=== PATIENT | female | born 1950 | race Caucasian/White ===

== ENCOUNTER 2020-10-10 08:06 | Outpatient (REF) | payer MEDICARE, SELFPAY ==
[2020-10-10 11:21] LABS: Hematocrit 37.7 % (37-47); Mean Corpuscular HGB Conc 31.8 g/dl (31.0-35.0); Mean Corpuscular Hemoglobin 29.5 pg (27.0-33.0); Mean Corpuscular Volume 92.6 fL (80-98); Mean Platelet Volume 12.4 fL (9.4-12.3); Platelet Count 140 X10*3/uL (160-400); Red Blood Count 4.07 X10*6/uL (4.20-5.50); Red Cell Distribution Width 15.3 % (11.0-16.0); White Blood Count 7.5 X10*3/uL (4.8-10.8)
[2020-10-10 11:26] LABS: Estimated Average Glucose 160 mg/dL; Hemoglobin A1c % 7.2 %
[2020-10-10 11:44] LABS: Alanine Aminotransferase 35 U/L (0-31); Albumin Level 3.5 g/dL (3.5-5.0); Alkaline Phosphatase 75 U/L (39-117); Anion Gap 11 (12-20); Aspartate Amino Transferase 68 U/L (5-31); Bilirubin Total 0.7 mg/dL (0.0-1.0); Blood Urea Nitrogen 12 mg/dL (9-16); Calcium 8.5 mg/dL (8.4-10.2); Carbon Dioxide 32 mmol/L (22-29); Chloride 100 mmol/L (96-108); Cholesterol 137 mg/dL; Estimated Glomerular Filt Rate > 60; Glucose Fasting 143 mg/dL (60-99); HDL Cholesterol 38 mg/dL; LDL Cholesterol Calculated 83 mg/dl; Sodium 139 mmol/L (135-145); Triglycerides 80 mg/dL
[2020-10-10 11:56] LABS: TSH reflex Free T4 2.18 mIU/mL (0.32-4.0)
== END 2020-10-10 08:07 | disposition home or self-care (01) ==
LOC: HO.HMGCLDS 08:06
PROVIDERS: PCP Internal Medicine; Visit Provider Internal Medicine
DX: E11.65 Type 2 diabetes mellitus with hyperglycemia (principal); R74.8 Abnormal levels of other serum enzymes; J45.20 Mild intermittent asthma, uncomplicated; E78.5 Hyperlipidemia, unspecified
CPT/HCPCS: 36415; 80053; 80061; 83036; 84443; 85027

== ENCOUNTER 2021-01-14 08:07 | Outpatient (REF) | payer MEDICARE, SELFPAY ==
[2021-01-14 11:45] LABS: Estimated Average Glucose 166 mg/dL; Hemoglobin A1c % 7.4 %
[2021-01-14 12:12] LABS: Vitamin D 25-OH Total 43.8 ng/mL (>30)
[2021-01-14 12:14] LABS: Alanine Aminotransferase 40 U/L (0-31); Anion Gap 18 (12-20); Aspartate Amino Transferase 94 U/L (5-31); Blood Urea Nitrogen 10 mg/dL (9-16); Calcium 8.6 mg/dL (8.4-10.2); Carbon Dioxide 28 mmol/L (22-29); Chloride 98 mmol/L (96-108); Cholesterol 129 mg/dL; Estimated Glomerular Filt Rate > 60; Glucose Fasting 146 mg/dL (60-99); HDL Cholesterol 37 mg/dL; LDL Cholesterol Calculated 75 mg/dl; Sodium 140 mmol/L (135-145); Triglycerides 85 mg/dL
[2021-01-14 14:48] LABS: Microalbum/Creatinine Ratio Ur 4.6 ug/mg cr
== END 2021-01-14 08:08 | disposition home or self-care (01) ==
LOC: HO.HMGCLDS 08:07
PROVIDERS: PCP Internal Medicine; Visit Provider Internal Medicine
DX: M81.0 Age-related osteoporosis without current pathological fracture (principal); J45.20 Mild intermittent asthma, uncomplicated; E78.5 Hyperlipidemia, unspecified; E11.65 Type 2 diabetes mellitus with hyperglycemia; Z78.0 Asymptomatic menopausal state; I10 Essential (primary) hypertension
CPT/HCPCS: 36415; 80048; 80061; 82043; 82306; 83036; 84450; 84460

== ENCOUNTER 2021-04-23 07:24 | Outpatient (REF) | payer MEDICARE, SELFPAY ==
[2021-04-23 11:50] LABS: Estimated Average Glucose 171 mg/dL; Hemoglobin A1c % 7.6 %
[2021-04-23 12:07] LABS: Alanine Aminotransferase 31 U/L (0-31); Anion Gap 13 (12-20); Aspartate Amino Transferase 72 U/L (5-31); Blood Urea Nitrogen 10 mg/dL (9-16); Calcium 8.5 mg/dL (8.4-10.2); Carbon Dioxide 29 mmol/L (22-29); Chloride 102 mmol/L (96-108); Cholesterol 118 mg/dL; Estimated Glomerular Filt Rate > 60; Glucose Fasting 146 mg/dL (60-99); HDL Cholesterol 31 mg/dL; LDL Cholesterol Calculated 73 mg/dl; Potassium 4.4 mmol/L (3.3-5.1); Sodium 140 mmol/L (135-145); Triglycerides 71 mg/dL
[2021-04-23 12:20] LABS: Vitamin D 25-OH Total 41.4 ng/mL (>30)
== END 2021-04-23 07:25 | disposition home or self-care (01) ==
LOC: HO.HMGCLDS 07:24
PROVIDERS: PCP Internal Medicine; Visit Provider Internal Medicine
DX: E11.65 Type 2 diabetes mellitus with hyperglycemia (principal); E78.5 Hyperlipidemia, unspecified; M81.0 Age-related osteoporosis without current pathological fracture; I10 Essential (primary) hypertension; Z78.0 Asymptomatic menopausal state
CPT/HCPCS: 36415; 80048; 80061; 82306; 83036; 84450; 84460

== ENCOUNTER 2021-09-07 07:51 | Outpatient (REF) | payer MEDICARE, SELFPAY ==
[2021-09-07 12:17] LABS: Estimated Average Glucose 140 mg/dL; Hemoglobin A1c % 6.5 %
[2021-09-07 12:33] LABS: Vitamin D 25-OH Total 37.5 ng/mL (>30)
[2021-09-07 12:34] LABS: Alanine Aminotransferase 33 U/L (0-31); Anion Gap 14 (12-20); Aspartate Amino Transferase 66 U/L (5-31); Blood Urea Nitrogen 11 mg/dL (9-16); Calcium 8.7 mg/dL (8.4-10.2); Carbon Dioxide 27 mmol/L (22-29); Chloride 102 mmol/L (96-108); Cholesterol 110 mg/dL; Estimated Glomerular Filt Rate > 60; Glucose Fasting 126 mg/dL (60-99); HDL Cholesterol 38 mg/dL; LDL Cholesterol Calculated 61 mg/dl; Potassium 4.1 mmol/L (3.3-5.1); Sodium 139 mmol/L (135-145); Triglycerides 58 mg/dL
== END 2021-09-07 07:52 | disposition home or self-care (01) ==
LOC: HO.HMGCLDS 07:51
PROVIDERS: PCP Internal Medicine; Visit Provider Internal Medicine
DX: E11.65 Type 2 diabetes mellitus with hyperglycemia (principal); E78.5 Hyperlipidemia, unspecified; M81.0 Age-related osteoporosis without current pathological fracture; I10 Essential (primary) hypertension; Z78.0 Asymptomatic menopausal state
CPT/HCPCS: 36415; 80048; 80061; 82306; 83036; 84450; 84460

== ENCOUNTER 2022-01-11 08:30 | Outpatient (REF) | payer MEDICARE, SELFPAY ==
[2022-01-11 12:14] LABS: Alanine Aminotransferase 30 U/L (0-31); Anion Gap 14 (12-20); Aspartate Amino Transferase 59 U/L (5-31); Blood Urea Nitrogen 10 mg/dL (9-16); Calcium 8.7 mg/dL (8.4-10.2); Carbon Dioxide 27 mmol/L (22-29); Chloride 100 mmol/L (96-108); Cholesterol 103 mg/dL; Estimated Glomerular Filt Rate > 60; Glucose Fasting 132 mg/dL (60-99); HDL Cholesterol 32 mg/dL; LDL Cholesterol Calculated 58 mg/dl; Sodium 137 mmol/L (135-145); Triglycerides 67 mg/dL
[2022-01-11 12:22] LABS: Estimated Average Glucose 146 mg/dL; Hemoglobin A1c % 6.7 %
[2022-01-11 12:44] LABS: Creatinine Urine 214.79 mg/dL
== END 2022-01-11 08:31 | disposition home or self-care (01) ==
LOC: HO.HMGCLDS 08:30
PROVIDERS: PCP Internal Medicine; Visit Provider Internal Medicine
DX: M81.0 Age-related osteoporosis without current pathological fracture (principal); E78.5 Hyperlipidemia, unspecified; E11.65 Type 2 diabetes mellitus with hyperglycemia; I10 Essential (primary) hypertension; Z78.0 Asymptomatic menopausal state
CPT/HCPCS: 36415; 80048; 80061; 82043; 82306; 83036; 84450; 84460

== ENCOUNTER 2022-02-05 11:32 | Outpatient (REF) | payer MEDICARE, SELFPAY ==
--- NOTE | ~2022-02-05 | MM_ITS ---
EXAMINATION: MM SCREENING DIGITAL BREAST TOMOSYNTHESIS, BILATERAL CLINICAL INFORMATION: Screening. Asymptomatic. The lifetime risk of breast cancer based on the Tyrer-Cuzick Model is 9%. COMPARISON: Mammography: 04/22/2020, 02/24/2019, 02/14/2018 TECHNIQUE: Digital breast tomosynthesis is performed in both the craniocaudal and mediolateral oblique views along with computer-aided detection (CAD). Synthesized 2D images are generated from the tomosynthesis. Additional bilateral exaggerated CC views are provided. FINDINGS: There are scattered areas of fibroglandular density (ACR BI-RADS breast composition Category b). There are no significant masses, abnormal calcifications, or other abnormalities. Parenchymal pattern is similar to prior studies. The axilla and skin contours are unremarkable. MM/MM tomosynthesis screening BI IMPRESSION: No mammographic evidence of malignancy. ASSESSMENT: BI-RADS 1: Negative RECOMMENDATION: Routine annual mammography screening. This patient's information was entered into a reminder system with a target due date for their next mammogram.
== END 2022-02-05 11:33 | disposition home or self-care (01) ==
LOC: HO.MAMMO 11:32
PROVIDERS: Visit Provider Internal Medicine
DX: Z12.31 Encounter for screening mammogram for malignant neoplasm of breast (principal)
CPT/HCPCS: 77063; 77067

== ENCOUNTER 2022-04-27 10:38 | Outpatient (REF) | payer MEDICARE, SELFPAY ==
--- NOTE | ~2022-04-27 | MM_ITS ---
EXAMINATION: BONE DENSITOMETRY CLINICAL INDICATION: Other specified disorders of bone density and structure. COMPARISON: Previous BD dated 04/22/2020 and baseline BD dated 01/12/2008. TECHNIQUE: Using a [employer] DXA System (software version: 13.1) manufactured by [employer], dual-energy x-ray absorptiometry was performed of the lumbar spine and left hip. The images are of good technical quality. Summary results are attached. FINDINGS: AP SPINE L1-L2 (excluding L3 and L4): The data of L1-L4 has been changed to exclude the L3 and L4 vertebral bodies, because degenerative changes at these levels may cause overestimation of lumbar spine density. Current: BMD 0.848 g/cm2, Z-score -1.9, T-score -2.6, osteoporosis, 1.3% decrease from previous, 6.4% decrease from baseline (<5% change is not significant). Prior: BMD 0.859 g/cm2. Baseline: BMD 0.906 g/cm2. LEFT FEMUR, NECK: Current: BMD 0.926 g/cm2, Z-score 0.3, T-score -0.8, normal. Prior: BMD 0.948 g/cm2. Baseline: BMD 0.977 g/cm2. LEFT FEMUR, TOTAL: Current: BMD 0.961 g/cm2, Z-score 0.5, T-score -0.4, normal, 0.6% decrease from previous, 0.7% decrease from baseline (<5% change is not significant). Prior: BMD 0.967 g/cm2. Baseline: BMD 0.968 g/cm2. IDENTIFIED RISK FACTORS: Osteoporosis, recurrent falls, history of fracture (adult), menopause. HISTORY OF FRACTURE: Wrist. MEDICATIONS: Vitamin D, bisphosphonates. MM/XR DEXA axial skeleton IMPRESSION: 1. DIAGNOSIS: Osteoporosis based on the lowest T-score value of -2.6 in the lumbar spine applying World Health Organization criteria. 2. 10-YEAR FRACTURE RISK PREDICTION, FRAX: According to the guidelines, FRAX calculation should only be performed on patients in the osteopenia bone density category. Therefore, FRAX was not performed on this patient. 3. Treatment Recommendations: NOF guidelines recommend consideration for treatment in postmenopausal women and men age 50 and older presenting with the following: -A hip or vertebral (clinical or morphometric) fracture. -T-score less than or equal to -2.5 at the femoral neck or spine after appropriate evaluation to exclude secondary causes. -Low bone mass at the hip or spine and a 10-year fracture probability by FRAX of greater than or equal to 3% for hip fracture or greater than or equal to 20% for major osteoporotic fracture based on the [place] adapted WHO algorithm. 4. Other Recommendations: All treatment decisions require clinical judgment and consideration of individual patient factors, including patient preferences, comorbidities, previous drug use, risk factors not captured in the FRAX model (e.g. frailty, falls, vitamin D deficiency, increased bone turnover, interval significant decline in bone density) and possible under or overestimation of fracture risk by FRAX. Additional medical evaluation for secondary cause of low bone mineral density may be appropriate. FUTURE SCAN RECOMMENDATION: People with diagnosed cases of osteoporosis or at high risk for fracture should have regular bone mineral density tests. For patients eligible for Medicare, routine testing is allowed once every 2 years. The testing frequency can be increased to one year for patients who have rapidly progressing disease, those who are receiving or discontinuing medical therapy to restore bone mass, or have additional risk factors.
== END 2022-04-27 10:39 | disposition home or self-care (01) ==
LOC: HO.MAMMO 10:38
PROVIDERS: Visit Provider Internal Medicine
DX: Z13.820 Encounter for screening for osteoporosis (principal); N95.9 Unspecified menopausal and perimenopausal disorder; M85.88 Other specified disorders of bone density and structure, other site
CPT/HCPCS: 77080

== ENCOUNTER 2022-06-16 08:38 | Outpatient (REF) | payer MEDICARE, SELFPAY ==
[2022-06-16 12:11] LABS: Alanine Aminotransferase 20 U/L (0-31); Anion Gap 14 (12-20); Aspartate Amino Transferase 50 U/L (5-31); Blood Urea Nitrogen 10 mg/dL (9-16); Calcium 8.5 mg/dL (8.4-10.2); Carbon Dioxide 29 mmol/L (22-29); Chloride 101 mmol/L (96-108); Cholesterol 103 mg/dL; Estimated Glomerular Filt Rate > 60; Glucose Fasting 126 mg/dL (60-99); HDL Cholesterol 34 mg/dL; LDL Cholesterol Calculated 60 mg/dl; Potassium 4.2 mmol/L (3.3-5.1); Sodium 140 mmol/L (135-145); Triglycerides 48 mg/dL
[2022-06-16 12:19] LABS: Vitamin D 25-OH Total 50.2 ng/mL (>30)
[2022-06-16 14:41] LABS: Creatinine Urine 200.55 mg/dL; Microalbum/Creatinine Ratio Ur 5.4 ug/mg cr
[2022-06-17 07:24] LABS: Estimated Average Glucose 126 mg/dL
== END 2022-06-16 08:39 | disposition home or self-care (01) ==
LOC: HO.HMGCLDS 08:38
PROVIDERS: PCP Internal Medicine; Visit Provider Internal Medicine
DX: E11.9 Type 2 diabetes mellitus without complications (principal); E78.5 Hyperlipidemia, unspecified; N95.9 Unspecified menopausal and perimenopausal disorder; M85.88 Other specified disorders of bone density and structure, other site
CPT/HCPCS: 36415; 80048; 80061; 82043; 82306; 83036; 84450; 84460

== ENCOUNTER → 2022-07-06 12:51 | Outpatient (BNVA) | payer MEDICARE, SELFPAY | PROVIDERS: PCP Internal Medicine; Visit Provider Internal Medicine Endocrinology, Diabetes & Metabolism | DX: M81.0 Age-related osteoporosis without current pathological fracture (principal); Z79.899 Other long term (current) drug therapy | CPT/HCPCS: 99202 ==

== ENCOUNTER 2022-07-26 09:30 | Outpatient (REF) | payer MEDICARE, SELFPAY ==
[2022-07-26 11:49] LABS: Phosphorus 3.5 mg/dL (2.7-4.5)
[2022-07-26 12:36] LABS: Creatinine, mg/dL 61.53
[2022-07-26 12:52] LABS: Creatinine, 24Hr Urine 1.2 G/Day (1.0-2.0); Total Volume 24 Hour Urine 2000 mL
[2022-07-27 21:27] LABS: Prot Elec - Albumin 3.3 g/dL (3.8-4.8); Prot Elec - Alpha1 0.3 g/dL (0.2-0.3); Prot Elec - Alpha2 0.7 g/dL (0.5-0.9); Prot Elec - Beta 1 0.8 g/dL (0.4-0.6); Prot Elec - Beta 2 0.8 g/dL (0.2-0.5); Prot Elec - Gamma 1.9 g/dL (0.8-1.7); Prot Elec - Total Protein 7.7 g/dL (6.1-8.1)
[2022-07-28 17:37] LABS: Calcium, 24 Hr Urine 144 mg/24 h; Calcium/Creatinine Ratio 116 mg/g creat (30-275); Creatinine 24Hr Urine 1.24 g/24 h (0.50-2.15)
[2022-08-01 03:51] LABS: N-Telopeptide 30 (see note); NTXCreaRU 63 mg/dL (20-275)
== END 2022-07-26 09:31 | disposition home or self-care (01) ==
LOC: HO.HMGCLDS 09:30
PROVIDERS: PCP Internal Medicine; Visit Provider Internal Medicine Endocrinology, Diabetes & Metabolism
DX: M81.0 Age-related osteoporosis without current pathological fracture (principal)
CPT/HCPCS: 82340; 82523; 82570; 84100; 84165; 86335

== ENCOUNTER → 2022-08-10 09:14 | Outpatient (BNVA) | payer MEDICARE, SELFPAY | PROVIDERS: PCP Internal Medicine; Visit Provider Surgery Vascular Surgery | DX: I83.11 Varicose veins of right lower extremity with inflammation (principal) | CPT/HCPCS: 99202 ==

== ENCOUNTER 2022-09-30 14:25 | Outpatient (REF) | payer MEDICARE, SELFPAY ==
[2022-09-30 15:20] LABS: Influenza A PCR NEGATIVE (Negative); Influenza B PCR NEGATIVE (Negative); Resp Syncy Virus RNA Qual PCR NEGATIVE (Negative); SARS COV2 PCR INHOUSE NEGATIVE (Negative)
== END 2022-09-30 14:26 | disposition home or self-care (01) ==
LOC: HO.LNP 14:25
PROVIDERS: Visit Provider Internal Medicine
DX: Z20.822 Contact with and (suspected) exposure to COVID-19 (principal); R09.89 Other specified symptoms and signs involving the circulatory and respiratory systems
CPT/HCPCS: 0241U

== ENCOUNTER 2022-10-04 09:56 | Outpatient (REF) | payer MEDICARE, SELFPAY ==
--- NOTE | ~2022-10-04 | US_ITS ---
EXAMINATION: US LOWER EXTREMITY VENOUS (REFLUX EXAM), BILATERAL CLINICAL INDICATION: This is a 71-year-old female with a history of previous vein procedures of unknown type. COMPARISON: None. TECHNIQUE: Color flow triplex imaging and compression Doppler was performed to evaluate both the deep and the superficial systems bilaterally. To evaluate the superficial system, the examination was performed in the upright position. Color-flow Doppler ultrasound and compression ultrasound were utilized. In addition, maneuvers were utilized to demonstrate reflux. FINDINGS: 1. DEEP VENOUS ULTRASOUND OF THE RIGHT LOWER EXTREMITY: Common Femoral Vein: Compressible, normal respiratory variation and augmented flow. Femoral vein: Compressible, normal color flow and augmentation. Popliteal Vein: Compressible, normal augmentation. Deep Reflux: There is no evidence of reflux in the deep system in either the common femoral vein or the popliteal vein. There is no evidence of a Hernandez's cyst. 2. SUPERFICIAL ULTRASOUND WITH DOPPLER OF RIGHT LOWER EXTREMITY: GREAT SAPHENOUS VEIN: Saphenofemoral Junction: 1.0 cm. There is no reflux. Mid Thigh: Not seen and possibly treated. Above Knee: Not seen and possibly treated. Below Knee: 0.4 cm. There is greater than 2009 and 72 ms of reflux. Mid Calf: 0.4 cm. The reflux time is 2736 ms Ankle: 0.3 cm. The reflux time is 1788 ms. GSV REFLUX: There is isolated reflux in the great saphenous vein at the knee and extending down to the ankle. This may need further treatment. DUPLICATED GREAT SAPHENOUS VEIN: There is a 0.3 cm duplicated lateral great saphenous vein with greater than one second of reflux at the junction. SMALL SAPHENOUS VEIN: Proximal: 0.8 cm. The reflux time is 1608 ms. There is neovascularity around this segment. Distal: Not seen. SSV REFLUX: There is reflux at the saphenofemoral popliteal junction. VEIN OF GIACOMINI: None Imaged. PERFORATORS: There are multiple perforators present. In the mid calf measuring 1.1 cm without reflux. In the proximal calf measuring 0.1 cm with greater than 3 seconds of reflux. In the distal calf measuring 0.4 cm with greater than 3 seconds of reflux. VARICOSITIES: There are multiple 0.7 cm and 0.4 cm varicose veins in the proximal calf, at the knee with greater than 3 seconds of reflux to 3. DEEP VENOUS ULTRASOUND OF THE LEFT LOWER EXTREMITY: Common Femoral Vein: Compressible, normal respiratory variation and augmented flow. Femoral Vein: Compressible, normal color flow and augmentation. Popliteal Vein: Compressible, normal augmentation. Deep Reflux: There is no evidence of reflux in the deep system in either the common femoral vein or the popliteal vein. There is no evidence of a Hernandez's cyst. 4. SUPERFICIAL ULTRASOUND WITH DOPPLER OF LEFT LOWER EXTREMITY: GREAT SAPHENOUS VEIN: Saphenofemoral Junction: 1.1 cm. The reflux time is 1712 ms. Proximal thigh: 0.5 cm. There is no reflux. Mid Thigh: Not seen. Above Knee: Not seen. Below Knee: Not seen. Mid Calf: 0.3 cm. There is no reflux. Ankle: 0.2 cm. There is no reflux. GSV REFLUX: There is reflux at the saphenofemoral junction. DUPLICATED GREAT SAPHENOUS VEIN: There is a 0.7 cm duplicated lateral great saphenous vein without reflux. SMALL SAPHENOUS VEIN: Proximal: 0.2 cm Distal: 0.3 cm SSV REFLUX: No evidence of reflux. VEIN OF GIACOMINI: None Imaged. PERFORATORS: There are multiple perforators present. There is a 0.4 cm mid calf pattern hanger without reflux. There is a mid calf pattern hanger measuring 0.1 cm with greater than one second of reflux. There are multiple other perforators without reflux. VARICOSITIES: There are multiple varicose veins measuring 0.6 cm and 0.5 cm with greater than 2 seconds of reflux. US/US venous duplex LE BI IMPRESSION: 1. There is segmental occlusion of the right great saphenous vein in the mid thigh and above the knee. Reflux below this level is seen. 2. There is a patent short segment right small saphenous vein measures 0.8 cm with reflux at the junction. 3. There are multiple perforators and varicose veins in the right lower extremity as noted. 4. There is segmental occlusion of the left great saphenous vein from the mid thigh down to below the knee. 5. The left small saphenous vein appears patent without reflux. 6. There are perforators and varicose veins in the left leg as noted.
== END 2022-10-04 09:57 | disposition home or self-care (01) ==
LOC: HO.US 09:56
PROVIDERS: Visit Provider Surgery Vascular Surgery
DX: I83.11 Varicose veins of right lower extremity with inflammation (principal)
CPT/HCPCS: 93970

== ENCOUNTER → 2022-10-07 12:40 | Outpatient (BNVA) | payer MEDICARE, SELFPAY | PROVIDERS: PCP Internal Medicine; Visit Provider Surgery Vascular Surgery | DX: I83.11 Varicose veins of right lower extremity with inflammation (principal) | CPT/HCPCS: 99212 ==

== ENCOUNTER → 2022-11-12 10:45 | Outpatient (BNVA) | payer MEDICARE, SELFPAY | PROVIDERS: PCP Internal Medicine; Visit Provider Surgery Vascular Surgery | DX: I83.11 Varicose veins of right lower extremity with inflammation (principal) | CPT/HCPCS: 36482 ==

== ENCOUNTER 2022-11-15 14:18 | Outpatient (REF) | payer MEDICARE, SELFPAY ==
--- NOTE | ~2022-11-15 | US_ITS ---
EXAMINATION: US VENOUS ULTRASOUND WITH DOPPLER LOWER EXTREMITY, RIGHT CLINICAL INFORMATION: Pain in the right leg COMPARISON: None TECHNIQUE: Ultrasound of the deep veins is performed from the hip to the calf with compression sonography and color and pulse Doppler assessment. Spectral analysis with color-flow imaging is performed. FINDINGS: There is normal venous compression and respiratory variation and augmented flow. The visualized common femoral vein, superficial femoral vein, profunda femoral vein, and popliteal vein no evidence of deep venous thrombosis. Vein is not visualized. Partially visualized posterior tibial veins show no evidence of thrombus. There is no significant popliteal fossa cyst. There is thrombus in the greater saphenous vein. There is a veno seal present at the proximal calf 43 cm from the SFJ If the patient's symptoms persist, followup ultrasound in 5 days 7 days might be of value to exclude proximal propagation from a non-visualized calf vein. US/US venous duplex LE RT IMPRESSION: No DVT demonstrated in the right lower extremity. There is thrombus in the greater saphenous vein. There is a veno seal present at the proximal calf 43 cm from the SFJ
== END 2022-11-15 14:19 | disposition home or self-care (01) ==
LOC: HO.US 14:18
PROVIDERS: PCP Internal Medicine; Visit Provider Surgery Vascular Surgery
DX: M79.604 Pain in right leg (principal)
CPT/HCPCS: 93971

== ENCOUNTER → 2022-11-25 10:48 | Outpatient (BNVA) | payer MEDICARE, SELFPAY | PROVIDERS: PCP Internal Medicine; Visit Provider Surgery Vascular Surgery | DX: I83.11 Varicose veins of right lower extremity with inflammation (principal); Z98.890 Other specified postprocedural states | CPT/HCPCS: 99212 ==

== ENCOUNTER 2022-12-15 08:07 | Outpatient (REF) | payer MEDICARE, SELFPAY ==
[2022-12-15 11:52] LABS: Alanine Aminotransferase 17 U/L (0-31); Anion Gap 13 (12-20); Aspartate Amino Transferase 38 U/L (5-31); Blood Urea Nitrogen 15 mg/dL (9-16); Calcium 8.5 mg/dL (8.4-10.2); Carbon Dioxide 28 mmol/L (22-29); Chloride 104 mmol/L (96-108); Cholesterol 95 mg/dL; Estimated Glomerular Filt Rate > 60; Glucose Fasting 117 mg/dL (60-99); HDL Cholesterol 35 mg/dL; LDL Cholesterol Calculated 51 mg/dl; Potassium 4.3 mmol/L (3.3-5.1); Sodium 141 mmol/L (135-145); Triglycerides 45 mg/dL
[2022-12-15 11:54] LABS: Vitamin D 25-OH Total 39.3 ng/mL (>30)
[2022-12-15 11:55] LABS: Estimated Average Glucose 128 mg/dL; Hemoglobin A1c % 6.1 %
[2022-12-15 12:36] LABS: Creatinine Urine 227.97 mg/dL; Microalbum/Creatinine Ratio Ur 7.8 ug/mg cr
== END 2022-12-15 08:08 | disposition home or self-care (01) ==
LOC: HO.HMGCLDS 08:07
PROVIDERS: PCP Internal Medicine; Visit Provider Internal Medicine
DX: E11.9 Type 2 diabetes mellitus without complications (principal); M81.0 Age-related osteoporosis without current pathological fracture; E78.5 Hyperlipidemia, unspecified
CPT/HCPCS: 36415; 80048; 80061; 82043; 82306; 83036; 84450; 84460

== ENCOUNTER 2022-12-20 11:10 | Outpatient (AMB) | payer MEDICARE, SELFPAY ==
--- NOTE | 2022-12-20 11:57 | A.OFFPC_ITS ---
Vital Signs 12/20/22 11:58 Height 5 ft 3 in Weight 230 lb 4 oz BMI 40.8 BP 138/60 Blood Pressure Location Rt brachial Position Sitting Pulse 90 Pulse Source Pulse Oximeter Pulse Oximetry (%) 97 Oxygen Delivery Method Room Air Intake Visit Reasons: 6 month follow up lipids, DM Intake Note: Pt is here for her follow up appointment on lipids and DM. Allergies benzethonium chloride [From LANACANE ANTI-ITCH] Allergy (Unknown, Verified 04/18/23 11:56) BLISTERS IN MOUTH benzocaine [From LANACANE ANTI-ITCH] Allergy (Unknown, Verified 04/18/23 11:56) BLISTERS IN MOUTH cortisone [CORTISONE] Allergy (Unknown, Verified 04/18/23 11:56) BLISTERS IN MOUTH, LOST SENSE OF TASTE ibuprofen Allergy (Unknown, Verified 04/18/23 11:56) nose bleed naproxen Allergy (Unknown, Verified 04/18/23 11:56) nose bleed triamcinolone [Kenalog] Allergy (Unknown, Verified 04/18/23 11:56) unknown From KENALOG Allergy (Unknown, Uncoded 04/18/23 11:56) BLISTERS IN MOUTH Medication List - Last Reconciled 12/20/22 by Daniela Eduardo MD albuterol sulfate 90 mcg/actuation 2 puffs PO Q6H PRN azithromycin 250 mg PO ONCE 5 days blood sugar diagnostic As directed blood sugar diagnostic ([facility] Verio test strips) USE TO TEST BLOOD SUGAR TWICE A DAY cholecalciferol (vitamin D3) 50 mcg PO DAILY coenzyme Q10 100 mg PO DAILY dextromethorphan polistirex ER (Delsym 12 hour) 10 mL PO Q12H PRN 10 days flu vac 2020 [id number](PF) 60 mcg (15 mcg x 4)/0.5 mL IM fluticasone propion-salmeterol 250-50 mcg/dose (Wixela Inhub) 1 inh inhalation Q12H lancets (SDITouch Delica Plus Lancet) As directed twice a day ac metformin 1,000 mg PO BID pioglitazone 15 mg PO DAILY pravastatin 20 mg PO BEDTIME Tobacco use date assessed: 12/20/22 Fall risk assessment: No Falls in past year Last assessed Fall Risk: 12/20/22 HPI 6 month follow up lipids, DM HPI Details Here for follow-up on her dyslipidemia and diabetes mellitus, currently taking metformin 1000 mg 1 tablet twice a day and pioglitazone 15 mg daily as well as pravastatin 20 mg at bedtime. Has been compliant with medications and has been following recommended diet. Recent fasting labs done showed lipids, and hemoglobin A1c within normal limits. [facility], LAT[facility] Medical History Cough Acute maxillary sinusitis Varicose veins of bilateral lower extremities with pain Osteoporosis Breast cancer screening by mammogram Type 2 diabetes mellitus without complication, without long-term current use of insulin Thrombocytopenia Osteoarthritis of multiple joints Hammertoes of both feet Colonoscopy refused Mild intermittent asthma in adult without complication Dyslipidemia Type 2 diabetes mellitus with hyperglycemia, without long-term current use of insulin Surgical History History of surgery on lower extremity H/O left wrist surgery Family History Mother Breast cancer Arthralgia of both feet Arthritis Brother Arthritis Brother No problems noted. Social History Household Members: None Housing: House Do you presently have visiting nurse or other home services: No Alcohol intake: current Alcohol intake frequency: holidays/special occasions only Patient Tobacco Use Status: Never used Tobacco Smoked in Last 30 Days: No e-Cigarette/Vaping Use: Never Used Use of substances other than those prescribed or required for medical reasons: No Currently Displaying Signs/Symptoms of Drug Intoxication Withdrawal: No Have you been hit, kicked, punched, or otherwise hurt by someone within the past year? If so, by whom?: No Do you feel safe in your current relationship?: Yes Is there a partner from a previous relationship who is making you feel unsafe now?: No Are you made to feel afraid or neglected: No Advance Directives: No Advance Directives Information Provided: Yes Do you have thoughts of harming others: None Do you have a plan to hurt others: No Plan Recently lost weight without trying: Yes How much weight loss: 2-13 pounds Nutrition Risks: No Nutritional Risk Patient : No Poor oral hygiene: No service: No Current occupational status: retired Cognitive needs: No Hearing needs: No Vision needs: Yes Questionnaire Thrive Questionnaire Date Thrive assessed: 04/28/21 AUDIT C Alcohol Use Questionnaire (AUDIT-C) 1. How often do you have a drink containing alcohol?: Monthly or less 2. How many drinks containing alcohol do you have on a typical day when you are drinking?: 1 or 2 3. How often do you have six or more drinks on one occasion?: Never Total Score: 1 FABRIZIO-7 AMB Questionnaire FABRIZIO-7 Date FABRIZIO - 7 assessed: 01/15/22 Source: Developed by Drs. Callum Gomez, Chiquita Simon, Sharath Anna and colleagues, with an educational sy from [employer]. Review of Systems Const Denies body aches, Denies fever(s), Denies headache(s) and Denies weakness Eyes Denies change in vision, Denies eye discharge and Denies itchy eyes ENT Denies dizziness, Denies headache(s), Denies nasal congestion, Denies nasal discharge and Denies sore throat Card Denies chest pain, Denies lightheadedness, Denies palpitations and Denies dyspnea Resp Denies chest congestion, Denies cough, Denies dyspnea and Denies wheezing GI Denies abdominal pain, Denies change in bowel habits and Denies heartburn Denies urinary frequency, Denies dysuria and Denies urinary urgency Musc Reports stiffness Skin/Breast Denies lesions and Denies rash Neuro Denies dizziness, Denies headache(s) and Denies weakness Psych Reports no additional complaints Endo Denies polydipsia, Denies polyuria and Denies palpitations Abhilash/Lymph Denies easy bruising Aller/Immun Denies itchy eyes, Denies seasonal rhinorrhea and Denies wheezing Physical exam (Primary Care) Vital Signs: Last Vital Signs Pulse 90 12/20/22 11:58 BP 138/60 12/20/22 11:58 Pulse Ox 97 12/20/22 11:58 Oxygen Delivery Method Room Air 12/20/22 11:58 BMI result Body Mass Index 40.8 Tobacco/Smoking Status: Tobacco use Status Tobacco use date assessed 12/20/22 12/20/22 12:02 Patient Tobacco Use Status Never used Tobacco 12/20/22 12:02 e-Cigarette/Vaping Use Never Used 12/20/22 12:02 Thrive Assessment: Date of Thrive Assessment Date Thrive assessed 04/28/21 12/20/22 12:02 Const General: comfortable, no acute distress and alert Orientation/consciousness: patient oriented x3 Limitations: no limitations HENMT Ears: external ears normal, TM's normal bilaterally and EAC's normal General nose exam: Normal external nose present and No nasal discharge present Mouth: Normal oral and palatal mucosa present, oropharynx normal and moist mucous membranes Eyes General: appearance normal, both eyes and all related structures Conjunctivae: conjunctivae normal Sclerae: sclerae normal Pupils: Equal, round and reactive pupils present EOM: EOMs intact bilaterally Neck Neck: Yes full ROM, Yes no lymphadenopathy and Yes supple Resp Effort & Inspection: normal respiratory effort and able to speak in complete sentences Auscultation: clear to auscultation bilaterally Cardio Rate: regular rate Rhythm: regular rhythm Heart sounds: S1 normal heart sound present and S2 normal heart sound present GI Palpation (GI): Soft to palpation, nontender and no masses Auscultation: normal bowel sounds Back/Spine/Pelvis Back: No back tenderness Skin General skin exam: no rashes or lesions noted Neuro General: patient oriented x3, gait normal, tone normal, moves all extremities, Normal light touch and pain sensation and no focal motor deficits Cranial nerves: Yes CN's II-XII intact bilaterally and Yes Equal, round and reactive pupils present Cognition (Neuro): normal cognition Extrem General: Yes full ROM, Yes no joint enlargement, Yes no clubbing, cyanosis or edema and Yes no calf tenderness Results Reviewed Results Reviewed: Laboratory Tests 12/15/22 12/15/22 08:16 08:20 Estimat Average Glucose 128 Hemoglobin A1c % 6.1 Urine Creatinine 227.97 Urine Microalbumin 18.0 Microalb/Creat Ratio 7.8 Name: Paula Baum Age/Sex: 72/F : 1950 Unit#: [id number] Attend Dr: Daniela Eduardo MD Re12/15/22 Status: DEP REF Location: [facility] Disch: SPEC : [id number] SANGITA: 12/15/22 STATUS: COMP REQ : [id number] RECD: 12/15/[address]: Daniela Eduardo MD COMP: 12/15/22-1154 ENTERED: 12/15/22-[address] [facility] [address]: ORDERED: Met Prof Fast, AST, ALT, Lipid Panel, Vitamin D 25-OH Test Result Flag Reference Site Sodium 141 135-145 mmol/L Potassium 4.3 3.3-5.1 mmol/L CL 104 96-108 mmol/L CO2 28 22-29 mmol/L Gap 13 12-20 BUN 15 9-16 mg/dL Creat 0.73 0.5-1.4 mg/dL EGFR > 60 NOTE: For -[place]osoth[place] individuals, multiply the result by 1.210. Chronic Kidney Disease: Estimated GFR < 60 mL/min/1.73m2 Severe Kidney Disease: Estimated GFR < 15 mL/min/1.73m2 FBS 117 H 60-99 mg/dL A fasting glucose from 100-125 mg/dl is considered impaired (pre-diabetes). CA 8.5 8.4-10.2 mg/dL AST (GOT) 38 H 5-31 U/L ALT (GPT) 17 0-31 U/L Triglyceride 45 mg/dL Desirable Triglyceride: less than 150 mg/dL Borderline High Triglyceride 150-199 mg/dL High Triglyceride: 200-499 mg/dL Very High Triglyceride: greater than or equal to 5OO mg/dL Chol 95 mg/dL Desirable Cholesterol: less than 200 mg/dL Borderline High Cholesterol: 200-239 mg/dL High Cholesterol: greater than 239 mg/dL LDL Calculated 51 mg/dl Desirable LDL: less than 100 mg/dL Near Optimal/Above Optimal LDL: 110-129 mg/dL Borderline High LDL: 130-159 mg/dL High LDL: 160-189 mg/dL Very High LDL: greater than or equal to 190 mg/dL HDL 35 mg/dL Desirable HDL: greater than 40 mg/dL Note: This HDL assay may give artificially low results in patients with liver disease. Vit D 25-OH Tot 39.3 >30 ng/mL Health Based Reference Values* Assessment and Plan Assessment & Plan (1) Type 2 diabetes mellitus without complication, without long-term current use of insulin: Code(s): E11.9 - Type 2 diabetes mellitus without complications Plan: Recent lab results reviewed with patient, with sugar and hemoglobin A1c stable and at goal. Continue with metformin and pioglitazone and continue to check fasting blood sugar at home, maintain log and bring to next appointment for review. Reinforced diabetic diet and regular exercise with patient. Counseled regarding importance of yearly diabetes retinopathy screening. Patient advised to inspect feet daily, for any signs of injury, callus or infection. Compliance with diet and regular exercise again stressed. Blood pressure goal is less than 130/80, goal LDL is less than 100 and goal hemoglobin A1c is less than 7% follow-up appointment made in--3-months, after fasting labs done. (2) Dyslipidemia: Code(s): E78.5 - Hyperlipidemia, unspecified Plan: Fasting lipids are within normal limits, continue on pravastatin 20 mg at bedtime (3) Mild intermittent asthma in adult without complication: Code(s): J45.20 - Mild intermittent asthma, uncomplicated Plan: stable and controlled, refill sent for albuterol inhaler to use as needed for episodes of bronchospasm and wheezing Orders: Orders Hemoglobin A1c 03/21/23 E11.9 - Type 2 diabetes mellitus without complications, J45.20 - Mild intermittent asthma, uncomplicated, E78.5 - Hyperlipidemia, unspecified, E55.9 - Vitamin D deficiency, unspecified, N95.9 - Unspecified menopausal and perimenopausal disorder Lipid Panel 03/21/23 E78.5 - Hyperlipidemia, unspecified, E11.9 - Type 2 diabetes mellitus without complications, N95.9 - Unspecified menopausal and perimenopausal disorder, J45.20 - Mild intermittent asthma, uncomplicated, E55.9 - Vitamin D deficiency, unspecified Alanine Aminotransferase 03/21/23 E11.9 - Type 2 diabetes mellitus without complications, J45.20 - Mild intermittent asthma, uncomplicated, E78.5 - Hyperlipidemia, unspecified, E55.9 - Vitamin D deficiency, unspecified, N95.9 - Unspecified menopausal and perimenopausal disorder Aspartate Amino Transferase 03/21/23 E11.9 - Type 2 diabetes mellitus without complications, J45.20 - Mild intermittent asthma, uncomplicated, E78.5 - Hyperlipidemia, unspecified, E55.9 - Vitamin D deficiency, unspecified, N95.9 - Unspecified menopausal and perimenopausal disorder Basic Metabolic Panel Fasting 03/21/23 E11.9 - Type 2 diabetes mellitus without complications, J45.20 - Mild intermittent asthma, uncomplicated, E78.5 - Hyperlipidemia, unspecified, E55.9 - Vitamin D deficiency, unspecified, N95.9 - Unspecified menopausal and perimenopausal disorder Vitamin D 25-OH Total 03/21/23 E11.9 - Type 2 diabetes mellitus without complications, J45.20 - Mild intermittent asthma, uncomplicated, E78.5 - Hyperlipidemia, unspecified, E55.9 - Vitamin D deficiency, unspecified, N95.9 - Unspecified menopausal and perimenopausal disorder Medications: Changed From albuterol sulfate 90 mcg/actuation 2 puffs PO Q6H PRN 25.5 grams 3RF shortness of breath or wheezing To albuterol sulfate 90 mcg/actuation 2 puffs PO Q6H PRN 25.5 grams 3RF shortness of breath or wheezing Coding Level of Care Code Est Pt Level 4 (86246) Diagnoses Type 2 diabetes mellitus without complication, without long-term current use of insulin E11.9 Dyslipidemia E78.5 Mild intermittent asthma in adult without complication J45.20
[2022-12-20 11:58] VITALS: BP 138/60; PULSE 90; O2SAT 97; BMI 40.8
== END 2022-12-20 12:25 | disposition home or self-care (01) ==
LOC: HO.HMGC 11:11
PROVIDERS: PCP Internal Medicine; Visit Provider Internal Medicine
DX: E11.9 Type 2 diabetes mellitus without complications (principal); E78.5 Hyperlipidemia, unspecified; J45.20 Mild intermittent asthma, uncomplicated
CPT/HCPCS: 99214

== ENCOUNTER → 2022-12-31 10:26 | Outpatient (BNVA) | payer MEDICARE, SELFPAY | PROVIDERS: PCP Internal Medicine; Visit Provider Surgery Vascular Surgery | DX: I83.11 Varicose veins of right lower extremity with inflammation (principal) | CPT/HCPCS: 37765 ==

== ENCOUNTER → 2023-01-20 14:47 | Outpatient (BNVA) | payer MEDICARE, SELFPAY | PROVIDERS: PCP Internal Medicine; Visit Provider Surgery Vascular Surgery | DX: I83.12 Varicose veins of left lower extremity with inflammation (principal); I83.11 Varicose veins of right lower extremity with inflammation | CPT/HCPCS: 99212 ==

== ENCOUNTER → 2023-02-11 09:28 | Outpatient (BNVA) | payer MEDICARE, SELFPAY | PROVIDERS: PCP Internal Medicine; Visit Provider Internal Medicine Endocrinology, Diabetes & Metabolism | DX: M81.0 Age-related osteoporosis without current pathological fracture (principal) | CPT/HCPCS: 99212 ==

== ENCOUNTER → 2023-03-04 09:25 | Outpatient (BNVA) | payer MEDICARE, SELFPAY | PROVIDERS: PCP Internal Medicine; Visit Provider Surgery Vascular Surgery | DX: I83.12 Varicose veins of left lower extremity with inflammation (principal) | CPT/HCPCS: 37765 ==

== ENCOUNTER → 2023-03-17 09:53 | Outpatient (BNVA) | payer MEDICARE, SELFPAY | PROVIDERS: PCP Internal Medicine; Visit Provider Surgery Vascular Surgery | DX: I83.12 Varicose veins of left lower extremity with inflammation (principal); I83.11 Varicose veins of right lower extremity with inflammation | CPT/HCPCS: 99212 ==

== ENCOUNTER 2023-04-13 08:18 | Outpatient (REF) | payer MEDICARE, SELFPAY ==
[2023-04-13 12:04] LABS: Alanine Aminotransferase 12 U/L (0-31); Anion Gap 15 (12-20); Aspartate Amino Transferase 41 U/L (5-31); Blood Urea Nitrogen 10 mg/dL (9-16); Calcium 8.8 mg/dL (8.4-10.2); Carbon Dioxide 27 mmol/L (22-29); Chloride 101 mmol/L (96-108); Cholesterol 92 mg/dL; Estimated Glomerular Filt Rate > 60; Glucose Fasting 111 mg/dL (60-99); HDL Cholesterol 34 mg/dL; LDL Cholesterol Calculated 49 mg/dl; Potassium 3.9 mmol/L (3.3-5.1); Sodium 139 mmol/L (135-145); Triglycerides 49 mg/dL
[2023-04-13 12:14] LABS: Estimated Average Glucose 114 mg/dL; Hemoglobin A1c % 5.6 %
[2023-04-13 12:24] LABS: Vitamin D 25-OH Total 39.6 ng/mL (>30)
== END 2023-04-13 08:19 | disposition home or self-care (01) ==
LOC: HO.HMGCLDS 08:18
PROVIDERS: PCP Internal Medicine; Visit Provider Internal Medicine
DX: E11.9 Type 2 diabetes mellitus without complications (principal); E55.9 Vitamin D deficiency, unspecified; E78.5 Hyperlipidemia, unspecified; J45.20 Mild intermittent asthma, uncomplicated; N95.9 Unspecified menopausal and perimenopausal disorder
CPT/HCPCS: 36415; 80048; 80061; 82306; 83036; 84450; 84460

== ENCOUNTER 2023-04-27 11:07 | Outpatient (REF) | payer MEDICARE, SELFPAY ==
--- NOTE | ~2023-04-27 | MM_ITS ---
EXAMINATION: MM SCREENING DIGITAL BREAST TOMOSYNTHESIS, BILATERAL CLINICAL INFORMATION: Screening. Asymptomatic. The lifetime risk of breast cancer based on the Tyrer-Cuzick Model is 8.4%. COMPARISON: Mammography: This study is compared with prior exams dating back to 2019. TECHNIQUE: Digital breast tomosynthesis is performed in both the craniocaudal and mediolateral oblique views along with computer-aided detection (CAD). Synthesized 2D images are generated from the tomosynthesis. FINDINGS: There are scattered areas of fibroglandular density (ACR BI-RADS breast composition Category b). There are no significant masses, abnormal calcifications, or other abnormalities. MM/MM tomosynthesis screening BI IMPRESSION: No mammographic evidence of malignancy. ASSESSMENT: BI-RADS BI-RADS 1 - Negative RECOMMENDATION: Routine annual mammography screening. 1 year F/U This examination should not preclude the clinical evaluation of a suspicious palpable abnormality. This patient's information was entered into a reminder system with a target due date for their next mammogram.
== END 2023-04-27 11:08 | disposition home or self-care (01) ==
LOC: HO.MAMMO 11:07
PROVIDERS: PCP Internal Medicine; Visit Provider Internal Medicine
DX: Z12.31 Encounter for screening mammogram for malignant neoplasm of breast (principal)
CPT/HCPCS: 77063; 77067

== ENCOUNTER → 2023-04-27 12:30 | Outpatient (BNV) | payer MEDICARE, SELFPAY | PROVIDERS: PCP Internal Medicine; Visit Provider Radiology Diagnostic Radiology | DX: Z12.31 Encounter for screening mammogram for malignant neoplasm of breast (principal) | CPT/HCPCS: 77063; 77067 ==

== ENCOUNTER 2023-07-19 08:29 | Outpatient (REF) | payer MEDICARE, SELFPAY ==
[2023-07-19 11:25] LABS: MANUAL DIFF FLAG NO
[2023-07-19 12:02] LABS: Alanine Aminotransferase 14 U/L (0-31); Anion Gap 13 (12-20); Aspartate Amino Transferase 38 U/L (5-31); Blood Urea Nitrogen 10 mg/dL (9-16); Calcium 8.6 mg/dL (8.4-10.2); Carbon Dioxide 27 mmol/L (22-29); Chloride 105 mmol/L (96-108); Cholesterol 89 mg/dL (<200); Estimated Glomerular Filt Rate > 60; Glucose Fasting 109 mg/dL (60-99); HDL Cholesterol 34 mg/dL (>40); Iron 18 mcg/dL (30-160); LDL Cholesterol Calculated 45 mg/dL (<100); Percent Iron Saturation 4 % (15-50); Potassium 4.2 mmol/L (3.3-5.1); Sodium 141 mmol/L (135-145); Total Iron Binding Capacity 429 mcg/dL (228-428); Triglycerides 54 mg/dL (<150); Unsaturated Iron Binding 411 ug/dL
[2023-07-19 12:03] LABS: Basophils Percent Auto 0.7 % (0-2); Eosinophils Absolute Auto 0.1 X10*3/uL (0.0-0.4); Eosinophils Percent Auto 2.2 % (0-4); Imm Gran Abs Auto 0.02 X10*3/uL (0.00-0.03); Imm Gran Pct Auto 0.3 % (0.0-0.4); Lymphocytes Absolute Auto 1.4 X10*3/uL (1.2-4.9); Lymphocytes Percent Auto 23.6 % (20-40); Mean Corpuscular HGB Conc 26.4 g/dl (31.0-35.0); Mean Corpuscular Hemoglobin 17.9 pg (27.0-33.0); Mean Corpuscular Volume 67.5 fL (80.0-98.0); Monocytes Absolute Auto 0.7 X10*3/uL (0.1-1.2); Monocytes Percent Auto 12.7 % (2-11); NRBC Pct Auto 0.3 /100WBC (0.0-0.2); Neutrophils Absolute Auto 3.5 x10*3/uL (2.0-8.3); Neutrophils Percent Auto 60.5 % (45-73); Platelet Count 106 X10*3/uL (160-400); Red Blood Count 3.08 X10*6/uL (4.20-5.50); Red Cell Distribution Width 20.9 % (11.0-16.0); White Blood Count 5.8 X10*3/uL (4.8-10.8)
[2023-07-19 12:04] LABS: Hemoglobin 5.5 g/dl (12.0-16.0)
[2023-07-19 12:05] LABS: Hematocrit 20.8 % (37.0-47.0)
[2023-07-19 12:09] LABS: Estimated Average Glucose 114 mg/dL; Hemoglobin A1c % 5.6 % (<6.0)
[2023-07-19 12:20] LABS: Vitamin D 25-OH Total 41.8 ng/mL (>30)
[2023-07-19 12:31] LABS: Folate 16.2 ng/mL (> or = 4.0); Vitamin B12 956 pg/mL (200-900)
[2023-07-19 13:10] LABS: Creatinine Urine 186.86 mg/dL; Microalbum/Creatinine Ratio Ur 9.6 ug/mg cr (<30)
[2023-07-22 10:49] LABS: Prot Elec - Albumin 3.1 g/dL (3.8-4.8); Prot Elec - Alpha1 0.3 g/dL (0.2-0.3); Prot Elec - Alpha2 0.6 g/dL (0.5-0.9); Prot Elec - Beta 1 0.7 g/dL (0.4-0.6); Prot Elec - Beta 2 0.7 g/dL (0.2-0.5); Prot Elec - Gamma 1.9 g/dL (0.8-1.7); Prot Elec - Total Protein 7.3 g/dL (6.1-8.1)
[2023-07-25 15:29] LABS: IgA 974 mg/dL (70-320); IgG 1987 mg/dL (600-1540); IgM 66 mg/dL (50-300)
== END 2023-07-19 08:30 | disposition home or self-care (01) ==
LOC: HO.HMGCLDS 08:29
PROVIDERS: PCP Internal Medicine; Visit Provider Internal Medicine
DX: E11.9 Type 2 diabetes mellitus without complications (principal); D69.6 Thrombocytopenia, unspecified; E78.5 Hyperlipidemia, unspecified
CPT/HCPCS: 36415; 80048; 80061; 82043; 82306; 82570; 82607; 82746; 82784; 83036; 83540; 84165; 84450; 84460; 85025; 86334

== ENCOUNTER 2023-07-19 15:01 | Inpatient (IN) | payer MEDICARE, SELFPAY ==
[2023-07-19] VITALS (10 sets, daily range): BP systolic 113–157; BP diastolic 47–84; PULSE 81–94; RESP 14–22; TEMP 36.2–37.3; O2SAT 95–98; BMI 37.2; BMI 41.2
--- NOTE | 2023-07-19 | ECG_ITS ---
Test Reason : GENERAL MEDICAL Blood Pressure : / mmHG Vent. Rate : 085 BPM Atrial Rate : 085 BPM P-R Int : 166 ms QRS Dur : 082 ms QT Int : 380 ms P-R-T Axes : 024 002 053 degrees QTc Int : 452 ms Normal sinus rhythm Cannot rule out Anterior infarct , age undetermined Abnormal ECG When compared with ECG of 25-MAR-2018 15:43, No significant change was found Referred By: Donn Mckeon Electronically Signed By:MATTEO MANRIQUE
--- NOTE | ~2023-07-19 | CT_ITS ---
EXAMINATION: CT ABDOMEN AND PELVIS WITH CONTRAST CLINICAL INFORMATION: Anemia. Rule out mass. COMPARISON: Previous abdominal ultrasound June [address] of the abdomen and pelvis April 2016 TECHNIQUE: Multidetector volumetric images were obtained from the superior aspect of the liver through the pubic symphysis following administration 85 mL of Omnipaque 350 intravenous contrast. Sagittal and coronal reformatted images were obtained on the technologist's workstation. Oral contrast: Yes This CT examination was performed using dose optimization techniques as appropriate, variously including the following: *Automated exposure control *Adjustment of mA and/or kV according to patient size (this includes techniques or standardized protocols for targeted exams where dose is matched to indication/reason for exam; i.e. extremities or head) *Use of iterative reconstruction technique DLP: 660 mGy-cm FINDINGS: LUNG BASES: Subsegmental atelectasis at the lung bases. LIVER, GALLBLADDER, AND BILIARY TREE: Cirrhotic-appearing liver. No focal liver lesion. Normal gallbladder. No biliary duct dilatation. Varices and recanalized paraumbilical vein. PANCREAS: Unremarkable. SPLEEN: Unremarkable. ADRENAL GLANDS: Unremarkable. KIDNEYS AND URETERS: The kidneys are normal in size, shape, and attenuation. No hydronephrosis, hydroureter, or calculi seen. No perinephric stranding. Left lower pole peripelvic cyst. No imaging follow-up recommended. BLADDER: Unremarkable. GASTROINTESTINAL TRACT: Severe diverticulosis. No evidence of diverticulitis. The small and large bowel are otherwise unremarkable. The appendix is unremarkable. The stomach is unremarkable. ABDOMINAL WALL: No significant hernia is appreciated. LYMPH NODES: Upper normal-size periportal lymph nodes largest measuring 1.6 cm in short axis. No ascites. VASCULAR: Atherosclerotic disease. No aneurysm. Upper abdominal varices and recanalized paraumbilical vein. The main portal vein is patent. PELVIC VISCERA: Unremarkable. OSSEOUS STRUCTURES: Degenerative changes of the spine. CT/CT abdomen pelvis w IV con IMPRESSION: Cirrhotic-appearing liver and varices. Prominent periportal lymph nodes. Severe diverticulosis of the colon. Fleischner guidelines were followed.
--- NOTE | ~2023-07-19 | CT_ITS ---
EXAMINATION: CT CHEST WITH CONTRAST CLINICAL INFORMATION: Anemia. Rule out mass. COMPARISON: None available. TECHNIQUE: Multidetector volumetric CT imaging of the chest was obtained after the administration of 85 mL of Omnipaque 350 intravenous contrast without immediate adverse reactions. Axial MIP volume rendering provided. Sagittal and coronal reformatted images were obtained. This CT examination was performed using dose optimization techniques as appropriate, variously including the following: *Automated exposure control *Adjustment of mA and/or kV according to patient size (this includes techniques or standardized protocols for targeted exams where dose is matched to indication/reason for exam; i.e. extremities or head) *Use of iterative reconstruction technique DLP: 218 mGy-cm FINDINGS: LUNGS: 3 mm peripheral or subpleural left upper lobe nodule axial image 82 series 5. Subsegmental atelectasis at the lung bases. MEDIASTINUM: The heart is slightly enlarged. No pericardial effusion. Mild coronary artery calcification. Normal caliber thoracic aorta. No enlarged hilar or mediastinal lymph nodes. PLEURA: There is no pleural effusion. No pleural mass or thickening. AXILLA: No lymphadenopathy. UPPER ABDOMEN: See abdominal and pelvic CT report from the same day OSSEOUS STRUCTURES: Degenerative changes of the spine and shoulders. Right shoulder joint effusion. CT/CT chest w IV con IMPRESSION: 3 mm peripheral or subpleural left upper lobe nodule. Dependent atelectasis at the lung bases. Mild coronary artery calcification. According to the UPDATED 2017 Fleischner Society recommendations, the advised follow-up imaging for less than 6 mm solid nodule: Low risk, no chest CT follow-up and high risk, optional chest CT follow-up in one year. Fleischner guidelines were followed.
--- NOTE | ~2023-07-19 | US_ITS ---
EXAMINATION: US ABDOMEN LIMITED CLINICAL INFORMATION: Elevated LFTs. COMPARISON: CT abdomen and pelvis 05/19/2016. TECHNIQUE: Real-time imaging of the right upper quadrant abdominal viscera. FINDINGS: PANCREAS: Normal. The visualized pancreatic head and body are normal in appearance. The remainder of the pancreas is obscured from visualization by the overlying bowel gas. LIVER: The liver is normal in size. The liver contour is normal. Parenchymal echogenicity is heterogeneous and coarse. No focal hepatic lesion. There is no intrahepatic biliary duct dilatation seen. GALLBLADDER: Normal. The gallbladder is physiologically distended without evidence of stones, sludge, polyps, wall thickening or pericholecystic fluid. COMMON BILE DUCT: Normal in caliber measuring 0.4 cm in diameter. RIGHT KIDNEY: Normal. No hydronephrosis. No renal calculi or focal parenchymal lesions. The kidney measures 10.8 cm in maximum dimension. FREE FLUID: None. US/US abdomen limited IMPRESSION: 1. There is generalized increase in hepatic echotexture, consistent with fatty infiltration or hepatocellular disease. Please correlate clinically. No focal hepatic mass or intrahepatic biliary dilatation is seen. 2. Technically limited ultrasound examination of the pancreatic tail.
--- NOTE | 2023-07-19 15:09 | ED_ITS ---
HPI - General Adult General Chief complaint: Recheck/Abnormal Lab/Rx Stated complaint: Referred by PCP due to blood work results Time Seen by Provider: 07/19/23 15:43 Source: patient and other ( friend) Mode of arrival: ambulatory Limitations: no limitations History of Present Illness HPI narrative: patient comes to the emergency room complaining of low hemoglobin and hematocrit. Earlier today, patient had blood drawn at her primary care physician's office, today she received a phone call asking her to come to the emergency room for further evaluation treatment. Patient denies any black stool or bright red blood per rectum. Denies hematuria. Patient states that she has been feeling short of breath, but states that this is likely secondary to asthma because it comes in wheezing . Patient denies any chest pain, no abdominal pain. Patient does feel a bit weak. patient denies being on blood thinners. Patient states that she has had blood transfusions in the past secondary to a massive nose bleed. Patient needed at least 3 units transfused. Related Data Home Medications Medication Instructions Recorded Confirmed fluticasone 250 mcg-salmeterol 50 1 inh inhalation Q12H 04/28/21 03/17/23 mcg/dose blistr powdr for inhalation (Wixela Inhub) cholecalciferol (vitamin D3) 50 50 mcg PO DAILY 07/06/22 03/17/23 mcg (2,000 unit) capsule coenzyme Q10 100 mg capsule 100 mg PO DAILY 07/06/22 03/17/23 Previous Rx's Medication Instructions Recorded blood sugar diagnostic #10 ea 08/12/21 lancets 30 gauge (OneTouch Delica #100 ea 09/03/21 Plus Lancet) blood sugar diagnostic (OneTouch #100 strips 11/03/22 Verio test strips) albuterol sulfate 90 mcg/actuation 2 puff PO Q6H PRN shortness of 12/20/22 aerosol inhaler breath or wheezing #25.5 grams pravastatin 20 mg tablet 20 mg PO BEDTIME #90 tabs 02/23/23 metformin 1,000 mg tablet 1,000 mg PO BID #180 tabs 03/28/23 pioglitazone 15 mg tablet 15 mg PO DAILY #90 tabs 06/24/23 Allergies Allergy/AdvReac Type Severity Reaction Status Date / Time benzethonium chloride Allergy Unknown BLISTERS Verified 04/18/23 11:56 [From LANACANE ANTI-ITCH] IN MOUTH benzocaine Allergy Unknown BLISTERS Verified 04/18/23 11:56 [From LANACANE ANTI-ITCH] IN MOUTH cortisone [CORTISONE] Allergy Unknown BLISTERS Verified 04/18/23 11:56 IN MOUTH, LOST SENSE OF TASTE ibuprofen Allergy Unknown nose bleed Verified 04/18/23 11:56 naproxen Allergy Unknown nose bleed Verified 04/18/23 11:56 triamcinolone [Kenalog] Allergy Unknown unknown Verified 04/18/23 11:56 From KENALOG Allergy Unknown BLISTERS Uncoded 04/18/23 11:56 IN MOUTH Review of Systems 2 Review of Systems: Constitutional : No Weight loss, No Fever, No Chills, No Night Sweats, No Fatigue, No Malaise ENT/Mouth : No Hearing loss, No Ear Pain, No Nasal Congestion, No Sinus Pain, No Hoarseness, No sore throat, No Rhinorrhea, No Swallowing Difficulty Eyes: No Eye Pain, No Swelling, No Redness, No Foreign Body, No Discharge, No Vision Changes Cardiovascular : No Chest Pain, No SOB, No Dyspnea on Exertion, No Orthopnea, No Edema, No Palpitations Respiratory : No Cough, No Sputum, No Wheezing, No Smoke Exposure, No Dyspnea Gastrointestinal : No Nausea, No Vomiting, No Diarrhea, No Constipation, No abdominal Pain, No Hematochezia, No Melena Genitourinary : no irregular bleeding, No Dysuria, No Urinary Frequency, No Hematuria, No Urinary Incontinence, No Urgency, No Flank Pain, No Urinary Flow Changes, No Hesitancy Musculoskeletal : No joint pain, No Myalgias, No Joint Swelling Skin : No Skin Lesions, No rash Neuro : No Weakness, No Numbness, No Paresthesias, No Loss of Consciousness, No Dizziness, No Headache Psych : No Anxiety/Panic, No Depression, No SI/HI/AH/VH, No Social Issues, Heme/Lymph: Complaining of low hemoglobin and hematocrit Endocrine : No Polyuria, No Polydipsia, No Temperature Intolerance PMFSH Past Medical History Medical History Cough Acute maxillary sinusitis Varicose veins of bilateral lower extremities with pain Osteoporosis Breast cancer screening by mammogram Type 2 diabetes mellitus without complication, without long-term current use of insulin Thrombocytopenia Osteoarthritis of multiple joints Hammertoes of both feet Colonoscopy refused Mild intermittent asthma in adult without complication Dyslipidemia Type 2 diabetes mellitus with hyperglycemia, without long-term current use of insulin Surgical History History of surgery on lower extremity H/O left wrist surgery Family History Family History Mother Breast cancer Arthralgia of both feet Arthritis Brother Arthritis Brother No problems noted. Social History Social History Housing: House Alcohol intake: current Alcohol intake frequency: holidays/special occasions only Patient Tobacco Use Status: Never used Tobacco Smoked in Last 30 Days: No e-Cigarette/Vaping Use: Never Used Use of substances other than those prescribed or required for medical reasons: No Advance Directives: No Advance Directives Information Provided: Yes service: No Current occupational status: retired Cognitive needs: No Hearing needs: No Vision needs: Yes Physical Exam ED Vital Signs: Vital Signs - 24 hr 07/19/23 15:08 07/19/23 15:34 07/19/23 18:02 Temperature 98.1 F Pulse Rate 90 94 84 Respiratory Rate 18 20 19 Blood Pressure 113/49 L 145/57 H 122/55 L Pulse Oximetry 95 98 96 Oxygen Delivery Method Room Air Room Air Room Air 07/19/23 18:30 Temperature 98.3 F Pulse Rate 87 Respiratory Rate 18 Blood Pressure 137/47 L Pulse Oximetry Oxygen Delivery Method BMI result Body Mass Index 37.2 Const Other: Appearance: Alert. Oriented X3. No acute distress. Eyes: Pupils equal, round and reactive to light. ENT: Pharynx normal. Neck: Normal inspection. Neck supple. No lymph nodes noted. No crepitus CVS: Normal heart rate and rhythm. Pulses normal. Normal S1 and S2 Respiratory: No respiratory distress. Breath sounds normal. No Wheezing. No rales Abdomen: Soft and nontender. No rigidity. No distention. Digital rectal exam: Brown stool Skin: Skin warm and dry. pale skin color. Normal skin turgor. Extremities: No lower extremity edema. No Lacerations. No Rash Neuro: Oriented X 3. No motor deficit. No sensory deficit. Moving all extremities. No slurred speech. CN 2 through 12 grossly intact Psych: calm, cooperative, normal affect Course Course Course Narrative: This is an RME: Additional HPI, ROS, PE not included below will be deferred to primary provider. 72 yo female sent in by PCP for low H+H, stated Hemoglobin 5.5. Has had a blood transfusion in the past. Also endorsing shortness of breath and fatigue, does not wear oxygen at home. Never had a colonoscopy. Denies chest pain, dizziness, abdominal pain, numbness or tingling. Plan -- Labs, type and screen, OBS Medications Administered Discontinued Medications Generic Name Dose Route Start Last Admin Trade Name Freq PRN Reason Stop Dose Admin Sodium Chloride 100 mls @ 100 mls/hr 07/19/23 15:10 07/19/23 18:34 Ns IV 07/19/23 16:09 100 mls/hr ONCE ONE Administration Medical Decision Making Medical Decision Making [facility] Narrative: - I discussed with the patient's the risks versus benefits of a blood transfusion. Patient agreeable, consent signed. - We will start with 2 units, patient will likely need more. - is unclear why patient has a low hemoglobin. - Occult blood test was heme negative - I discussed the patient with nurse practitioner Enrique from the medicine team, patient being admitted - patient agrees with plan Differential Diagnosis Differential Diagnoses: The differential diagnosis associated with the presentation includes ( chronic Anemia, iron deficiency, GI bleed) Admission/Observation Consideration of admission/observation: Escalation of care including admission/observation considered ( patient's hemoglobin low, symptomatic, admission considered) Consult Healthcare Provider Management of the patient was discussed with: Hospitalist Lab Data [facility] Lab Attestation statement: I reviewed the patient's lab results. 07/19/23 15:48 07/19/23 15:48 Labs: Lab Results 07/19/23 07/19/23 07/19/23 Range/Units 15:48 16:28 16:29 WBC 6.8 (4.8-10.8) X10*3/uL RBC 2.98 L (4.20-5.50) X10*6/uL Hgb 5.3 L* (12.0-16.0) g/dl Hct 19.8 L* (37.0-47.0) % MCV 66.4 L (80.0-98.0) fL MCH 17.8 L (27.0-33.0) pg MCHC 26.8 L (31.0-35.0) g/dl RDW 20.8 H (11.0-16.0) % Plt Count 106 L (160-400) X10*3/uL MPV Not Reportable Immature Gran % (Auto) 0.3 (0.0-0.4) % Neut % (Auto) 54.1 (45-73) % Lymph % (Auto) 28.9 (20-40) % [place] % (Auto) 14.5 H (2-11) % Eos % (Auto) 1.6 (0-4) % Baso % (Auto) 0.6 (0-2) % Lymph # (Auto) 2.0 (1.2-4.9) X10*3/uL [place] # (Auto) 1.0 (0.1-1.2) X10*3/uL Eos # (Auto) 0.1 (0.0-0.4) X10*3/uL Baso # (Auto) 0.0 (0.0-0.2) X10*3/uL Abs Immat Gran (auto) 0.02 (0.00-0.03) X10*3/uL Absolute Neuts (auto) 3.7 (2.0-8.3) x10*3/uL Absolute Nucleated RBC 0.000 (0.0-0.012) X10*3/uL Nucleated RBC % (auto) 0.0 (0.0-0.2) /100WBC PT 15.6 H (11.1-13.3) SEC INR 1.3 H (0.9-1.1) APTT 30.8 (26.0-36.4) SEC Sodium 137 (135-145) mmol/L Potassium 4.9 (3.3-5.1) mmol/L Chloride 103 (96-108) mmol/L Carbon Dioxide 24 (22-29) mmol/L Anion Gap 15 (12-20) BUN 11 (9-16) mg/dL Creatinine 0.70 (0.5-1.4) mg/dL Estim Creat Clear Calc 78.5 Estimated GFR > 60 Random Glucose 99 (60-115) mg/dL Calcium 8.6 (8.4-10.2) mg/dL Total Bilirubin 0.6 (0.0-1.0) mg/dL AST 70 H (5-31) U/L ALT 16 (0-31) U/L Alkaline Phosphatase 62 (39-117) U/L Total Protein 8.0 (6.5-8.0) g/dL Albumin 3.1 L (3.5-5.0) g/dL Stool Occult Blood NEGATIVE (NEGATIVE) Blood Type O Positive Antibody Screen NEGATIVE Crossmatch See Detail Critical Care Time Critical Care Time Critical Care Time: Yes Total Critical Care Time: 75 Attestation: I have personally provided critical care time. Time includes review of lab data, radiology results, discussion with consultants, and monitoring for potential decompensation. Intervention performed as documented. Discharge Plan Discharge Clinical Impression: Anemia Patient Disposition: Admitted As Inpatient Prescriptions: No Action (DME) blood sugar diagnostic Strip See Rx Instructions Not Applicable DAILY Qty: 10 0RF Rx Instructions: As directed (DME) lancets [OneTouch Delica Plus Lancet] 30 gauge misc See Rx Instructions .Route Qty: 100 5RF Rx Instructions: As directed twice a day ac (DME) OneTouch Verio test strips Strip See Rx Instructions .ROUTE .COMPLEX Qty: 100 8RF Dose Instruction: USE TO TEST BLOOD SUGAR TWICE A DAY Rx Instructions: USE TO TEST BLOOD SUGAR TWICE A DAY pravastatin 20 mg tablet 20 mg PO BEDTIME Qty: 90 1RF metformin 1,000 mg tablet 1,000 mg PO BID Qty: 180 1RF pioglitazone 15 mg tablet 15 mg PO DAILY Qty: 90 1RF fluticasone propion-salmeterol [Wixela Inhub] 250-50 mcg/dose blister with device 1 inh inhalation Q12H albuterol sulfate 90 mcg/actuation HFA aerosol inhaler 2 puff PO Q6H PRN (Reason: shortness of breath or wheezing) Qty: 25.5 3RF coenzyme Q10 100 mg capsule 100 mg PO DAILY cholecalciferol (vitamin D3) 50 mcg (2,000 unit) capsule 50 mcg PO DAILY
[2023-07-19 15:53] LABS: MANUAL DIFF FLAG NO
[2023-07-19 16:08] LABS: Basophils Percent Auto 0.6 % (0-2); Eosinophils Absolute Auto 0.1 X10*3/uL (0.0-0.4); Eosinophils Percent Auto 1.6 % (0-4); Imm Gran Abs Auto 0.02 X10*3/uL (0.00-0.03); Imm Gran Pct Auto 0.3 % (0.0-0.4); Lymphocytes Percent Auto 28.9 % (20-40); Mean Corpuscular HGB Conc 26.8 g/dl (31.0-35.0); Mean Corpuscular Hemoglobin 17.8 pg (27.0-33.0); Mean Corpuscular Volume 66.4 fL (80.0-98.0); Monocytes Percent Auto 14.5 % (2-11); Neutrophils Absolute Auto 3.7 x10*3/uL (2.0-8.3); Neutrophils Percent Auto 54.1 % (45-73); Platelet Count 106 X10*3/uL (160-400); Red Blood Count 2.98 X10*6/uL (4.20-5.50); Red Cell Distribution Width 20.8 % (11.0-16.0); White Blood Count 6.8 X10*3/uL (4.8-10.8)
[2023-07-19 16:11] LABS: Hematocrit 19.8 % (37.0-47.0); Hemoglobin 5.3 g/dl (12.0-16.0)
[2023-07-19 16:15] LABS: Alanine Aminotransferase 16 U/L (0-31); Albumin Level 3.1 g/dL (3.5-5.0); Alkaline Phosphatase 62 U/L (39-117); Anion Gap 15 (12-20); Aspartate Amino Transferase 70 U/L (5-31); Bilirubin Total 0.6 mg/dL (0.0-1.0); Blood Urea Nitrogen 11 mg/dL (9-16); Calcium 8.6 mg/dL (8.4-10.2); Carbon Dioxide 24 mmol/L (22-29); Chloride 103 mmol/L (96-108); Creatinine Clr Calc Pharmacy 78.5; Estimated Glomerular Filt Rate > 60; Glucose Random 99 mg/dL (60-115); Potassium 4.9 mmol/L (3.3-5.1); Sodium 137 mmol/L (135-145)
[2023-07-19 16:42] LABS: OBS Int Ctl Valid YES; OBS1 NEGATIVE (NEGATIVE)
[2023-07-19 17:46] LABS: INTERNATIONAL NORM RATIO 1.3 (0.9-1.1); Prothrombin Time 15.6 SEC (11.1-13.3)
[2023-07-19 17:49] LABS: Partial Thromboplastin Time 30.8 SEC (26.0-36.4)
--- NOTE | 2023-07-19 18:35 | PC.NURSE ---
pt's VSS, lung sounds clear bilateral, prior to transfusion. pt aware of plan for admit. transfusion started.
--- NOTE | 2023-07-19 18:37 | P.HPHOSP_ITS ---
<Statement entered by Donn Mckeon MD - 07/25/23 23:40> The patient was seen and evaluated with LORRAINE Osuna. I agree with her note, assessment and plan with the following. In summary , A 72-year-old female with PMH of DM, asthma, hyperlipidemia, chronic thrombocytopenia, and varicose veins admitted for severe chronic anemia with negative occult stool requiring 2 units transfusion with concern over chronic blood loss as she never had colonoscopy. Transfuse 2 units of blood Electropheresis for abnormal Prt:Albumin GI consult Rest of evaluations by PA note. History of Present Illness Date of Service: 07/19/23 Attending physician on admission: Donn Mckeon Chief Complaint: anemia 72-year-old female with history of [id number] type 2 diabetes, mild intermittent asthma, osteoporosis, hyperlipidemia, chronic thrombocytopenia, and varicose veins present to the ED earlier today for evaluation of anemia. Reportedly had blood work performed earlier by PCP and was called to present to the ED for severe anemia. Patient states years ago had heavy nose bleeds requiring blood transfusions but denies any bleeding issues since. Denies any epistaxis, melena, hematochezia. No abdominal pain, nausea, vomiting. She states she has been short of breath but associated with wheezing and feels this is related to her asthma. Denies any lightheadedness, palpitations, fatigue, weakness, chest pain. On arrival, she is hemodynamically stable. Initial CBC revealed anemia with H/H 5.5/20.8%. On repeat H/H 5.3/19.8%. Unfortunately prior labs from PCP office are unavailable for review. Renal function and electrolyte levels normal. She does have an iron deficiency with iron level 18, TIBC 429, 4% saturation. Ferritin level pending. Total bilirubin normal at 0.6. AST did increased from 38 to 70, ALT normal. Albumin 3.1. Stool occult blood negative. In the ED, being transfused 2 units packed red blood cells. Has never undergone screening colonoscopy Review of Systems 2 Review of Systems: General: No fevers, malaise, unintentional weight loss HEENT: No blurred vision, diplopia. No sore throat, nasal congestion, rhinorrhea, sinus pain, ear pain Cardiovascular: No chest pain, palpitations, or leg edema Respiratory: +sob/wheezing. No harman, cough GI: No abdominal pain, nausea, vomiting, diarrhea, constipation, melena, hematochezia : No dysuria, hematuria, increased urinary frequency, decreased urinary output MSK: No myalgia, back pain Neuro: No headaches, weakness, paresthesias Skin: No rashes or lesions [facility] Medical History Cough Acute maxillary sinusitis Varicose veins of bilateral lower extremities with pain Osteoporosis Breast cancer screening by mammogram Type 2 diabetes mellitus without complication, without long-term current use of insulin Thrombocytopenia Osteoarthritis of multiple joints Hammertoes of both feet Colonoscopy refused Mild intermittent asthma in adult without complication Dyslipidemia Type 2 diabetes mellitus with hyperglycemia, without long-term current use of insulin Family History Mother Breast cancer Arthralgia of both feet Arthritis Brother Arthritis Brother No problems noted. Surgical History History of surgery on lower extremity H/O left wrist surgery Social History Housing: House Alcohol intake: current Alcohol intake frequency: holidays/special occasions only Patient Tobacco Use Status: Never used Tobacco Smoked in Last 30 Days: No e-Cigarette/Vaping Use: Never Used Use of substances other than those prescribed or required for medical reasons: No Advance Directives: No Advance Directives Information Provided: Yes service: No Current occupational status: retired Cognitive needs: No Hearing needs: No Vision needs: Yes Meds Allergies Allergy/AdvReac Type Severity Reaction Status Date / Time benzethonium chloride Allergy Unknown BLISTERS Verified 04/18/23 11:56 [From LANACANE ANTI-ITCH] IN MOUTH benzocaine Allergy Unknown BLISTERS Verified 04/18/23 11:56 [From LANACANE ANTI-ITCH] IN MOUTH cortisone [CORTISONE] Allergy Unknown BLISTERS Verified 04/18/23 11:56 IN MOUTH, LOST SENSE OF TASTE ibuprofen Allergy Unknown nose bleed Verified 04/18/23 11:56 naproxen Allergy Unknown nose bleed Verified 04/18/23 11:56 triamcinolone [Kenalog] Allergy Unknown unknown Verified 04/18/23 11:56 From KENALOG Allergy Unknown BLISTERS Uncoded 04/18/23 11:56 IN MOUTH Home Medications Medication Instructions Recorded Confirmed Last Taken Type cholecalciferol (vitamin D3) 50 50 mcg PO DAILY 07/06/22 07/19/23 Unknown History mcg (2,000 unit) capsule coenzyme Q10 100 mg capsule 100 mg PO DAILY 07/06/22 07/19/23 Unknown History Physical Exam 2 Vital Signs and Narrative: Vital Signs: Last Vital Signs Temp 98.3 F 07/19/23 18:30 Pulse 87 07/19/23 18:30 Resp 18 07/19/23 18:30 BP 137/47 L 07/19/23 18:30 Pulse Ox 96 07/19/23 18:02 O2 Del Method Room Air 07/19/23 18:02 BMI result Body Mass Index 37.2 Constitutional - Awake and Alert, No apparent distress Eyes - PERRLA, EOMI Cardiovascular - S1S2, RRR, 1+ ble edema Respiratory - Normal lung expansion, Normal respiratory effort, No respiratory distress, CTA bilaterally Gastrointestinal - NT / ND; +BS; No rebound or guarding Extremities - no calf tenderness bilaterally, no swelling Skin - Warm/Dry Neurological - Alert & oriented x3 Psychological - Appropriate affect Results Labs 07/19/23 15:48 07/19/23 15:48 Labs: Laboratory Results - last 24 hr 07/19/23 07/19/23 07/19/23 15:48 16:28 16:29 MCV 66.4 L MCH 17.8 L MCHC 26.8 L RDW 20.8 H Plt Count 106 L MPV Not Reportable Immature Gran % (Auto) 0.3 Neut % (Auto) 54.1 Lymph % (Auto) 28.9 [place] % (Auto) 14.5 H Eos % (Auto) 1.6 Baso % (Auto) 0.6 Lymph # (Auto) 2.0 [place] # (Auto) 1.0 Eos # (Auto) 0.1 Baso # (Auto) 0.0 Abs Immat Gran (auto) 0.02 Absolute Neuts (auto) 3.7 Absolute Nucleated RBC 0.000 Nucleated RBC % (auto) 0.0 PT 15.6 H INR 1.3 H APTT 30.8 Anion Gap 15 Estim Creat Clear Calc 78.5 Estimated GFR > 60 Random Glucose 99 Calcium 8.6 Total Bilirubin 0.6 AST 70 H ALT 16 Alkaline Phosphatase 62 Total Protein 8.0 Albumin 3.1 L Stool Occult Blood NEGATIVE Blood Type O Positive Antibody Screen NEGATIVE Crossmatch See Detail Assessment and Plan (1) Anemia: Status: Acute Plan 72-year-old female with history of [id number] type 2 diabetes, mild intermittent asthma, osteoporosis, hyperlipidemia, chronic thrombocytopenia, and varicose veins admitted for severe chronic anemia. #severe chronic iron deficiency anemia -suspect r/t chronic slow GI bleed -Has never undergone screening colonoscopy -stool occult blood negative -H/H 5.3/19.8%, transfuse 2 units in the ED -GI consult -serum electrophoresis and immunofixation added given chronic thrombocytopenia and hypoalbuminemia -follow CBC -monitor on telemetry # chronic thrombocytopenia -plate level baseline -labs ordered as above # dir-[id number] type 2 diabetes-controlled -last hemoglobin A1c 5.6% -POC glucose -diabetic diet -Humalog on sliding scale, hold metformin and Actos # hyperlipidemia -continue statin # mild intermittent asthma -no acute exacerbation -continue albuterol p.r.n. # severe obesity with BMI greater than 37 -weight loss efforts encouraged DVT prophylaxis- SCPs DNR/DNI Patient requires inpatient stay at least 2 midnights for further evaluation of severe chronic iron deficiency anemia with suspicion for GI bleed requiring blood transfusions, close monitoring vitals and blood counts as well as expert consultation that cannot safely be performed in outpatient location Time Spent With Patient Time: Total time managing care of this patient today ____ minutes. Quality Stroke Does the patient have a stroke diagnosis?: No VTE Prior VTE?: No VTE Risk Level:: Medical - moderate - high VTE Device Contraindication: N/A - Device Ordered VTE Drug Contraindication: Treatment Not Indicated
--- NOTE | 2023-07-19 18:47 | PHA.MEDREC ---
Pharmacy Consult ? Medication Reconciliation Pharmacy has completed the medication reconciliation. Patient confirmed medications. When asked if she takes a maintenance inhaler, she report she has not been taking it regularly. Krystal Nina, PharmD
[2023-07-19 19:48] LABS: Ferritin 4 ng/mL (10-250)
[2023-07-19 21:42] LABS: Glucose, Whole Blood 128 mg/dL (60-115)
[2023-07-20] VITALS (10 sets, daily range): BP systolic 128–167; BP diastolic 58–74; PULSE 72–93; RESP 16–22; TEMP 36.3–37.1; O2SAT 94–98
[2023-07-20] MEDS: 0.9 % Sodium Chloride Flush 3 ML SYRINGE IVFLUSH ×4 (00:27→22:06)
[2023-07-20 07:12] LABS: MANUAL DIFF FLAG NO
[2023-07-20 07:19] LABS: Basophils Percent Auto 0.7 % (0-2); Eosinophils Absolute Auto 0.1 X10*3/uL (0.0-0.4); Eosinophils Percent Auto 2.3 % (0-4); Hematocrit 22.8 % (37.0-47.0); Imm Gran Abs Auto 0.07 X10*3/uL (0.00-0.03); Imm Gran Pct Auto 1.2 % (0.0-0.4); Lymphocytes Absolute Auto 1.6 X10*3/uL (1.2-4.9); Lymphocytes Percent Auto 26.7 % (20-40); Mean Corpuscular HGB Conc 28.9 g/dl (31.0-35.0); Mean Corpuscular Hemoglobin 20.1 pg (27.0-33.0); Mean Corpuscular Volume 69.5 fL (80.0-98.0); Monocytes Absolute Auto 0.9 X10*3/uL (0.1-1.2); Monocytes Percent Auto 14.5 % (2-11); NRBC Pct Auto 0.3 /100WBC (0.0-0.2); Neutrophils Absolute Auto 3.3 x10*3/uL (2.0-8.3); Neutrophils Percent Auto 54.6 % (45-73); Red Blood Count 3.28 X10*6/uL (4.20-5.50); Red Cell Distribution Width 23.3 % (11.0-16.0)
[2023-07-20 07:36] LABS: Alanine Aminotransferase 10 U/L (0-31); Albumin Level 2.8 g/dL (3.5-5.0); Alkaline Phosphatase 60 U/L (39-117); Anion Gap 11 (12-20); Aspartate Amino Transferase 34 U/L (5-31); Bilirubin Direct 0.6 mg/dL (0.0-0.5); Bilirubin Total 2.2 mg/dL (0.0-1.0); Blood Urea Nitrogen 9 mg/dL (9-16); Calcium 8.3 mg/dL (8.4-10.2); Carbon Dioxide 28 mmol/L (22-29); Chloride 103 mmol/L (96-108); Creatinine Clr Calc Pharmacy 92.4; Estimated Glomerular Filt Rate > 60; Glucose Random 96 mg/dL (60-115); Potassium 3.9 mmol/L (3.3-5.1); Sodium 138 mmol/L (135-145); Total Protein 6.9 g/dL (6.5-8.0)
[2023-07-20 07:41] LABS: Glucose, Whole Blood 95 mg/dL (60-115)
[2023-07-20 07:47] LABS: Hemoglobin 6.6 g/dl (12.0-16.0); Platelet Count 89 X10*3/uL (160-400)
[2023-07-20] MEDS: Acetaminophen 325 MG TABLET 650 MG PO (09:21)
--- NOTE | 2023-07-20 10:45 | MHC.CM.PN ---
IMM 07/20/23, Met with Pt, she lives alone in her own condo, all on one floor. She did not have home health services prior to hospital stay. She has identified HCP, has document at her home. PCP: Daniela Eduardo. Goal is to return home with services if recommended. CM will follow and assist with d/c planning.
--- NOTE | 2023-07-20 10:48 | HO.PM.IMPN ---
Subjective Subjective Date of Service: 07/20/23 Interval History: fatigue Physical Exam Vital Signs: Vital Signs: Last Vital Signs Temp 97.6 F 07/20/23 09:14 Pulse 81 07/20/23 09:14 Resp 16 07/20/23 09:14 BP 153/67 H 07/20/23 09:14 Pulse Ox 96 07/20/23 07:03 O2 Del Method Room Air 07/20/23 07:03 BMI result Body Mass Index 41.2 General: AO X 3, no acute distress Resp: CTA bilateral, no accessory muscles used CVS: S1,S2,RRR GI: soft, non tender, non distended Neuro: motor grossly intact, alert Psych: appropriate affect, appropriate insight Objective Data Active Medications Acetaminophen (Acetaminophen 325 Mg Tablet) 650 mg PO Q6H PRN PRN Reason: Pain, Mild (Pain Scale 1-3) Last Admin: 07/20/23 09:21 Dose: 650 mg Documented By: ABELARDO Dextrose (Dextrose 50 % 25 Gm/50 Ml Syringe) 25 gm IVPUSH Q15M PRN; Protocol PRN Reason: per Hypoglycemia Standing Ord. Docusate Sodium (Docusate Sodium 100 Mg Capsule) 100 mg PO DAILY PRN PRN Reason: Constipation Glucose (Glucose Gel 15 Gm Gel..Gram.) 15 gm PO Q15M PRN; Protocol PRN Reason: per Hypoglycemia Standing Ord. Insulin Human Lispro (Insulin Lispro 100 Unit/Ml 3 Ml Vial) 0 [facility]; Protocol Last Admin: 07/20/23 07:50 Dose: Not Given Documented By: ABELARDO Non-Admin Reason: doesnt need coverage Ondansetron HCl (Ondansetron Hcl 4 Mg/2 Ml Vial) 4 mg IVPUSH Q8H PRN PRN Reason: Nausea and Vomiting Sodium Chloride (0.9 % Sodium Chloride Flush 3 Ml Syringe) 3 ml IVFSH [facility] Last Admin: 07/20/23 09:13 Dose: 3 ml Documented By: ABELARDO Labs 07/20/23 06:54 07/20/23 06:55 Labs: Laboratory Results - last 24 hr 07/19/23 07/19/23 07/19/23 15:48 16:28 16:29 MCV 66.4 L MCH 17.8 L MCHC 26.8 L RDW 20.8 H Plt Count 106 L MPV Not Reportable Immature Gran % (Auto) 0.3 Neut % (Auto) 54.1 Lymph % (Auto) 28.9 [place] % (Auto) 14.5 H Eos % (Auto) 1.6 Baso % (Auto) 0.6 Lymph # (Auto) 2.0 [place] # (Auto) 1.0 Eos # (Auto) 0.1 Baso # (Auto) 0.0 Abs Immat Gran (auto) 0.02 Absolute Neuts (auto) 3.7 Absolute Nucleated RBC 0.000 Nucleated RBC % (auto) 0.0 PT 15.6 H INR 1.3 H APTT 30.8 Anion Gap 15 Estim Creat Clear Calc 78.5 Estimated GFR > 60 POC Glucose Random Glucose 99 Calcium 8.6 Ferritin 4 L Total Bilirubin 0.6 Direct Bilirubin AST 70 H ALT 16 Alkaline Phosphatase 62 Total Protein 8.0 Albumin 3.1 L Stool Occult Blood NEGATIVE Blood Type O Positive Antibody Screen NEGATIVE Crossmatch See Detail 07/19/23 07/20/23 07/20/23 21:38 06:54 06:55 MCV 69.5 L MCH 20.1 L MCHC 28.9 L RDW 23.3 H Plt Count 89 L MPV Not Reportable Immature Gran % (Auto) 1.2 H Neut % (Auto) 54.6 Lymph % (Auto) 26.7 [place] % (Auto) 14.5 H Eos % (Auto) 2.3 Baso % (Auto) 0.7 Lymph # (Auto) 1.6 [place] # (Auto) 0.9 Eos # (Auto) 0.1 Baso # (Auto) 0.0 Abs Immat Gran (auto) 0.07 H Absolute Neuts (auto) 3.3 Absolute Nucleated RBC 0.020 H Nucleated RBC % (auto) 0.3 H PT INR APTT Anion Gap 11 L Estim Creat Clear Calc 92.4 Estimated GFR > 60 POC Glucose 128 H Random Glucose 96 Calcium 8.3 L Ferritin Total Bilirubin 2.2 H Direct Bilirubin 0.6 H AST 34 H ALT 10 Alkaline Phosphatase 60 Total Protein 6.9 Albumin 2.8 L Stool Occult Blood Blood Type Antibody Screen Crossmatch 07/20/23 07:03 MCV MCH MCHC RDW Plt Count MPV Immature Gran % (Auto) Neut % (Auto) Lymph % (Auto) [place] % (Auto) Eos % (Auto) Baso % (Auto) Lymph # (Auto) [place] # (Auto) Eos # (Auto) Baso # (Auto) Abs Immat Gran (auto) Absolute Neuts (auto) Absolute Nucleated RBC Nucleated RBC % (auto) PT INR APTT Anion Gap Estim Creat Clear Calc Estimated GFR POC Glucose 95 Random Glucose Calcium Ferritin Total Bilirubin Direct Bilirubin AST ALT Alkaline Phosphatase Total Protein Albumin Stool Occult Blood Blood Type Antibody Screen Crossmatch Assessment and Plan (1) Anemia: Status: Acute Plan 72F PMH 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 Quality Stroke Does the patient have a stroke diagnosis?: No VTE Prior VTE?: No VTE Risk Level:: Medical - moderate - high VTE Device Contraindication: N/A - Device Ordered VTE Drug Contraindication: Treatment Not Indicated
[2023-07-20 11:16] LABS: Glucose, Whole Blood 144 mg/dL (60-115)
--- NOTE | 2023-07-20 12:22 | P.CNGI_ITS ---
History of Present Illness Data of Consult Service Date: 07/20/23 Requesting physician: Suzy Mccloud Primary Care Provider: Daniela Eduardo MD HPI Reason for consult: Anemia This is a 72y.o F with PMH of obesity BMI 41, T2DM, HTN who was sent to the ER by her PCP for profound anemia. Pt reports having generalised fatigue for the past couple of months. Had also been noticing increased shortness of breath for the past few weeks which she attributed to her seasonal allergies. No abd pain, chest pain, palpitations, lightheadedness. No changes in her stools which are formed and brown. Does not take NSAIDs or blood thinners. Pt has never had CRC screening. No fam hx of CRC in first degree relatives. Initial labs on presentation showed Hb of 5.5 with thrombocytopenia to 100s. Chem 7 with elevated transaminases. INR 1.3. Iron studies with severe iron deficiency. Had just completed her 3rd PRBC unit and feels much better in terms of tiredness and alertness levels. Also reviewed elevated LFTs with her. Drinks etOH rarely. No hx of IVDU, hx of blood transfusion in 2019 after nosebleed. Does recall being told about fatty liver in the past. Review of Systems 2 Review of Systems: Yes all other systems are reviewed and are negative PMFSH Past Medical History Medical History Cough Acute maxillary sinusitis Varicose veins of bilateral lower extremities with pain Osteoporosis Breast cancer screening by mammogram Type 2 diabetes mellitus without complication, without long-term current use of insulin Thrombocytopenia Osteoarthritis of multiple joints Hammertoes of both feet Colonoscopy refused Mild intermittent asthma in adult without complication Dyslipidemia Type 2 diabetes mellitus with hyperglycemia, without long-term current use of insulin Family History Family History Mother Breast cancer Arthralgia of both feet Arthritis Brother Arthritis Brother No problems noted. Surgical History Surgical History History of surgery on lower extremity H/O left wrist surgery Social History Social History Household Members: None Housing: House Do you presently have visiting nurse or other home services: No Alcohol intake: current Alcohol intake frequency: holidays/special occasions only Patient Tobacco Use Status: Never used Tobacco Smoked in Last 30 Days: No e-Cigarette/Vaping Use: Never Used Use of substances other than those prescribed or required for medical reasons: No Currently Displaying Signs/Symptoms of Drug Intoxication Withdrawal: No Have you been hit, kicked, punched, or otherwise hurt by someone within the past year? If so, by whom?: No Do you feel safe in your current relationship?: Yes Is there a partner from a previous relationship who is making you feel unsafe now?: No Are you made to feel afraid or neglected: No Advance Directives: No Advance Directives Information Provided: Yes Do you have thoughts of harming others: None Do you have a plan to hurt others: No Plan Recently lost weight without trying: Yes How much weight loss: 2-13 pounds Nutrition Risks: No Nutritional Risk Patient : No Poor oral hygiene: No service: No Current occupational status: retired Cognitive needs: No Hearing needs: No Vision needs: Yes Meds Allergies Allergy/AdvReac Type Severity Reaction Status Date / Time benzethonium chloride Allergy Unknown BLISTERS Verified 04/18/23 11:56 [From LANACANE ANTI-ITCH] IN MOUTH benzocaine Allergy Unknown BLISTERS Verified 04/18/23 11:56 [From LANACANE ANTI-ITCH] IN MOUTH cortisone [CORTISONE] Allergy Unknown BLISTERS Verified 04/18/23 11:56 IN MOUTH, LOST SENSE OF TASTE ibuprofen Allergy Unknown nose bleed Verified 04/18/23 11:56 naproxen Allergy Unknown nose bleed Verified 04/18/23 11:56 triamcinolone [Kenalog] Allergy Unknown unknown Verified 04/18/23 11:56 From KENALOG Allergy Unknown BLISTERS Uncoded 04/18/23 11:56 IN MOUTH Active Medications: Current Medications Acetaminophen (Acetaminophen 325 Mg Tablet) 650 mg PO Q6H PRN PRN Reason: Pain, Mild (Pain Scale 1-3) Last Admin: 07/20/23 09:21 Dose: 650 mg Dextrose (Dextrose 50 % 25 Gm/50 Ml Syringe) 25 gm IVPUSH Q15M PRN; Protocol PRN Reason: per Hypoglycemia Standing Ord. Docusate Sodium (Docusate Sodium 100 Mg Capsule) 100 mg PO DAILY PRN PRN Reason: Constipation Glucose (Glucose Gel 15 Gm Gel..Gram.) 15 gm PO Q15M PRN; Protocol PRN Reason: per Hypoglycemia Standing Ord. Insulin Human Lispro (Insulin Lispro 100 Unit/Ml 3 Ml Vial) 0 [facility]; Protocol Last Admin: 07/20/23 11:09 Dose: Not Given Ondansetron HCl (Ondansetron Hcl 4 Mg/2 Ml Vial) 4 mg IVPUSH Q8H PRN PRN Reason: Nausea and Vomiting Sodium Chloride (0.9 % Sodium Chloride Flush 3 Ml Syringe) 3 ml IVFLUSH [facility] Last Admin: 07/20/23 09:13 Dose: 3 ml Home Medications Medication Instructions Recorded Confirmed Last Taken Type cholecalciferol (vitamin D3) 50 50 mcg PO DAILY 07/06/22 07/19/23 Unknown History mcg (2,000 unit) capsule coenzyme Q10 100 mg capsule 100 mg PO DAILY 07/06/22 07/19/23 Unknown History Physical Exam 2 Vital Signs: Vital Signs: Last Vital Signs Temp 98.4 F 07/20/23 12:20 Pulse 81 07/20/23 12:20 Resp 18 07/20/23 12:20 BP 147/63 H 07/20/23 12:20 Pulse Ox 96 07/20/23 10:53 O2 Del Method Room Air 07/20/23 10:53 BMI result Body Mass Index 41.2 Gen appear: NAD, pale appearing, with obesity HEENT: nonicteric, no cervical lymphadenopathy Chest: CTA CVS: Regular S1/S2 Abd: soft, nontender, nondistended, bowel sounds + Ext: no peripheral edema Neuro: A/Ox3, noted to move all extremities spontaneously Psych: interacting appropriately Results Labs 07/20/23 06:54 07/20/23 06:55 Labs: Short CBC 07/19/23 07/20/23 Range/Units 15:48 06:54 WBC 6.8 6.0 (4.8-10.8) X10*3/uL Hgb 5.3 L* 6.6 L* D (12.0-16.0) g/dl Hct 19.8 L* 22.8 L (37.0-47.0) % Plt Count 106 L 89 L (160-400) X10*3/uL BMP 07/19/23 07/20/23 15:48 06:55 Sodium 137 138 Potassium 4.9 3.9 D Chloride 103 103 Carbon Dioxide 24 28 BUN 11 9 Creatinine 0.70 0.63 Calcium 8.6 8.3 L Liver Function 07/19/23 07/20/23 Range/Units 15:48 06:55 Total Bilirubin 0.6 2.2 H (0.0-1.0) mg/dL Direct Bilirubin 0.6 H (0.0-0.5) mg/dL AST 70 H 34 H (5-31) U/L ALT 16 10 (0-31) U/L Alkaline Phosphatase 62 60 (39-117) U/L Albumin 3.1 L 2.8 L (3.5-5.0) g/dL Assessment and Plan (1) Anemia: Status: Acute (2) Thrombocytopenia: Status: Acute (3) Elevated LFTs: Status: Acute Plan 1. Anemia: Likely subacute to chronic given hemodynamic stability and lack of sx. No labs available for comparison in the last 1 year. Will need to r/o occult GIB. Ddx include PUD, AVMs, large friable polyp, mass. - Ensure x2 large bore peripheral IV at all times - Transfuse PRBC to goal Hb at least 7 - Check CBC daily - EGD and colo tmrw - CLD orders placed - GoLYTELY to start this afternoon. NPO after MN. 2. Elevated LFTs: Since at least 2018 with thrombocytopenia and AST>ALT. Overall suspicious for underlying cirrhosis with CSPH likely from [place] based on reported hx by the pt, although AST ALT ratio suggestive of etOH use. - Hepatitis serologies ordered - US Abd ordered Thank you for allowing me to participate in her care. Further recommendations to follow in the procedure note tomorrow. Time Spent With Patient Time: Total time managing care of this patient today ____ minutes. Procedures Date of Service Date of Service: 07/20/23
[2023-07-20 15:23] LABS: Glucose, Whole Blood 95 mg/dL (60-115)
[2023-07-20] MEDS: bisacodyL 5 MG TABLET.DR 20 MG PO (17:14)
[2023-07-20] MEDS: PEG 3350/Na Sulf,Bicarb,Cl/KCL 4,000 ML SOLN.RECON 4000 ML PO (17:15)
[2023-07-20 19:37] LABS: Glucose, Whole Blood 115 mg/dL (60-115)
[2023-07-21] VITALS (12 sets, daily range): BP systolic 106–148; BP diastolic 44–64; PULSE 76–95; RESP 15–20; TEMP 35.9–37.5; O2SAT 93–99
[2023-07-21 06:45] LABS: Hematocrit 25.9 % (37.0-47.0); Hemoglobin 7.9 g/dl (12.0-16.0); Mean Corpuscular HGB Conc 30.5 g/dl (31.0-35.0); Mean Corpuscular Hemoglobin 22.1 pg (27.0-33.0); Mean Corpuscular Volume 72.5 fL (80.0-98.0); Platelet Count 89 X10*3/uL (160-400); Red Blood Count 3.57 X10*6/uL (4.20-5.50); Red Cell Distribution Width 25.6 % (11.0-16.0); White Blood Count 7.8 X10*3/uL (4.8-10.8)
[2023-07-21 07:04] LABS: Anion Gap 11 (12-20); Blood Urea Nitrogen 8 mg/dL (9-16); Calcium 8.3 mg/dL (8.4-10.2); Carbon Dioxide 29 mmol/L (22-29); Chloride 105 mmol/L (96-108); Estimated Glomerular Filt Rate > 60; Glucose Fasting 99 mg/dL (60-99); Potassium 3.5 mmol/L (3.3-5.1); Sodium 141 mmol/L (135-145)
[2023-07-21 07:23] LABS: HBS Num1 0.06 mIU/mL (0-7.99); HBc Num1 0.16 S/CO (0.00-0.79); HBsAGNum1 0.39 S/CO (0.00-0.99); Hepatitis B Core Antibody Nonreactive (Nonreactive); Hepatitis B Surface Antigen Negative (Negative); ~HepC Num1 0.09 S/CO (0.00-0.79); ~Hepatitis B Surface Antibody NONREACTIVE (Nonreactive); ~Hepatitis C Antibody Nonreactive (Nonreactive)
[2023-07-21] MEDS: 0.9 % Sodium Chloride Flush 3 ML SYRINGE IVFLUSH ×3 (07:53→19:56)
[2023-07-21 07:57] LABS: Glucose, Whole Blood 91 mg/dL (60-115)
--- NOTE | 2023-07-21 09:29 | P.PNIM_ITS ---
Subjective Subjective Date of Service: 07/21/23 Interval History: no complaints Physical Exam 2 Vital Signs: Vital Signs: Last Vital Signs Temp 98.1 F 07/21/23 07:09 Pulse 82 07/21/23 07:09 Resp 20 07/21/23 07:09 BP 135/64 07/21/23 07:09 Pulse Ox 95 07/21/23 07:09 O2 Del Method Room Air 07/21/23 07:09 BMI result Body Mass Index 41.2 General: AO X 3, no acute distress Resp: CTA bilateral, no accessory muscles used CVS: S1,S2,RRR GI: soft, non tender, non distended Neuro: motor grossly intact, alert Psych: appropriate affect, appropriate insight Objective Data Active Medications Acetaminophen (Acetaminophen 325 Mg Tablet) 650 mg PO Q6H PRN PRN Reason: Pain, Mild (Pain Scale 1-3) Last Admin: 07/20/23 09:21 Dose: 650 mg Documented By: ABELARDO Dextrose (Dextrose 50 % 25 Gm/50 Ml Syringe) 25 gm IVPUSH Q15M PRN; Protocol PRN Reason: per Hypoglycemia Standing Ord. Docusate Sodium (Docusate Sodium 100 Mg Capsule) 100 mg PO DAILY PRN PRN Reason: Constipation Glucose (Glucose Gel 15 Gm Gel..Gram.) 15 gm PO Q15M PRN; Protocol PRN Reason: per Hypoglycemia Standing Ord. Insulin Human Lispro (Insulin Lispro 100 Unit/Ml 3 Ml Vial) 0 [facility]; Protocol Last Admin: 07/21/23 07:49 Dose: Not Given Documented By: ALEK Non-Admin Reason: No Insulin Coverage Ondansetron HCl (Ondansetron Hcl 4 Mg/2 Ml Vial) 4 mg IVPUSH Q8H PRN PRN Reason: Nausea and Vomiting Sodium Chloride (0.9 % Sodium Chloride Flush 3 Ml Syringe) 3 ml IVFSH [facility] Last Admin: 07/21/23 07:53 Dose: 3 ml Documented By: ALEK Labs 07/21/23 06:28 07/21/23 06:29 Labs: Laboratory Results - last 24 hr 07/19/23 07/20/23 07/20/23 16:29 10:53 15:20 MCV MCH MCHC RDW Plt Count MPV Absolute Nucleated RBC Nucleated RBC % (auto) Anion Gap Estim Creat Clear Calc Estimated GFR POC Glucose 144 H 95 Fasting Glucose Calcium Hold Red Top Hep Bs Antigen Hep Bs Antibody Hep B Core Total Ab Hepatitis C Ab (EIA) Crossmatch See Detail 07/20/23 07/21/23 07/21/23 19:32 06:28 06:29 MCV 72.5 L MCH 22.1 L MCHC 30.5 L RDW 25.6 H Plt Count 89 L MPV Not Reportable Absolute Nucleated RBC 0.000 Nucleated RBC % (auto) 0.0 Anion Gap 11 L Estim Creat Clear Calc 97.0 Estimated GFR > 60 POC Glucose 115 Fasting Glucose 99 Calcium 8.3 L Hold Red Top See Note Hep Bs Antigen Negative Hep Bs Antibody NONREACTIVE Hep B Core Total Ab Nonreactive Hepatitis C Ab (EIA) Nonreactive Crossmatch 07/21/23 07:34 MCV MCH MCHC RDW Plt Count MPV Absolute Nucleated RBC Nucleated RBC % (auto) Anion Gap Estim Creat Clear Calc Estimated GFR POC Glucose 91 Fasting Glucose Calcium Hold Red Top Hep Bs Antigen Hep Bs Antibody Hep B Core Total Ab Hepatitis C Ab (EIA) Crossmatch Assessment and Plan (1) Elevated LFTs: Status: Acute Plan 72-year-old female with history of ozz-[id number] type 2 diabetes, mild intermittent asthma, osteoporosis, hyperlipidemia, chronic thrombocytopenia, and varicose veins presented with weakness, iron deficiency anemia Severe chronic iron deficiency anemia Status post 3 units PRBC, hemoglobin improved as expected Plan for EGD and colonoscopy today Monitor CBC Elevated transaminases (indirect bilirubin due to hemolysis from transfusion) Concern for [place] Follow-up ultrasound Diabetes Insulin sliding scale Chronic thrombocytopenia Possibly due to liver disease Hyperlipidemia Statin Mild intermittent asthma Duo nebs as needed Obesity Weight loss recommended DVT prophylaxis-mechanical due to concern for GI bleed DNR/DNI Reason for continued hospitalization: Plan to workup severe anemia Time Spent With Patient Time: Total time managing care of this patient today ____ minutes. Quality Stroke Does the patient have a stroke diagnosis?: No VTE Prior VTE?: No VTE Risk Level:: Medical - moderate - high VTE Device Contraindication: N/A - Device Ordered VTE Drug Contraindication: Treatment Not Indicated
[2023-07-21] MEDS: Albuterol/Iprat 2.5/0.5MG 3 ML AMPUL.NEB INHALE (10:59)
[2023-07-21 11:09] LABS: Glucose, Whole Blood 101 mg/dL (60-115)
--- NOTE | 2023-07-21 12:48 | HO.ANESPROP2 ---
[facility] Active Problems Active Problems: All Active Problems (Updated 07/20/23 @ 12:31 by Antonia De La Vega MD) Elevated LFTs (Acute) Anemia (Acute) Upper respiratory tract infection (Acute) Varicose veins of left lower extremity with inflammation (Acute) Varicose veins of right lower extremity with inflammation (Acute) Varicose veins of bilateral lower extremities with pain (Acute) Osteoporosis (Acute) Type 2 diabetes mellitus without complication, without long-term current use of insulin (Acute) Thrombocytopenia (Acute) Osteoarthritis of multiple joints (Acute) Hammertoes of both feet (Acute) Colonoscopy refused (Acute) Mild intermittent asthma in adult without complication (Acute) Dyslipidemia (Acute) Past Medical History Medical History Fatty liver Cough Acute maxillary sinusitis Varicose veins of bilateral lower extremities with pain Osteoporosis Breast cancer screening by mammogram Type 2 diabetes mellitus without complication, without long-term current use of insulin Thrombocytopenia Osteoarthritis of multiple joints Hammertoes of both feet Colonoscopy refused Mild intermittent asthma in adult without complication Dyslipidemia Type 2 diabetes mellitus with hyperglycemia, without long-term current use of insulin Family History Family History Mother Breast cancer Arthralgia of both feet Arthritis Brother Arthritis Brother No problems noted. Surgical History Surgical History Hx of varicose vein ligation History of surgery on lower extremity H/O left wrist surgery History of Problems with Anesthesia: No Social History Social History Household Members: None Housing: House Do you presently have visiting nurse or other home services: No Alcohol intake: current Alcohol intake frequency: holidays/special occasions only Patient Tobacco Use Status: Never used Tobacco Smoked in Last 30 Days: No e-Cigarette/Vaping Use: Never Used Use of substances other than those prescribed or required for medical reasons: No Currently Displaying Signs/Symptoms of Drug Intoxication Withdrawal: No Have you been hit, kicked, punched, or otherwise hurt by someone within the past year? If so, by whom?: No Do you feel safe in your current relationship?: Yes Is there a partner from a previous relationship who is making you feel unsafe now?: No Are you made to feel afraid or neglected: No Are you DNR?: Yes Advance Directives: No Advance Directives Information Provided: Yes Do you have thoughts of harming others: None Do you have a plan to hurt others: No Plan Recently lost weight without trying: Yes How much weight loss: 2-13 pounds Nutrition Risks: No Nutritional Risk Patient : No Poor oral hygiene: No service: No Current occupational status: retired Cognitive needs: No Hearing needs: No Vision needs: Yes Meds Allergies Allergy/AdvReac Type Severity Reaction Status Date / Time benzethonium chloride Allergy Unknown BLISTERS Verified 04/18/23 11:56 [From LANACANE ANTI-ITCH] IN MOUTH benzocaine Allergy Unknown BLISTERS Verified 04/18/23 11:56 [From LANACANE ANTI-ITCH] IN MOUTH cortisone [CORTISONE] Allergy Unknown BLISTERS Verified 04/18/23 11:56 IN MOUTH, LOST SENSE OF TASTE ibuprofen Allergy Unknown nose bleed Verified 04/18/23 11:56 naproxen Allergy Unknown nose bleed Verified 04/18/23 11:56 triamcinolone [Kenalog] Allergy Unknown unknown Verified 04/18/23 11:56 From KENALOG Allergy Unknown BLISTERS Uncoded 04/18/23 11:56 IN MOUTH Active Medications: Current Medications Acetaminophen (Acetaminophen 325 Mg Tablet) 650 mg PO Q6H PRN PRN Reason: Pain, Mild (Pain Scale 1-3) Last Admin: 07/20/23 09:21 Dose: 650 mg Dextrose (Dextrose 50 % 25 Gm/50 Ml Syringe) 25 gm IVPUSH Q15M PRN; Protocol PRN Reason: per Hypoglycemia Standing Ord. Docusate Sodium (Docusate Sodium 100 Mg Capsule) 100 mg PO DAILY PRN PRN Reason: Constipation Glucose (Glucose Gel 15 Gm Gel..Gram.) 15 gm PO Q15M PRN; Protocol PRN Reason: per Hypoglycemia Standing Ord. Insulin Human Lispro (Insulin Lispro 100 Unit/Ml 3 Ml Vial) 0 unit SUBCUT [facility]; Protocol Last Admin: 07/21/23 11:57 Dose: Not Given Ondansetron HCl (Ondansetron Hcl 4 Mg/2 Ml Vial) 4 mg IVPUSH Q8H PRN PRN Reason: Nausea and Vomiting Sodium Chloride (0.9 % Sodium Chloride Flush 3 Ml Syringe) 3 ml [facility]USH [facility] Last Admin: 07/21/23 07:53 Dose: 3 ml Home Medications Medication Instructions Recorded Confirmed Last Taken Type cholecalciferol (vitamin D3) 50 50 mcg PO DAILY 07/06/22 07/19/23 Unknown History mcg (2,000 unit) capsule coenzyme Q10 100 mg capsule 100 mg PO DAILY 07/06/22 07/19/23 Unknown History Exam Exam Date and Time: July 21, 2023 1248 Height,Weight and Vital Signs: Height 5 ft 3 in Weight 105.4 kg Last Vital Signs Temp 97.2 F 07/21/23 10:56 Pulse 77 07/21/23 11:04 Resp 18 07/21/23 11:04 BP 133/60 07/21/23 10:56 Pulse Ox 95 07/21/23 10:56 O2 Del Method Room Air 07/21/23 10:56 Pertinent Lab Results Pertinent Lab Results: Laboratory Tests 07/19/23 07/19/23 07/19/23 15:48 16:28 16:29 WBC 6.8 RBC 2.98 L Hgb 5.3 L* Hct 19.8 L* MCV 66.4 L MCH 17.8 L MCHC 26.8 L RDW 20.8 H Plt Count 106 L MPV Not Reportable Immature Gran % (Auto) 0.3 Neut % (Auto) 54.1 Lymph % (Auto) 28.9 [place] % (Auto) 14.5 H Eos % (Auto) 1.6 Baso % (Auto) 0.6 Lymph # (Auto) 2.0 [place] # (Auto) 1.0 Eos # (Auto) 0.1 Baso # (Auto) 0.0 Abs Immat Gran (auto) 0.02 Absolute Neuts (auto) 3.7 Absolute Nucleated RBC 0.000 Nucleated RBC % (auto) 0.0 PT 15.6 H INR 1.3 H APTT 30.8 Sodium 137 Potassium 4.9 Chloride 103 Carbon Dioxide 24 Anion Gap 15 BUN 11 Creatinine 0.70 Estim Creat Clear Calc 78.5 Estimated GFR > 60 POC Glucose Random Glucose 99 Fasting Glucose Calcium 8.6 Ferritin 4 L Total Bilirubin 0.6 Direct Bilirubin AST 70 H ALT 16 Alkaline Phosphatase 62 Total Protein 8.0 Albumin 3.1 L Hold Red Top Stool Occult Blood NEGATIVE Hep Bs Antigen Hep Bs Antibody Hep B Core Total Ab Hepatitis C Ab (EIA) Blood Type O Positive Antibody Screen NEGATIVE Crossmatch See Detail 07/19/23 07/20/23 07/20/23 21:38 06:54 06:55 WBC 6.0 RBC 3.28 L Hgb 6.6 L* D Hct 22.8 L MCV 69.5 L MCH 20.1 L MCHC 28.9 L RDW 23.3 H Plt Count 89 L MPV Not Reportable Immature Gran % (Auto) 1.2 H Neut % (Auto) 54.6 Lymph % (Auto) 26.7 [place] % (Auto) 14.5 H Eos % (Auto) 2.3 Baso % (Auto) 0.7 Lymph # (Auto) 1.6 [place] # (Auto) 0.9 Eos # (Auto) 0.1 Baso # (Auto) 0.0 Abs Immat Gran (auto) 0.07 H Absolute Neuts (auto) 3.3 Absolute Nucleated RBC 0.020 H Nucleated RBC % (auto) 0.3 H PT INR APTT Sodium 138 Potassium 3.9 D Chloride 103 Carbon Dioxide 28 Anion Gap 11 L BUN 9 Creatinine 0.63 Estim Creat Clear Calc 92.4 Estimated GFR > 60 POC Glucose 128 H Random Glucose 96 Fasting Glucose Calcium 8.3 L Ferritin Total Bilirubin 2.2 H Direct Bilirubin 0.6 H AST 34 H ALT 10 Alkaline Phosphatase 60 Total Protein 6.9 Albumin 2.8 L Hold Red Top Stool Occult Blood Hep Bs Antigen Hep Bs Antibody Hep B Core Total Ab Hepatitis C Ab (EIA) Blood Type Antibody Screen Crossmatch 07/20/23 07/20/23 07/20/23 07:03 10:53 15:20 WBC RBC Hgb Hct MCV MCH MCHC RDW Plt Count MPV Immature Gran % (Auto) Neut % (Auto) Lymph % (Auto) [place] % (Auto) Eos % (Auto) Baso % (Auto) Lymph # (Auto) [place] # (Auto) Eos # (Auto) Baso # (Auto) Abs Immat Gran (auto) Absolute Neuts (auto) Absolute Nucleated RBC Nucleated RBC % (auto) PT INR APTT Sodium Potassium Chloride Carbon Dioxide Anion Gap BUN Creatinine Estim Creat Clear Calc Estimated GFR POC Glucose 95 144 H 95 Random Glucose Fasting Glucose Calcium Ferritin Total Bilirubin Direct Bilirubin AST ALT Alkaline Phosphatase Total Protein Albumin Hold Red Top Stool Occult Blood Hep Bs Antigen Hep Bs Antibody Hep B Core Total Ab Hepatitis C Ab (EIA) Blood Type Antibody Screen Crossmatch 07/20/23 07/21/23 07/21/23 19:32 06:28 06:29 WBC 7.8 RBC 3.57 L Hgb 7.9 L Hct 25.9 L MCV 72.5 L MCH 22.1 L MCHC 30.5 L RDW 25.6 H Plt Count 89 L MPV Not Reportable Immature Gran % (Auto) Neut % (Auto) Lymph % (Auto) [place] % (Auto) Eos % (Auto) Baso % (Auto) Lymph # (Auto) [place] # (Auto) Eos # (Auto) Baso # (Auto) Abs Immat Gran (auto) Absolute Neuts (auto) Absolute Nucleated RBC 0.000 Nucleated RBC % (auto) 0.0 PT INR APTT Sodium 141 Potassium 3.5 Chloride 105 Carbon Dioxide 29 Anion Gap 11 L BUN 8 L Creatinine 0.60 Estim Creat Clear Calc 97.0 Estimated GFR > 60 POC Glucose 115 Random Glucose Fasting Glucose 99 Calcium 8.3 L Ferritin Total Bilirubin Direct Bilirubin AST ALT Alkaline Phosphatase Total Protein Albumin Hold Red Top See Note Stool Occult Blood Hep Bs Antigen Negative Hep Bs Antibody NONREACTIVE Hep B Core Total Ab Nonreactive Hepatitis C Ab (EIA) Nonreactive Blood Type Antibody Screen Crossmatch 07/21/23 07/21/23 07:34 10:58 WBC RBC Hgb Hct MCV MCH MCHC RDW Plt Count MPV Immature Gran % (Auto) Neut % (Auto) Lymph % (Auto) [place] % (Auto) Eos % (Auto) Baso % (Auto) Lymph # (Auto) [place] # (Auto) Eos # (Auto) Baso # (Auto) Abs Immat Gran (auto) Absolute Neuts (auto) Absolute Nucleated RBC Nucleated RBC % (auto) PT INR APTT Sodium Potassium Chloride Carbon Dioxide Anion Gap BUN Creatinine Estim Creat Clear Calc Estimated GFR POC Glucose 91 101 Random Glucose Fasting Glucose Calcium Ferritin Total Bilirubin Direct Bilirubin AST ALT Alkaline Phosphatase Total Protein Albumin Hold Red Top Stool Occult Blood Hep Bs Antigen Hep Bs Antibody Hep B Core Total Ab Hepatitis C Ab (EIA) Blood Type Antibody Screen Crossmatch Airway Mallampati Class: III TM Dist: >3cm Neck ROM: Full Loose/Missing/Broken Teeth: No Heart: RRR Lungs: CTA Assessment and Plan Assessment Anesthesia Assessment: Anesthesia Plan Discussed and Chart Reviewed Final Anesthetic Review History of Problems with Anesthesia: No NPO: Yes ASA Class: III Final Preanesthetic Review: Meds/Allgs Chart Reviewed, Consent Obtained/Reviewed and Anes Risks/Benef Reviewed Patient Risk: Intermediate Procedure Risk: Intermediate Anesthetic Plan Anesthetic Plan: MAC: Disposition: Standard PACU
[2023-07-21 13:28] LABS: Glucose, Whole Blood 99 mg/dL (60-115)
--- NOTE | 2023-07-21 13:48 | MHC.SHP ---
Pre-Procedural Eval Section A Date of Service: 07/21/23 The patient is an INPATIENT: Yes The History & Physical has been completed within 30 days and I have reviewed it.: Yes Section B Chief Complaint: acute on chronic anemia Allergies: Allergies Allergy/AdvReac Type Severity Reaction Status Date / Time benzethonium chloride Allergy Unknown BLISTERS Verified 04/18/23 11:56 [From LANACANE ANTI-ITCH] IN MOUTH benzocaine Allergy Unknown BLISTERS Verified 04/18/23 11:56 [From LANACANE ANTI-ITCH] IN MOUTH cortisone [CORTISONE] Allergy Unknown BLISTERS Verified 04/18/23 11:56 IN MOUTH, LOST SENSE OF TASTE ibuprofen Allergy Unknown nose bleed Verified 04/18/23 11:56 naproxen Allergy Unknown nose bleed Verified 04/18/23 11:56 triamcinolone [Kenalog] Allergy Unknown unknown Verified 04/18/23 11:56 From KENALOG Allergy Unknown BLISTERS Uncoded 04/18/23 11:56 IN MOUTH Plan Diagnosis/Plan: Unchanged I have reviewed the history and physical and performed a pertinent physical examination on my patient. No changes have occurred unless specified. Time Spent With Patient Time: Total time managing care of this patient today ____ minutes.
--- NOTE | 2023-07-21 14:27 | P.OP_ITS ---
Operative Note Operative Note Date of Service: 07/21/23 Narrative: Procedure:?Esophagogastroduodenoscopy and colonoscopy Endoscopist:?Antonia De La Vega MD Indication:?Anemia Anesthesia Provider:?Anna Fitzpatrick CRNA Anesthesia Type:?MAC Instrument:?Olympus GIF-H190, PCF-H190L EGD Procedure:?? The procedure, indications, preparation and potential complications were reviewed with the patient who indicated understanding and gave written informed consent to proceed. A physical exam was performed. The endoscope was introduced through the mouth, and advanced to the second part of duodenum. The mucosa was carefully examined on slow withdrawal of the endoscope. There were no immediate complications. Patient tolerated the procedure well. EGD Findings:? * Esophagus:? Normal mucosa noted in the entire esophagus. The Z-line is at 40 cm and irregular. * Stomach:? Normal gastric mucosa. Retroflexion performed in the fundus. * Duodenum:? Normal duodenal mucosa was noted. Cold forceps biopsies were taken from the duodenal bulb and 2nd portion the duodenum to rule out celiac sprue. Colonoscopy Procedure:? The patient was then turned for the colonoscopy. A digital rectal exam was performed which was abnormal for external hemorrhoids.? A distal attachment cap was affixed to the tip of the scope and the colonoscope was then inserted through the anus and advanced through the colon to the cecum at 70 cm and te rminal ileum. Appendiceal orifice and ileocecal valve were identified. Mucosa was carefully examined under high definition white light as the instrument was slowly withdrawn in a retrograde panoramic fashion. Retroflexion was performed in rectum. The procedure was not difficult. There were no immediate obvious complications. The quality of the prep was BBPS: 2+2+3 = adequate Withdrawal time: 16 minutes Limitations: No limitation. Findings: Mucosa: Abnormal mucosa with erythema, erosions and exudates noted in rectosigmoid starting at 20 cm and extending to 35 cm with surrounding diverticulosis. Cold forceps biopsies were taken for histology to r/o SCAD. Remaining mucosa to cecum and terminal ileum was normal. Protruding lesions: * 1 sessile polyp of size 6 mm in ascending colon. Cold snare polypectomy was performed and the polyp was completely removed. * Medium internal hemorrhoids without stigmata of recent bleeding. Excavated lesions: * Severe diverticulosis of sigmoid colon with luminal narrowing and tortuosity. Impression: 1. Normal esophagus 2. Normal stomach 3. Normal duodenum (biopsy) 4. Abnormal mucosa in sigmoid colon 5. One polyp removed 6. Diverticulosis 7. Hemorrhoids Recommendations:?? * Await pathology results. * CT chest/abd/pel to work up anemia. * If camejo scan normal, will need small bowel capsule study as outpatient.
[2023-07-21 16:01] LABS: Glucose, Whole Blood 137 mg/dL (60-115)
[2023-07-21 19:49] LABS: Glucose, Whole Blood 89 mg/dL (60-115)
[2023-07-21] MEDS: Artificial Tears 15 ML DROPS 2 DROP EYE-BOTH (20:10)
[2023-07-22 03:42] VITALS: BP 140/73; PULSE 81; RESP 16; TEMP 36.9; O2SAT 92
[2023-07-22 07:12] VITALS: BP 148/65; PULSE 79; RESP 20; TEMP 36.4; O2SAT 94
[2023-07-22 07:25] LABS: Glucose, Whole Blood 94 mg/dL (60-115)
[2023-07-22 07:25] LABS: Hematocrit 28.4 % (37.0-47.0); Hemoglobin 8.2 g/dl (12.0-16.0); Mean Corpuscular HGB Conc 28.9 g/dl (31.0-35.0); Mean Corpuscular Hemoglobin 21.8 pg (27.0-33.0); Mean Corpuscular Volume 75.5 fL (80.0-98.0); Mean Platelet Volume 9.8 fL (9.4-12.3); Platelet Count 107 X10*3/uL (160-400); Red Blood Count 3.76 X10*6/uL (4.20-5.50); Red Cell Distribution Width 26.5 % (11.0-16.0)
[2023-07-22 07:36] LABS: Anion Gap 18 (12-20); Blood Urea Nitrogen 7 mg/dL (9-16); Calcium 8.4 mg/dL (8.4-10.2); Carbon Dioxide 27 mmol/L (22-29); Chloride 102 mmol/L (96-108); Creatinine Clr Calc Pharmacy 89.5; Estimated Glomerular Filt Rate > 60; Glucose Fasting 93 mg/dL (60-99); Potassium 3.6 mmol/L (3.3-5.1); Sodium 143 mmol/L (135-145)
[2023-07-22] MEDS: Acetaminophen 325 MG TABLET 650 MG PO (08:01)
[2023-07-22] MEDS: Artificial Tears 15 ML DROPS 2 DROP EYE-BOTH (08:01)
--- NOTE | 2023-07-22 09:53 | HO.PM.IMPN ---
Subjective Subjective Date of Service: 07/22/23 Interval History: no copmlaints Physical Exam Vital Signs: Vital Signs: Last Vital Signs Temp 97.6 F 07/22/23 07:12 Pulse 79 07/22/23 07:12 Resp 20 07/22/23 07:12 BP 148/65 H 07/22/23 07:12 Pulse Ox 94 07/22/23 07:12 O2 Del Method Room Air 07/22/23 07:12 O2 Flow Rate 6 07/21/23 14:32 BMI result Body Mass Index 41.2 General: AO X 3, no acute distress Resp: CTA bilateral, no accessory muscles used CVS: S1,S2,RRR GI: soft, non tender, non distended Neuro: motor grossly intact, alert Psych: appropriate affect, appropriate insight Objective Data Active Medications Acetaminophen (Acetaminophen 325 Mg Tablet) 650 mg PO Q6H PRN PRN Reason: Pain, Mild (Pain Scale 1-3) Last Admin: 07/22/23 08:01 Dose: 650 mg Documented By: KECIA Artificial Tears (Artificial Tears 15 Ml Drops) 2 drop EYE-BOTH Q4H PRN PRN Reason: Dry Eyes Last Admin: 07/22/23 08:01 Dose: 2 drop Documented By: KECIA Artificial Tears (Artificial Tears 15 Ml Drops) 1 drop EYE-BOTH Q4H PRN PRN Reason: Dry Eyes Dextrose (Dextrose 50 % 25 Gm/50 Ml Syringe) 25 gm IVPUSH Q15M PRN; Protocol PRN Reason: per Hypoglycemia Standing Ord. Docusate Sodium (Docusate Sodium 100 Mg Capsule) 100 mg PO DAILY PRN PRN Reason: Constipation Glucose (Glucose Gel 15 Gm Gel..Gram.) 15 gm PO Q15M PRN; Protocol PRN Reason: per Hypoglycemia Standing Ord. Insulin Human Lispro (Insulin Lispro 100 Unit/Ml 3 Ml Vial) 0 unit SUBCUT [facility]; Protocol Last Admin: 07/22/23 09:51 Dose: Not Given Documented By: KECIA Non-Admin Reason: No Insulin Coverage Ondansetron HCl (Ondansetron Hcl 4 Mg/2 Ml Vial) 4 mg IVPUSH Q8H PRN PRN Reason: Nausea and Vomiting Sodium Chloride (0.9 % Sodium Chloride Flush 3 Ml Syringe) [facility] Last Admin: 07/21/23 19:56 Dose: 3 ml Documented By: MELI Labs 07/22/23 06:41 07/22/23 06:41 Labs: Laboratory Results - last 24 hr 07/21/23 07/21/23 07/21/23 10:58 13:23 15:53 MCV MCH MCHC RDW Plt Count MPV Absolute Nucleated RBC Nucleated RBC % (auto) Anion Gap Estim Creat Clear Calc Estimated GFR POC Glucose 101 99 137 H Fasting Glucose Calcium 07/21/23 07/22/23 07/22/23 19:45 06:41 07:15 MCV 75.5 L MCH 21.8 L MCHC 28.9 L RDW 26.5 H Plt Count 107 L MPV 9.8 Absolute Nucleated RBC 0.000 Nucleated RBC % (auto) 0.0 Anion Gap 18 Estim Creat Clear Calc 89.5 Estimated GFR > 60 POC Glucose 89 94 Fasting Glucose 93 Calcium 8.4 Assessment and Plan (1) Elevated LFTs: Status: Acute Plan 72-year-old female with history of [id number] type 2 diabetes, mild intermittent asthma, osteoporosis, hyperlipidemia, chronic thrombocytopenia, and varicose veins presented with weakness, iron deficiency anemia Severe chronic iron deficiency anemia Status post 3 units PRBC, hemoglobin improved as expected EGD and colonoscopy 07/21/23 - see report, no obvious bleeding source plan for ct chest, abd pelvis, rule out mass, if negative outpatient caspsule Elevated transaminases (indirect bilirubin due to hemolysis from transfusion) Concern for [place] ultrasound - fatty liver Diabetes Insulin sliding scale Chronic thrombocytopenia Possibly due to liver disease Hyperlipidemia Statin Mild intermittent asthma Duo nebs as needed Obesity Weight loss recommended DVT prophylaxis-mechanical due to concern for GI bleed DNR/DNI Reason for continued hospitalization: Plan to workup severe anemia Time Spent With Patient Time: Total time managing care of this patient today ____ minutes. Quality Stroke Does the patient have a stroke diagnosis?: No VTE Prior VTE?: No VTE Risk Level:: Medical - moderate - high VTE Device Contraindication: N/A - Device Ordered VTE Drug Contraindication: Treatment Not Indicated
[2023-07-22] MEDS: 0.9 % Sodium Chloride Flush 3 ML SYRINGE IVFLUSH (10:10)
[2023-07-22 11:11] VITALS: BP 112/53; PULSE 75; RESP 20; TEMP 36.3; O2SAT 95
--- NOTE | 2023-07-22 11:20 | MHC.CM.PN ---
Patient is not yet medically cleared for dc (w/u for Severe Anemia); Home is the goal and CM will follow.
[2023-07-22 11:27] LABS: Glucose, Whole Blood 126 mg/dL (60-115)
[2023-07-22] MEDS: iohexoL 350 MG/ML 75 ML INFUS..BTL 85 ML IV (13:28)
--- NOTE | 2023-07-22 13:45 | P.DS_ITS ---
DS: Providers Provider Date of Service: 07/22/23 Date of admission: 07/19/23 18:34 Primary care physician: Daniela Eduardo MD Consults: 07/19/23 18:35 Consult to Gastroenterology Routine Consulting Provider: Antonia De La Vega Reason for consultation: acute on chronic anemia DS: Diagnosis Discharge Diagnosis (1) Elevated LFTs: Status: Acute DS: Summary Hospital Course Hospital Course: from initial hpi: 72-year-old female with history of [id number] type 2 diabetes, mild intermittent asthma, osteoporosis, hyperlipidemia, chronic thrombocytopenia, and varicose veins present to the ED earlier today for evaluation of anemia. Reportedly had blood work performed earlier by PCP and was called to present to the ED for severe anemia. Patient states years ago had heavy nose bleeds requ iring blood transfusions but denies any bleeding issues since. Denies any epistaxis, melena, hematochezia. No abdominal pain, nausea, vomiting. She states she has been short of breath but associated with wheezing and feels this is related to her asthma. Denies any lightheadedness, palpitations, fatigue, weakness, chest pain. On arrival, she is hemodynamically stable. Initial CBC revealed anemia with H/H 5.5/20.8%. On repeat H/H 5.3/19.8%. Unfortunately prior labs from PCP office are unavailable for review. Renal function and electrolyte levels normal. She does have an iron deficiency with iron level 18, TIBC 429, 4% saturation. Ferritin level pending. Total bilirubin normal at 0.6. AST did increased from 38 to 70, ALT normal. Albumin 3.1. Stool occult blood negative. In the ED, being transfused 2 units packed red blood cells. Has never undergone screening colonoscopy hospital course: Patient was admitted for severe chronic iron deficiency anemia. She received 3 units total of PRBC and hemoglobin improved and remained stable. She underwent EGD and colonoscopy on 07/21 (see report), culprit lesion was not found. CT chest, abdomen, pelvis was done with IV contrast, report is pending and should be followed up as outpatient. If negative should pursue outpatient capsule endoscopy. She has been started on iron supplement. She was noted to have elevated transaminase, ultrasound abdomen was consistent with fatty liver. Concern for [place]. For diabetes was continue insulin. On discharge should hold metformin for 48 hours from receiving IV contrast. Her chronic thrombocytopenia is likely due to liver disease. For hyperlipidemia was continue statin. For mild intermittent asthma she received DuoNebs as needed. For obesity weight loss recommended. Patient is medically stable will be discharged home. Time Spent with Patient Time attestation: Total time managing care of this patient today ____ minutes. Discharge coordination time: Greater than 30 minutes Quality: Safe Use of Opioids Does Pt have an Active Cancer Diagnosis on the Problem List?: No Quality: Stroke Does the patient have a stroke diagnosis?: No Physical Exam Vital Signs: Vital Signs: Last Vital Signs Temp 97.4 F 07/22/23 11:11 Pulse 75 07/22/23 11:11 Resp 20 07/22/23 11:11 BP 112/53 L 07/22/23 11:11 Pulse Ox 95 07/22/23 11:11 O2 Del Method Room Air 07/22/23 11:11 O2 Flow Rate 6 07/21/23 14:32 BMI result Body Mass Index 41.2 General: AO X 3, no acute distress Resp: CTA bilateral, no accessory muscles used CVS: S1,S2,RRR GI: soft, non tender, non distended Neuro: motor grossly intact, alert Psych: appropriate affect, appropriate insight DS: Data Data Completed and Pending Pending studies at discharge: Pending at discharge 07/21/23 13:54 Surgical [PTH] Routine Labs on day of discharge: Laboratory Results - last 24 hr 07/21/23 07/21/23 07/22/23 15:53 19:45 06:41 WBC 7.0 RBC 3.76 L Hgb 8.2 L Hct 28.4 L MCV 75.5 L MCH 21.8 L MCHC 28.9 L RDW 26.5 H Plt Count 107 L MPV 9.8 Absolute Nucleated RBC 0.000 Nucleated RBC % (auto) 0.0 Sodium 143 Potassium 3.6 Chloride 102 Carbon Dioxide 27 Anion Gap 18 BUN 7 L Creatinine 0.65 Estim Creat Clear Calc 89.5 Estimated GFR > 60 POC Glucose 137 H 89 Fasting Glucose 93 Calcium 8.4 07/22/23 07/22/23 07:15 11:15 WBC RBC Hgb Hct MCV MCH MCHC RDW Plt Count MPV Absolute Nucleated RBC Nucleated RBC % (auto) Sodium Potassium Chloride Carbon Dioxide Anion Gap BUN Creatinine Estim Creat Clear Calc Estimated GFR POC Glucose 94 126 H Fasting Glucose Calcium Discharge Plan Discharge Anticipated Discharge Date/Time: 07/22/23 13:43 Patient Disposition: Home, Self-Care Discharge Diagnosis: anemia Referrals: Daniela Eduardo MD [Primary Care Provider] - 1 Week Antonia De La Vega MD [Physician] - 1 Week Discharge Medications: New ferrous sulfate 325 mg (65 mg iron) tablet 325 mg PO DAILY Qty: 30 0RF Continued (DME) blood sugar diagnostic Strip See Rx Instructions Not Applicable DAILY Qty: 10 0RF Rx Instructions: As directed (DME) lancets [OneTouch Delica Plus Lancet] 30 gauge misc See Rx Instructions .Route Qty: 100 5RF Rx Instructions: As directed twice a day ac (DME) OneTouch Verio test strips Strip See Rx Instructions .ROUTE .COMPLEX Qty: 100 8RF Dose Instruction: USE TO TEST BLOOD SUGAR TWICE A DAY Rx Instructions: USE TO TEST BLOOD SUGAR TWICE A DAY pravastatin 20 mg tablet 20 mg PO BEDTIME Qty: 90 1RF pioglitazone 15 mg tablet 15 mg PO DAILY Qty: 90 1RF albuterol sulfate 90 mcg/actuation HFA aerosol inhaler 2 puff PO Q6H PRN (Reason: shortness of breath or wheezing) Qty: 25.5 3RF coenzyme Q10 100 mg capsule 100 mg PO DAILY cholecalciferol (vitamin D3) 50 mcg (2,000 unit) capsule 50 mcg PO DAILY Held metformin 1,000 mg tablet 1,000 mg PO BID Qty: 180 1RF Hold Instructions: Resume on 07/24/23. Discharge Orders: Discharge Order (Routine); Ordered 07/22/23 Ordered By: Gerson Carter Diet: Advance to usual diet Activity on Discharge: As tolerated Stand Alone Forms: Patient Portal Discharge page Care Plan Goals: recovery Health Concerns: anemia Plan of Treatment: hold metformin 48hrs from iv contrast, follow up ct results and possible capsule with GI, started on iron supplement Assessment: see above
--- NOTE | 2023-07-22 13:55 | MHC.CM.PN ---
Pt has been medically cleared for discharge, she is going home, self care.
--- NOTE | 2023-07-22 14:08 | HO.POSTANES ---
Post Anesthesia Evaluation Post Anesthesia Evaluation Date of Service: 07/22/23 Vital Signs: Vital Signs Temp Pulse Resp BP Pulse Ox O2 Del Method 07/22/23 11:11 97.4 F 75 20 112/53 L 95 Room Air 07/22/23 07:12 97.6 F 79 20 148/65 H 94 Room Air 07/22/23 03:42 98.4 F 81 16 140/73 H 92 Room Air Anesthesia: Monitored Mental Status: Awake Pain Control: Satisfactory Nausea/Vomiting: None Hydration: Adequate Anesthesia-Related Issues: No Anes. Related Issues
== END 2023-07-22 16:23 | disposition home or self-care (01) | DRG 379 ==
LOC: HO.ED 18:42 → HO.EDOVER 18:48 → HO.IMC 19:06
PROVIDERS: Internal Medicine; Physician Assistant; Student in an Organized Health Care Education/Training Program; Admitting Provider Physician Assistant; Emergency Provider Emergency Medicine; PCP Internal Medicine; Visit Provider Internal Medicine
PROC: 0DBK8ZX Excision of Ascending Colon, Via Natural or Artificial Opening Endoscopic, Diagnostic (ICD-10-PCS; CPT 45385; principal; 2023-07-21 14:30)
DX: K57.31 Diverticulosis of large intestine without perforation or abscess with bleeding (principal); D50.0 Iron deficiency anemia secondary to blood loss (chronic); E78.5 Hyperlipidemia, unspecified; J45.20 Mild intermittent asthma, uncomplicated; E11.9 Type 2 diabetes mellitus without complications; K64.4 Residual hemorrhoidal skin tags; D69.59 Other secondary thrombocytopenia; K75.81 Nonalcoholic steatohepatitis (NASH); K63.5 Polyp of colon; Z66 Do not resuscitate; Z71.3 Dietary counseling and surveillance; E66.01 Morbid (severe) obesity due to excess calories; Z68.37 Body mass index [BMI] 37.0-37.9, adult; Z79.84 Long term (current) use of oral hypoglycemic drugs; Z79.899 Other long term (current) drug therapy
CPT/HCPCS: 45385; 45380; 43239; 36415; 71260; 74177; 76700; 76705; 80048; 80053; 80076; 82272; 82728; 82947; 85025; 85027; 85610; 85730; 86704; 86706; 86803; 86850; 86900; 86901; 86923; 87340; 88305; 93005; 94640; 99222; 99285; P9016; Q9967

== ENCOUNTER → 2023-07-19 18:34 | Outpatient (BNV) | payer MEDICARE, SELFPAY | PROVIDERS: Admitting Provider Physician Assistant; Emergency Provider Emergency Medicine; PCP Internal Medicine; Visit Provider Internal Medicine | DX: D64.9 Anemia, unspecified (principal); D12.2 Benign neoplasm of ascending colon; K64.0 First degree hemorrhoids; K57.30 Diverticulosis of large intestine without perforation or abscess without bleeding | CPT/HCPCS: 43239; 45380; 45385; 99223 ==

== ENCOUNTER → 2023-07-19 18:34 | Outpatient (BNV) | payer MEDICARE, SELFPAY | PROVIDERS: Admitting Provider Physician Assistant; Emergency Provider Emergency Medicine; PCP Internal Medicine; Visit Provider Internal Medicine | DX: R79.89 Other specified abnormal findings of blood chemistry (principal) | CPT/HCPCS: 99223; 99232; 99233; 99239 ==

== ENCOUNTER 2023-07-26 08:45 | Outpatient (AMB) | payer MEDICARE, SELFPAY ==
--- NOTE | 2023-07-26 08:47 | A.OFFPC_ITS ---
Vital Signs 07/26/23 08:51 Height 5 ft 3 in Weight 226 lb BMI 40.0 BP 120/62 Blood Pressure Location Rt brachial Position Sitting Pulse 86 Pulse Source Pulse Oximeter Pulse Oximetry (%) 96 Oxygen Delivery Method Room Air Intake Visit Reasons: discharge follow up blood transfusion Intake Note: Pt is here today to HDF blood transfusion [facility] Allergies benzethonium chloride [From LANACANE ANTI-ITCH] Allergy (Unknown, Verified 08/03/23 13:11) BLISTERS IN MOUTH benzocaine [From LANACANE ANTI-ITCH] Allergy (Unknown, Verified 08/03/23 13:11) BLISTERS IN MOUTH cortisone [CORTISONE] Allergy (Unknown, Verified 08/03/23 13:11) BLISTERS IN MOUTH, LOST SENSE OF TASTE ibuprofen Allergy (Unknown, Verified 08/03/23 13:11) nose bleed naproxen Allergy (Unknown, Verified 08/03/23 13:11) nose bleed triamcinolone [Kenalog] Allergy (Unknown, Verified 08/03/23 13:11) unknown From KENALOG Allergy (Unknown, Uncoded 08/03/23 13:11) BLISTERS IN MOUTH Medication List - Last Reconciled 07/26/23 by Daniela Eduardo MD albuterol sulfate 90 mcg/actuation 2 puffs PO Q6H PRN blood sugar diagnostic As directed blood sugar diagnostic ([employer] ABTouch Verio test strips) USE TO TEST BLOOD SUGAR TWICE A DAY cholecalciferol (vitamin D3) 50 mcg PO DAILY coenzyme Q10 100 mg PO DAILY ferrous sulfate 325 mg PO DAILY lancets (OneTouch Delica Plus Lancet) As directed twice a day ac metformin 1,000 mg PO BID pioglitazone 15 mg PO DAILY pravastatin 20 mg PO BEDTIME Tobacco use date assessed: 07/26/23 Fall risk assessment: 2 + Falls in past year Last assessed Fall Risk: 07/26/23 Dental Screening Dental Screen Date: 07/26/23 Did you have a dental visit in the last 12 months?: Yes Did you have a dental problem in the last 6 months where you did not have access to dental care?: Yes Was dental information given to patient?: Patient has dentist HPI discharge follow up blood transfusion HPI Details 72-year-old lady here today for follow-u p after recent admission severe chronic iron deficiency anemia. She received 3 units total of PRBC and hemoglobin improved and remained stable. She underwent EGD and colonoscopy on 07/21, with normal EGD exam, presence of tubular adenoma , diverticulosis, hemorrhoids, abnormal rectal-sigmoid mucosa? Colitis. CT chest, abdomen, pelvis was done with IV contrast, which showed Cirrhotic-appearing liver and varices. Prominent periportal lymph nodes, severe diverticulosis of the colon seen and negative CT of chest. She has been started on iron supplement. She was noted to have elevated transaminase, ultrasound abdomen was consistent with fatty liver, ? MOJICA. She was continued on all her medications from home except for metformin which was held 4-[address] scan with IV contrast given. Has a follow-up appointment with GI clinic after discharge. Currently feels better, with no complaints of any chest pain, and dizziness or shortness of breath. Denies any active GI bleeding, no hematuria or nose bleed reported. [facility] Medical History Colitis Fatty liver Cough Acute maxillary sinusitis Varicose veins of bilateral lower extremities with pain Osteoporosis Breast cancer screening by mammogram Type 2 diabetes mellitus without complication, without long-term current use of insulin Thrombocytopenia Osteoarthritis of multiple joints Hammertoes of both feet Colonoscopy refused Mild intermittent asthma in adult without complication Dyslipidemia Type 2 diabetes mellitus with hyperglycemia, without long-term current use of insulin Surgical History (Reviewed 10/07/23 @ :28 by Daniela Eduardo MD) History of esophagogastroduodenoscopy (EGD) Hx of colonoscopy Hx of varicose vein ligation History of surgery on lower extremity H/O left wrist surgery Family History (Reviewed 10/07/23 @ :28 by Daniela Eduardo MD) Mother Breast cancer Arthralgia of both feet Arthritis Brother Arthritis Brother No problems noted. Social History Household Members: None Housing: House Do you presently have visiting nurse or other home services: No Alcohol intake: current Alcohol intake frequency: holidays/special occasions only Patient Tobacco Use Status: Never used Tobacco e-Cigarette/Vaping Use: Never Used service: No Current occupational status: retired Cognitive needs: No Hearing needs: No Vision needs: Yes Questionnaire Thrive Questionnaire Date Thrive assessed: 07/20/23 AUDIT C Alcohol Use Questionnaire (AUDIT-C) 1. How often do you have a drink containing alcohol?: Monthly or less 2. How many drinks containing alcohol do you have on a typical day when you are drinking?: 1 or 2 Total Score: 1 FABRIZIO-7 AMB Questionnaire FABRIZIO-7 Date FABRIZIO - 7 assessed: 04/18/23 Source: Developed by Drs. Callum Gomez, Chiquita Simon, Sharath Anna and colleagues, with an educational sy from [employer]. Review of Systems Const Denies body aches, Denies fever(s), Denies headache(s) and Denies weakness Eyes Denies change in vision ENT Denies dizziness, Denies headache(s), Denies nasal congestion, Denies nasal discharge and Denies sore throat Card Denies chest pain, Denies lightheadedness, Denies palpitations and Denies d yspnea Resp Denies chest congestion, Denies cough, Denies dyspnea and Denies wheezing GI Denies abdominal pain, Denies change in bowel habits and Denies heartburn Denies urinary frequency, Denies dysuria and Denies urinary urgency Musc Reports arthralgias, Reports joint swelling, Reports muscle cramps, Reports radiating pain into limb, Reports stiffness and Reports tingling Skin/Breast Denies lesions and Denies rash Neuro Denies dizziness, Denies headache(s), Reports tingling and Denies weakness Endo Denies polydipsia, Denies polyuria and Denies palpitations Abhilash/Lymph Reports as per HPI and Reports easy bruising Aller/Immun Denies seasonal rhinorrhea and Denies wheezing Physical exam (Primary Care) Vital Signs: Last Vital Signs Pulse 86 07/26/23 08:51 BP 120/62 07/26/23 08:51 Pulse Ox 96 07/26/23 08:51 Oxygen Delivery Method Room Air 07/26/23 08:51 BMI result Body Mass Index 40.0 Tobacco/Smoking Status: Tobacco use Status Tobacco use date assessed 07/26/23 07/26/23 08:51 Patient Tobacco Use Status Never used Tobacco 07/26/23 08:48 e-Cigarette/Vaping Use Never Used 07/26/23 08:48 Thrive Assessment: Date of Thrive Assessment Date Thrive assessed 07/20/23 07/26/23 08:48 Const General: comfortable, no acute distress and alert Orientation/consciousness: patient oriented x3 HENMT Ears: external ears normal, TM's normal bilaterally and EAC's normal General nose exam: Normal external nose present and No nasal discharge present Mouth: Normal oral and palatal mucosa present, oropharynx normal and moist mucous membranes Eyes General: appearance normal, both eyes and all related structures Conjunctivae: conjunctivae normal Sclerae: sclerae normal Pupils: Equal, round and reactive pupils present EOM: EOMs intact bilaterally Neck Neck: Yes full ROM, Yes no lymphadenopathy and Yes supple Resp Effort & Inspection: normal respiratory effort and able to speak in complete sentences Auscultation: clear to auscultation bilaterally Cardio Rate: regular rate Rhythm: regular rhythm Heart sounds: S1 normal heart sound present and S2 normal heart sound present GI Palpation (GI): Soft to palpation, nontender and no masses Auscultation: normal bowel sounds Back/Spine/Pelvis Back: No back tenderness Skin General skin exam: no rashes or lesions noted Neuro General: patient oriented x3, gait normal, tone normal, moves all extremities, Normal light touch and pain sensation and no focal motor deficits Cranial nerves: Yes CN's II-XII intact bilaterally and Yes Equal, round and reactive pupils present Cognition (Neuro): normal cognition Extrem General: Yes full ROM, Yes no joint enlargement, Yes no clubbing, cyanosis or edema and Yes no calf tenderness Results Reviewed Results Reviewed: PEC : [id number] SANGITA: 07/22/23 STATUS: COMP REQ : [id number] RECD: 07/22/[address]: Gerson Carter MD COMP: 07/22/23 ENTERED: 07/22/[address] [facility] [address] [address]: Daniela Eduardo MD ORDERED: CBC No Diff Test Result Flag Reference Site WBC 7.0 4.8-10.8 X10*3/uL RBC 3.76 L 4.20-5.50 X10*6/uL HGB 8.2 L 12.0-16.0 g/dl HCT 28.4 L 37.0-47.0 % MCV 75.5 L 80.0-98.0 fL MCH 21.8 L 27.0-33.0 pg MCHC 28.9 L 31.0-35.0 g/dl RDW 26.5 H 11.0-16.0 % PLT 107 L 160-400 X10*3/uL MPV 9.8 9.4-12.3 fL NRBC Pct Auto 0.0 0.0-0.2 /100WBC NRBC Abs Auto 0.000 0.0-0.012 X10*3/uL ENTERED: 07/22/23-[address] [facility] [address] [address]: Daniela Eduardo MD ORDERED: Met Prof Fast Test Result Flag Reference Site Sodium 143 135-145 mmol/L Potassium 3.6 3.3-5.1 mmol/L CL 102 96-108 mmol/L CO2 27 22-29 mmol/L Gap 18 12-20 BUN 7 L 9-16 mg/dL Creat 0.65 0.5-1.4 mg/dL Estimated CrCl 89.5 Provided height and weight: 160.02 cm, 105.4 kg. eGFR (calculated from the MDRD study equation) and eCrCl (calculated from the Cockcroft-Gault equation) are based on different parameters and may not yield comparable results. If eCrCl result is absurd, please check patient's height/weight. EGFR > 60 NOTE: For -[place] individuals, multiply the result by 1.210. Chronic Kidney Disease: Estimated GFR < 60 mL/min/1.73m2 Severe Kidney Disease: Estimated GFR < 15 mL/min/1.73m2 FBS 93 60-99 mg/dL CA 8.4 8.4-10.2 mg/dL ENTERED: 07/19/23-[address] [facility] [address]: ORDERED: PES, Immunofix Ser Test Result Flag Reference Site IgG 1987 H 600-1540 mg/dL QUM IgA 974 H 70-320 mg/dL QUM IgM 66 50-300 mg/dL QUM THIS TEST WAS PERFORMED AT: [facility] [address] [place] [id number] SILVESTRE CONTRERAS MD PES - Tot Prot 7.3 6.1-8.1 g/dL QUM PES - Albumin 3.1 L 3.8-4.8 g/dL QUM PES - Alpha1 0.3 0.2-0.3 g/dL QUM PES - Alpha2 0.6 0.5-0.9 g/dL QUM PES - Beta 1 0.7 H 0.4-0.6 g/dL QUM PES - Beta 2 0.7 H 0.2-0.5 g/dL QUM PES - Gamma 1.9 H 0.8-1.7 g/dL QUM PES-Abnpro Bnd1 PENDING PES-Abnpro Bnd2 PENDING PES-AbnPro Bnd3 PENDING PES - INTERP. SEE NOTE QUM Consistent with a chronic inflammatory pattern THIS TEST WAS PERFORMED AT: [facility] [address] [place] [id number] SILVESTRE CONTRERAS MD [employer]fix InterP SEE NOTE QUM Normal pattern. No monoclonal proteins detected. Laboratory Tests 07/19/23 16:28 Stool Occult Blood NEGATIVE RUN: 07/26/23 0935 PAGE 1 [facility] [address] [place] [id number] Petroleum Inspector Supervisor: Arik Lyon M.D. Specimen Inquiry Name: Paula Baum Age/Sex: 72/F : 1950 [id number] Unit#: [id number] Attend Dr: Gerson Carter MD Re07/19/23 Status: DIS IN Location: [facility] 458-1 Disch: 07/22/23 SPEC : [id number] SANGITA: 07/21/23 STATUS: COMP REQ : [id number] RECD: 07/21/2351 [facility] DR: Antonia De La Vega MD COMP: 07/21/23 ENTERED: 07/21/[address] [facility] [address] [address]: Daniela Eduardo MD, Raphael MD ORDERED: Anti-HBS, Anti-HBc, Anti-HCV, HBsAG Test Result Flag Reference Site Anti-HBS NONREACTIVE Nonreactive Nonreactive: < 8.00 mIU/mL Anti-HBc Nonreactive Nonreactive Anti-HCV Nonreactive Nonreactive Antibodies to HCV not detected; does not exclude early acute HCV infection. HBsAG Negative Negative Assessment and Plan Assessment & Plan (1) Anemia: Code(s): D64.9 - Anemia, unspecified Qualifiers: Anemia type: iron deficiency Iron deficiency anemia type: chronic blood loss Qualified Code(s): D50.0 - Iron deficiency anemia secondary to blood loss (chronic) Plan: Has an appointment for follow-up with GI for possible capsule endoscopy as colonoscopy, CT scan of chest cam a abdomen pelvis was unrevealing for source of bleed. In the meantime continue with taking iron supplements given at the ER. Repeat another CBC and iron profile in 2 months (2) Colitis: Code(s): K52.9 - Noninfective gastroenteritis and colitis, unspecified Plan: To be followed by GI clinic (3) Elevated LFTs: Code(s): R79.89 - Other specified abnormal findings of blood chemistry Plan: GI consult obtain (4) Thrombocytopenia: Code(s): D69.6 - Thrombocytopenia, unspecified Plan: Hematology consult obtain (5) Type 2 diabetes mellitus without complication, without long-term current use of insulin: Code(s): E11.9 - Type 2 diabetes mellitus without complications Plan: Continued on insulin at same dose, and pioglitazone, will resume metformin at the same dose. Will repeat another hemoglobin A1c in 2 months (6) Dyslipidemia: Code(s): E78.5 - Hyperlipidemia, unspecified Plan: Continue pravastatin 20 mg at bedtime fasting lipid panel ordered in 2 month Orders: Orders Comprehensive [place]. Panel Fast 09/23/23 R79.89 - Other specified abnormal findings of blood chemistry, D64.9 - Anemia, unspecified, E11.9 - Type 2 diabetes mellitus without complications, D69.6 - Thrombocytopenia, unspecified, E78.5 - Hyperlipidemia, unspecified Complete Blood Count Auto Diff 09/23/23 R79.89 - Other specified abnormal findings of blood chemistry, D64.9 - Anemia, unspecified, E11.9 - Type 2 diabetes mellitus without complications, D69.6 - Thrombocytopenia, unspecified, E78.5 - Hyperlipidemia, unspecified Hemoglobin A1c 09/23/23 R79.89 - Other specified abnormal findings of blood chemistry, D64.9 - Anemia, unspecified, E11.9 - Type 2 diabetes mellitus without complications, D69.6 - Thrombocytopenia, unspecified, E78.5 - Hyperlipidemia, unspecified Lipid Panel 09/23/23 R79.89 - Other specified abnormal findings of blood chemistry, D64.9 - Anemia, unspecified, E11.9 - Type 2 diabetes mellitus without complications, D69.6 - Thrombocytopenia, unspecified, E78.5 - Hyperlipidemia, unspecified IRON PROFILE 09/23/23 R79.89 - Other specified abnormal findings of blood chemistry, D64.9 - Anemia, unspecified, E11.9 - Type 2 diabetes mellitus without complications, D69.6 - Thrombocytopenia, unspecified, E78.5 - Hyperlipidemia, unspecified Vitamin D 25-OH Total 09/23/23 R79.89 - Other specified abnormal findings of blood chemistry, D64.9 - Anemia, unspecified, E11.9 - Type 2 diabetes mellitus without complications, D69.6 - Thrombocytopenia, unspecified, E78.5 - Hyperlipidemia, unspecified Referrals Gastroenterology Referral D64.9 - Anemia, unspecified, K52.9 - Noninfective gastroenteritis and colitis, unspecified, R79.89 - Other specified abnormal findings of blood chemistry Hematology & Oncology Referral D69.6 - Thrombocytopenia, unspecified, D64.9 - Anemia, unspecified Coding Level of Care Code Est Pt Level 4 (25444) Diagnoses Iron deficiency anemia due to chronic blood loss D50.0 Anemia type: iron deficiency Iron deficiency anemia type: chronic blood loss Colitis K52.9 Elevated LFTs R79.89 Thrombocytopenia D69.6 Type 2 diabetes mellitus without complication, without long-term current use of insulin E11.9 Dyslipidemia E78.5
[2023-07-26 08:51] VITALS: BP 120/62; PULSE 86; O2SAT 96; BMI 40.0
== END 2023-07-26 10:02 | disposition home or self-care (01) ==
PROVIDERS: PCP Internal Medicine; Visit Provider Internal Medicine
DX: D69.6 Thrombocytopenia, unspecified (principal); E11.9 Type 2 diabetes mellitus without complications; D50.0 Iron deficiency anemia secondary to blood loss (chronic); K52.9 Noninfective gastroenteritis and colitis, unspecified; R79.89 Other specified abnormal findings of blood chemistry; E78.5 Hyperlipidemia, unspecified
CPT/HCPCS: 99214

== ENCOUNTER 2023-08-03 12:45 | Outpatient (REF) | payer MEDICARE, SELFPAY ==
[2023-08-05 10:58] LABS: Immunoglobulin G 2159 mg/dL (600-1540)
[2023-08-05 16:13] LABS: Alpha 1 Anti-trypsin 178 mg/dL (83-199); Ceruloplasmin 29 mg/dL (18-53)
[2023-08-06 12:19] LABS: Smooth Muscle Antibody <20 U (<20)
[2023-08-07 09:38] LABS: Anti Nuclear Antibody Screen NEGATIVE (NEGATIVE)
[2023-08-08 23:07] LABS: Liver Kidney Microsomal Ab <=20.0 U (<=20.0)
== END 2023-08-03 12:46 | disposition home or self-care (01) ==
LOC: HO.LAB 12:45
PROVIDERS: PCP Internal Medicine; Visit Provider Internal Medicine
DX: K57.30 Diverticulosis of large intestine without perforation or abscess without bleeding (principal); K64.9 Unspecified hemorrhoids; D12.2 Benign neoplasm of ascending colon; K74.60 Unspecified cirrhosis of liver; R79.89 Other specified abnormal findings of blood chemistry; D64.9 Anemia, unspecified; Z98.890 Other specified postprocedural states
CPT/HCPCS: 36415; 80048; 80076; 82103; 82390; 82728; 82784; 83540; 85027; 85610; 86015; 86038; 86376; 99212

== ENCOUNTER 2023-08-03 12:45 | Outpatient (AMB) | payer MEDICARE, SELFPAY ==
--- NOTE | 2023-08-03 13:08 | MHC.OFFVIS ---
Intake Vital Signs 08/03/23 13:11 Height 5 ft 3 in Weight 218 lb 4.122 oz BMI 38.7 BP 148/61 H Blood Pressure Location Lt brachial Position Sitting Pulse 77 Intake Visit Reasons: Colitis & tubular adenoma removed by Dr. vasques/ER Intake Note: Paula presents in the office as a follow up for a GI consult. CC: She had a COLO, EGD, MRI and CT scan and she just would like to know if there was anything that showed up. Allergies benzethonium chloride [From LANACANE ANTI-ITCH] Allergy (Unknown, Verified 08/03/23 13:11) BLISTERS IN MOUTH benzocaine [From LANACANE ANTI-ITCH] Allergy (Unknown, Verified 08/03/23 13:11) BLISTERS IN MOUTH cortisone [CORTISONE] Allergy (Unknown, Verified 08/03/23 13:11) BLISTERS IN MOUTH, LOST SENSE OF TASTE ibuprofen Allergy (Unknown, Verified 08/03/23 13:11) nose bleed naproxen Allergy (Unknown, Verified 08/03/23 13:11) nose bleed triamcinolone [Kenalog] Allergy (Unknown, Verified 08/03/23 13:11) unknown From KENALOG Allergy (Unknown, Uncoded 08/03/23 13:11) BLISTERS IN MOUTH HPI HPI Comments History of Present Illness Details This is a 72-year-old female with medical history of obesity, type 2 diabetes, hypertension, who was seen in the hospital last month for profound anemia and underwent EGD and colonoscopy, here for post hospitalization visit. Hospital admission 07/19-07/22/2023: Presented for abnormal labs to her PCP's office with initial hemoglobin of 5.5. Previous baseline was normal from 2019. No reported history of abdominal pain, changes in bowel habits, melena, hematochezia. Had knee surgery earlier this year. No anticoagulants or NSAIDs on board. After undergoing PRBC transfusion, had EGD and colonoscopy. 07/21/2023: EGD/colo: 1. Normal esophagus 2. Normal stomach 3. Normal duodenum (biopsy) 4. Abnormal mucosa in sigmoid colon 5. One polyp removed 6. Diverticulosis 7. Hemorrhoids Path: Diagnosis A. Duodenum, biopsy: Duodenal mucosa with preserved villi and no specific change. B. Colon, ascending, polyp: Tubular adenoma (2 pieces); negative for high-grade dysplasia and carcinoma, and 2 fragments of degenerated duodenal type mucosa (consistent with contaminant). C. Colon, rectal-sigmoid, biopsy: Mild active colitis with mild chronic regenerative changes; negative for dysplasia (see comment) 08/03/23: Today, reports feeling much better. Fatigue and shortness of breath is a lot better. Has more energy. Patient lives by herself at home. Does not have any immediate family members such as spouse or children. However, her friends checkup on her daily. Continues on iron pills through PCP's office. 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 BMI 38 with type 2 diabetes and hyperlipidemia. [facility] Medical History Colitis Fatty liver Cough Acute maxillary sinusitis Varicose veins of bilateral lower extremities with pain Osteoporosis Breast cancer screening by mammogram Type 2 diabetes mellitus without complication, without long-term current use of insulin Thrombocytopenia Osteoarthritis of multiple joints Hammertoes of both feet Colonoscopy refused Mild intermittent asthma in adult without complication Dyslipidemia Type 2 diabetes mellitus with hyperglycemia, without long-term current use of insulin Surgical History History of esophagogastroduodenoscopy (EGD) Hx of colonoscopy Hx of varicose vein ligation History of surgery on lower extremity H/O left wrist surgery Family History Mother Breast cancer Arthralgia of both feet Arthritis Brother Arthritis Brother No problems noted. Social History Household Members: None Housing: House Do you presently have visiting nurse or other home services: No Alcohol intake: current Alcohol intake frequency: holidays/special occasions only Patient Tobacco Use Status: Never used Tobacco e-Cigarette/Vaping Use: Never Used service: No Current occupational status: retired Cognitive needs: No Hearing needs: No Vision needs: Yes Review of Systems Const All systems reviewed & are unremarkable except as noted in HPI and below Physical Exam Vital Signs: Last Vital Signs Pulse 77 08/03/23 13:11 BP 148/61 H 08/03/23 13:11 BMI result Body Mass Index 38.7 Gen appear: No acute distress HEENT: no icterus Chest: No overt resp distress Abd: soft, nontender, nondistended Psych: Stable affect, answering questions appropriately Neuro: A/Ox3 noted to move all extremities spontaneously Ext: no peripheral edema Assessment & Plan Assessment & Plan (1) Cirrhosis: Code(s): K74.60 - Unspecified cirrhosis of liver (2) Elevated LFTs: Code(s): R79.89 - Other specified abnormal findings of blood chemistry (3) Anemia: Code(s): D64.9 - Anemia, unspecified Plan 1. Iron deficiency anemia: Evaluation for occult GI bleeding. Bidirectional endoscopy as above, do not believe that the mild SCAD noted on colonoscopy explained the extent of her anemia. Will proceed with small-bowel evaluation with video capsule endoscopy. Patient to continue p.o. iron for now, but to hold it 5 days before. We will also recheck her CBC and iron studies to assess response to oral iron, and whether she needs IV iron instead. Plan: -check CBC, iron studies -video capsule endoscopy to be booked within 1-2 weeks -push enteroscopy versus deep enteroscopy as guided by video capsule endoscopy -otherwise if normal, will monitor counts conservatively on iron. 2. Advanced fibrosis/cirrhosis: Clinically, appears consistent with MOJICA cirrhosis, however will check for other causes of chronic liver disease including cardiac cirrhosis. Has abdominal and periumbilical varices noted on imaging, but no portal hypertensive gastropathy or varices noted on endoscopy done last month. Pt also reports being referred to Heme for thrombocytopenia however reviewed that likely due to cirrhosis. Plan: -labs and echo ordered as below -will need HCC screening with Q 6 monthly ultrasound. Next ultrasound due in December 2023. -will be due for EGD for variceal screening in June 2024 -orders placed for updated meld score Sooner follow up if VCE abnormal, otherwise 3 months Orders: Orders Ferritin 08/03/23 D64.9 - Anemia, unspecified CA echo transthoracic complete 08/03/23 K74.60 - Unspecified cirrhosis of liver Ceruloplasmin 08/03/23 K74.60 - Unspecified cirrhosis of liver Immunoglobulin G 08/03/23 K74.60 - Unspecified cirrhosis of liver Smooth Muscle Antibody 08/03/23 K74.60 - Unspecified cirrhosis of liver Complete Blood Count no Diff 08/03/23 D64.9 - Anemia, unspecified IRON PROFILE 08/03/23 D64.9 - Anemia, unspecified Alpha 1 Anti-trypsin 08/03/23 K74.60 - Unspecified cirrhosis of liver JUAN PABLO Reflex Titer and Pattern 08/03/23 K74.60 - Unspecified cirrhosis of liver Liver Kidney Microsomal Ab 08/03/23 K74.60 - Unspecified cirrhosis of liver Liver Panel 08/03/23 K74.60 - Unspecified cirrhosis of liver Prothrombin Time INR 08/03/23 K74.60 - Unspecified cirrhosis of liver Basic Metabolic Panel 08/03/23 K74.60 - Unspecified cirrhosis of liver Medications: Refilled ferrous sulfate 325 mg PO DAILY 30 tabs 2RF Coding Level of Care Code Est Pt Level 4 (16093) Diagnoses Cirrhosis K74.60 Elevated LFTs R79.89 Anemia D64.9
[2023-08-03 13:11] VITALS: BP 148/61; PULSE 77; BMI 38.7
== END 2023-08-03 14:05 | disposition home or self-care (01) ==
PROVIDERS: PCP Internal Medicine; Visit Provider Internal Medicine
DX: K74.60 Unspecified cirrhosis of liver (principal); R79.89 Other specified abnormal findings of blood chemistry; D64.9 Anemia, unspecified
CPT/HCPCS: 99214

== ENCOUNTER → 2023-08-17 08:14 | Outpatient (BNVA) | payer MEDICARE, SELFPAY | PROVIDERS: PCP Internal Medicine; Visit Provider Internal Medicine ==

== ENCOUNTER → 2023-08-22 10:37 | Outpatient (BNV) | payer MEDICARE, SELFPAY | PROVIDERS: PCP Internal Medicine; Referring Provider Internal Medicine; Visit Provider Internal Medicine | DX: D69.6 Thrombocytopenia, unspecified (principal); D50.9 Iron deficiency anemia, unspecified | CPT/HCPCS: 99204; 99213; 99214; G2211 ==

== ENCOUNTER 2023-08-22 14:24 | Outpatient (REF) | payer MEDICARE, SELFPAY ==
--- NOTE | ~2023-08-22 | XR_ITS ---
EXAMINATION: XR ABDOMEN COMPLETE CLINICAL INDICATION: Encounter for other special examinations. Cirrhosis. COMPARISON: CT abdomen and pelvis 07/22/2023 TECHNIQUE: 2 views of the abdomen. FINDINGS: Nonobstructive bowel gas pattern. Moderate amount of stool in the colon. Levoscoliosis of the lumbar spine with multilevel degenerative changes. XR/XR abdomen min 2V IMPRESSION: Nonobstructive bowel gas pattern. Moderate amount of stool in the colon.
== END 2023-08-22 14:25 | disposition home or self-care (01) ==
LOC: HO.XRAY 14:24
PROVIDERS: PCP Internal Medicine; Visit Provider Internal Medicine
DX: Z01.89 Encounter for other specified special examinations (principal); K74.60 Unspecified cirrhosis of liver
CPT/HCPCS: 74019

== ENCOUNTER → 2023-09-02 09:30 | Outpatient (REF) | payer MEDICARE, SELFPAY ==
--- NOTE | 2023-09-02 09:33 | CA_ITS ---
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 Normal LV EF of 60-65% with impaired relaxation filling pattern 2. Moderate left atrial enlargement 3. Early mild aortic stenosis 4. Mild calcific mitral stenosis 5. Upper limits of normal ascending aortic size 6. No gross pericardial effusion Findings Left Ventricle Normal left ventricular size, thickness, and systolic function. The visually estimated ejection fraction is between 60-65%. There is no dynamic left ventricular outflow tract obstruction. Spectral Doppler is indicative of an impaired relaxation filling pattern. There is mild septal asymmetric hypertrophy. Right Ventricle Normal right ventricular cavity size and systolic function. Atria The left atrium is moderately dilated. Interatrial shunt cannot be excluded. The right atrium is normal in size. Aortic Valve There is mild calcification of the aortic valve. There is mild thickening of the aortic valve. There is no aortic valve regurgitation. Mitral Valve There is mild anterior and moderate posterior mitral leaflet thickening. There is mild anterior and moderate posterior mitral annular calcification. There is moderate mitral annular calcification. There is no mitral valve regurgitation. There is mild mitral valve stenosis. Pulmonic Valve The pulmonic valve is likely normal. There is trace pulmonic valve regurgitation. Tricuspid Valve Likely normal tricuspid valve structure and function. Tricuspid regurgitation envelope is inadequate for calculation of right ventricular systolic pressure. Normal right atrial pressure. Great Vessels The pulmonary artery was not well visualized. Venous The inferior vena cava is normal in size and collapses greater than 50% with inspiration. Pericardium/Pleural There is no evidence of pericardial effusion. Prior Study Comparison No prior study available for comparison. Measurements 2D Linear Measurements IVSd: 1.40 0.6-0.9/0.6-1.0 cm LVIDd: 4.59 3.9-5.3/4.2-5.9 cm LVIDd Index: 2.38 2.4-3.2/2.2-3.1 cm/m2 LVIDs: 3.03 2.0-3.6 cm LVPWd: 0.93 0.7-1.1 cm LA Diam: 3.50 2.7-3.8/3.0-4.0 cm LAIDs Index: 1.81 1.5-2.3 cm/m2 LV Mass: 244.21 67-162/88-224 g LV Mass Index: 126.53 43-95/49-115 g/m2 LVOT Diam: 2.20 3.0+(-)1.3 cm 2D Systolic Function EF 4C: 58.80 >55% EF 2C: 62.30 >55% EF BiP: 61.40 >55% Mitral Valve MV VTI: 0.46 MV Pk Ranjan: 1.56 MV Mn Ranjan: 1.04 MV Pk Grad: 10.00 MV Mn Grad: 5.00 MV Pk E: 1.14 MV PK A: 1.34 MV Decel Time: 280.00 E/A: 0.90 E'Lateral: 11.50 E'Medial: 5.77 E/E' Med: 19.80 E/E' Lat: 9.90 PHT: 82.00 MVA PHT: 2.68 MVA Continuity: 2.86 Decel [place]: 4.09 Aortic Valve AoV Pk Ranjan: 2.68 AoV Mn Ranjan: 1.95 AoV VTI: 0.63 AoV Pk Grad: 29.00 Aov Mn Grad: 16.00 [place] Cont.VTI: 2.09 LVOT LVOT Pk Ranjan: 1.55 LVOT Mn Ranjan: 0.98 LVOT VTI: 0.35 LVOT Pk Grad: 10.00 LVOT Mn Grad: 4.00 LVOT Diam: 2.20 LVOT Area: 3.80 Diastolic Function MV Pk E: 1.14 MV Pk A: 1.34 E/A: 0.90 E'Medial: 5.77 E/E' Med: 19.80 E' Laterial: 11.50 E/E' Lat: 9.90 Right Ventricle TAPSE (mm): 24.80 TVS' Ranjan: 11.90 Great Vessels Aorta Sinus of Valsalva: 3.10 2.0-3.[address] [place]: 2.60 1.7-3.4 cm Ao Asc: 3.50 2.1-3.4 cm Updated in Other Vendor System with Status of Final Lul Cross MD electronically signed on 09/02/2023 6:50:13 PM with status of Final
== END ==
LOC: HO.CARD 09:30
PROVIDERS: PCP Internal Medicine; Visit Provider Internal Medicine
DX: I10 Essential (primary) hypertension (principal); K74.60 Unspecified cirrhosis of liver
CPT/HCPCS: 93306

== ENCOUNTER → 2023-09-02 09:33 | Outpatient (BNV) | payer MEDICARE, SELFPAY | PROVIDERS: PCP Internal Medicine; Visit Provider Internal Medicine Cardiovascular Disease | DX: I34.2 Nonrheumatic mitral (valve) stenosis (principal) | CPT/HCPCS: 93306 ==

== ENCOUNTER 2023-10-11 09:05 | Outpatient (REF) | payer MEDICARE, SELFPAY ==
[2023-10-11 11:24] LABS: MANUAL DIFF FLAG NO
[2023-10-11 11:32] LABS: Basophils Percent Auto 0.6 % (0-2); Eosinophils Absolute Auto 0.1 X10*3/uL (0.0-0.4); Eosinophils Percent Auto 2.6 % (0-4); Hemoglobin 10.1 g/dl (12.0-16.0); Imm Gran Abs Auto 0.01 X10*3/uL (0.00-0.03); Imm Gran Pct Auto 0.2 % (0.0-0.4); Lymphocytes Absolute Auto 1.4 X10*3/uL (1.2-4.9); Lymphocytes Percent Auto 25.7 % (20-40); Mean Corpuscular HGB Conc 29.7 g/dl (31.0-35.0); Mean Corpuscular Hemoglobin 24.6 pg (27.0-33.0); Mean Corpuscular Volume 82.7 fL (80.0-98.0); Monocytes Absolute Auto 0.7 X10*3/uL (0.1-1.2); Monocytes Percent Auto 13.3 % (2-11); Neutrophils Absolute Auto 3.1 x10*3/uL (2.0-8.3); Neutrophils Percent Auto 57.6 % (45-73); Platelet Count 107 X10*3/uL (160-400); Red Blood Count 4.11 X10*6/uL (4.20-5.50); Red Cell Distribution Width 21.5 % (11.0-16.0); White Blood Count 5.3 X10*3/uL (4.8-10.8)
[2023-10-11 11:38] LABS: Estimated Average Glucose 117 mg/dL; Hemoglobin A1c % 5.7 % (<6.0)
[2023-10-11 12:19] LABS: Alanine Aminotransferase 16 U/L (0-31); Albumin Level 3.2 g/dL (3.5-5.0); Alkaline Phosphatase 74 U/L (39-117); Anion Gap 12 (12-20); Aspartate Amino Transferase 44 U/L (5-31); Bilirubin Total 0.6 mg/dL (0.0-1.0); Blood Urea Nitrogen 8 mg/dL (9-16); Calcium 8.8 mg/dL (8.4-10.2); Carbon Dioxide 31 mmol/L (22-29); Chloride 103 mmol/L (96-108); Cholesterol 111 mg/dL (<200); Estimated Glomerular Filt Rate > 60; Glucose Fasting 100 mg/dL (60-99); HDL Cholesterol 43 mg/dL (>40); Iron 28 mcg/dL (30-160); LDL Cholesterol Calculated 59 mg/dL (<100); Percent Iron Saturation 7 % (15-50); Potassium 4.1 mmol/L (3.3-5.1); Sodium 142 mmol/L (135-145); Total Iron Binding Capacity 381 mcg/dL (228-428); Total Protein 7.8 g/dL (6.5-8.0); Triglycerides 47 mg/dL (<150); Unsaturated Iron Binding 353 ug/dL
[2023-10-11 13:29] LABS: Vitamin D 25-OH Total 36.4 ng/mL (>30)
== END 2023-10-11 09:06 | disposition home or self-care (01) ==
LOC: HO.HMGCLDS 09:05
PROVIDERS: PCP Internal Medicine; Visit Provider Internal Medicine
DX: R79.89 Other specified abnormal findings of blood chemistry (principal); D64.9 Anemia, unspecified; E11.9 Type 2 diabetes mellitus without complications; D69.6 Thrombocytopenia, unspecified; E78.5 Hyperlipidemia, unspecified
CPT/HCPCS: 36415; 80053; 80061; 82306; 83036; 83540; 85025

== ENCOUNTER 2023-11-01 10:26 | Outpatient (AMB) | payer MEDICARE, SELFPAY ==
[2023-11-01 11:20] VITALS: BP 130/80; PULSE 75; O2SAT 97; BMI 41.0
--- NOTE | 2023-11-01 11:20 | MHC.PC.OV ---
Vital Signs 11/01/23 11:20 Height 5 ft 3 in Weight 231 lb 4 oz BMI 41.0 BP 130/80 Blood Pressure Location Lt brachial Position Sitting Pulse 75 Pulse Source Pulse Oximeter Pulse Oximetry (%) 97 Oxygen Delivery Method Room Air Intake Visit Reasons: Follow up Intake Note: Pt is here to follow up for her lab results Allergies benzethonium chloride [From LANACANE ANTI-ITCH] Allergy (Unknown, Verified 11/16/23 04:05) BLISTERS IN MOUTH benzocaine [From LANACANE ANTI-ITCH] Allergy (Unknown, Verified 11/16/23 04:05) BLISTERS IN MOUTH cortisone [CORTISONE] Allergy (Unknown, Verified 11/16/23 04:05) BLISTERS IN MOUTH, LOST SENSE OF TASTE ibuprofen Allergy (Unknown, Verified 11/16/23 04:05) nose bleed naproxen Allergy (Unknown, Verified 11/16/23 04:05) nose bleed triamcinolone [Kenalog] Allergy (Unknown, Verified 11/16/23 04:05) unknown From KENALOG Allergy (Unknown, Uncoded 11/16/23 04:05) BLISTERS IN MOUTH Medication List - Last Reconciled 11/16/23 by Daniela Eduardo MD albuterol sulfate 90 mcg/actuation 2 puffs PO Q6H PRN blood sugar diagnostic As directed blood sugar diagnostic (Canary Calendaruch Verio test strips) USE TO TEST BLOOD SUGAR TWICE A DAY cetirizine 10 mg PO BEDTIME PRN cholecalciferol (vitamin D3) 50 mcg PO DAILY coenzyme Q10 100 mg PO DAILY ferrous sulfate 325 mg PO DAILY lancets (ChatalogTouch Delica Plus Lancet) As directed twice a day ac metformin 1,000 mg PO BID pioglitazone (Actos) 15 mg PO DAILY pravastatin 20 mg PO BEDTIME Tobacco use date assessed: 11/01/23 Fall risk assessment: 1 Fall in past year Last assessed Fall Risk: 11/01/23 Dental Screening Dental Screen Date: 11/01/23 Did you have a dental visit in the last 12 months?: Yes Did you have a dental problem in the last 6 months where you did not have access to dental care?: No Was dental information given to patient?: Patient has dentist HPI Follow up HPI Details 72-year-old lady with iron deficiency anemia, hyper lipidemia and diabetes mellitus, here today for her follow-up. Had recent fasting labs done which showed diabetes and lipids well controlled on present treatment. [facility] Medical History Colitis Fatty liver Cough Acute maxillary sinusitis Varicose veins of bilateral lower extremities with pain Osteoporosis Breast cancer screening by mammogram Type 2 diabetes mellitus without complication, without long-term current use of insulin Thrombocytopenia Osteoarthritis of multiple joints Hammertoes of both feet Colonoscopy refused Mild intermittent asthma in adult without complication Dyslipidemia Type 2 diabetes mellitus with hyperglycemia, without long-term current use of insulin Surgical History History of esophagogastroduodenoscopy (EGD) Hx of colonoscopy Hx of varicose vein ligation History of surgery on lower extremity H/O left wrist surgery Family History Mother Breast cancer Arthralgia of both feet Arthritis Brother Arthritis Brother No problems noted. Social History Household Members: None Housing: House Do you presently have visiting nurse or other home services: No Alcohol intake: current Alcohol intake frequency: holidays/special occasions only Patient Tobacco Use Status: Never used Tobacco e-Cigarette/Vaping Use: Never Used service: No Current occupational status: retired Cognitive needs: No Hearing needs: No Vision needs: Yes Questionnaire Thrive Questionnaire Date Thrive assessed: 07/20/23 FABRIZIO-7 AMB Questionnaire FABRIZIO-7 Date FABRIZIO - 7 assessed: 04/18/23 Source: Developed by Drs. Callum Gomez, Chiquita Simon, Sharath Anna and colleagues, with an educational sy from [employer]. Review of Systems Const Denies body aches, Denies fever(s), Denies headache(s) and Denies weakness Eyes Denies change in vision ENT Denies dizziness, Denies headache(s), Denies nasal congestion, Denies nasal discharge and Denies sore throat Card Denies chest pain, Denies lightheadedness, Denies palpitations and Denies dyspnea Resp Denies chest congestion, Denies cough, Denies dyspnea and Denies wheezing GI Denies abdominal pain, Denies change in bowel habits and Denies heartburn Denies urinary frequency, Denies dysuria and Denies urinary urgency Musc Reports arthralgias, Reports joint swelling, Reports muscle cramps, Reports radiating pain into limb, Reports stiffness and Reports tingling Skin/Breast Denies lesions and Denies rash Neuro Denies dizziness, Denies headache(s), Reports tingling and Denies weakness Endo Denies polydipsia, Denies polyuria and Denies palpitations Abhilash/Lymph Reports easy bruising Aller/Immun Denies seasonal rhinorrhea and Denies wheezing Physical exam (Primary Care) Vital Signs: Last Vital Signs Pulse 75 11/01/23 11:20 BP 130/80 11/01/23 11:20 Pulse Ox 97 11/01/23 11:20 Oxygen Delivery Method Room Air 11/01/23 11:20 BMI result Body Mass Index 41.0 Tobacco/Smoking Status: Tobacco use Status Tobacco use date assessed 11/01/23 11/01/23 11:25 Patient Tobacco Use Status Never used Tobacco 11/01/23 11:25 e-Cigarette/Vaping Use Never Used 11/01/23 11:25 Thrive Assessment: Date of Thrive Assessment Date Thrive assessed 07/20/23 11/01/23 11:25 Const General: comfortable, no acute distress and alert Orientation/consciousness: patient oriented x3 HENMT Ears: external ears normal General nose exam: Normal external nose present and No nasal discharge present Mouth: Normal oral and palatal mucosa present and moist mucous membranes Eyes General: appearance normal, both eyes and all related structures Conjunctivae: conjunctivae normal Sclerae: sclerae normal Pupils: Equal, round and reactive pupils present EOM: EOMs intact bilaterally Neck Neck: Yes full ROM, Yes no lymphadenopathy and Yes supple Resp Effort & Inspection: normal respiratory effort and able to speak in complete sentences Auscultation: clear to auscultation bilaterally Cardio Rate: regular rate Rhythm: regular rhythm Heart sounds: S1 normal heart sound present and S2 normal heart sound present GI Palpation (GI): Soft to palpation, nontender and no masses Auscultation: normal bowel sounds Back/Spine/Pelvis Back: No back tenderness Skin General skin exam: no rashes or lesions noted Neuro General: patient oriented x3, gait normal, tone normal, moves all extremities, Normal light touch and pain sensation and no focal motor deficits Cranial nerves: Yes CN's II-XII intact bilaterally and Yes Equal, round and reactive pupils present Cognition (Neuro): normal cognition Extrem General: Yes full ROM, Yes no joint enlargement, Yes no clubbing, cyanosis or edema and Yes no calf tenderness Results Reviewed Results Reviewed: Name: Paula Baum Age/Sex: 72/F : 1950 Unit#: [id number] Attend Dr: Daniela Eduardo MD Re10/11/23 Status: DEP [facility] Disch: SPEC : [id number] SANGITA: 10/11/23 STATUS: COMP REQ : [id number] RECD: 10/11/[address]: Daniela Eduardo MD COMP: 10/11/23 ENTERED: 10/11/[address] [facility] [address]: ORDERED: CBC Auto Diff Test Result Flag Reference Site WBC 5.3 4.8-10.8 X10*3/uL RBC 4.11 L 4.20-5.50 X10*6/uL HGB 10.1 L 12.0-16.0 g/dl HCT 34.0 L 37.0-47.0 % MCV 82.7 80.0-98.0 fL MCH 24.6 L 27.0-33.0 pg MCHC 29.7 L 31.0-35.0 g/dl RDW 21.5 H 11.0-16.0 % PLT 107 L 160-400 X10*3/uL Neut Pct Auto 57.6 45-73 % ImGran Pct Auto 0.2 0.0-0.4 % Lymp Pct Auto 25.7 20-40 % Kingfisher Pct Auto 13.3 H 2-11 % Eos Pct Auto 2.6 0-4 % Baso Pct Auto 0.6 0-2 % NRBC Pct Auto 0.0 0.0-0.2 /100WBC ANC Neut Abs # 3.1 2.0-8.3 x10*3/uL ImGran Abs Auto 0.01 0.00-0.03 X10*3/uL Lymph Abs Auto 1.4 1.2-4.9 X10*3/uL [place] Abs Auto 0.7 0.1-1.2 X10*3/uL Eos Abs Auto 0.1 0.0-0.4 X10*3/uL Baso Abs Auto 0.0 0.0-0.2 X10*3/uL NRBC Abs Auto 0.000 0.0-0.012 X10*3/uL Name: Paula Baum Age/Sex: 72/F : 1950 Unit#: [id number] Attend Dr: Daniela Eduardo MD Re10/11/23 Status: DEP [facility] Disch: SPEC : [id number] SANGITA: 10/11/23 STATUS: COMP REQ : [id number] RECD: 10/11/[address]: Daniela Eduardo MD COMP: 10/11/23 ENTERED: 10/11/[address]: ORDERED: CMP Fast, IRON PROF, Lipid Panel, Vitamin D 25-OH Test Result Flag Reference Site Sodium 142 135-145 mmol/L Potassium 4.1 3.3-5.1 mmol/L CL 103 96-108 mmol/L CO2 31 H 22-29 mmol/L Gap 12 12-20 BUN 8 L 9-16 mg/dL Creat 0.66 0.5-1.4 mg/dL EGFR > 60 NOTE: For -[place] individuals, multiply the result by 1.210. Chronic Kidney Disease: Estimated GFR < 60 mL/min/1.73m2 Severe Kidney Disease: Estimated GFR < 15 mL/min/1.73m2 FBS 100 H 60-99 mg/dL A fasting glucose from 100-125 mg/dl is considered impaired (pre-diabetes). CA 8.8 # 8.4-10.2 mg/dL Iron 28 L 30-160 mcg/dL TIBC 381 228-428 mcg/dL Saturation 7 L 15-50 % UIBC 353 ug/dL Total Bili 0.6 0.0-1.0 mg/dL AST (GOT) 44 H 5-31 U/L ALT (GPT) 16 0-31 U/L Protein, Total 7.8 6.5-8.0 g/dL Alb 3.2 L 3.5-5.0 g/dL Triglyceride 47 <150 mg/dL Desirable Triglyceride: less than 150 mg/dL Borderline High Triglyceride 150-199 mg/dL High Triglyceride: 200-499 mg/dL Very High Triglyceride: greater than or equal to 5OO mg/dL Cholesterol 111 <200 mg/dL Desirable Cholesterol: less than 200 mg/dL Borderline High Cholesterol: 200-239 mg/dL High Cholesterol: greater than 239 mg/dL LDL Calculated 59 <100 mg/dL Desirable LDL: less than 100 mg/dL Near Optimal/Above Optimal LDL: 110-129 mg/dL Borderline High LDL: 130-159 mg/dL High LDL: 160-189 mg/dL Very High LDL: greater than or equal to 190 mg/dL HDL 43 >40 mg/dL Desirable HDL: greater than 40 mg/dL Note: This HDL assay may give artificially low results in patients with liver disease. Alk Phos 74 39-117 U/L Vit D 25-OH Tot 36.4 >30 ng/mL Health Based Reference Values* < 20 ng/mL Deficient 20-30 ng/mL Insufficient > 30 ng/mL Sufficient Laboratory Tests 10/11/23 09:11 Estimat Average Glucose 117 Hemoglobin A1c % 5.7 Assessment and Plan Assessment & Plan (1) Anemia: Code(s): D64.9 - Anemia, unspecified Qualifiers: Anemia type: iron deficiency Iron deficiency anemia type: chronic blood loss Qualified Code(s): D50.0 - Iron deficiency anemia secondary to blood loss (chronic) Plan: Patient with iron deficiency anemia, continue with ferrous sulfate 325 mg per tablet to take once a day, advised to take it with either orange juice or vitamin-C tablets for better absorption. Will recheck CBC and iron profile in 3 months (2) Thrombocytopenia: Code(s): D69.6 - Thrombocytopenia, unspecified Plan: Currently asymptomatic, except for easy bruisability (3) Dyslipidemia: Code(s): E78.5 - Hyperlipidemia, unspecified Plan: Reviewed recent fasting lipid profile with patient with levels within normal limits . Continue with pravastatin 20 mg at bedtime , in addition to adherence to low-cholesterol diet and regular exercise, at least 30 minutes 3 to 4 times a week. Advised patient to make healthy food choices, eat more fruits, vegetables, whole grains, wild caught fish and low-fat dairy. Limit amount of meat and fried or fatty food products, as well as processed foods and fast foods. Follow-up scheduled with repeat fasting lipid panel in 3 months. (4) Type 2 diabetes mellitus without complication, without long-term current use of insulin: Code(s): E11.9 - Type 2 diabetes mellitus without complications Plan: Recent lab results reviewed with patient, with sugar and hemoglobin A1c stable and at goal . Will continue on pioglitazone 15 mg daily, and metformin a 1000 mg twice a day. continue to check fasting blood sugar at home, maintain log and bring to next appointment for review. Reinforced diabetic diet and regular exercise with patient. Counseled regarding importance of yearly diabetes retinopathy screening. Patient advised to inspect feet daily, for any signs of injury, callus or infection. Compliance with diet and regular exercise again stressed. Blood pressure goal is less than 130/80, goal LDL is less than 100 and goal hemoglobin A1c is less than 7% follow-up appointment made in--3-months, after fasting labs done. Orders: Orders Complete Blood Count Auto Diff 12/23/23 D64.9 - Anemia, unspecified, D69.6 - Thrombocytopenia, unspecified, E78.5 - Hyperlipidemia, unspecified, E11.9 - Type 2 diabetes mellitus without complications IRON PROFILE 12/23/23 D64.9 - Anemia, unspecified, D69.6 - Thrombocytopenia, unspecified, E78.5 - Hyperlipidemia, unspecified, E11.9 - Type 2 diabetes mellitus without complications Hemoglobin A1c 12/23/23 D64.9 - Anemia, unspecified, D69.6 - Thrombocytopenia, unspecified, E78.5 - Hyperlipidemia, unspecified, E11.9 - Type 2 diabetes mellitus without complications Lipid Panel 12/23/23 D64.9 - Anemia, unspecified, D69.6 - Thrombocytopenia, unspecified, E78.5 - Hyperlipidemia, unspecified, E11.9 - Type 2 diabetes mellitus without complications Microalbumin, Random (w Creat) 12/23/23 D64.9 - Anemia, unspecified, D69.6 - Thrombocytopenia, unspecified, E78.5 - Hyperlipidemia, unspecified, E11.9 - Type 2 diabetes mellitus without complications Basic Metabolic Panel Fasting 12/23/23 D64.9 - Anemia, unspecified, D69.6 - Thrombocytopenia, unspecified, E78.5 - Hyperlipidemia, unspecified, E11.9 - Type 2 diabetes mellitus without complications Alanine Aminotransferase 12/23/23 D64.9 - Anemia, unspecified, D69.6 - Thrombocytopenia, unspecified, E78.5 - Hyperlipidemia, unspecified, E11.9 - Type 2 diabetes mellitus without complications Aspartate Amino Transferase 12/23/23 D64.9 - Anemia, unspecified, D69.6 - Thrombocytopenia, unspecified, E78.5 - Hyperlipidemia, unspecified, E11.9 - Type 2 diabetes mellitus without complications Medications: New cetirizine 10 mg PO BEDTIME PRN 30 tabs 0RF Postnasal drainage Coding Level of Care Code Est Pt Level 4 (05646) Diagnoses Iron deficiency anemia due to chronic blood loss D50.0 Anemia type: iron deficiency Iron deficiency anemia type: chronic blood loss Thrombocytopenia D69.6 Dyslipidemia E78.5 Type 2 diabetes mellitus without complication, without long-term current use of insulin E11.9
== END 2023-11-01 12:07 | disposition home or self-care (01) ==
PROVIDERS: PCP Internal Medicine; Visit Provider Internal Medicine
DX: D50.0 Iron deficiency anemia secondary to blood loss (chronic) (principal); D69.6 Thrombocytopenia, unspecified; E78.5 Hyperlipidemia, unspecified; E11.9 Type 2 diabetes mellitus without complications
CPT/HCPCS: 99214

== ENCOUNTER → 2023-11-21 10:32 | Outpatient (BNVA) | payer MEDICARE, SELFPAY | PROVIDERS: PCP Internal Medicine; Visit Provider Internal Medicine | DX: K74.60 Unspecified cirrhosis of liver (principal); D50.0 Iron deficiency anemia secondary to blood loss (chronic); R79.89 Other specified abnormal findings of blood chemistry | CPT/HCPCS: 99212 ==

== ENCOUNTER 2023-11-21 11:11 | Outpatient (AMB) | payer MEDICARE, SELFPAY ==
--- NOTE | 2023-11-21 11:14 | A.OFFVIS_ITS ---
Intake Vital Signs 11/21/23 11:16 Height 5 ft 3 in Weight 231 lb BMI 40.9 BP 121/58 L Blood Pressure Location Lt brachial Position Sitting Pulse 74 Intake Visit Reasons: 3 month follow up Anemia Intake Note: Paula presets in the office as a 3 month follow up. CC: She is feeling okay at this time. No concerns at the moment. She states that she has been taking the iron pill faithfully but at first she was not. [employer] Dean Required: No Allergies benzethonium chloride [From LANACANE ANTI-ITCH] Allergy (Unknown, Verified 11/21/23 11:15) BLISTERS IN MOUTH benzocaine [From LANACANE ANTI-ITCH] Allergy (Unknown, Verified 11/21/23 11:15) BLISTERS IN MOUTH cortisone [CORTISONE] Allergy (Unknown, Verified 11/21/23 11:15) BLISTERS IN MOUTH, LOST SENSE OF TASTE ibuprofen Allergy (Unknown, Verified 11/21/23 11:15) nose bleed naproxen Allergy (Unknown, Verified 11/21/23 11:15) nose bleed triamcinolone [Kenalog] Allergy (Unknown, Verified 11/21/23 11:15) unknown From KENALOG Allergy (Unknown, Uncoded 11/21/23 11:15) BLISTERS IN MOUTH HPI HPI Comments History of Present Illness Details This is a 72-year-old female with medical history of obesity, type 2 diabetes, hypertension, who was seen in the hospital last month for profound anemia and underwent EGD and colonoscopy, here for post hospitalization visit. Hospital admission 07/19-07/22/2023: Presented for abnormal labs to her PCP's office with initial hemoglobin of 5.5. Previous baseline was normal from 2019. No reported history of abdominal pain, changes in bowel habits, melena, hematochezia. Had knee surgery earlier this year. No anticoagulants or NSAIDs on board. After undergoing PRBC transfusion, had EGD and colonoscopy. 07/21/2023: EGD/colo: 1. Normal esophagus 2. Normal stomach 3. Normal duodenum (biopsy) 4. Abnormal mucosa in sigmoid colon 5. One polyp removed 6. Diverticulosis 7. Hemorrhoids Path: Diagnosis A. Duodenum, biopsy: Duodenal mucosa with preserved villi and no specific change. B. Colon, ascending, polyp: Tubular adenoma (2 pieces); negative for high-grade dysplasia and carcinoma, and 2 fragments of degenerated duodenal type mucosa (consistent with contaminant). C. Colon, rectal-sigmoid, biopsy: Mild active colitis with mild chronic regenerative changes; negative for dysplasia (see comment) 08/03/23: Today, reports feeling much better. Fatigue and shortness of breath is a lot better. Has more energy. Patient lives by herself at home. Does not have any immediate family members such as spouse or children. However, her friends checkup on her daily. Continues on iron pills through PCP's office. 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 BMI 38 with type 2 diabetes and hyperlipidemia. VCE 09/19/23: ?? small jejunal ulcers/erosio ns but poor prep. 11/21/23: Seen by Heme earlier this month. Had not been compliant with PO iron but now taking it regularly as wishes to avoid IV iron. Labs with anemia unchanged which is not surprising if had not been taking iron supplementation. Otherwise, has no active issues. No abd pain, N,V. Now taking PO iron first thing in the morning every day for the last 6 weeks. [facility] Medical History Colitis Fatty liver Cough Acute maxillary sinusitis Varicose veins of bilateral lower extremities with pain Osteoporosis Breast cancer screening by mammogram Type 2 diabetes mellitus without complication, without long-term current use of insulin Thrombocytopenia Osteoarthritis of multiple joints Hammertoes of both feet Colonoscopy refused Mild intermittent asthma in adult without complication Dyslipidemia Type 2 diabetes mellitus with hyperglycemia, without long-term current use of insulin Surgical History History of esophagogastroduodenoscopy (EGD) Hx of colonoscopy Hx of varicose vein ligation History of surgery on lower extremity H/O left wrist surgery Family History Mother Breast cancer Arthralgia of both feet Arthritis Brother Arthritis Brother No problems noted. Social History Household Members: None Housing: House Do you presently have visiting nurse or other home services: No Alcohol intake: current Alcohol intake frequency: holidays/special occasions only Patient Tobacco Use Status: Never used Tobacco e-Cigarette/Vaping Use: Never Used service: No Current occupational status: retired Cognitive needs: No Hearing needs: No Vision needs: Yes Review of Systems Const All systems reviewed & are unremarkable except as noted in HPI and below Physical Exam Vital Signs: BMI result Body Mass Index 40.9 Gen appear: NAD HEENT: nonicteric, no cervical lymphadenopathy Chest: CTA CVS: Regular S1/S2 Abd: soft, nontender, nondistended, bowel sounds + Ext: no peripheral edema Neuro: A/Ox3, noted to move all extremities spontaneously Psych: interacting appropriately Assessment & Plan Assessment & Plan (1) Cirrhosis: Code(s): K74.60 - Unspecified cirrhosis of liver (2) Elevated LFTs: Code(s): R79.89 - Other specified abnormal findings of blood chemistry (3) Anemia: Code(s): D64.9 - Anemia, unspecified Qualifiers: Anemia type: iron deficiency Iron deficiency anemia type: chronic blood loss Qualified Code(s): D50.0 - Iron deficiency anemia secondary to blood loss (chronic) Plan 1. Iron deficiency anemia: Pt had not been taking PO iron but has now resumed it since Oct 11 labs. Feeling good otherwise. Ddx include depleted stores after post surgical bleeding, vs occult GIB. Plan: -cont PO iron -recheck labs next month -if no significant improvement, will favor IV iron as well as CTE evaluation. 2. Advanced fibrosis/cirrhosis: Clinically, appears consistent with [place] cirrhosis. Echo with normal R and L heart function. Has abdominal and periumbilical varices noted on imaging, but no portal hypertensive gastropathy or varices noted on endoscopy done 2022. Plan: -Encouraged control of metabolic factors including DM and HLD -Weight loss of at least 10% TBW recommended in 6 months -US liver for HCC screening due in December 2023 -EGD for variceal screening due Jun 2024 -No clinical evidence of decompensation Follow up in 3 months Orders: Orders US abdomen complete Today K74.60 - Unspecified cirrhosis of liver Coding Level of Care Code Est Pt Level 4 (68093) Diagnoses Cirrhosis K74.60 Elevated LFTs R79.89 Iron deficiency anemia due to chronic blood loss D50.0 Anemia type: iron deficiency Iron deficiency anemia type: chronic blood loss
[2023-11-21 11:16] VITALS: BP 121/58; PULSE 74; BMI 40.9
== END 2023-11-21 11:41 | disposition home or self-care (01) ==
PROVIDERS: PCP Internal Medicine; Visit Provider Internal Medicine
DX: K74.60 Unspecified cirrhosis of liver (principal); R79.89 Other specified abnormal findings of blood chemistry; D50.0 Iron deficiency anemia secondary to blood loss (chronic)
CPT/HCPCS: 99214

== ENCOUNTER 2023-12-14 08:18 | Outpatient (REF) | payer MEDICARE, SELFPAY ==
--- NOTE | ~2023-12-14 | US_ITS ---
EXAMINATION: US ABDOMEN COMPLETE CLINICAL INFORMATION: Unspecified cirrhosis of liver. COMPARISON: X-ray abdomen 08/22/2023. CT abdomen and pelvis 07/22/2023. Ultrasound abdomen limited 07/20/2023. TECHNIQUE: Real-time imaging of the abdominal viscera. FINDINGS: PANCREAS: Normal. ABDOMINAL AORTA: The proximal, mid, and distal segments are normal in caliber. INFERIOR VENA CAVA: Visualized portions are normal. LIVER: The liver is normal in size. There is a lobulated contour. There is diffuse increased liver parenchymal echogenicity echogenicity. No focal hepatic lesion. There is no intrahepatic biliary duct dilatation seen. A recanalized umbilical vein is redemonstrated. GALLBLADDER: Normal. The gallbladder is physiologically distended without evidence of stones, sludge, polyps, wall thickening or pericholecystic fluid. COMMON BILE DUCT: Normal in caliber measuring 0.3 cm in diameter. RIGHT KIDNEY: Normal. No hydronephrosis. No renal calculi or focal parenchymal lesions. The kidney measures 10.8 cm in maximum dimension. LEFT KIDNEY: At the lower pole, a 2.1 cm benign, simple parapelvic cyst is seen, for which no imaging follow-up is recommended. No hydronephrosis. No renal calculi or focal parenchymal lesions. The kidney measures 12.1 cm in maximum dimension. SPLEEN: Normal. The spleen measures 9.4 cm in maximum dimension. FREE FLUID: None. US/US abdomen complete IMPRESSION: 1. There is generalized increase in hepatic echotexture and a lobular hepatic contour, consistent with the provided history of cirrhosis. No focal hepatic mass or intrahepatic biliary dilatation is seen. 2. There is a recanalized umbilical vein.
== END 2023-12-14 08:19 | disposition home or self-care (01) ==
LOC: HO.US 08:18
PROVIDERS: PCP Internal Medicine; Visit Provider Internal Medicine
DX: K74.60 Unspecified cirrhosis of liver (principal)
CPT/HCPCS: 76700

== ENCOUNTER 2023-12-19 08:41 | Outpatient (REF) | payer MEDICARE, SELFPAY ==
[2023-12-19 11:37] LABS: MANUAL DIFF FLAG NO
[2023-12-19 11:40] LABS: Basophils Percent Auto 0.6 % (0-2); Eosinophils Absolute Auto 0.2 X10*3/uL (0.0-0.4); Hematocrit 35.7 % (37.0-47.0); Hemoglobin 11.2 g/dl (12.0-16.0); Imm Gran Abs Auto 0.01 X10*3/uL (0.00-0.03); Imm Gran Pct Auto 0.2 % (0.0-0.4); Lymphocytes Absolute Auto 1.3 X10*3/uL (1.2-4.9); Lymphocytes Percent Auto 25.9 % (20-40); Mean Corpuscular HGB Conc 31.4 g/dl (31.0-35.0); Mean Corpuscular Hemoglobin 26.6 pg (27.0-33.0); Mean Corpuscular Volume 84.8 fL (80.0-98.0); Monocytes Absolute Auto 0.5 X10*3/uL (0.1-1.2); Monocytes Percent Auto 10.6 % (2-11); Neutrophils Percent Auto 59.7 % (45-73); Platelet Count 101 X10*3/uL (160-400); Red Blood Count 4.21 X10*6/uL (4.20-5.50)
[2023-12-19 11:56] LABS: Estimated Average Glucose 108 mg/dL; Hemoglobin A1c % 5.4 % (<6.0)
[2023-12-19 12:02] LABS: Alanine Aminotransferase 20 U/L (0-31); Anion Gap 12 (12-20); Aspartate Amino Transferase 49 U/L (5-31); Blood Urea Nitrogen 10 mg/dL (9-16); Calcium 9.2 mg/dL (8.4-10.2); Carbon Dioxide 31 mmol/L (22-29); Chloride 101 mmol/L (96-108); Cholesterol 118 mg/dL (<200); Estimated Glomerular Filt Rate > 60; Glucose Fasting 104 mg/dL (60-99); HDL Cholesterol 45 mg/dL (>40); Iron 33 mcg/dL (30-160); LDL Cholesterol Calculated 62 mg/dL (<100); Percent Iron Saturation 8 % (15-50); Potassium 4.1 mmol/L (3.3-5.1); Sodium 140 mmol/L (135-145); Total Iron Binding Capacity 406 mcg/dL (228-428); Triglycerides 58 mg/dL (<150); Unsaturated Iron Binding 373 ug/dL
[2023-12-19 12:25] LABS: Ferritin 19 ng/mL (10-250)
[2023-12-19 13:02] LABS: Creatinine Urine 103.71 mg/dL; Microalbum/Creatinine Ratio Ur 12.5 ug/mg cr (<30)
== END 2023-12-19 08:42 | disposition home or self-care (01) ==
LOC: HO.HMGCLDS 08:41
PROVIDERS: Internal Medicine; PCP Internal Medicine; Visit Provider Internal Medicine
DX: D69.6 Thrombocytopenia, unspecified (principal); E78.5 Hyperlipidemia, unspecified; E11.9 Type 2 diabetes mellitus without complications; D50.0 Iron deficiency anemia secondary to blood loss (chronic)
CPT/HCPCS: 36415; 80048; 80061; 82043; 82570; 82728; 83036; 83540; 84450; 84460; 85025; 85027

== ENCOUNTER 2023-12-29 08:50 | Outpatient (AMB) | payer MEDICARE, SELFPAY ==
--- NOTE | 2023-12-29 09:00 | A.OFFPC_ITS ---
Vital Signs 12/29/23 09:05 Height 5 ft 3 in Weight 238 lb BMI 42.2 BP 128/66 Blood Pressure Location Lt brachial Position Sitting Pulse 72 Pulse Source Pulse Oximeter Pulse Oximetry (%) 97 Oxygen Delivery Method Room Air Intake Visit Reasons: f/u labs vitaliy from 12/25 Intake Note: Pt is here today for a follow up visit on labs. Allergies benzethonium chloride [From LANACANE ANTI-ITCH] Allergy (Unknown, Verified 01/02/24 03:17) BLISTERS IN MOUTH benzocaine [From LANACANE ANTI-ITCH] Allergy (Unknown, Verified 01/02/24 03:17) BLISTERS IN MOUTH cortisone [CORTISONE] Allergy (Unknown, Verified 01/02/24 03:17) BLISTERS IN MOUTH, LOST SENSE OF TASTE ibuprofen Allergy (Unknown, Verified 01/02/24 03:17) nose bleed naproxen Allergy (Unknown, Verified 01/02/24 03:17) nose bleed triamcinolone [Kenalog] Allergy (Unknown, Verified 01/02/24 03:17) unknown From KENALOG Allergy (Unknown, Uncoded 01/02/24 03:17) BLISTERS IN MOUTH Medication List - Last Reconciled 01/02/24 by Daniela Eduardo MD albuterol sulfate 90 mcg/actuation 2 puffs PO Q6H PRN blood sugar diagnostic As directed blood sugar diagnostic (OneTouch Verio test strips) USE TO TEST BLOOD SUGAR TWICE A DAY cetirizine 10 mg PO BEDTIME PRN cholecalciferol (vitamin D3) 50 mcg PO DAILY coenzyme Q10 100 mg PO DAILY ferrous sulfate 325 mg PO DAILY lancets (OneTouch Delica Plus Lancet) As directed twice a day ac metformin 1,000 mg PO BID pioglitazone (Actos) 15 mg PO DAILY pravastatin 20 mg PO BEDTIME Tobacco use date assessed: 11/01/23 HPI f/u labs vitaliy from 12/25 HPI Details 73-year-old lady with diabetes mellitus, history of anemia, osteoarthritis, dyslipidemia, mild intermittent asthma, osteoporosis and history of thrombocytopenia, here today for follow-up. She has been compliant with taking her medications, has been compliant and also with following her recommended diet and getting regular exercise. Latest fasting labs done showed diabetes stable controlled with hemoglobin A1c at 5.4%, fasting lipids are within normal limits as well as electrolytes, renal function, liver enzymes , but still remains mildly anemic, however improved from last check. Denies any abnormal bleeding, no recurrence of epistaxis, no abdominal pain or hematuria reported. [facility] Medical History Colitis Fatty liver Cough Acute maxillary sinusitis Varicose veins of bilateral lower extremities with pain Osteoporosis Breast cancer screening by mammogram Type 2 diabetes mellitus without complication, without long-term current use of insulin Thrombocytopenia Osteoarthritis of multiple joints Hammertoes of both feet Colonoscopy refused Mild intermittent asthma in adult without complication Dyslipidemia Type 2 diabetes mellitus with hyperglycemia, without long-term current use of insulin Surgical History History of esophagogastroduodenoscopy (EGD) Hx of colonoscopy Hx of varicose vein ligation History of surgery on lower extremity H/O left wrist surgery Family History Mother Breast cancer Arthralgia of both feet Arthritis Brother Arthritis Brother No problems noted. Social History Household Members: None Housing: House Do you presently have visiting nurse or other home services: No Alcohol intake: current Alcohol intake frequency: holidays/special occasions only Patient Tobacco Use Status: Never used Tobacco e-Cigarette/Vaping Use: Never Used service: No Current occupational status: retired Cognitive needs: No Hearing needs: No Vision needs: Yes Questionnaire Thrive Questionnaire Date Thrive assessed: 07/20/23 FABRIZIO-7 AMB Questionnaire FABRIZIO-7 Date FABRIZIO - 7 assessed: 04/18/23 Source: Developed by Drs. Callum Gomez, Chiquita Simon, Sharath Anna and colleagues, with an educational sy from [employer]. Review of Systems Const Denies body aches, Denies fever(s), Denies headache(s) and Denies weakness Eyes Denies change in vision ENT Denies dizziness, Denies headache(s), Denies nasal congestion and Denies nasal discharge Card Denies chest pain, Denies lightheadedness, Denies palpitations and Denies dyspnea Resp Denies chest congestion, Denies cough, Denies dyspnea and Denies wheezing GI Denies abdominal pain, Denies change in bowel habits and Denies heartburn Denies urinary frequency, Denies dysuria and Denies urinary urgency Musc Reports arthralgias, Reports muscle cramps and Reports stiffness Skin/Breast Denies lesions and Denies rash Neuro Denies dizziness, Denies headache(s) and Denies weakness Endo Denies polydipsia, Denies polyuria and Denies palpitations Abhilash/Lymph Reports easy bruising Aller/Immun Denies seasonal rhinorrhea and Denies wheezing Physical exam (Primary Care) Vital Signs: Last Vital Signs Pulse 72 12/29/23 09:05 BP 128/66 12/29/23 09:05 Pulse Ox 97 12/29/23 09:05 Oxygen Delivery Method Room Air 12/29/23 09:05 BMI result Body Mass Index 42.2 Tobacco/Smoking Status: Tobacco use Status Tobacco use date assessed 11/01/23 12/29/23 09:01 Patient Tobacco Use Status Never used Tobacco 12/29/23 09:01 e-Cigarette/Vaping Use Never Used 12/29/23 09:01 Thrive Assessment: Date of Thrive Assessment Date Thrive assessed 07/20/23 12/29/23 09:01 Const General: comfortable, no acute distress and alert Orientation/consciousness: patient oriented x3 HENMT Ears: external ears normal General nose exam: Normal external nose present and No nasal discharge present Mouth: Normal oral and palatal mucosa present and moist mucous membranes Eyes General: appearance normal, both eyes and all related structures Conjunctivae: conjunctivae normal Sclerae: sclerae normal Pupils: Equal, round and reactive pupils present EOM: EOMs intact bilaterally Neck Neck: Yes full ROM, Yes no lymphadenopathy and Yes supple Resp Effort & Inspection: normal respiratory effort and able to speak in complete sentences Auscultation: clear to auscultation bilaterally Cardio Rate: regular rate Rhythm: regular rhythm Heart sounds: S1 normal heart sound present and S2 normal heart sound present GI Palpation (GI): Soft to palpation, nontender and no masses Auscultation: normal bowel sounds Back/Spine/Pelvis Back: No back tenderness Skin General skin exam: no rashes or lesions noted Neuro General: patient oriented x3, gait normal, tone normal, moves all extremities, Normal light touch and pain sensation and no focal motor deficits Cranial nerves: Yes CN's II-XII intact bilaterally and Yes Equal, round and reactive pupils present Cognition (Neuro): normal cognition Extrem General: Yes full ROM, Yes no joint enlargement, Yes no clubbing, cyanosis or edema and Yes no calf tenderness Results Reviewed Results Reviewed: RUN: 12/29/23 0931 PAGE 1 [facility] [address] [place] [id number] Direct Support Staff: Arik Lyon M.D. Specimen Inquiry Name: Paula Baum Age/Sex: 73/F : 1950 Unit#: [id number] Attend Dr: Daniela Eduardo MD Re12/19/23 Status: DEP REF Location: [facility] Disch: SPEC : [id number] SANGITA: 12/19/2350 STATUS: COMP REQ : [id number] RECD: 12/19/23-[address]: Daniela Eduardo MD COMP: 12/19/23-1202 ENTERED: 12/19/23-[address]: Antonia De La Vega MD ORDERED: Met Prof Fast, IRON PROF, AST, ALT, Lipid Panel Test Result Flag Reference Sodium 140 135-145 mmol/L Potassium 4.1 3.3-5.1 mmol/L CL 101 96-108 mmol/L CO2 31 H 22-29 mmol/L Gap 12 12-20 BUN 10 9-16 mg/dL Creat 0.66 0.5-1.4 mg/dL EGFR > 60 NOTE: For -[place] individuals, multiply the result by 1.210. Chronic Kidney Disease: Estimated GFR < 60 mL/min/1.73m2 Severe Kidney Disease: Estimated GFR < 15 mL/min/1.73m2 FBS 104 H 60-99 mg/dL A fasting glucose from 100-125 mg/dl is considered impaired (pre-diabetes). CA 9.2 8.4-10.2 mg/dL Iron 33 30-160 mcg/dL TIBC 406 228-428 mcg/dL Saturation 8 L 15-50 % UIBC 373 ug/dL AST (GOT) 49 H 5-31 U/L ALT (GPT) 20 0-31 U/L Triglyceride 58 <150 mg/dL Desirable Triglyceride: less than 150 mg/dL Borderline High Triglyceride 150-199 mg/dL High Triglyceride: 200-499 mg/dL Very High Triglyceride: greater than or equal to 5OO mg/dL Cholesterol 118 <200 mg/dL Desirable Cholesterol: less than 200 mg/dL Borderline High Cholesterol: 200-239 mg/dL High Cholesterol: greater than 239 mg/dL LDL Calculated 62 <100 mg/dL Desirable LDL: less than 100 mg/dL Near Optimal/Above Optimal LDL: 110-129 mg/dL Borderline High LDL: 130-159 mg/dL High LDL: 160-189 mg/dL Very High LDL: greater than or equal to 190 mg/dL HDL 45 >40 mg/dL Desirable HDL: greater than 40 mg/dL Note: This HDL assay may give artificially low results in patients with liver disease. RECD: 12/19/[address]: Daniela Eduardo MD COMP: 12/19/23 ENTERED: 12/19/[address]: Antonia De La Vega MD ORDERED: CBC No Diff, CBC Auto Diff Test Result Flag Reference WBC 5.0 4.8-10.8 X10*3/uL RBC 4.21 4.20-5.50 X10*6/uL HGB 11.2 L 12.0-16.0 g/dl HCT 35.7 L 37.0-47.0 % MCV 84.8 80.0-98.0 fL MCH 26.6 L 27.0-33.0 pg MCHC 31.4 31.0-35.0 g/dl RDW 20.0 H 11.0-16.0 % PLT 101 L 160-400 X10*3/uL MPV 12.0 9.4-12.3 fL Neut Pct Auto 59.7 45-73 % ImGran Pct Auto 0.2 0.0-0.4 % Lymp Pct Auto 25.9 20-40 % Major Pct Auto 10.6 2-11 % Eos Pct Auto 3.0 0-4 % Baso Pct Auto 0.6 0-2 % NRBC Pct Auto 0.0 0.0-0.2 /100WBC ANC Neut Abs # 3.0 2.0-8.3 x10*3/uL ImGran Abs Auto 0.01 0.00-0.03 X10*3/uL Lymph Abs Auto 1.3 1.2-4.9 X10*3/uL Major Abs Auto 0.5 0.1-1.2 X10*3/uL Eos Abs Auto 0.2 0.0-0.4 X10*3/uL Baso Abs Auto 0.0 0.0-0.2 X10*3/uL NRBC Abs Auto 0.000 0.0-0.012 X10*3/uL Laboratory Tests 12/19/23 08:50 Estimat Average Glucose 108 Hemoglobin A1c % 5.4 RECD: 12/19/23-[address]: Daniela Eduardo MD COMP: 12/19/23-1202 ENTERED: 12/19/23-[address] [facility] [address]: Antonia De La Vega MD ORDERED: Met Prof Fast, IRON PROF, AST, ALT, Lipid Panel Test Result Flag Reference Sodium 140 135-145 mmol/L Potassium 4.1 3.3-5.1 mmol/L CL 101 96-108 mmol/L CO2 31 H 22-29 mmol/L Gap 12 12-20 BUN 10 9-16 mg/dL Creat 0.66 0.5-1.4 mg/dL EGFR > 60 NOTE: For -[place] individuals, multiply the result by 1.210. Chronic Kidney Disease: Estimated GFR < 60 mL/min/1.73m2 Severe Kidney Disease: Estimated GFR < 15 mL/min/1.73m2 FBS 104 H 60-99 mg/dL A fasting glucose from 100-125 mg/dl is considered impaired (pre-diabetes). CA 9.2 8.4-10.2 mg/dL Iron 33 30-160 mcg/dL TIBC 406 228-428 mcg/dL Saturation 8 L 15-50 % UIBC 373 ug/dL AST (GOT) 49 H 5-31 U/L ALT (GPT) 20 0-31 U/L Triglyceride 58 <150 mg/dL Desirable Triglyceride: less than 150 mg/dL Borderline High Triglyceride 150-199 mg/dL High Triglyceride: 200-499 mg/dL Very High Triglyceride: greater than or equal to 5OO mg/dL Cholesterol 118 <200 mg/dL Desirable Cholesterol: less than 200 mg/dL Borderline High Cholesterol: 200-239 mg/dL High Cholesterol: greater than 239 mg/dL LDL Calculated 62 <100 mg/dL Desirable LDL: less than 100 mg/dL Near Optimal/Above Optimal LDL: 110-129 mg/dL Borderline High LDL: 130-159 mg/dL High LDL: 160-189 mg/dL Very High LDL: greater than or equal to 190 mg/dL HDL 45 >40 mg/dL Desirable HDL: greater than 40 mg/dL Note: This HDL assay may give artificially low results in patients with liver disease. Assessment and Plan Assessment & Plan (1) Anemia: Code(s): D64.9 - Anemia, unspecified Qualifiers: Anemia type: iron deficiency Iron deficiency anemia type: chronic blood loss Qualified Code(s): D50.0 - Iron deficiency anemia secondary to blood loss (chronic) Plan: Continue on ferrous sulfate 325 mg per tablet to take once a day with iron there orange juice her vitamin-C for better absorption. Repeat another CBC, iron profile on next appointment in April 2024. (2) Type 2 diabetes mellitus without complication, without long-term current use of insulin: Code(s): E11.9 - Type 2 diabetes mellitus without complications Plan: Diabetes mellitus stable controlled present treatment. Continue with metformin a 1000 mg twice a day, pioglitazone 50 mg daily. Reinforced importance of following diabetic diet and staying active. Reminded to get her diabetes retinopathy screening done yearly (3) Dyslipidemia: Code(s): E78.5 - Hyperlipidemia, unspecified Plan: Recent labs ups showed lipids within normal limits, continue with pravastatin 20 mg at bedtime Orders: Orders Hemoglobin A1c 04/09/24 D64.9 - Anemia, unspecified, E11.9 - Type 2 diabetes mellitus without complications, E78.5 - Hyperlipidemia, unspecified, M81.0 - Age-related osteoporosis without current pathological fracture, R79.89 - Other specified abnormal findings of blood chemistry, Z78.0 - Asymptomatic menopausal state Basic Metabolic Panel Fasting 04/09/24 D64.9 - Anemia, unspecified, E11.9 - Type 2 diabetes mellitus without complications, E78.5 - Hyperlipidemia, unspecified, M81.0 - Age-related osteoporosis without current pathological fracture, R79.89 - Other specified abnormal findings of blood chemistry, Z78.0 - Asymptomatic menopausal state IRON PROFILE 04/09/24 D64.9 - Anemia, unspecified, E11.9 - Type 2 diabetes mellitus without complications, E78.5 - Hyperlipidemia, unspecified, M81.0 - Age-related osteoporosis without current pathological fracture, R79.89 - Other specified abnormal findings of blood chemistry, Z78.0 - Asymptomatic menopausal state Complete Blood Count Auto Diff 04/09/24 D64.9 - Anemia, unspecified, E11.9 - Type 2 diabetes mellitus without complications, E78.5 - Hyperlipidemia, unspecified, M81.0 - Age-related osteoporosis without current pathological fracture, R79.89 - Other specified abnormal findings of blood chemistry, Z78.0 - Asymptomatic menopausal state Microalbumin, Random (w Creat) 04/09/24 D64.9 - Anemia, unspecified, E11.9 - Type 2 diabetes mellitus without complications, E78.5 - Hyperlipidemia, unspecified, M81.0 - Age-related osteoporosis without current pathological fracture, R79.89 - Other specified abnormal findings of blood chemistry, Z78.0 - Asymptomatic menopausal state Vitamin D 25-OH Total 04/09/24 D64.9 - Anemia, unspecified, E11.9 - Type 2 diabetes mellitus without complications, E78.5 - Hyperlipidemia, unspecified, M81.0 - Age-related osteoporosis without current pathological fracture, R79.89 - Other specified abnormal findings of blood chemistry, Z78.0 - Asymptomatic menopausal state Lipid Panel 04/09/24 D64.9 - Anemia, unspecified, E11.9 - Type 2 diabetes mellitus without complications, E78.5 - Hyperlipidemia, unspecified, M81.0 - Age-related osteoporosis without current pathological fracture, R79.89 - Other specified abnormal findings of blood chemistry, Z78.0 - Asymptomatic menopausal state Alanine Aminotransferase 04/09/24 D64.9 - Anemia, unspecified, E11.9 - Type 2 diabetes mellitus without complications, E78.5 - Hyperlipidemia, unspecified, M81.0 - Age-related osteoporosis without current pathological fracture, R79.89 - Other specified abnormal findings of blood chemistry, Z78.0 - Asymptomatic menopausal state Aspartate Amino Transferase 04/09/24 D64.9 - Anemia, unspecified, E11.9 - Type 2 diabetes mellitus without complications, E78.5 - Hyperlipidemia, unspecified, M81.0 - Age-related osteoporosis without current pathological fracture, R79.89 - Other specified abnormal findings of blood chemistry, Z78.0 - Asymptomatic menopausal state Coding Level of Care Code Est Pt Level 4 (99018) Diagnoses Iron deficiency anemia due to chronic blood loss D50.0 Anemia type: iron deficiency Iron deficiency anemia type: chronic blood loss Type 2 diabetes mellitus without complication, without long-term current use of insulin E11.9 Dyslipidemia E78.5
[2023-12-29 09:05] VITALS: BP 128/66; PULSE 72; O2SAT 97; BMI 42.2
== END 2023-12-29 09:56 | disposition home or self-care (01) ==
PROVIDERS: PCP Internal Medicine; Visit Provider Internal Medicine
DX: D50.0 Iron deficiency anemia secondary to blood loss (chronic) (principal); E11.9 Type 2 diabetes mellitus without complications; E78.5 Hyperlipidemia, unspecified
CPT/HCPCS: 99214

== ENCOUNTER 2024-02-20 09:43 | Outpatient (AMB) | payer MEDICARE, SELFPAY ==
[2024-02-20 09:45] VITALS: BP 119/60; PULSE 86; BMI 42.0
--- NOTE | 2024-02-20 09:45 | MHC.OFFVIS ---
Vital Signs 02/20/24 09:45 Height 5 ft 3 in Weight 237 lb 3.478 oz BMI 42.0 BP 119/60 Blood Pressure Location Lt brachial Position Sitting Pulse 86 Intake Visit Reasons: 3 mth follow up Cirrhosis / Anemia Intake Note: Patient in office today for 3 months follow up of cirrhosis and anemia. CC: Patient denies having any GI symptoms today. She states that all her body hurts. 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 Accompanied by: Self / Same As Patient Allergies benzethonium chloride [From LANACANE ANTI-ITCH] Allergy (Unknown, Verified 02/20/24 09:53) BLISTERS IN MOUTH benzocaine [From LANACANE ANTI-ITCH] Allergy (Unknown, Verified 02/20/24 09:53) BLISTERS IN MOUTH cortisone [CORTISONE] Allergy (Unknown, Verified 02/20/24 09:53) BLISTERS IN MOUTH, LOST SENSE OF TASTE ibuprofen Allergy (Unknown, Verified 02/20/24 09:53) nose bleed naproxen Allergy (Unknown, Verified 02/20/24 09:53) nose bleed triamcinolone [Kenalog] Allergy (Unknown, Verified 02/20/24 09:53) unknown HPI Comments Details: This is a 72-year-old female with medical history of obesity, type 2 diabetes, hypertension, who was seen in the hospital last month for profound anemia and underwent EGD and colonoscopy, here for post hospitalization visit. Hospital admission 07/19-07/22/2023: Presented for abnormal labs to her PCP's office with initial hemoglobin of 5.5. Previous baseline was normal from 2020. No reported history of abdominal pain, changes in bowel habits, melena, hematochezia. Had knee surgery earlier this year. No anticoagulants or NSAIDs on board. After undergoing PRBC transfusion, had EGD and colonoscopy. 07/21/2023: EGD/colo: 1. Normal esophagus 2. Normal stomach 3. Normal duodenum (biopsy) 4. Abnormal mucosa in sigmoid colon 5. One polyp removed 6. Diverticulosis 7. Hemorrhoids Path: Diagnosis A. Duodenum, biopsy: Duodenal mucosa with preserved villi and no specific change. B. Colon, ascending, polyp: Tubular adenoma (2 pieces); negative for high-grade dysplasia and carcinoma, and 2 fragments of degenerated duodenal type mucosa (consistent with contaminant). C. Colon, rectal-sigmoid, biopsy: Mild active colitis with mild chronic regenerative changes; negative for dysplasia (see comment) 08/03/23: Today, reports feeling much better. Fatigue and shortness of breath is a lot better. Has more energy. Patient lives by herself at home. Does not have any immediate family members such as spouse or children. However, her friends checkup on her daily. Continues on iron pills through PCP's office. 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 BMI 38 with type 2 diabetes and hyperlipidemia. VCE 09/19/23: ?? small jejunal ulcers/erosions but poor prep. 11/21/23: Seen by Heme earlier this month. Had not been compliant with PO iron but now taking it regularly as wishes to avoid IV iron. Labs with anemia unchanged which is not surprising if had not been taking iron supplementation. Otherwise, has no active issues. No abd pain, N,V. Now taking PO iron first thing in the morning every day for the last 6 weeks. 02/20/24: Here for follow up. Labs reviewed. Anemia better. Cont on PO iron with vit C. In terms of fatty liver - prediabetes in control on metformin. HLD well controlled on pravastatin. Weight curve noted - has gained almost 20lbs in the past 6 months. Activity levels are limited due to unstable gait. Uses a walker. US Abd: 1. There is generalized increase in hepatic echotexture and a lobular hepatic contour, consistent with the provided history of cirrhosis. No focal hepatic mass or intrahepatic biliary dilatation is seen. 2. There is a recanalized umbilical vein. [facility] Medical History Colitis Fatty liver Cough Acute maxillary sinusitis Varicose veins of bilateral lower extremities with pain Osteoporosis Breast cancer screening by mammogram Type 2 diabetes mellitus without complication, without long-term current use of insulin Thrombocytopenia Osteoarthritis of multiple joints Hammertoes of both feet Colonoscopy refused Mild intermittent asthma in adult without complication Dyslipidemia Type 2 diabetes mellitus with hyperglycemia, without long-term current use of insulin Surgical History History of esophagogastroduodenoscopy (EGD) Hx of colonoscopy Hx of varicose vein ligation History of surgery on lower extremity H/O left wrist surgery Family History Mother Breast cancer Arthralgia of both feet Arthritis Brother Arthritis Brother No problems noted. Social History Household Members: None Housing: House Do you presently have visiting nurse or other home services: No Alcohol intake: current Alcohol intake frequency: holidays/special occasions only Patient Tobacco Use Status: Never used Tobacco e-Cigarette/Vaping Use: Never Used service: No Current occupational status: retired Cognitive needs: No Hearing needs: No Vision needs: Yes Review of Systems Const All systems reviewed & are unremarkable except as noted in HPI and below Physical Exam Vital Signs: Last Vital Signs Pulse 86 02/20/24 09:45 BP 119/60 02/20/24 09:45 BMI result Body Mass Index 42.0 NAD with obesity Nonicteric No asterixis Abd soft, distended Assessment & Plan Assessment & Plan (1) Cirrhosis: Code(s): K74.60 - Unspecified cirrhosis of liver Category: Medical (2) Elevated LFTs: Code(s): R79.89 - Other specified abnormal findings of blood chemistry Category: Medical (3) Anemia: Code(s): D64.9 - Anemia, unspecified Category: Medical Qualifiers: Anemia type: iron deficiency Iron deficiency anemia type: chronic blood loss Qualified Code(s): D50.0 - Iron deficiency anemia secondary to blood loss (chronic) (4) Fatty liver disease, nonalcoholic: Code(s): K76.0 - Fatty (change of) liver, not elsewhere classified Category: Medical Plan 1. Iron deficiency anemia: Responding to PO iron supplementation. Repeat labs ordered. 2. Advanced fibrosis/cirrhosis: Clinically, appears consistent with [place] cirrhosis. Echo with normal R and L heart function. Has abdominal and periumbilical varices noted on imaging, but no portal hypertensive gastropathy or varices noted on endoscopy done 2022. Due for repeat EGD this year fam given further weight increase and platelet count. Plan: -Encouraged control of metabolic factors including DM and HLD -Weight loss of at least 10% TBW recommended in 6 months - can try non-weight bearing exercises such as stationary bike, aquatics etc. -US liver for HCC screening due in May 2024 -EGD for variceal screening due Jun 2024 -No clinical evidence of decompensation at this time Follow up after EGD Orders: Orders US abdomen complete 4 Months K74.60 - Unspecified cirrhosis of liver Coding Level of Care Code Est Pt Level 4 (04724) Diagnoses Cirrhosis K74.60 Elevated LFTs R79.89 Iron deficiency anemia due to chronic blood loss D50.0 Anemia type: iron deficiency Iron deficiency anemia type: chronic blood loss Fatty liver disease, nonalcoholic K76.0
== END 2024-02-20 12:06 | disposition home or self-care (01) ==
PROVIDERS: PCP Internal Medicine; Visit Provider Internal Medicine
DX: K74.60 Unspecified cirrhosis of liver (principal); R79.89 Other specified abnormal findings of blood chemistry; D50.0 Iron deficiency anemia secondary to blood loss (chronic); K76.0 Fatty (change of) liver, not elsewhere classified
CPT/HCPCS: 99214

== ENCOUNTER → 2024-02-20 09:43 | Outpatient (BNVA) | payer MEDICARE, SELFPAY | PROVIDERS: PCP Internal Medicine; Visit Provider Internal Medicine | DX: K74.60 Unspecified cirrhosis of liver (principal); R79.89 Other specified abnormal findings of blood chemistry; D50.0 Iron deficiency anemia secondary to blood loss (chronic); K76.0 Fatty (change of) liver, not elsewhere classified | CPT/HCPCS: 99212 ==

== ENCOUNTER 2024-02-21 13:04 | Outpatient (REF) | payer MEDICARE, SELFPAY ==
[2024-02-21 16:51] LABS: Iron 64 mcg/dL (30-160); Percent Iron Saturation 16 % (15-50); Total Iron Binding Capacity 392 mcg/dL (228-428); Unsaturated Iron Binding 328 ug/dL
== END 2024-02-21 13:05 | disposition home or self-care (01) ==
LOC: HO.HMGCLDS 13:04
PROVIDERS: PCP Internal Medicine; Visit Provider Internal Medicine
DX: D50.0 Iron deficiency anemia secondary to blood loss (chronic) (principal)
CPT/HCPCS: 36415; 83540

== ENCOUNTER 2024-03-13 10:59 | Outpatient (AMB) | payer MEDICARE, SELFPAY ==
[2024-03-13 11:09] VITALS: BP 134/64; PULSE 82; BMI 41.6
--- NOTE | 2024-03-13 11:09 | A.OFFVIS_ITS ---
Vital Signs 03/13/24 11:09 Height 5 ft 3 in Weight 234 lb 12.677 oz BMI 41.6 BP 134/64 Blood Pressure Location Lt brachial Position Sitting Pulse 82 Pulse Source Pulse Oximeter Intake Visit Reasons: Osteoporosis Intake Note: Patient presents today for Osteoporosis follow up. 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 by: Self / Same As Patient Allergies benzethonium chloride [From LANACANE ANTI-ITCH] Allergy (Unknown, Verified 03/13/24 11:13) BLISTERS IN MOUTH benzocaine [From LANACANE ANTI-ITCH] Allergy (Unknown, Verified 03/13/24 11:13) BLISTERS IN MOUTH cortisone [CORTISONE] Allergy (Unknown, Verified 03/13/24 11:13) BLISTERS IN MOUTH, LOST SENSE OF TASTE ibuprofen Allergy (Unknown, Verified 03/13/24 11:13) nose bleed naproxen Allergy (Unknown, Verified 03/13/24 11:13) nose bleed triamcinolone [Kenalog] Allergy (Unknown, Verified 03/13/24 11:13) unknown HPI Comments Details: 73 YO F with PMHx osteoporosis and type 2 diabetes is seen in consultation at the request of PCP for Osteoporosis. First diagnosed in 20 yrs ago . Received treatment in the past with alendronate, from <1 yr from 2016 to 2021 . Tolerated treatment well without complication. Has a history of Rwrist fracture in 20 yrs ago after falling on ice but no ONJ. Has few servings of dietary calcium per day Takes no Calcium supplement . Takes 2000 IU of Vitamin D daily. Denies ever using PPI, anticoagulant, antiepileptic or glucocorticoid medication. 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 UTD on dental cleanings and sees dentist every 6 months. No planned upcoming dental work or extractions. DXA dated 04/27/2022:AP SPINE L1-L2 (excluding L3 and L4): The data of L1-L4 has been changed to exclude the L3 and L4 vertebral bodies, because degenerative changes at these levels may cause overestimation of lumbar spine density. Current: BMD 0.848 g/cm2, Z-score -1.9, T-score -2.6, osteoporosis, 1.3% decrease from previous, 6.4% decrease from baseline (<5% change is not significant). Prior: BMD 0.859 g/cm2. Baseline: BMD 0.906 g/cm2. LEFT FEMUR, NECK: Current: BMD 0.926 g/cm2, Z-score 0.3, T-score -0.8, normal. Prior: BMD 0.948 g/cm2. Baseline: BMD 0.977 g/cm2. LEFT FEMUR, TOTAL: Current: BMD 0.961 g/cm2, Z-score 0.5, T-score -0.4, normal, 0.6% decrease from previous, 0.7% decrease from baseline (<5% change is not significant). Prior: BMD 0.967 g/cm2. Baseline: BMD 0.968 g/cm2. Labs: Secondary workup was negative NTX suppressed at 29 Had a fall in her driveway after ankle gave way [facility] Medical History Colitis Fatty liver Cough Acute maxillary sinusitis Varicose veins of bilateral lower extremities with pain Osteoporosis Breast cancer screening by mammogram Type 2 diabetes mellitus without complication, without long-term current use of insulin Thrombocytopenia Osteoarthritis of multiple joints Hammertoes of both feet Colonoscopy refused Mild intermittent asthma in adult without complication Dyslipidemia Type 2 diabetes mellitus with hyperglycemia, without long-term current use of insulin Surgical History History of esophagogastroduodenoscopy (EGD) Hx of colonoscopy Hx of varicose vein ligation History of surgery on lower extremity H/O left wrist surgery Family History Mother Breast cancer Arthralgia of both feet Arthritis Brother Arthritis Brother No problems noted. Social History Household Members: None Housing: House Do you presently have visiting nurse or other home services: No Alcohol intake: current Alcohol intake frequency: holidays/special occasions only Patient Tobacco Use Status: Never used Tobacco e-Cigarette/Vaping Use: Never Used service: No Current occupational status: retired Cognitive needs: No Hearing needs: No Vision needs: Yes Assessment & Plan Assessment & Plan (1) Osteoporosis: Comment: on latest bone density done 2021 Code(s): M81.0 - Age-related osteoporosis without current pathological fracture Category: Medical Qualifiers: Osteoporosis type: age-related Presence of current pathological fracture: without current pathological fracture Qualified Code(s): M81.0 - Age- related osteoporosis without current pathological fracture Plan: This 72-year-old white female with a history of osteoporosis on longstanding bisphosphonate therapy with secondary workup negative. She has not had a recent fracture and stable bone densities and NTX adequately suppressed Plan is to continue drug holiday and continue calcium and vitamin-D. will repeat DEXA. Will also check urine NTX Orders: Orders Collagen Crosslinks NTX Today M81.0 - Age-related osteoporosis without current pathological fracture XR DEXA axial skeleton Today M81.0 - Age-related osteoporosis without current pathological fracture Coding Level of Care Code Est Pt Level 3 (30798) Diagnoses Age-related osteoporosis without current pathological fracture M81.0 Osteoporosis type: age-related Presence of current pathological fracture: without current pathological fracture
== END 2024-03-13 11:32 | disposition home or self-care (01) ==
PROVIDERS: PCP Internal Medicine; Visit Provider Internal Medicine Endocrinology, Diabetes & Metabolism
DX: M81.0 Age-related osteoporosis without current pathological fracture (principal)
CPT/HCPCS: 99213

== ENCOUNTER → 2024-03-13 10:59 | Outpatient (BNVA) | payer MEDICARE, SELFPAY | PROVIDERS: PCP Internal Medicine; Visit Provider Internal Medicine Endocrinology, Diabetes & Metabolism | DX: M81.0 Age-related osteoporosis without current pathological fracture (principal) | CPT/HCPCS: 99212 ==

== ENCOUNTER 2024-04-23 09:03 | Outpatient (REF) | payer MEDICARE, SELFPAY ==
[2024-04-23 11:35] LABS: MANUAL DIFF FLAG NO
[2024-04-23 11:54] LABS: Basophils Percent Auto 0.6 % (0-2); Eosinophils Absolute Auto 0.1 X10*3/uL (0.0-0.4); Eosinophils Percent Auto 2.8 % (0-4); Hematocrit 40.8 % (37.0-47.0); Imm Gran Abs Auto 0.02 X10*3/uL (0.00-0.03); Imm Gran Pct Auto 0.4 % (0.0-0.4); Lymphocytes Percent Auto 20.4 % (20-40); Mean Corpuscular HGB Conc 31.9 g/dl (31.0-35.0); Mean Corpuscular Hemoglobin 29.3 pg (27.0-33.0); Mean Corpuscular Volume 92.1 fL (80.0-98.0); Monocytes Absolute Auto 0.5 X10*3/uL (0.1-1.2); Monocytes Percent Auto 10.1 % (2-11); Neutrophils Absolute Auto 3.3 x10*3/uL (2.0-8.3); Neutrophils Percent Auto 65.7 % (45-73); Platelet Count 78 X10*3/uL (160-400); Red Blood Count 4.43 X10*6/uL (4.20-5.50); Red Cell Distribution Width 18.6 % (11.0-16.0); White Blood Count 5.1 X10*3/uL (4.8-10.8)
[2024-04-23 12:05] LABS: Estimated Average Glucose 120 mg/dL; Hemoglobin A1c % 5.8 % (<6.0)
[2024-04-23 12:38] LABS: Alanine Aminotransferase 23 U/L (0-31); Anion Gap 15 (12-20); Aspartate Amino Transferase 49 U/L (5-31); Blood Urea Nitrogen 11 mg/dL (9-16); Calcium 9.4 mg/dL (8.4-10.2); Carbon Dioxide 29 mmol/L (22-29); Chloride 100 mmol/L (96-108); Cholesterol 116 mg/dL (<200); Estimated Glomerular Filt Rate > 60; Glucose Fasting 111 mg/dL (60-99); HDL Cholesterol 41 mg/dL (>40); Iron 74 mcg/dL (30-160); LDL Cholesterol Calculated 63 mg/dL (<100); Percent Iron Saturation 19 % (15-50); Potassium 4.4 mmol/L (3.3-5.1); Sodium 140 mmol/L (135-145); Total Iron Binding Capacity 383 mcg/dL (228-428); Triglycerides 60 mg/dL (<150); Unsaturated Iron Binding 309 ug/dL
[2024-04-23 12:46] LABS: Vitamin D 25-OH Total 33.9 ng/mL (>30)
[2024-04-23 12:47] LABS: Creatinine Urine 149.86 mg/dL; Microalbum/Creatinine Ratio Ur 5.3 ug/mg cr (<30)
[2024-04-28 08:13] LABS: N-Telopeptide 33 (see note); NTXCreaRU 143 mg/dL (20-275)
== END 2024-04-23 09:04 | disposition home or self-care (01) ==
LOC: HO.HMGCLDS 09:03
PROVIDERS: PCP Internal Medicine; Referring Provider Internal Medicine Endocrinology, Diabetes & Metabolism; Visit Provider Internal Medicine
DX: R79.89 Other specified abnormal findings of blood chemistry (principal); M81.0 Age-related osteoporosis without current pathological fracture; D64.9 Anemia, unspecified; E11.9 Type 2 diabetes mellitus without complications; E78.5 Hyperlipidemia, unspecified; Z78.0 Asymptomatic menopausal state
CPT/HCPCS: 36415; 80048; 80061; 82043; 82306; 82523; 82570; 83036; 83540; 84450; 84460; 85025

== ENCOUNTER 2024-05-01 10:33 | Outpatient (AMB) | payer MEDICARE, SELFPAY ==
--- NOTE | 2024-05-01 10:42 | MHC.PC.OV ---
Vital Signs 05/01/24 10:45 Height 5 ft 3 in Weight 235 lb BMI 41.6 BP 122/64 Blood Pressure Location Rt brachial Position Sitting Pulse 73 Pulse Source Pulse Oximeter Pulse Oximetry (%) 95 Oxygen Delivery Method Room Air Intake Visit Reasons: ffup dm ,lipids, htn, anemia Intake Note: Pt is here today to f/u DM,lipids,htn and anemia Allergies benzethonium chloride [From LANACANE ANTI-ITCH] Allergy (Unknown, Verified 05/07/24 02:21) BLISTERS IN MOUTH benzocaine [From LANACANE ANTI-ITCH] Allergy (Unknown, Verified 05/07/24 02:21) BLISTERS IN MOUTH cortisone [CORTISONE] Allergy (Unknown, Verified 05/07/24 02:21) BLISTERS IN MOUTH, LOST SENSE OF TASTE ibuprofen Allergy (Unknown, Verified 05/07/24 02:21) nose bleed naproxen Allergy (Unknown, Verified 05/07/24 02:21) nose bleed triamcinolone [Kenalog] Allergy (Unknown, Verified 05/07/24 02:21) unknown Medication List - Last Reconciled 05/07/24 by Daniela Eduardo MD albuterol sulfate 90 mcg/actuation 2 puffs PO Q6H PRN blood sugar diagnostic As directed blood sugar diagnostic (Seat 14Auch Verio test strips) USE TO TEST BLOOD SUGAR TWICE A DAY cetirizine 10 mg PO BEDTIME PRN cholecalciferol (vitamin D3) 50 mcg PO DAILY coenzyme Q10 100 mg PO DAILY ferrous sulfate 325 mg PO DAILY lancets (FrugalMechanicTouch Delica Plus Lancet) As directed twice a day ac metformin 1,000 mg PO BID pioglitazone (Actos) 15 mg PO DAILY pravastatin 20 mg PO BEDTIME Tobacco use date assessed: 05/01/24 Fall risk assessment: 2 + Falls in past year Last assessed Fall Risk: 05/01/24 Dental Screening Dental Screen Date: 05/01/24 Did you have a dental visit in the last 12 months?: Yes Did you have a dental problem in the last 6 months where you did not have access to dental care?: No Was dental information given to patient?: Patient has dentist HPI ffup dm ,lipids, htn, anemia HPI Details 73-year-old ear-old lady with diabetes mellitus, osteoarthritis, dyslipidemia, mild intermittent asthma, osteoporosis and history of thrombocytopenia, here today for follow-up. She has been compliant with her medications, and tries to follow recommended diet, but admits to not getting regular exercise. Has been feeling well with no complaints at present time [facility] Medical History Colitis Fatty liver Cough Acute maxillary sinusitis Varicose veins of bilateral lower extremities with pain Osteoporosis Breast cancer screening by mammogram Type 2 diabetes mellitus without complication, without long-term current use of insulin Thrombocytopenia Osteoarthritis of multiple joints Hammertoes of both feet Colonoscopy refused Mild intermittent asthma in adult without complication Dyslipidemia Type 2 diabetes mellitus with hyperglycemia, without long-term current use of insulin Surgical History History of esophagogastroduodenoscopy (EGD) Hx of colonoscopy Hx of varicose vein ligation History of surgery on lower extremity H/O left wrist surgery Family History Mother Breast cancer Arthralgia of both feet Arthritis Brother Arthritis Brother No problems noted. Social History Household Members: None Housing: House Do you presently have visiting nurse or other home services: No Alcohol intake: current Alcohol intake frequency: holidays/special occasions only Patient Tobacco Use Status: Never used Tobacco e-Cigarette/Vaping Use: Never Used service: No Current occupational status: retired Cognitive needs: No Hearing needs: No Vision needs: Yes Questionnaire PHQ-9 Over the last 2 weeks, how often have you been bothered by any of the following problems? 1. Little interest or pleasure in doing things: not at all 2. Feeling down, depressed, or hopeless: not at all 3. Trouble falling or staying asleep, or sleeping too much: not at all 4. Feeling tired or having little energy: not at all 5. Poor appetite or overeating: not at all 6. Feeling bad about yourself - or that you are a failure or have let yourself or your family down: not at all 7. Trouble concentrating on things, such as reading the newspaper or watching television: not at all 8. Moving or speaking so slowly that other people could have noticed. Or the opposite - being so fidgety or restless that you have been moving around a lot more than usual: not at all 9. Thoughts that you would be better off or of hurting yourself in some way: not at all Total score: 0 Depression Screening Interpretation: Negative Depression Screening Done: Yes 27813 - PHQ-9 Billing: Yes Source: Developed by Drs. Callum Gomez, Sharath West and colleagues, with an educational sy from [employer]. Thrive Questionnaire Date Thrive assessed: 05/01/24 I am a: Patient What is your living situation today?: I have a steady place to live Within the past 12 months, did the food you bought not last and you didn't have the money to get more?: Never true Within the past 12 months, did you worry whether your food would run out before you got money to buy more?: Never true Do you have trouble paying for medicines?: No Do you have trouble getting transportation to medical appointments?: No Do you have trouble paying your heating and electricity bill?: No Do you have trouble taking care of your child, family member or friend?: No Do you have trouble with day-to-day activities such as bathing, preparing meals, shopping, managing finances, etc.?: No Are you currently unemployed and looking for a job?: No Are you interested in more education?: No THRIVE Score: 0 FABRIZIO-7 AMB Questionnaire FABRIZIO-7 Date FABRIZIO - 7 assessed: 05/01/24 Feeling nervous, anxious, or on edge: 0 = Not at all Not being able to stop or control worryin = Not at all Worrying too much about different things: 0 = Not at all Trouble relaxin = Not at all Being so restless that it is hard to sit still: 0 = Not at all Becoming easily annoyed or irritable: 0 = Not at all Feeling afraid as if something awful might happen: 0 = Not at all Total FABRIZIO-7 score (0-4 normal; 5-9 mild; 10-14 moderate; 15-21 severe): 0 Source: Developed by Drs. Callum Gomez, Sharath West and colleagues, with an educational sy from [employer]. FABRIZIO-7 Assessment Billing FABRIZIO-7 Assessment Tool: FABRIZIO-7 Assessment 52460 Review of Systems Const Denies body aches, Denies fever(s), Denies headache(s) and Denies weakness Eyes Denies change in vision ENT Denies dizziness, Denies headache(s), Denies nasal congestion and Denies nasal discharge Card Denies chest pain, Denies lightheadedness, Denies palpitations and Denies dyspnea Resp Denies chest congestion, Denies cough, Denies dyspnea and Denies wheezing GI Denies abdominal pain, Denies change in bowel habits and Denies heartburn Denies urinary frequency, Denies dysuria and Denies urinary urgency Musc Reports arthralgias, Reports muscle cramps and Reports stiffness Skin/Breast Denies lesions and Denies rash Neuro Denies dizziness, Denies headache(s) and Denies weakness Psych Reports no additional complaints Endo Denies polydipsia, Denies polyuria and Denies palpitations Abhilash/Lymph Reports easy bruising Aller/Immun Denies seasonal rhinorrhea and Denies wheezing Physical exam (Primary Care) Vital Signs: Last Vital Signs Pulse 73 05/01/24 10:45 BP 122/64 05/01/24 10:45 Pulse Ox 95 05/01/24 10:45 Oxygen Delivery Method Room Air 05/01/24 10:45 BMI result Body Mass Index 41.6 Tobacco/Smoking Status: Tobacco use Status Tobacco use date assessed 05/01/24 05/01/24 10:51 Patient Tobacco Use Status Never used Tobacco 05/01/24 10:43 e-Cigarette/Vaping Use Never Used 05/01/24 10:43 PHQ-9: PHQ-9 Score PHQ-9: Total score 0 05/01/24 11:15 Depression Screening Interpretation: Negative Thrive Assessment: Date of Thrive Assessment Date Thrive assessed 05/01/24 05/01/24 10:43 Const General: comfortable, no acute distress and alert Orientation/consciousness: patient oriented x3 HENMT Ears: external ears normal General nose exam: Normal external nose present Mouth: Normal oral and palatal mucosa present and moist mucous membranes Eyes General: appearance normal, both eyes and all related structures Conjunctivae: conjunctivae normal Sclerae: sclerae normal Pupils: Equal, round and reactive pupils present EOM: EOMs intact bilaterally Neck Neck: Yes full ROM, Yes no lymphadenopathy and Yes supple Resp Effort & Inspection: normal respiratory effort and able to speak in complete sentences Auscultation: clear to auscultation bilaterally Cardio Rate: regular rate Rhythm: regular rhythm Heart sounds: S1 normal heart sound present and S2 normal heart sound present GI Palpation (GI): Soft to palpation, nontender and no masses Auscultation: normal bowel sounds Back/Spine/Pelvis Back: No back tenderness Skin General skin exam: no rashes or lesions noted Neuro General: patient oriented x3, gait normal, tone normal, moves all extremities, Normal light touch and pain sensation and no focal motor deficits Cranial nerves: Yes CN's II-XII intact bilaterally and Yes Equal, round and reactive pupils present Cognition (Neuro): normal cognition Extrem General: Yes full ROM, Yes no joint enlargement, Yes no clubbing, cyanosis or edema and Yes no calf tenderness Results Reviewed Results Reviewed: Name: Paula Baum Age/Sex: 73/F : 1950 Unit#: [id number] Attend Dr: Daniela Eduardo MD Re04/23/24 Status: DEP REF Location: [facility] Disch: SPEC : [id number] SANGITA: 04/23/24 STATUS: COMP REQ : [id number] RECD: 04/23/[address]: Daniela Eduardo MD COMP: 04/23/24 ENTERED: 04/23/[address] [facility] [address]: ORDERED: CBC Auto Diff Test Result Flag Reference WBC 5.1 4.8-10.8 X10*3/uL RBC 4.43 4.20-5.50 X10*6/uL HGB 13.0 12.0-16.0 g/dl HCT 40.8 37.0-47.0 % MCV 92.1 80.0-98.0 fL MCH 29.3 27.0-33.0 pg MCHC 31.9 31.0-35.0 g/dl RDW 18.6 H 11.0-16.0 % PLT 78 L 160-400 X10*3/uL Neut Pct Auto 65.7 45-73 % ImGran Pct Auto 0.4 0.0-0.4 % Lymp Pct Auto 20.4 20-40 % Millard Pct Auto 10.1 2-11 % Eos Pct Auto 2.8 0-4 % Baso Pct Auto 0.6 0-2 % NRBC Pct Auto 0.0 0.0-0.2 /100WBC ANC Neut Abs # 3.3 2.0-8.3 x10*3/uL ImGran Abs Auto 0.02 0.00-0.03 X10*3/uL Lymph Abs Auto 1.0 L 1.2-4.9 X10*3/uL Millard Abs Auto 0.5 0.1-1.2 X10*3/uL Eos Abs Auto 0.1 0.0-0.4 X10*3/uL Baso Abs Auto 0.0 0.0-0.2 X10*3/uL NRBC Abs Auto 0.000 0.0-0.012 X10*3/uL Name: Paula Baum Age/Sex: 73/F : 1950 Unit#: [id number] Attend Dr: Daniela Eduardo MD Re04/23/24 Status: DEP REF Location: [facility] Disch: SPEC : [id number] SANGITA: 04/23/24 STATUS: COMP REQ : [id number] RECD: 04/23/24-[address]: Daniela Eduardo MD COMP: 04/23/24-1246 ENTERED: 04/23/24-[address]: ORDERED: Met Prof Fast, IRON PROF, AST, ALT, Lipid Panel, Vitamin D 25-OH Test Result Flag Reference Sodium 140 135-145 mmol/L Potassium 4.4 3.3-5.1 mmol/L CL 100 96-108 mmol/L CO2 29 22-29 mmol/L Gap 15 12-20 BUN 11 9-16 mg/dL Creat 0.73 0.5-1.4 mg/dL EGFR > 60 NOTE: For -[place] individuals, multiply the result by 1.210. Chronic Kidney Disease: Estimated GFR < 60 mL/min/1.73m2 Severe Kidney Disease: Estimated GFR < 15 mL/min/1.73m2 FBS 111 H 60-99 mg/dL A fasting glucose from 100-125 mg/dl is considered impaired (pre-diabetes). CA 9.4 8.4-10.2 mg/dL Iron 74 30-160 mcg/dL TIBC 383 228-428 mcg/dL Saturation 19 15-50 % UIBC 309 ug/dL AST (GOT) 49 H 5-31 U/L ALT (GPT) 23 0-31 U/L Triglyceride 60 <150 mg/dL Desirable Triglyceride: less than 150 mg/dL Borderline High Triglyceride 150-199 mg/dL High Triglyceride: 200-499 mg/dL Very High Triglyceride: greater than or equal to 5OO mg/dL Cholesterol 116 <200 mg/dL Desirable Cholesterol: less than 200 mg/dL Borderline High Cholesterol: 200-239 mg/dL High Cholesterol: greater than 239 mg/dL LDL Calculated 63 <100 mg/dL Desirable LDL: less than 100 mg/dL Near Optimal/Above Optimal LDL: 110-129 mg/dL Borderline High LDL: 130-159 mg/dL High LDL: 160-189 mg/dL Very High LDL: greater than or equal to 190 mg/dL HDL 41 >40 mg/dL Desirable HDL: greater than 40 mg/dL Note: This HDL assay may give artificially low results in patients with liver disease. Vit D 25-OH Tot 33.9 >30 ng/mL Health Based Reference Values* < 20 ng/mL Deficient 20-30 ng/mL Insufficient > 30 ng/mL Sufficient Laboratory Tests 04/23/24 09:12 Estimat Average Glucose 120 Hemoglobin A1c % 5.8 Assessment and Plan Assessment & Plan (1) Dyslipidemia: Code(s): E78.5 - Hyperlipidemia, unspecified Plan: Recent fasting lipids are within normal limits, continued on pravastatin 20 mg at bedtime (2) Type 2 diabetes mellitus without complication, without long-term current use of insulin: Code(s): E11.9 - Type 2 diabetes mellitus without complications Plan: Latest hemoglobin A1c is at 5.8%, continue with pioglitazone 15 mg daily and metformin 1000 mg twice a day, in addition to adhering to healthy diet and getting regular exercise. Reminded to get yearly diabetes retinopathy screening and inspect feet for any skin lesions or ulcers. Orders: Orders Hemoglobin A1c 09/23/24 E78.5 - Hyperlipidemia, unspecified, M81.0 - Age-related osteoporosis without current pathological fracture Alanine Aminotransferase 09/23/24 E78.5 - Hyperlipidemia, unspecified, M81.0 - Age-related osteoporosis without current pathological fracture Lipid Panel 09/23/24 E78.5 - Hyperlipidemia, unspecified, M81.0 - Age-related osteoporosis without current pathological fracture Aspartate Amino Transferase 09/23/24 E78.5 - Hyperlipidemia, unspecified, M81.0 - Age-related osteoporosis without current pathological fracture Basic Metabolic Panel Fasting 09/23/24 E78.5 - Hyperlipidemia, unspecified, M81.0 - Age-related osteoporosis without current pathological fracture Coding Level of Care Code Est Pt Level 4 (91958) Complex EM visit Add On G2211 Diagnoses Dyslipidemia E78.5 Type 2 diabetes mellitus without complication, without long-term current use of insulin E11.9 Additional Codes FABRIZIO-7 Assessment Billing - FABRIZIO-7 Assessment Tool: FABRIZIO-7 Assessment 19384 ([id number])
[2024-05-01 10:45] VITALS: BP 122/64; PULSE 73; O2SAT 95; BMI 41.6
== END 2024-05-01 11:30 | disposition home or self-care (01) ==
PROVIDERS: PCP Internal Medicine; Visit Provider Internal Medicine
DX: E78.5 Hyperlipidemia, unspecified (principal); E11.69 Type 2 diabetes mellitus with other specified complication
CPT/HCPCS: 99214; G2211

== ENCOUNTER 2024-05-09 10:15 | Outpatient (REF) | payer MEDICARE, SELFPAY ==
--- NOTE | ~2024-05-09 | MM_ITS ---
EXAMINATION: BONE DENSITOMETRY CLINICAL INDICATION: Age-related osteoporosis without current pathological fracture. COMPARISON: Previous BD dated 04/27/2022 and baseline BD dated 01/12/2008. TECHNIQUE: Using a [employer] DXA System (software version: 13.1) manufactured by [employer], dual-energy x-ray absorptiometry was performed of the lumbar spine and left hip. The images are of good technical quality. Summary results are attached. FINDINGS: LEFT FEMUR, NECK: Current: BMD 0.882 g/cm2, Z-score 0.0, T-score -1.1, osteopenia. Prior: BMD 0.926 g/cm2. Baseline: BMD 0.977 g/cm2. LEFT FEMUR, TOTAL: Current: BMD 0.951 g/cm2, Z-score 0.4, T-score -0.5, normal, 1.0% decrease from previous, 1.8% decrease from baseline (<5% change is not significant). Prior: BMD 0.961 g/cm2. Baseline: BMD 0.968 g/cm2. AP SPINE L1-L2 (excluding L3 and L4): The data of L1-L4 has been changed to exclude the L3 and L4 vertebral bodies, because degenerative sclerosis at these levels may cause overestimation of lumbar spine density. Current: BMD 0.939 g/cm2, Z-score -1.3, T-score -1.9, osteopenia, 10.7% increase from previous, 3.6% increase from baseline (<5% change is not significant). Prior: BMD 0.848 g/cm2. Baseline: BMD 0.906 g/cm2. IDENTIFIED RISK FACTORS: Menopause, osteoporosis, history of fracture (adult). HISTORY OF FRACTURE: Wrist. MEDICATIONS: Vitamin D, bisphosphonate. MM/XR DEXA axial skeleton IMPRESSION: 1. DIAGNOSIS: Osteopenia based on the lowest T-score value of -1.9 in the lumbar spine applying World Health Organization criteria. 2. 10-YEAR FRACTURE RISK PREDICTION, FRAX: Not performed in this patient on estrogen or bone building treatments. 3. Treatment Recommendations: NOF guidelines recommend consideration for treatment in postmenopausal women and men age 50 and older presenting with the following: -A hip or vertebral (clinical or morphometric) fracture. -T-score less than or equal to -2.5 at the femoral neck or spine after appropriate evaluation to exclude secondary causes. -Low bone mass at the hip or spine and a 10-year fracture probability by FRAX of greater than or equal to 3% for hip fracture or greater than or equal to 20% for major osteoporotic fracture based on the [place] adapted WHO algorithm. 4. Other Recommendations: All treatment decisions require clinical judgment and consideration of individual patient factors, including patient preferences, comorbidities, previous drug use, risk factors not captured in the FRAX model (e.g. frailty, falls, vitamin D deficiency, increased bone turnover, interval significant decline in bone density) and possible under or overestimation of fracture risk by FRAX. Additional medical evaluation for secondary cause of low bone mineral density may be appropriate. FUTURE SCAN RECOMMENDATION: People with diagnosed cases of osteoporosis or at high risk for fracture should have regular bone mineral density tests. For patients eligible for Medicare, routine testing is allowed once every 2 years. The testing frequency can be increased to one year for patients who have rapidly progressing disease, those who are receiving or discontinuing medical therapy to restore bone mass, or have additional risk factors.
--- NOTE | ~2024-05-09 | MM_ITS ---
EXAMINATION: MM SCREENING DIGITAL BREAST TOMOSYNTHESIS, BILATERAL CLINICAL INFORMATION: Screening. Asymptomatic. COMPARISON: Mammography: This study is compared with prior exams dating back to 2019. TECHNIQUE: Digital breast tomosynthesis is performed in both the craniocaudal and mediolateral oblique views along with computer-aided detection (CAD). Synthesized 2D images are generated from the tomosynthesis. FINDINGS: There are scattered areas of fibroglandular density (ACR BI-RADS breast composition Category b). In the left breast, there no are no significant masses, abnormal calcifications, or other abnormalities. The right MLO 2-D image is degraded by motion. The patient will be called back to return for repeat MLO examination at that time, the status of the right breast will be reported. MM/MM tomosynthesis screening BI IMPRESSION: No mammographic signs of malignancy left breast. The patient should be called back to repeat the MLO 2-D image. ASSESSMENT: BI-RADS BI-RADS 0 - Incomplete: Needs additional Imaging. RECOMMENDATION: Additional imaging of the right breast as described above. Radiology department staff will contact the patient for additional imaging. Additional Imaging required This examination should not preclude the clinical evaluation of a suspicious palpable abnormality. This patient's information was entered into a reminder system with a target due date for their next mammogram.
== END 2024-05-09 10:16 | disposition home or self-care (01) ==
LOC: HO.MAMMO 10:15
PROVIDERS: PCP Internal Medicine; Visit Provider Internal Medicine Endocrinology, Diabetes & Metabolism
DX: Z12.31 Encounter for screening mammogram for malignant neoplasm of breast (principal); M81.0 Age-related osteoporosis without current pathological fracture
CPT/HCPCS: 77063; 77067; 77080

== ENCOUNTER → 2024-05-09 10:45 | Outpatient (BNV) | payer MEDICARE, SELFPAY | PROVIDERS: PCP Internal Medicine; Visit Provider Radiology Diagnostic Radiology | DX: Z12.31 Encounter for screening mammogram for malignant neoplasm of breast (principal) | CPT/HCPCS: 77063; 77067 ==

== ENCOUNTER 2024-05-11 08:44 | Inpatient (IN) | payer MEDICARE, SELFPAY ==
--- NOTE | 2024-05-11 | ECG_ITS ---
Test Reason : DIZZINESS Blood Pressure : / mmHG Vent. Rate : 073 BPM Atrial Rate : 073 BPM P-R Int : 164 ms QRS Dur : 076 ms QT Int : 402 ms P-R-T Axes : 016 -08 045 degrees QTc Int : 442 ms Normal sinus rhythm with sinus arrhythmia Minimal voltage criteria for LVH, may be normal variant ( R in aVL ) Borderline ECG When compared with ECG of 19-JUL-2023 18:10, No significant change was found Referred By: Generic ED Physician Electronically Signed By:KEELY FRANKLIN MD
[2024-05-11 08:46] VITALS: BP 117/66; BP 127/68; PULSE 70; PULSE 81; RESP 16; TEMP 36.4; O2SAT 91; O2SAT 97; BMI 43.2
[2024-05-11 09:20] LABS: MANUAL DIFF FLAG NO
[2024-05-11 09:22] LABS: Basophils Percent Auto 0.7 % (0-2); Eosinophils Absolute Auto 0.1 X10*3/uL (0.0-0.4); Hematocrit 36.5 % (37.0-47.0); Hemoglobin 12.1 g/dl (12.0-16.0); Imm Gran Abs Auto 0.01 X10*3/uL (0.00-0.03); Imm Gran Pct Auto 0.2 % (0.0-0.4); Lymphocytes Absolute Auto 1.1 X10*3/uL (1.2-4.9); Lymphocytes Percent Auto 19.7 % (20-40); Mean Corpuscular HGB Conc 33.2 g/dl (31.0-35.0); Mean Corpuscular Hemoglobin 30.5 pg (27.0-33.0); Mean Corpuscular Volume 91.9 fL (80.0-98.0); Mean Platelet Volume 12.2 fL (9.4-12.3); Monocytes Absolute Auto 0.6 X10*3/uL (0.1-1.2); Monocytes Percent Auto 9.6 % (2-11); Neutrophils Percent Auto 68.8 % (45-73); Red Blood Count 3.97 X10*6/uL (4.20-5.50); Red Cell Distribution Width 18.1 % (11.0-16.0); White Blood Count 5.8 X10*3/uL (4.8-10.8)
[2024-05-11 09:23] LABS: Platelet Count 95 X10*3/uL (160-400)
--- NOTE | 2024-05-11 09:23 | ED_ITS ---
HPI - General Adult General Chief complaint: General Medical Stated complaint: dizziness/rectal bleeding/no thinners Time Seen by Provider: 05/11/24 09:08 Source: patient and EMS Mode of arrival: EMS Limitations: no limitations History of Present Illness ED Provider: Lou Yin PA-C HPI narrative: Patient is a 73 year old assigned female at with a history of anemia, cirrhosis, and DM presenting to the emergency department today with dark stools and dizziness. Patient states that she had 3 episodes of dark stool this morning that had clots within it. Patient states that she was dizzy but she drank some orange juice and that helped. Patient denies any lightheadedness, abdominal pain, nausea, vomiting, fever, chills, blurry vision, double vision, loss of vision, chest pain, difficulty breathing, shortness of breath, back pain, night sweats, pain with urination, increased urinary frequency, increased urinary urgency, blood in her urine, syncope or a near syncopal episode, recent trauma or falls, bowel incontinence, bladder incontinence, or any other complaints at this time. Onset (ago): hour(s) Relieving factors: none Exacerbating factors: none Associated symptoms: denies other symptoms Treatments prior to arrival: none Related Data Home Medications ?Medication ?Instructions ?Recorded ?Confirmed cholecalciferol (vitamin D3) 50 50 mcg PO DAILY 07/06/22 05/11/24 mcg (2,000 unit) capsule coenzyme Q10 100 mg capsule 100 mg PO DAILY 07/06/22 05/11/24 ferrous sulfate 325 mg (65 mg 325 mg PO MOWEFR 05/11/24 05/11/24 iron) tablet Previous Rx's ?Medication ?Instructions ?Recorded blood sugar diagnostic #10 ea 08/12/21 lancets 30 gauge (OneTouch Delica #100 ea 09/03/21 Plus Lancet) albuterol sulfate 90 mcg/actuation 2 puff PO Q6H PRN shortness of 12/20/22 aerosol inhaler breath or wheezing #25.5 grams metformin 1,000 mg tablet 1,000 mg PO BID #180 tabs 10/07/23 blood sugar diagnostic (OneTouch #100 strips 11/23/23 Verio test strips) cetirizine 10 mg tablet 10 mg PO BEDTIME PRN Postnasal 11/28/23 drainage #90 tabs pioglitazone 15 mg tablet (Actos) 15 mg PO DAILY #90 tabs 12/25/23 pravastatin 20 mg tablet 20 mg PO BEDTIME #90 tabs 03/01/24 Allergies Allergy/AdvReac Type Severity Reaction Status Date / Time benzethonium chloride Allergy Unknown BLISTERS Verified 05/11/24 08:46 [From LANACANE ANTI-ITCH] IN MOUTH benzocaine Allergy Unknown BLISTERS Verified 05/11/24 08:46 [From LANACANE ANTI-ITCH] IN MOUTH cortisone [CORTISONE] Allergy Unknown BLISTERS Verified 05/11/24 08:46 IN MOUTH, LOST SENSE OF TASTE ibuprofen Allergy Unknown nose bleed Verified 05/11/24 08:46 naproxen Allergy Unknown nose bleed Verified 05/11/24 08:46 triamcinolone [Kenalog] Allergy Unknown unknown Verified 05/11/24 08:46 Review of Systems 2 Constitutional: Constitutional: Reports no additional constitutional complaints, Denies chills, Denies fever(s) and Denies night sweats Eyes: Eyes: Reports no additional eye complaints, Denies blurry vision, Denies change in vision, Denies diplopia, Denies eye discharge, Denies loss of vision and Denies eye pain ENT: Reports dizziness (now resolved) Cardiovascular: Cardiovascular: Reports no additional cardiovascular complaints, Denies chest pain, Denies lightheadedness, Denies Loss of Consciousness and Denies dyspnea Respiratory: Respiratory: Reports no additional respiratory complaints and Denies dyspnea Gastrointestinal: Gastrointestinal: Reports no additional gastrointestinal complaints, Denies abdominal pain, Reports melena, Reports change in bowel habits and Reports change in stool character Genitourinary: Genitourinary: Denies hematuria, Denies urinary frequency, Denies dysuria, Denies urinary incontinence, Denies urinary hesitancy and Denies urinary urgency Musculoskeletal: Musculoskeletal: Reports no additional musculoskeletal complaints, Denies numbness and Denies tingling Neurologic: Reports dizziness (now resolved), Denies loss of vision, Denies numbness and Denies tingling Psychiatric: Psychiatric: Reports no additional psychiatric complaints Endocrine: Endocrine: Reports no additional endocrine complaints Hematologic/Lymphatic: Hematologic/Lymphatic: Reports no additional hematologic/lymphatic complaints Allergic/Immunologic: Allergic/Immunologic: Reports no additional allergic/immunologic complaints PMFSH Past Medical History Attestation statement: The following information was validated with the patient. Source: old records reviewed and nursing notes reviewed Medical History Colitis Fatty liver Cough Acute maxillary sinusitis Varicose veins of bilateral lower extremities with pain Osteoporosis Breast cancer screening by mammogram Type 2 diabetes mellitus without complication, without long-term current use of insulin Thrombocytopenia Osteoarthritis of multiple joints Hammertoes of both feet Colonoscopy refused Mild intermittent asthma in adult without complication Dyslipidemia Type 2 diabetes mellitus with hyperglycemia, without long-term current use of insulin Surgical History History of esophagogastroduodenoscopy (EGD) Hx of colonoscopy Hx of varicose vein ligation History of surgery on lower extremity H/O left wrist surgery Family History Family History Mother Breast cancer Arthralgia of both feet Arthritis Brother Arthritis Brother No problems noted. Social History Social History Household Members: None Housing: House Do you presently have visiting nurse or other home services: No Alcohol intake: current Alcohol intake frequency: holidays/special occasions only Patient Tobacco Use Status: Never used Tobacco Smoked in Last 30 Days: No e-Cigarette/Vaping Use: Never Used Use of substances other than those prescribed or required for medical reasons: No Advance Directives: No Advance Directives Information Provided: No Do you have a plan to hurt others: No Plan service: No Current occupational status: retired Cognitive needs: No Hearing needs: No Vision needs: Yes Physical Exam ED Vital Signs: Vital Signs - 24 hr 05/11/24 08:46 05/11/24 10:22 Temperature 97.6 F 97.9 F Pulse Rate 81 73 Respiratory Rate 16 12 Blood Pressure 117/66 97/54 L Pulse Oximetry 91 L 93 Oxygen Delivery Method Room Air Room Air BMI result Body Mass Index 43.2 Const General: cooperative, no acute distress, alert and awake Nutritional Appearance: well nourished Orientation/consciousness: patient oriented x3 Limitations: no limitations HENMT Head: Yes normal to inspection and Yes atraumatic Ears: hearing grossly normal bilaterally and external ears normal General nose exam: Normal external nose present, no nasal discharge noted and no epistaxis Face and sinus: Yes normal facial exam, No abrasion and No laceration Mouth: Normal oral and palatal mucosa present, no drooling and no muffled voice Eyes General: appearance normal, both eyes and all related structures Periorbital: periorbital findings normal Eyelids: Yes eyelids normal Conjunctivae: conjunctivae normal Pupils: Equal, round and reactive pupils present EOM: EOMs intact bilaterally Neck Neck: Yes normal visual inspection, Yes full ROM and Yes no lymphadenopathy Chest Chest palpation & inspection: normal inspection of the chest Resp Effort & Inspection: normal respiratory effort and able to speak in complete sentences GI Inspection: Yes normal to inspection Neuro General: patient oriented x3 and moves all extremities Cranial nerves: Yes Equal, round and reactive pupils present Cognition (Neuro): normal cognition Extrem General: Yes normal to inspection, Yes full ROM and Yes capillary refill normal Psych Appearance: grossly normal Mental Status: mental status grossly normal Affect: normal affect Attitude: cooperative Thought process: Normal thought process present Thought content: Normal thought content present Insight: Good insight present (Psych) Medications Administered Generic Name Dose Route Start Last Admin Trade Name Freq PRN Reason Stop Dose Admin Ferrous Sulfate 324 mg 05/11/24 12:00 05/11/24 12:27 Ferrous Sulfate 324 Mg Tablet. PO 324 mg MOWEFR DL Administration Pantoprazole Sodium 40 mg 05/11/24 11:55 05/11/24 12:09 Pantoprazole Sodium 40 Mg/10 Ml Vial IVPUSH 40 mg BID@0630,1630 DL Administration Pioglitazone HCl 15 mg 05/11/24 11:50 05/11/24 12:15 Pioglitazone Hcl 15 Mg Tablet PO 15 mg DAILY DL Administration Discontinued Medications Generic Name Dose Route Start Last Admin Trade Name Freq PRN Reason Stop Dose Admin Sodium Chloride 500 mls @ 500 mls/hr 05/11/24 12:00 05/11/24 13:29 Ns IV 05/11/24 12:59 Infused .Q1H DL Infusion Medical Decision Making Medical Decision Making MDM Narrative: Patient is a 73 year old assigned female at with a history of anemia, cirrhosis, and DM presenting to the emergency department today after multiple episodes of dark stools. Patient's physical exam was unremarkable. Patient's blood work was unremarkable. I spoke to the GI specialist telephone cleaner who recommended admission for continued observation. I spoke to the hospitalist team who agreed to admission. I explained my physical exam findings as well as all test results to the patient. I answered all questions asked by the patient. Patient verbalized agreement and understanding with this treatment plan and admission. Differential Diagnosis Differential Diagnoses: The differential diagnosis associated with the presentation includes GI bleed Upper GI bleed Dark stools Bloody stools Anemia Admission/Observation Consideration of admission/observation: Escalation of care including admission/observation considered Patient admitted. Consult Healthcare Provider Management of the patient was discussed with: Hospitalist (agreed to admission as noted in the MDM Rationale portion of this note.) and Inspector Receiving (spoke to the GI team as noted in the MDM Rationale portion of this note) Lab Data [facility] Lab Attestation statement: I reviewed the patient's lab results. My interpretation of these results are in the MDM Rationale portion of this note. 05/11/24 09:19 05/11/24 09:19 Labs: Lab Results 05/11/24 Range/Units 09:19 WBC 5.8 (4.8-10.8) X10*3/uL RBC 3.97 L (4.20-5.50) X10*6/uL Hgb 12.1 (12.0-16.0) g/dl Hct 36.5 L (37.0-47.0) % MCV 91.9 (80.0-98.0) fL MCH 30.5 (27.0-33.0) pg MCHC 33.2 (31.0-35.0) g/dl RDW 18.1 H (11.0-16.0) % Plt Count 95 L (160-400) X10*3/uL MPV 12.2 (9.4-12.3) fL Immature Gran % (Auto) 0.2 (0.0-0.4) % Neut % (Auto) 68.8 (45-73) % Lymph % (Auto) 19.7 L (20-40) % [place] % (Auto) 9.6 (2-11) % Eos % (Auto) 1.0 (0-4) % Baso % (Auto) 0.7 (0-2) % Lymph # (Auto) 1.1 L (1.2-4.9) X10*3/uL [place] # (Auto) 0.6 (0.1-1.2) X10*3/uL Eos # (Auto) 0.1 (0.0-0.4) X10*3/uL Baso # (Auto) 0.0 (0.0-0.2) X10*3/uL Abs Immat Gran (auto) 0.01 (0.00-0.03) X10*3/uL Absolute Neuts (auto) 4.0 (2.0-8.3) x10*3/uL Absolute Nucleated RBC 0.000 (0.0-0.012) X10*3/uL Nucleated RBC % (auto) 0.0 (0.0-0.2) /100WBC Sodium 142 (135-145) mmol/L Potassium 4.7 (3.3-5.1) mmol/L Chloride 103 (96-108) mmol/L Carbon Dioxide 25 (22-29) mmol/L Anion Gap 19 (12-20) BUN 11 (9-16) mg/dL Creatinine 0.74 (0.5-1.4) mg/dL Estim Creat Clear Calc 79.6 Estimated GFR > 60 Random Glucose 142 H (60-115) mg/dL Calcium 8.8 D (8.4-10.2) mg/dL Total Bilirubin 0.7 (0.0-1.0) mg/dL AST 52 H (5-31) U/L ALT 21 (0-31) U/L Alkaline Phosphatase 71 (39-117) U/L Total Protein 7.7 (6.5-8.0) g/dL Albumin 3.2 L (3.5-5.0) g/dL Independent Historian Clinical information obtained from an independent historian. History obtained from or confirmed by: EMS (EMS provided additional history and confirmed the history provided by the patient.) Critical Care Time Critical Care Time Critical Care Time: Yes Total Critical Care Time: 34 Attestation: I spent 34 minutes of Critical Care Time with this patient. This does not include time spent on separately reported billable procedures. Discharge Plan Discharge Clinical Impression: Dark stools Patient Disposition: Admitted As Inpatient
[2024-05-11 09:54] LABS: Anion Gap 19 (12-20); Blood Urea Nitrogen 11 mg/dL (9-16); Carbon Dioxide 25 mmol/L (22-29); Chloride 103 mmol/L (96-108); Creatinine Clr Calc Pharmacy 79.6; Estimated Glomerular Filt Rate > 60; Glucose Random 142 mg/dL (60-115); Potassium 4.7 mmol/L (3.3-5.1); Sodium 142 mmol/L (135-145)
[2024-05-11 09:55] LABS: Alanine Aminotransferase 21 U/L (0-31); Albumin Level 3.2 g/dL (3.5-5.0); Alkaline Phosphatase 71 U/L (39-117); Aspartate Amino Transferase 52 U/L (5-31); Bilirubin Total 0.7 mg/dL (0.0-1.0); Calcium 8.8 mg/dL (8.4-10.2); Total Protein 7.7 g/dL (6.5-8.0)
--- NOTE | 2024-05-11 10:03 | PC.NURSE ---
a&ox4. vss and up to date. nsr on the compliance monitor. pt presents to the ED s/p 1 episode of black tarry stool this am. pt denies any abd pain. reports dizziness/lightheadedness post BM. hx of anemia/receiving blood transfusions. pt denies pain at this time. has no complaints aside from being concerned. ekg performed. 20gIV placed in the left AC by EMS [employer]. labs obtained/sent to lab. resting in no apparent distress. no sob/wob noted. respirations even/unlabored. pt waiting to be seen by ED provider. plan of care ongoing. call garcia placed within reach.
[2024-05-11 10:22] VITALS: BP 97/54; PULSE 73; RESP 12; TEMP 36.6; O2SAT 93
--- NOTE | 2024-05-11 11:10 | P.HPHOSP_ITS ---
History of Present Illness Date of Service: 05/11/24 Attending physician on admission: Gerson Carter Chief Complaint: Dark stools Pt is a 73-year-old female with a PMH significant for mild intermittent asthma, HLD, [id number]-imqvexios type 2 diabetes,?[place], and chronic thrombocytopenia who presents to the ED for evaluation of 3 episodes loose, black stool this morning in a 30-minute timeframe. States texture is ?clotty? but is unable to further elaborate. Denies ant bright red blood per rectum. Reports feeling lightheaded after 2nd episode, so drank some orange juice which is the only food or liquid she has had today. Has been on iron supplementation for the past 10 months and denies any history previous dark-colored stools. Continues to complain mild lightheadedness. Denies any nausea, vomiting, or abdominal pain. Reports has been eating and drinking normally. No chest pain/pressure or palpitations. Denies any heartburn. Shortness SOB difficulty breathing. Denies cough. Of note, patient was admitted to the hospital from 07/19-07/22/2023 4 severe chronic iron-deficiency anemia requiring 3 units total of PRBCs. Underwent EGD and colonoscopy on 07/22 with no culprit lesion found. U/S of abdomen showed fatty liver concerning for MOJICA. Was started on iron supplementation which has recently been switched from daily to 3 times per week on MWF. In the ED pt with soft BP as low as 97/54, vitals otherwise stable. Labs were grossly unremarkable and baseline for patient. No leukocytosis. Stable H&H of 12.1/36.5. Platelets 95. No significant electrolyte abnormalities. Renal function WNL. Hepatic function baseline. Albumin 3.2. Pt will be admitted to the hospital under observation for black stool concerning for upper GI bleed. Review of Systems 2 Review of Systems: Dark, black-colored stools x3 in 30-minute period Lightheadedness Denies fever, chills, nausea, vomiting, abdominal pain No chest pain/pressure, palpitations Denies shortness of breath or difficulty breathing [facility] Medical History Colitis Fatty liver Cough Acute maxillary sinusitis Varicose veins of bilateral lower extremities with pain Osteoporosis Breast cancer screening by mammogram Type 2 diabetes mellitus without complication, without long-term current use of insulin Thrombocytopenia Osteoarthritis of multiple joints Hammertoes of both feet Colonoscopy refused Mild intermittent asthma in adult without complication Dyslipidemia Type 2 diabetes mellitus with hyperglycemia, without long-term current use of insulin Family History Mother Breast cancer Arthralgia of both feet Arthritis Brother Arthritis Brother No problems noted. Surgical History History of esophagogastroduodenoscopy (EGD) Hx of colonoscopy Hx of varicose vein ligation History of surgery on lower extremity H/O left wrist surgery Social History Household Members: None Housing: House Do you presently have visiting nurse or other home services: No Alcohol intake: current Alcohol intake frequency: holidays/special occasions only Patient Tobacco Use Status: Never used Tobacco Smoked in Last 30 Days: No e-Cigarette/Vaping Use: Never Used Use of substances other than those prescribed or required for medical reasons: No Advance Directives: No Advance Directives Information Provided: No Do you have a plan to hurt others: No Plan service: No Current occupational status: retired Cognitive needs: No Hearing needs: No Vision needs: Yes Meds Allergies Allergy/AdvReac Type Severity Reaction Status Date / Time benzethonium chloride Allergy Unknown BLISTERS Verified 05/11/24 08:46 [From LANACANE ANTI-ITCH] IN MOUTH benzocaine Allergy Unknown BLISTERS Verified 05/11/24 08:46 [From LANACANE ANTI-ITCH] IN MOUTH cortisone [CORTISONE] Allergy Unknown BLISTERS Verified 05/11/24 08:46 IN MOUTH, LOST SENSE OF TASTE ibuprofen Allergy Unknown nose bleed Verified 05/11/24 08:46 naproxen Allergy Unknown nose bleed Verified 05/11/24 08:46 triamcinolone [Kenalog] Allergy Unknown unknown Verified 05/11/24 08:46 Home Medications ?Medication ?Instructions ?Recorded ?Confirmed ?Last Taken ?Type cholecalciferol (vitamin D3) 50 50 mcg PO DAILY 07/06/22 05/11/24 05/10/24 History mcg (2,000 unit) capsule coenzyme Q10 100 mg capsule 100 mg PO DAILY 07/06/22 05/11/24 05/10/24 History ferrous sulfate 325 mg (65 mg 325 mg PO MOWEFR 05/11/24 05/11/24 05/09/24 History iron) tablet Physical Exam 2 Vital Signs and Narrative: Vital Signs: Last Vital Signs Temp 97.9 F 05/11/24 10:22 Pulse 73 05/11/24 10:22 Resp 12 05/11/24 10:22 BP 97/54 L 05/11/24 10:22 Pulse Ox 93 05/11/24 10:22 O2 Del Method Room Air 05/11/24 10:22 BMI result Body Mass Index 43.2 General: AOx3, no acute distress Resp: CTA bilaterally CVS: S1, S2, RRR GI: +BS, no distention, mild RUQ tenderness Skin: Warm, dry Neuro: Cranial nerves II-XII grossly intact bilaterally. Motor grossly intact bilaterally Extremities: 1+ bilateral pitting edema Psych: Appropriate affect Results Labs 05/11/24 09:19 05/11/24 09:19 Labs: Laboratory Results - last 24 hr 05/11/24 09:19 MCV 91.9 MCH 30.5 MCHC 33.2 RDW 18.1 H Plt Count 95 L MPV 12.2 Immature Gran % (Auto) 0.2 Neut % (Auto) 68.8 Lymph % (Auto) 19.7 L [place] % (Auto) 9.6 Eos % (Auto) 1.0 Baso % (Auto) 0.7 Lymph # (Auto) 1.1 L [place] # (Auto) 0.6 Eos # (Auto) 0.1 Baso # (Auto) 0.0 Abs Immat Gran (auto) 0.01 Absolute Neuts (auto) 4.0 Absolute Nucleated RBC 0.000 Nucleated RBC % (auto) 0.0 Anion Gap 19 Estim Creat Clear Calc 79.6 Estimated GFR > 60 Random Glucose 142 H Calcium 8.8 D Total Bilirubin 0.7 AST 52 H ALT 21 Alkaline Phosphatase 71 Total Protein 7.7 Albumin 3.2 L Assessment and Plan (1) Dark stools: Status: Acute Plan Pt is a 73-year-old female with a PMH significant for mild intermittent asthma, HLD, xje-[id number]-yiwhkscuy type 2 diabetes,?[place], and chronic thrombocytopenia who presents to the ED for evaluation of 3 episodes loose, black stool this morning in a 30-minute timeframe. Pt will be admitted to the hospital under observation for black stool concerning for upper GI bleed. Dark-colored stools Patient reports 3 episodes in 30 minute period of time this morning Denies hx dark-colored stools despite being on iron supplementation x10 months Concerning for upper GI bleed H&H stable at 12 0.1/36.5 Will check stool for occult blood Protonix IV b.i.d. GI consult NPO at midnight for possible procedure tomorrow Follow CBC Iron-deficiency anemia H&H stable at 12.1 36.5 Continue iron supplementation Mild intermittent asthma Not in acute exacerbation Continue home inhalers HLD Continue statin Non-insulin dependent type 2 diabetes Hold metformin Continue pioglitazone Sliding-scale insulin, diabetic diet Chronic thrombocytopenia Platelet levels baseline Trend labs Obesity class III Encourage weight loss DNR/DNI Attending:?Dr. Carter DVT Prophylaxis: Pneumatic compression due to concern for you UGIB Given patient's history anemia requiring multiple transfusions, patient will be admitted to the hospital under observation for monitoring of dark-colored stools concerning for UGIB. Quality Stroke Does the patient have a stroke diagnosis?: No VTE Prior VTE?: No VTE Risk Level:: Medical - moderate - high VTE Device Contraindication: N/A - Device Ordered VTE Drug Contraindication: Treatment Not Indicated
--- NOTE | 2024-05-11 11:31 | PC.NURSE ---
pt speaking to hospitalist at this time. plan of care ongoing.
--- NOTE | 2024-05-11 11:35 | PHA.MEDREC ---
Addendum entered by Karlee Vasquez [facility] 05/11/24 11:49: reviewed Original Note: Pharmacy Consult ? Medication Reconciliation Pharmacy has completed the medication reconciliation.Confirmed medications with patient. Patient she just recently saw her PCP and they changed her Iron regimen since her blood levels looked better and according to her she is now taking her Iron tab every Tuesday, Tuesday and Fridays, she last took her iron tab on Wednesday 05/09.
[2024-05-11] MEDS: Pantoprazole Sodium 40 MG/10 ML VIAL IVPUSH ×2 (12:09→17:18)
[2024-05-11] MEDS: 0.9 % Sodium Chloride 500 ML IV (12:10)
[2024-05-11] MEDS: Ferrous Sulfate 324 MG TABLET.DR PO (12:27)
--- NOTE | 2024-05-11 12:27 | PC.NURSE ---
medication administered per provider order. pt continues to rest comfortably in no apparent distress. nsr on the court recording monitor. has no complaints. respirations remain even/unlabored. pt waiting for bed assignment. call garcia placed within reach.
--- NOTE | 2024-05-11 15:31 | PM.GICN ---
History of Present Illness Data of Consult Service Date: 05/11/24 Primary Care Provider: Daniela Eduardo MD HPI Reason for consult: rectal bleeding 73-year-old female with hx of mild intermittent asthma, HLD, [id number] type 2 diabetes,?[place] cirrhosis who I am seeing for assessmenrt for rectal bleeding Patient noted 3 succesive episodes of bloody stools with clots, with red colored output noted. No black steaks but noted clots and lightheadedness. Denies straining at stool or recent constipation. Denies any nausea, vomiting, or abdominal pain. She is on chronic iron therapy for anemia. Patient denies blood thinners, nsaid use she was admitted to the hospital from 07/19-07/22/2023 due to severe chronic iron-deficiency anemia requiring 3 units total of PRBCs. Underwent EGD and colonoscopy on 07/22 with no culprit lesion found but noted made of erosions and erythema in the rectosigmoid area along with diverticulosis. No varices noted on EGD> Labs : H&H of 12.1/36.5. Platelets 95. No significant electrolyte abnormalities. Renal function WNL. Hepatic function baseline. Albumin 3.2 Review of Systems Review of Systems: Constitutional : No Weight loss, No Fever, No Chills ENT/Mouth : No sore throat, No Rhinorrhea Eyes: No Swelling, No Redness Cardiovascular : No Chest Pain, No SOB, No Edema Respiratory : No Cough, No Sputum, No Wheezing Gastrointestinal : see HPI Genitourinary : NO Dysuria, No Urinary Frequency, No Hematuria, No Urgency Musculoskeletal : + joint pain, No Myalgias, No Joint Swelling Skin : No Skin Lesions, No rash Neuro : No Weakness, No Numbness, + Dizziness, No Headache Psych : No Anxiety/Panic, No Depression Heme/Lymph: No Bruising, No Lymphadenopathy Endocrine : No Polyuria, No Polydipsia All other systems reviewed and are negative. [facility] Past Medical History Medical History Colitis Fatty liver Cough Acute maxillary sinusitis Varicose veins of bilateral lower extremities with pain Osteoporosis Breast cancer screening by mammogram Type 2 diabetes mellitus without complication, without long-term current use of insulin Thrombocytopenia Osteoarthritis of multiple joints Hammertoes of both feet Colonoscopy refused Mild intermittent asthma in adult without complication Dyslipidemia Type 2 diabetes mellitus with hyperglycemia, without long-term current use of insulin Family History Family History Mother Breast cancer Arthralgia of both feet Arthritis Brother Arthritis Brother No problems noted. Surgical History Surgical History History of esophagogastroduodenoscopy (EGD) Hx of colonoscopy Hx of varicose vein ligation History of surgery on lower extremity H/O left wrist surgery Social History Social History Household Members: None Housing: House Do you presently have visiting nurse or other home services: No Alcohol intake: current Alcohol intake frequency: holidays/special occasions only Patient Tobacco Use Status: Never used Tobacco e-Cigarette/Vaping Use: Never Used service: No Current occupational status: retired Cognitive needs: No Hearing needs: No Vision needs: Yes Meds Allergies Allergy/AdvReac Type Severity Reaction Status Date / Time benzethonium chloride Allergy Unknown BLISTERS Verified 05/11/24 08:46 [From LANACANE ANTI-ITCH] IN MOUTH benzocaine Allergy Unknown BLISTERS Verified 05/11/24 08:46 [From LANACANE ANTI-ITCH] IN MOUTH cortisone [CORTISONE] Allergy Unknown BLISTERS Verified 05/11/24 08:46 IN MOUTH, LOST SENSE OF TASTE ibuprofen Allergy Unknown nose bleed Verified 05/11/24 08:46 naproxen Allergy Unknown nose bleed Verified 05/11/24 08:46 triamcinolone [Kenalog] Allergy Unknown unknown Verified 05/11/24 08:46 Active Medications: Current Medications Acetaminophen (Acetaminophen 325 Mg Tablet) 650 mg PO Q6H PRN PRN Reason: Pain, Mild (Pain Scale 1-3), fever or headache Calcium Carbonate (Calcium Carbonate 750 Mg Tab.Chew) 750 mg PO Q4H PRN PRN Reason: Heartburn Ferrous Sulfate (Ferrous Sulfate 324 Mg Tablet.Dr) 324 mg PO MOWEFR DL Last Admin: 05/11/24 12:27 Dose: 324 mg Glucose (Glucose Gel 15 Gm Gel..Gram.) 15 gm PO Q15M PRN; Protocol PRN Reason: per Hypoglycemia Standing Ord. Dextrose (D10) 250 mls @ 750 mls/hr IV Q15M PRN; Protocol PRN Reason: per Hypoglycemia Standing Ord. Insulin Human Lispro (Insulin Lispro 100 Unit/Ml 3 Ml Vial) 0 unit SUBCUT QIDACHS [facility]; Protocol Loratadine (Loratadine 10 Mg Tablet) 10 mg PO BEDTIME PRN PRN Reason: Postnasal drainage Magnesium Hydroxide (Milk Of Magnesia 30 Ml Oral.Susp) 30 ml PO DAILY PRN PRN Reason: Constipation Melatonin (Melatonin 3 Mg Tablet) 6 mg PO BEDTIME PRN PRN Reason: Insomnia Ondansetron HCl (Ondansetron Hcl 4 Mg/2 Ml Vial) 4 mg IVPUSH Q8H PRN PRN Reason: Nausea and Vomiting Pantoprazole Sodium (Pantoprazole Sodium 40 Mg/10 Ml Vial) 40 mg IVPUSH BID@0630,1630 [facility] Last Admin: 05/11/24 12:09 Dose: 40 mg Pioglitazone HCl (Pioglitazone Hcl 15 Mg Tablet) 15 mg PO DAILY [facility] Last Admin: 05/11/24 12:15 Dose: 15 mg Pravastatin Sodium (Pravastatin Sodium 20 Mg Tablet) 20 mg PO BEDTIME [facility] Sodium Chloride (0.9 % Sodium Chloride Flush 3 Ml Syringe) 3 ml IVFLUSH QSHIFT [facility] Last Admin: 05/11/24 15:23 Dose: Not Given Vitamin D (Cholecalciferol (Vitamin D3) 25 Mcg Tablet) 50 mcg PO DAILY [facility] Home Medications ?Medication ?Instructions ?Recorded ?Confirmed ?Last Taken ?Type cholecalciferol (vitamin D3) 50 50 mcg PO DAILY 07/06/22 05/11/24 05/10/24 History mcg (2,000 unit) capsule coenzyme Q10 100 mg capsule 100 mg PO DAILY 07/06/22 05/11/24 05/10/24 History ferrous sulfate 325 mg (65 mg 325 mg PO MOWEFR 05/11/24 05/11/24 05/09/24 History iron) tablet Physical Exam Vital Signs: Vital Signs: Last Vital Signs Temp 97.9 F 05/11/24 10:22 Pulse 73 05/11/24 10:22 Resp 12 05/11/24 10:22 BP 97/54 L 05/11/24 10:22 Pulse Ox 93 05/11/24 10:22 O2 Del Method Room Air 05/11/24 10:22 BMI result Body Mass Index 43.2 EXAM: GENERAL: The patient is obese VITAL SIGNS:see workflow HEENT: Nonicteric sclerae, PERRLA, EOMI. Oropharynx clear. Moist mucous membranes. Conjunctivae appear well perfused. No thyroid mass. CHEST: Chest wall is nontender. HEART: Regular rate and rhythm without murmurs. LUNGS: Clear to auscultation bilaterally. ABDOMEN: Soft, positive bowel sounds, nontender, no organomegaly.no flank tenderness SKIN: No rash, no excessive bruising, petechiae, or purpura. NEUROLOGIC: Cranial nerves II-XII intact without motor/sensory deficit. Psych: normal affect Results Labs 05/11/24 09:19 05/11/24 09:19 Labs: Short CBC 05/11/24 Range/Units 09:19 WBC 5.8 (4.8-10.8) X10*3/uL Hgb 12.1 (12.0-16.0) g/dl Hct 36.5 L (37.0-47.0) % Plt Count 95 L (160-400) X10*3/uL BMP 05/11/24 09:19 Sodium 142 Potassium 4.7 Chloride 103 Carbon Dioxide 25 BUN 11 Creatinine 0.74 Calcium 8.8 D Liver Function 05/11/24 Range/Units 09:19 Total Bilirubin 0.7 (0.0-1.0) mg/dL AST 52 H (5-31) U/L ALT 21 (0-31) U/L Alkaline Phosphatase 71 (39-117) U/L Albumin 3.2 L (3.5-5.0) g/dL Assessment and Plan (1) Rectal bleeding: Status: Acute Plan 1/ Sudden onset painless rectal bleeding, ddx: hemorrhoidal, ischemic, or inflammatory etiology, divererticular bleed-upper gib with rapid transit -- PLAN: 1/ Admit for observation, 2/ trend HGB q8h 3/ check LDH and consider CT with IV contrast if ongoing bleeding 4/ If stable then egd and colo on Tuesday for further assessment--was offered early o/p but she lives alone and transport is an issue 5/ can allow clears and if stable then advance, then put back on clears o tuesday [facility] bowel prep Procedures Date of Service Date of Service: 05/11/24
[2024-05-11 15:32] VITALS: BP 116/50; PULSE 75; RESP 20; TEMP 36.7; O2SAT 93
[2024-05-11 16:00] VITALS: BP 107/72; PULSE 70; RESP 18; TEMP 36.1; O2SAT 97
[2024-05-11 16:34] LABS: Glucose, Whole Blood 166 mg/dL (60-115)
[2024-05-11 16:38] LABS: Lactate Dehydrogenase 313 U/L (122-220)
[2024-05-11 16:55] VITALS: BMI 42.2
[2024-05-11 17:07] LABS: OBS Int Ctl Valid YES; OBS1 POSITIVE (NEGATIVE)
[2024-05-11] MEDS: Insulin Lispro 100 UNIT/ML 3 ML VIAL SUBCUT (17:19)
[2024-05-11 18:10] LABS: Hematocrit 33.8 % (37.0-47.0); Hemoglobin 11.1 g/dl (12.0-16.0)
[2024-05-11 19:36] VITALS: BP 126/57; PULSE 84; RESP 16; TEMP 36.9; O2SAT 94
[2024-05-11 20:58] LABS: Glucose, Whole Blood 113 mg/dL (60-115)
[2024-05-11] MEDS: Pravastatin Sodium 20 MG TABLET PO (21:19)
[2024-05-11] MEDS: 0.9 % Sodium Chloride Flush 3 ML SYRINGE IVFLUSH (21:20)
[2024-05-12 03:19] VITALS: BP 126/57; PULSE 79; RESP 16; TEMP 36; O2SAT 96
[2024-05-12] MEDS: Pantoprazole Sodium 40 MG/10 ML VIAL IVPUSH ×2 (05:30→17:08)
[2024-05-12 06:32] LABS: Hematocrit 29.2 % (37.0-47.0); Hemoglobin 9.6 g/dl (12.0-16.0); Mean Corpuscular HGB Conc 32.9 g/dl (31.0-35.0); Mean Corpuscular Hemoglobin 30.4 pg (27.0-33.0); Mean Corpuscular Volume 92.4 fL (80.0-98.0); Mean Platelet Volume 12.3 fL (9.4-12.3); Red Blood Count 3.16 X10*6/uL (4.20-5.50); Red Cell Distribution Width 18.3 % (11.0-16.0); White Blood Count 7.5 X10*3/uL (4.8-10.8)
[2024-05-12 06:33] LABS: Platelet Count 84 X10*3/uL (160-400)
[2024-05-12 06:34] LABS: Anion Gap 14 (12-20); Blood Urea Nitrogen 16 mg/dL (9-16); Calcium 8.5 mg/dL (8.4-10.2); Carbon Dioxide 26 mmol/L (22-29); Chloride 105 mmol/L (96-108); Creatinine Clr Calc Pharmacy 79.6; Estimated Glomerular Filt Rate > 60; Glucose Random 128 mg/dL (60-115); Potassium 4.3 mmol/L (3.3-5.1); Sodium 141 mmol/L (135-145)
[2024-05-12 07:30] VITALS: BP 124/58; PULSE 80; RESP 18; TEMP 36; O2SAT 92
[2024-05-12 07:50] LABS: Glucose, Whole Blood 131 mg/dL (60-115)
[2024-05-12] MEDS: ondansetron HCL 4 MG/2 ML VIAL IVPUSH (07:57)
[2024-05-12] MEDS: 0.9 % Sodium Chloride Flush 3 ML SYRINGE IVFLUSH ×3 (08:01→20:09)
--- NOTE | 2024-05-12 08:57 | P.PNIM_ITS ---
Subjective Subjective Date of Service: 05/12/24 Interval History: non bloody vomit Physical Exam 2 Vital Signs: Vital Signs: Last Vital Signs Temp 96.8 F 05/12/24 07:30 Pulse 80 05/12/24 07:30 Resp 18 05/12/24 07:30 BP 124/58 L 05/12/24 07:30 Pulse Ox 92 05/12/24 07:30 O2 Del Method Room Air 05/12/24 07:30 BMI result Body Mass Index 42.2 General: AO X 3, no acute distress Resp: CTA bilateral, no accessory muscles used CVS: S1,S2,RRR GI: soft, non tender, non distended Neuro: motor grossly intact, alert Psych: appropriate affect, appropriate insight Objective Data Active Medications Acetaminophen (Acetaminophen 325 Mg Tablet) 650 mg PO Q6H PRN PRN Reason: Pain, Mild (Pain Scale 1-3), fever or headache Calcium Carbonate (Calcium Carbonate 750 Mg Tab.Chew) 750 mg PO Q4H PRN PRN Reason: Heartburn Ferrous Sulfate (Ferrous Sulfate 324 Mg Tablet.) 324 mg PO [facility] Last Admin: 05/11/24 12:27 Dose: 324 mg Documented By: MALAIKA Glucose (Glucose Gel 15 Gm Gel..Gram.) 15 gm PO Q15M PRN; Protocol PRN Reason: per Hypoglycemia Standing Ord. Dextrose (D10) 250 mls @ 750 mls/hr IV Q15M PRN; Protocol PRN Reason: per Hypoglycemia Standing Ord. Insulin Human Lispro (Insulin Lispro 100 Unit/Ml 3 Ml Vial) 0 unit SUBCUT QIDAS [facility]; Protocol Last Admin: 05/12/24 07:53 Dose: Not Given Documented By: MARIANELA Non-Admin Reason: No Insulin Coverage Loratadine (Loratadine 10 Mg Tablet) 10 mg PO BEDTIME PRN PRN Reason: Postnasal drainage Magnesium Hydroxide (Milk Of Magnesia 30 Ml Oral.Susp) 30 ml PO DAILY PRN PRN Reason: Constipation Melatonin (Melatonin 3 Mg Tablet) 6 mg PO BEDTIME PRN PRN Reason: Insomnia Ondansetron HCl (Ondansetron Hcl 4 Mg/2 Ml Vial) 4 mg IVPUSH Q8H PRN PRN Reason: Nausea and Vomiting Last Admin: 05/12/24 07:57 Dose: 4 mg Documented By: MARIANELA Pantoprazole Sodium (Pantoprazole Sodium 40 Mg/10 Ml Vial) 40 mg IVPUSH BID@8853,3510 [facility] Last Admin: 05/12/24 05:30 Dose: 40 mg Documented By: MARC Pioglitazone HCl (Pioglitazone Hcl 15 Mg Tablet) 15 mg PO DAILY [facility] Last Admin: 05/11/24 12:15 Dose: 15 mg Documented By: MALAIKA Pravastatin Sodium (Pravastatin Sodium 20 Mg Tablet) 20 mg PO BEDTIME [facility] Last Admin: 05/11/24 21:19 Dose: 20 mg Documented By: MARC Sodium Chloride (0.9 % Sodium Chloride Flush 3 Ml Syringe) 3 ml IVFLUSH QSHIFT [facility] Last Admin: 05/12/24 08:01 Dose: 3 ml Documented By: MARIANELA Vitamin D (Cholecalciferol (Vitamin D3) 25 Mcg Tablet) 50 mcg PO DAILY [facility] Labs 05/12/24 05:29 05/12/24 05:29 Labs: Laboratory Results - last 24 hr 05/11/24 05/11/24 05/11/24 09:19 16:26 16:40 MCV 91.9 MCH 30.5 MCHC 33.2 RDW 18.1 H Plt Count 95 L MPV 12.2 Immature Gran % (Auto) 0.2 Neut % (Auto) 68.8 Lymph % (Auto) 19.7 L Woodson % (Auto) 9.6 Eos % (Auto) 1.0 Baso % (Auto) 0.7 Lymph # (Auto) 1.1 L Woodson # (Auto) 0.6 Eos # (Auto) 0.1 Baso # (Auto) 0.0 Abs Immat Gran (auto) 0.01 Absolute Neuts (auto) 4.0 Absolute Nucleated RBC 0.000 Nucleated RBC % (auto) 0.0 Anion Gap 19 Estim Creat Clear Calc 79.6 Estimated GFR > 60 POC Glucose 166 H Random Glucose 142 H Calcium 8.8 D Total Bilirubin 0.7 AST 52 H ALT 21 Alkaline Phosphatase 71 Lactate Dehydrogenase 313 H Total Protein 7.7 Albumin 3.2 L Stool Occult Blood POSITIVE 05/11/24 05/12/24 05/12/24 20:43 05:29 07:28 MCV 92.4 MCH 30.4 MCHC 32.9 RDW 18.3 H Plt Count 84 L MPV 12.3 Immature Gran % (Auto) Neut % (Auto) Lymph % (Auto) Woodson % (Auto) Eos % (Auto) Baso % (Auto) Lymph # (Auto) Woodson # (Auto) Eos # (Auto) Baso # (Auto) Abs Immat Gran (auto) Absolute Neuts (auto) Absolute Nucleated RBC 0.000 Nucleated RBC % (auto) 0.0 Anion Gap 14 Estim Creat Clear Calc 79.6 Estimated GFR > 60 POC Glucose 113 131 H Random Glucose 128 H Calcium 8.5 Total Bilirubin AST ALT Alkaline Phosphatase Lactate Dehydrogenase Total Protein Albumin Stool Occult Blood Assessment and Plan (1) Rectal bleeding: Status: Acute Plan 73F PMH [place] cirrhosis, mild intermittent asthma, hld, dm, presented with melena Acute blood loss anemia due to GI bleed Continue PPI, monitor CBC, plan for EGD and colonoscopy on 05/14/2024 [place] cirrhosis Complicated by chronic thrombocytopenia Given nonbloody vomit, variceal bleed unlikely Diabetes Insulin sliding scale Hyperlipidemia Statin Obesity Weight loss recommended DVT prophylaxis-mechanical due to GI bleed DNR/DNI reason for continued hospitalization: Ongoing GI bleed Quality Stroke Does the patient have a stroke diagnosis?: No VTE Prior VTE?: No VTE Risk Level:: Medical - moderate - high VTE Device Contraindication: N/A - Device Ordered VTE Drug Contraindication: Treatment Not Indicated
[2024-05-12] MEDS: Cholecalciferol (Vitamin D3) 25 MCG TABLET 50 MCG PO (09:07)
[2024-05-12 11:19] LABS: Glucose, Whole Blood 140 mg/dL (60-115)
--- NOTE | 2024-05-12 15:12 | MHC.CM.PN ---
CM HAS ATTEMPTED TO SEE PT TWICE, PT ON THE PHONE AND REQUESTING CM RETURN CM WILL REVISIT
[2024-05-12 16:00] VITALS: BP 130/62; PULSE 80; RESP 20; TEMP 36.3; O2SAT 96
[2024-05-12 16:13] LABS: Glucose, Whole Blood 120 mg/dL (60-115)
[2024-05-12 19:23] VITALS: BP 127/59; PULSE 77; RESP 16; TEMP 36.4; O2SAT 93
[2024-05-12 21:17] VITALS: BP 175/86; PULSE 91; RESP 18; TEMP 36.4; O2SAT 97
[2024-05-12 21:32] LABS: Glucose, Whole Blood 149 mg/dL (60-115)
[2024-05-12] MEDS: Pravastatin Sodium 20 MG TABLET PO (21:57)
[2024-05-13 04:00] VITALS: BP 135/64; PULSE 76; RESP 18; TEMP 36.3; O2SAT 94
[2024-05-13] MEDS: Pantoprazole Sodium 40 MG/10 ML VIAL IVPUSH ×2 (05:58→17:20)
[2024-05-13] MEDS: ondansetron HCL 4 MG/2 ML VIAL IVPUSH (06:04)
[2024-05-13 06:32] LABS: Hematocrit 27.6 % (37.0-47.0); Hemoglobin 9.1 g/dl (12.0-16.0); Mean Corpuscular Volume 93.9 fL (80.0-98.0); Mean Platelet Volume 12.5 fL (9.4-12.3); Platelet Count 90 X10*3/uL (160-400); Red Blood Count 2.94 X10*6/uL (4.20-5.50); Red Cell Distribution Width 18.5 % (11.0-16.0)
[2024-05-13 06:34] LABS: Anion Gap 13 (12-20); Blood Urea Nitrogen 13 mg/dL (9-16); Calcium 8.7 mg/dL (8.4-10.2); Carbon Dioxide 28 mmol/L (22-29); Chloride 105 mmol/L (96-108); Creatinine Clr Calc Pharmacy 79.6; Estimated Glomerular Filt Rate > 60; Glucose Fasting 110 mg/dL (60-99); Potassium 3.6 mmol/L (3.3-5.1); Sodium 142 mmol/L (135-145)
[2024-05-13 07:27] VITALS: BP 143/78; PULSE 74; RESP 18; TEMP 36.2; O2SAT 93
[2024-05-13 07:43] LABS: Glucose, Whole Blood 117 mg/dL (60-115)
--- NOTE | 2024-05-13 08:41 | HO.PM.IMPN ---
Subjective Subjective Date of Service: 05/13/24 Interval History: no further melena Physical Exam Vital Signs: Vital Signs: Last Vital Signs Temp 97.2 F 05/13/24 07:27 Pulse 74 05/13/24 07:27 Resp 18 05/13/24 07:27 BP 143/78 H 05/13/24 07:27 Pulse Ox 93 05/13/24 07:27 O2 Del Method Room Air 05/13/24 07:27 BMI result Body Mass Index 42.2 General: AO X 3, no acute distress Resp: CTA bilateral, no accessory muscles used CVS: S1,S2,RRR GI: soft, non tender, non distended Neuro: motor grossly intact, alert Psych: appropriate affect, appropriate insight Objective Data Active Medications Acetaminophen (Acetaminophen 325 Mg Tablet) 650 mg PO Q6H PRN PRN Reason: Pain, Mild (Pain Scale 1-3), fever or headache Calcium Carbonate (Calcium Carbonate 750 Mg Tab.Chew) 750 mg PO Q4H PRN PRN Reason: Heartburn Ferrous Sulfate (Ferrous Sulfate 324 Mg Tablet.) 324 mg PO [facility] Last Admin: 05/11/24 12:27 Dose: 324 mg Documented By: MALAIKA Glucose (Glucose Gel 15 Gm Gel..Gram.) 15 gm PO Q15M PRN; Protocol PRN Reason: per Hypoglycemia Standing Ord. Dextrose (D10) 250 mls @ 750 mls/hr IV Q15M PRN; Protocol PRN Reason: per Hypoglycemia Standing Ord. Insulin Human Lispro (Insulin Lispro 100 Unit/Ml 3 Ml Vial) 0 unit SUBCUT QIDAS [facility]; Protocol Last Admin: 05/13/24 08:02 Dose: Not Given Documented By: MARIANELA Non-Admin Reason: No Insulin Coverage Loratadine (Loratadine 10 Mg Tablet) 10 mg PO BEDTIME PRN PRN Reason: Postnasal drainage Magnesium Hydroxide (Milk Of Magnesia 30 Ml Oral.Susp) 30 ml PO DAILY PRN PRN Reason: Constipation Melatonin (Melatonin 3 Mg Tablet) 6 mg PO BEDTIME PRN PRN Reason: Insomnia Ondansetron HCl (Ondansetron Hcl 4 Mg/2 Ml Vial) 4 mg IVPUSH Q8H PRN PRN Reason: Nausea and Vomiting Last Admin: 05/13/24 06:04 Dose: 4 mg Documented By: ALICIA Pantoprazole Sodium (Pantoprazole Sodium 40 Mg/10 Ml Vial) 40 mg IVPUSH BID@0630,1630 [facility] Last Admin: 05/13/24 05:58 Dose: 40 mg Documented By: ALICIA Pioglitazone HCl (Pioglitazone Hcl 15 Mg Tablet) 15 mg PO DAILY [facility] Last Admin: 05/12/24 09:07 Dose: 15 mg Documented By: MARIANELA Polyethylene Glycol/Electrolytes (Peg 3350/Na Sulf,Bicarb,Cl/Kcl 4,000 Ml Soln.Recon) 4,000 ml PO ONCE ONE Stop: 05/13/24 17:01 Pravastatin Sodium (Pravastatin Sodium 20 Mg Tablet) 20 mg PO BEDTIME [facility] Last Admin: 05/12/24 21:57 Dose: 20 mg Documented By: ALICIA Sodium Chloride (0.9 % Sodium Chloride Flush 3 Ml Syringe) 3 ml IVFLUSH QSHIFT [facility] Last Admin: 05/12/24 20:09 Dose: 3 ml Documented By: ALICIA Vitamin D (Cholecalciferol (Vitamin D3) 25 Mcg Tablet) 50 mcg PO DAILY [facility] Last Admin: 05/12/24 09:07 Dose: 50 mcg Documented By: MARIANELA Labs 05/13/24 05:07 05/13/24 05:07 Labs: Laboratory Results - last 24 hr 05/12/24 05/12/24 05/12/24 11:14 16:09 21:28 MCV MCH MCHC RDW Plt Count MPV Absolute Nucleated RBC Nucleated RBC % (auto) Anion Gap Estim Creat Clear Calc Estimated GFR POC Glucose 140 H 120 H 149 H Fasting Glucose Calcium 05/13/24 05/13/24 05:07 07:26 MCV 93.9 MCH 31.0 MCHC 33.0 RDW 18.5 H Plt Count 90 L MPV 12.5 H Absolute Nucleated RBC 0.000 Nucleated RBC % (auto) 0.0 Anion Gap 13 Estim Creat Clear Calc 79.6 Estimated GFR > 60 POC Glucose 117 H Fasting Glucose 110 H Calcium 8.7 Assessment and Plan (1) Rectal bleeding: Status: Acute Plan 73F PMH [place] cirrhosis, mild intermittent asthma, hld, dm, presented with melena Acute blood loss anemia due to GI bleed Continue PPI, monitor CBC, plan for EGD and colonoscopy on 05/14/2024, prep today [place] cirrhosis Complicated by chronic thrombocytopenia Given nonbloody vomit, variceal bleed unlikely Diabetes Insulin sliding scale Hyperlipidemia Statin Obesity Weight loss recommended DVT prophylaxis-mechanical due to GI bleed DNR/DNI reason for continued hospitalization: plan for scope Quality Stroke Does the patient have a stroke diagnosis?: No VTE Prior VTE?: No VTE Risk Level:: Medical - moderate - high VTE Device Contraindication: N/A - Device Ordered VTE Drug Contraindication: Treatment Not Indicated
[2024-05-13] MEDS: Cholecalciferol (Vitamin D3) 25 MCG TABLET 50 MCG PO (08:42)
[2024-05-13] MEDS: 0.9 % Sodium Chloride Flush 3 ML SYRINGE IVFLUSH ×3 (08:44→21:11)
--- NOTE | 2024-05-13 09:57 | MHC.CM.PN ---
PT REPORTS SHE LIVES ALONE AND IS INDEPENDENT WITH CARE SHE HAS NO SERVICES AND USES A [employer] FOR DME PT STATES SHE HAS A HCP AT HOME NAMING HER FRIENDS, DAYANA AND PHILLIP HER AGENTS PCP: SHERI SALAS OBSERVATION NOTICE DELIVERED DCP: HOME NO SERVICES VIA PRIVATE TRANSPORT
[2024-05-13 11:21] LABS: Glucose, Whole Blood 171 mg/dL (60-115)
[2024-05-13] MEDS: Insulin Lispro 100 UNIT/ML 3 ML VIAL SUBCUT (12:10)
[2024-05-13 15:54] VITALS: BP 139/64; PULSE 79; RESP 16; TEMP 36.3; O2SAT 95
[2024-05-13 16:34] LABS: Glucose, Whole Blood 136 mg/dL (60-115)
[2024-05-13] MEDS: PEG 3350/Na Sulf,Bicarb,Cl/KCL 4,000 ML SOLN.RECON 4000 ML PO (17:20)
[2024-05-13 19:32] VITALS: BP 151/69; PULSE 82; RESP 16; TEMP 37; O2SAT 97
[2024-05-13 20:49] LABS: Glucose, Whole Blood 123 mg/dL (60-115)
[2024-05-13] MEDS: Pravastatin Sodium 20 MG TABLET PO (21:11)
[2024-05-14 03:53] VITALS: BP 157/74; PULSE 87; RESP 18; TEMP 36.3; O2SAT 94
[2024-05-14] MEDS: Pantoprazole Sodium 40 MG/10 ML VIAL IVPUSH ×2 (06:17→16:50)
--- NOTE | 2024-05-14 06:51 | PC.NURSE ---
patient was able to tolerate about half of the bowel prep, stools are watery containing old/ dark blood.
[2024-05-14 07:26] VITALS: BP 145/61; PULSE 76; RESP 18; TEMP 36; O2SAT 96
[2024-05-14 07:43] LABS: Anion Gap 13 (12-20); Blood Urea Nitrogen 11 mg/dL (9-16); Calcium 8.3 mg/dL (8.4-10.2); Carbon Dioxide 30 mmol/L (22-29); Chloride 103 mmol/L (96-108); Estimated Glomerular Filt Rate > 60; Glucose Fasting 115 mg/dL (60-99); Potassium 3.5 mmol/L (3.3-5.1); Sodium 142 mmol/L (135-145)
[2024-05-14 07:44] LABS: Hematocrit 25.1 % (37.0-47.0); Hemoglobin 8.4 g/dl (12.0-16.0); Mean Corpuscular HGB Conc 33.5 g/dl (31.0-35.0); Mean Corpuscular Hemoglobin 30.7 pg (27.0-33.0); Mean Corpuscular Volume 91.6 fL (80.0-98.0); Mean Platelet Volume 12.4 fL (9.4-12.3); Red Blood Count 2.74 X10*6/uL (4.20-5.50); Red Cell Distribution Width 18.5 % (11.0-16.0); White Blood Count 7.8 X10*3/uL (4.8-10.8)
[2024-05-14 07:46] LABS: Platelet Count 94 X10*3/uL (160-400)
[2024-05-14 07:50] LABS: Glucose, Whole Blood 110 mg/dL (60-115)
--- NOTE | 2024-05-14 08:50 | P.PNIM_ITS ---
Subjective Subjective Date of Service: 05/14/24 Interval History: no further melena Physical Exam 2 Vital Signs: Vital Signs: Last Vital Signs Temp 96.8 F 05/14/24 07:26 Pulse 76 05/14/24 07:26 Resp 18 05/14/24 07:26 BP 145/61 H 05/14/24 07:26 Pulse Ox 96 05/14/24 07:26 O2 Del Method Room Air 05/14/24 07:26 BMI result Body Mass Index 42.2 General: AO X 3, no acute distress Resp: CTA bilateral, no accessory muscles used CVS: S1,S2,RRR GI: soft, non tender, non distended Neuro: motor grossly intact, alert Psych: appropriate affect, appropriate insight Objective Data Active Medications Acetaminophen (Acetaminophen 325 Mg Tablet) 650 mg PO Q6H PRN PRN Reason: Pain, Mild (Pain Scale 1-3), fever or headache Calcium Carbonate (Calcium Carbonate 750 Mg Tab.Chew) 750 mg PO Q4H PRN PRN Reason: Heartburn Ferrous Sulfate (Ferrous Sulfate 324 Mg Tablet.) 324 mg PO [facility] Last Admin: 05/11/24 12:27 Dose: 324 mg Documented By: MALAIKA Glucose (Glucose Gel 15 Gm Gel..Gram.) 15 gm PO Q15M PRN; Protocol PRN Reason: per Hypoglycemia Standing Ord. Dextrose (D10) 250 mls @ 750 mls/hr IV Q15M PRN; Protocol PRN Reason: per Hypoglycemia Standing Ord. Insulin Human Lispro (Insulin Lispro 100 Unit/Ml 3 Ml Vial) 0 unit SUBCUT QIDAS [facility]; Protocol Last Admin: 05/14/24 07:50 Dose: Not Given Documented By: MARLENE Non-Admin Reason: No Insulin Coverage Loratadine (Loratadine 10 Mg Tablet) 10 mg PO BEDTIME PRN PRN Reason: Postnasal drainage Magnesium Hydroxide (Milk Of Magnesia 30 Ml Oral.Susp) 30 ml PO DAILY PRN PRN Reason: Constipation Melatonin (Melatonin 3 Mg Tablet) 6 mg PO BEDTIME PRN PRN Reason: Insomnia Ondansetron HCl (Ondansetron Hcl 4 Mg/2 Ml Vial) 4 mg IVPUSH Q8H PRN PRN Reason: Nausea and Vomiting Last Admin: 05/13/24 06:04 Dose: 4 mg Documented By: ALICIA Pantoprazole Sodium (Pantoprazole Sodium 40 Mg/10 Ml Vial) 40 mg IVPUSH BID@4050,8011 [facility] Last Admin: 05/14/24 06:17 Dose: 40 mg Documented By: MIRIAM Pioglitazone HCl (Pioglitazone Hcl 15 Mg Tablet) 15 mg PO DAILY [facility] Last Admin: 05/13/24 08:42 Dose: 15 mg Documented By: MARIANELA Pravastatin Sodium (Pravastatin Sodium 20 Mg Tablet) 20 mg PO BEDTIME [facility] Last Admin: 05/13/24 21:11 Dose: 20 mg Documented By: MIRIAM Sodium Chloride (0.9 % Sodium Chloride Flush 3 Ml Syringe) 3 ml IVFLUSH QSHIFT [facility] Last Admin: 05/13/24 21:11 Dose: 3 ml Documented By: MIRIAM Vitamin D (Cholecalciferol (Vitamin D3) 25 Mcg Tablet) 50 mcg PO DAILY [facility] Last Admin: 05/13/24 08:42 Dose: 50 mcg Documented By: MARIANELA Labs 05/14/24 07:21 05/14/24 07:21 Labs: Laboratory Results - last 24 hr 05/13/24 05/13/24 05/13/24 11:12 15:59 20:41 MCV MCH MCHC RDW Plt Count MPV Absolute Nucleated RBC Nucleated RBC % (auto) Anion Gap Estim Creat Clear Calc Estimated GFR POC Glucose 171 H 136 H 123 H Fasting Glucose Calcium 05/14/24 05/14/24 07:21 07:33 MCV 91.6 MCH 30.7 MCHC 33.5 RDW 18.5 H Plt Count 94 L MPV 12.4 H Absolute Nucleated RBC 0.000 Nucleated RBC % (auto) 0.0 Anion Gap 13 Estim Creat Clear Calc 83.0 Estimated GFR > 60 POC Glucose 110 Fasting Glucose 115 H Calcium 8.3 L Assessment and Plan (1) Rectal bleeding: Status: Acute Plan 73F PMH [place] cirrhosis, mild intermittent asthma, hld, dm, presented with melena Acute blood loss anemia due to GI bleed Continue PPI, monitor CBC, plan for EGD and colonoscopy today, 05/14/2024 [place] cirrhosis Complicated by chronic thrombocytopenia Diabetes Insulin sliding scale Hyperlipidemia Statin Obesity Weight loss recommended DVT prophylaxis-mechanical due to GI bleed DNR/DNI reason for continued hospitalization: plan for scope Quality Stroke Does the patient have a stroke diagnosis?: No VTE Prior VTE?: No VTE Risk Level:: Medical - moderate - high VTE Device Contraindication: N/A - Device Ordered VTE Drug Contraindication: Treatment Not Indicated
[2024-05-14] MEDS: 0.9 % Sodium Chloride Flush 3 ML SYRINGE IVFLUSH ×3 (09:20→20:35)
[2024-05-14] MEDS: Cholecalciferol (Vitamin D3) 25 MCG TABLET 50 MCG PO (09:22)
[2024-05-14 11:46] LABS: Glucose, Whole Blood 110 mg/dL (60-115)
--- NOTE | 2024-05-14 13:49 | P.PNGI_ITS ---
Subjective Subjective Date of Service: 05/14/24 Interval History: having ongoing rectal bleeding HGB drifting down no abdominal pain she has not look at stool, so unsure if blood coming out or not no nausea or vomiting Critical Care Time (minutes): 0 Physical Exam 2 Vital Signs: Vital Signs: Last Vital Signs Temp 96.8 F 05/14/24 07:26 Pulse 76 05/14/24 07:26 Resp 18 05/14/24 07:26 BP 145/61 H 05/14/24 07:26 Pulse Ox 96 05/14/24 07:26 O2 Del Method Room Air 05/14/24 07:26 BMI result Body Mass Index 42.2 EXAM: GENERAL: The patient is relaxed VITAL SIGNS:see workflow HEENT: Nonicteric sclerae, PERRLA, EOMI. Oropharynx clear. Moist mucous membranes. Conjunctivae appear well perfused. No thyroid mass. CHEST: Chest wall is nontender. HEART: Regular rate and rhythm without murmurs. LUNGS: Clear to auscultation bilaterally. ABDOMEN: Soft, positive bowel sounds, nontender, no organomegaly.no flank tenderness SKIN: No rash, no excessive bruising, petechiae, or purpura. NEUROLOGIC: Cranial nerves II-XII intact without motor/sensory deficit. Psych: normal affect Objective Data Labs 05/15/24 05:18 05/15/24 05:18 Labs: Laboratory Results - last 24 hr 05/13/24 05/13/24 05/14/24 15:59 20:41 07:21 WBC 7.8 RBC 2.74 L Hgb 8.4 L Hct 25.1 L MCV 91.6 MCH 30.7 MCHC 33.5 RDW 18.5 H Plt Count 94 L MPV 12.4 H Absolute Nucleated RBC 0.000 Nucleated RBC % (auto) 0.0 Sodium 142 Potassium 3.5 Chloride 103 Carbon Dioxide 30 H Anion Gap 13 BUN 11 Creatinine 0.70 Estim Creat Clear Calc 83.0 Estimated GFR > 60 POC Glucose 136 H 123 H Fasting Glucose 115 H Calcium 8.3 L 05/14/24 05/14/24 07:33 11:35 WBC RBC Hgb Hct MCV MCH MCHC RDW Plt Count MPV Absolute Nucleated RBC Nucleated RBC % (auto) Sodium Potassium Chloride Carbon Dioxide Anion Gap BUN Creatinine Estim Creat Clear Calc Estimated GFR POC Glucose 110 110 Fasting Glucose Calcium Procedures Date of Service Date of Service: 05/15/24 Progress Note: A&P Assessment and plan (1) Rectal bleeding: Status: Acute Assessment and Plan: 1/ Rectal bleeding, ddX: hemorrhoidal, colitis, neoplasia, upper GI bleed with rapid transit PLAN: 1/ EGD and colo today tentative if schedule allows otherwise tomororrow 2/ cont with PPI 3/ transfuse if HGB <7 g/dl Time Spent With Patient Time: Total time managing care of this patient today ____ minutes. Quality Stroke Does the patient have a stroke diagnosis?: No VTE Prior VTE?: No VTE Risk Level:: Medical - moderate - high VTE Device Contraindication: N/A - Device Ordered VTE Drug Contraindication: Treatment Not Indicated
[2024-05-14 14:53] VITALS: BP 143/64; PULSE 87; RESP 18; TEMP 37.2; O2SAT 96
--- NOTE | 2024-05-14 15:44 | MHC.CM.PN ---
per jeronimo pt expected to dc tomorrow [facility] no service
[2024-05-14 16:30] VITALS: BP 138/62; PULSE 87; RESP 17; TEMP 36.2; O2SAT 96
[2024-05-14 16:44] LABS: Glucose, Whole Blood 111 mg/dL (60-115)
[2024-05-14 18:59] VITALS: BP 149/73; PULSE 91; RESP 18; TEMP 36.6; O2SAT 95
[2024-05-14 19:46] LABS: Glucose, Whole Blood 199 mg/dL (60-115)
[2024-05-14] MEDS: Acetaminophen 325 MG TABLET 650 MG PO (20:34)
[2024-05-14] MEDS: Insulin Lispro 100 UNIT/ML 3 ML VIAL SUBCUT (20:34)
[2024-05-14] MEDS: Pravastatin Sodium 20 MG TABLET PO (20:34)
[2024-05-15] VITALS (10 sets, daily range): BP systolic 122–146; BP diastolic 51–68; PULSE 69–84; RESP 16–20; TEMP 36–36.8; O2SAT 93–98
[2024-05-15] MEDS: Pantoprazole Sodium 40 MG/10 ML VIAL IVPUSH ×2 (05:34→15:49)
[2024-05-15 05:39] LABS: Hematocrit 25.3 % (37.0-47.0); Hemoglobin 8.3 g/dl (12.0-16.0); Mean Corpuscular HGB Conc 32.8 g/dl (31.0-35.0); Mean Corpuscular Hemoglobin 30.4 pg (27.0-33.0); Mean Corpuscular Volume 92.7 fL (80.0-98.0); Mean Platelet Volume 12.2 fL (9.4-12.3); Platelet Count 116 X10*3/uL (160-400); Red Blood Count 2.73 X10*6/uL (4.20-5.50); Red Cell Distribution Width 18.1 % (11.0-16.0); White Blood Count 7.8 X10*3/uL (4.8-10.8)
[2024-05-15 05:59] LABS: Anion Gap 13 (12-20); Blood Urea Nitrogen 10 mg/dL (9-16); Calcium 8.2 mg/dL (8.4-10.2); Carbon Dioxide 28 mmol/L (22-29); Chloride 103 mmol/L (96-108); Creatinine Clr Calc Pharmacy 85.5; Estimated Glomerular Filt Rate > 60; Glucose Fasting 108 mg/dL (60-99); Potassium 3.2 mmol/L (3.3-5.1); Sodium 141 mmol/L (135-145)
[2024-05-15 07:37] LABS: Glucose, Whole Blood 111 mg/dL (60-115)
--- NOTE | 2024-05-15 08:37 | P.PNIM_ITS ---
Subjective Subjective Date of Service: 05/15/24 Interval History: some blood clots in stool Physical Exam 2 Vital Signs: Vital Signs: Last Vital Signs Temp 97.9 F 05/15/24 08:00 Pulse 77 05/15/24 08:00 Resp 18 05/15/24 08:00 BP 146/66 H 05/15/24 08:00 Pulse Ox 95 05/15/24 08:00 O2 Del Method Room Air 05/15/24 08:00 BMI result Body Mass Index 42.2 General: AO X 3, no acute distress Resp: CTA bilateral, no accessory muscles used CVS: S1,S2,RRR GI: soft, non tender, non distended Neuro: motor grossly intact, alert Psych: appropriate affect, appropriate insight Objective Data Active Medications Acetaminophen (Acetaminophen 325 Mg Tablet) 650 mg PO Q6H PRN PRN Reason: Pain, Mild (Pain Scale 1-3), fever or headache Last Admin: 05/14/24 20:34 Dose: 650 mg Documented By: MIRIAM Calcium Carbonate (Calcium Carbonate 750 Mg Tab.Chew) 750 mg PO Q4H PRN PRN Reason: Heartburn Ferrous Sulfate (Ferrous Sulfate 324 Mg Tablet.Dr) 324 mg PO [facility] Last Admin: 05/14/24 13:06 Dose: Not Given Documented By: MARLENE Non-Admin Reason: NPO Glucose (Glucose Gel 15 Gm Gel..Gram.) 15 gm PO Q15M PRN; Protocol PRN Reason: per Hypoglycemia Standing Ord. Dextrose (D10) 250 mls @ 750 mls/hr IV Q15M PRN; Protocol PRN Reason: per Hypoglycemia Standing Ord. Insulin Human Lispro (Insulin Lispro 100 Unit/Ml 3 Ml Vial) 0 unit SUBCUT QIDAS [facility]; Protocol Last Admin: 05/15/24 07:40 Dose: Not Given Documented By: ALEXSANDRA Non-Admin Reason: No Insulin Coverage Loratadine (Loratadine 10 Mg Tablet) 10 mg PO BEDTIME PRN PRN Reason: Postnasal drainage Magnesium Hydroxide (Milk Of Magnesia 30 Ml Oral.Susp) 30 ml PO DAILY PRN PRN Reason: Constipation Melatonin (Melatonin 3 Mg Tablet) 6 mg PO BEDTIME PRN PRN Reason: Insomnia Ondansetron HCl (Ondansetron Hcl 4 Mg/2 Ml Vial) 4 mg IVPUSH Q8H PRN PRN Reason: Nausea and Vomiting Last Admin: 05/13/24 06:04 Dose: 4 mg Documented By: ALICIA Pantoprazole Sodium (Pantoprazole Sodium 40 Mg/10 Ml Vial) 40 mg IVPUSH BID@0630,1630 [facility] Last Admin: 05/15/24 05:34 Dose: 40 mg Documented By: MIRIAM Pioglitazone HCl (Pioglitazone Hcl 15 Mg Tablet) 15 mg PO DAILY [facility] Last Admin: 05/14/24 09:22 Dose: 15 mg Documented By: MARLENE Pravastatin Sodium (Pravastatin Sodium 20 Mg Tablet) 20 mg PO BEDTIME [facility] Last Admin: 05/14/24 20:34 Dose: 20 mg Documented By: MIRIAM Sodium Biphosphate/Sodium Phosphate (Sodium Phosphate,Jewell-Dibasic 133 Ml Enema) 133 ml [place] ONCE PRN PRN Reason: Consult order Sodium Chloride (0.9 % Sodium Chloride Flush 3 Ml Syringe) 3 ml IVFLUSH QSHIFT [facility] Last Admin: 05/14/24 20:35 Dose: 3 ml Documented By: MIRIAM Vitamin D (Cholecalciferol (Vitamin D3) 25 Mcg Tablet) 50 mcg PO DAILY [facility] Last Admin: 05/14/24 09:22 Dose: 50 mcg Documented By: MARLENE Labs 05/15/24 05:18 05/15/24 05:18 Labs: Laboratory Results - last 24 hr 05/14/24 05/14/24 05/14/24 11:35 16:33 19:39 MCV MCH MCHC RDW Plt Count MPV Absolute Nucleated RBC Nucleated RBC % (auto) Anion Gap Estim Creat Clear Calc Estimated GFR POC Glucose 110 111 199 H Fasting Glucose Calcium 05/15/24 05/15/24 05:18 07:25 MCV 92.7 MCH 30.4 MCHC 32.8 RDW 18.1 H Plt Count 116 L MPV 12.2 Absolute Nucleated RBC 0.000 Nucleated RBC % (auto) 0.0 Anion Gap 13 Estim Creat Clear Calc 85.5 Estimated GFR > 60 POC Glucose 111 Fasting Glucose 108 H Calcium 8.2 L Assessment and Plan (1) Rectal bleeding: Status: Acute Plan 73F PMH [place] cirrhosis, mild intermittent asthma, hld, dm, presented with melena Acute blood loss anemia due to GI bleed Continue PPI, plan for EGD and colonoscopy today, 05/15/2024 [place] cirrhosis Complicated by chronic thrombocytopenia Diabetes Insulin sliding scale Hyperlipidemia Statin Obesity Weight loss recommended DVT prophylaxis-mechanical due to GI bleed DNR/DNI reason for continued hospitalization: plan for scope Quality Stroke Does the patient have a stroke diagnosis?: No VTE Prior VTE?: No VTE Risk Level:: Medical - moderate - high VTE Device Contraindication: N/A - Device Ordered VTE Drug Contraindication: Treatment Not Indicated
[2024-05-15] MEDS: 0.9 % Sodium Chloride Flush 3 ML SYRINGE IVFLUSH ×3 (08:48→22:27)
[2024-05-15] MEDS: Cholecalciferol (Vitamin D3) 25 MCG TABLET 50 MCG PO (08:50)
[2024-05-15] MEDS: Acetaminophen 325 MG TABLET 650 MG PO ×3 (09:04→22:07)
[2024-05-15 11:43] LABS: Glucose, Whole Blood 107 mg/dL (60-115)
[2024-05-15 12:24] LABS: Glucose, Whole Blood 115 mg/dL (60-115)
--- NOTE | 2024-05-15 12:44 | P.PNGI_ITS ---
Subjective Subjective Date of Service: 05/15/24 Interval History: she feels well no abdominal pain she thinks stools are becoming less bloody and more normal feels hungry Critical Care Time (minutes): 0 Physical Exam 2 Vital Signs: Vital Signs: Last Vital Signs Temp 97.9 F 05/15/24 12:12 Pulse 75 05/15/24 12:12 Resp 18 05/15/24 12:12 BP 140/51 H 05/15/24 12:12 Pulse Ox 95 05/15/24 12:12 O2 Del Method Room Air 05/15/24 12:12 BMI result Body Mass Index 42.2 EXAM: GENERAL: The patient is well developed and nontoxic. VITAL SIGNS:see workflow HEENT: Nonicteric sclerae, PERRLA, EOMI. Oropharynx clear. Moist mucous membranes. Conjunctivae appear well perfused. No thyroid mass. CHEST: Chest wall is nontender. HEART: Regular rate and rhythm without murmurs. LUNGS: Clear to auscultation bilaterally. ABDOMEN: Soft, positive bowel sounds, nontender, no organomegaly.no flank tenderness SKIN: No rash, no excessive bruising, petechiae, or purpura. NEUROLOGIC: Cranial nerves II-XII intact without motor/sensory deficit. Psych: normal affect Objective Data Labs 05/15/24 05:18 05/15/24 05:18 Labs: Laboratory Results - last 24 hr 05/14/24 05/14/24 05/15/24 16:33 19:39 05:18 WBC 7.8 RBC 2.73 L Hgb 8.3 L Hct 25.3 L MCV 92.7 MCH 30.4 MCHC 32.8 RDW 18.1 H Plt Count 116 L MPV 12.2 Absolute Nucleated RBC 0.000 Nucleated RBC % (auto) 0.0 Sodium 141 Potassium 3.2 L Chloride 103 Carbon Dioxide 28 Anion Gap 13 BUN 10 Creatinine 0.68 Estim Creat Clear Calc 85.5 Estimated GFR > 60 POC Glucose 111 199 H Fasting Glucose 108 H Calcium 8.2 L 05/15/24 05/15/24 05/15/24 07:25 11:32 12:20 WBC RBC Hgb Hct MCV MCH MCHC RDW Plt Count MPV Absolute Nucleated RBC Nucleated RBC % (auto) Sodium Potassium Chloride Carbon Dioxide Anion Gap BUN Creatinine Estim Creat Clear Calc Estimated GFR POC Glucose 111 107 115 Fasting Glucose Calcium Procedures Date of Service Date of Service: 05/15/24 Progress Note: A&P Assessment and plan (1) Rectal bleeding: Status: Acute Assessment and Plan: 1/ Rectal bleeding, uncertain etiology, seems improved, HGb plateued PLAN: 1/ EGD and colo today for further assessment 2/ keep on PPi for the moment Time Spent With Patient Time: Total time managing care of this patient today ____ minutes. Quality Stroke Does the patient have a stroke diagnosis?: No VTE Prior VTE?: No VTE Risk Level:: Medical - moderate - high VTE Device Contraindication: N/A - Device Ordered VTE Drug Contraindication: Treatment Not Indicated
--- NOTE | 2024-05-15 12:46 | MHC.SHP ---
Pre-Procedural Eval Section A - 24 Hr Update-Section A only Date of Service: 05/15/24 The patient is an INPATIENT: Yes The patient has been examined within 24 hours of the surgical procedure. The History & Physical has been completed within 30 days and I have reviewed it.: Yes Section B - Complete if H&P > 30 days Chief Complaint: Black stools, ?UGIB Allergies: Allergies Allergy/AdvReac Type Severity Reaction Status Date / Time benzethonium chloride Allergy Unknown BLISTERS Verified 05/14/24 14:46 [From LANACANE ANTI-ITCH] IN MOUTH benzocaine Allergy Unknown BLISTERS Verified 05/14/24 14:46 [From LANACANE ANTI-ITCH] IN MOUTH cortisone [CORTISONE] Allergy Unknown BLISTERS Verified 05/14/24 14:46 IN MOUTH, LOST SENSE OF TASTE ibuprofen Allergy Unknown nose bleed Verified 05/14/24 14:46 naproxen Allergy Unknown nose bleed Verified 05/14/24 14:46 triamcinolone [Kenalog] Allergy Unknown unknown Verified 05/14/24 14:46 Plan Diagnosis/Plan: Unchanged I have reviewed the history and physical and performed a pertinent physical examination on my patient. No changes have occurred unless specified. EGD,colo Time Spent With Patient Time: Total time managing care of this patient today ____ minutes.
--- NOTE | 2024-05-15 13:00 | P.CONAN_ITS ---
[facility] Active Problems Active Problems: All Active Problems (Updated 05/11/24 @ 15:39 by Sreekanth Hickey MD) Rectal bleeding (Acute) Dark stools (Acute) Fatty liver disease, nonalcoholic (Acute) Normal capsule endoscopy of gastrointestinal tract (Acute) Cirrhosis (Acute) Colitis (Acute) Elevated LFTs (Acute) Anemia (Acute) Varicose veins of left lower extremity with inflammation (Acute) Varicose veins of right lower extremity with inflammation (Acute) Varicose veins of bilateral lower extremities with pain (Acute) Osteoporosis (Acute) Type 2 diabetes mellitus without complication, without long-term current use of insulin (Acute) Thrombocytopenia (Chronic) Osteoarthritis of multiple joints (Acute) Hammertoes of both feet (Acute) Mild intermittent asthma in adult without complication (Acute) Dyslipidemia (Acute) Past Medical History Medical History Colitis Fatty liver Cough Acute maxillary sinusitis Varicose veins of bilateral lower extremities with pain Osteoporosis Breast cancer screening by mammogram Type 2 diabetes mellitus without complication, without long-term current use of insulin Thrombocytopenia Osteoarthritis of multiple joints Hammertoes of both feet Colonoscopy refused Mild intermittent asthma in adult without complication Dyslipidemia Type 2 diabetes mellitus with hyperglycemia, without long-term current use of insulin Family History Family History Mother Breast cancer Arthralgia of both feet Arthritis Brother Arthritis Brother No problems noted. Family history of problems with anesthesia: No Surgical History Surgical History History of esophagogastroduodenoscopy (EGD) Hx of colonoscopy Hx of varicose vein ligation History of surgery on lower extremity H/O left wrist surgery History of Problems with Anesthesia: No Social History Social History Household Members: None Housing: Condominium Do you presently have visiting nurse or other home services: No Alcohol intake: current Alcohol intake frequency: holidays/special occasions only Patient Tobacco Use Status: Never used Tobacco Smoked in Last 30 Days: No e-Cigarette/Vaping Use: Never Used Patient Interested in Nicotine Replacement: No Patient Given Instructions on How to Stop Smoking: No Second Hand Smoke Exposure: No Use of substances other than those prescribed or required for medical reasons: No Currently Displaying Signs/Symptoms of Drug Intoxication Withdrawal: No Any prior treatment program specific to substance use: No Have you been hit, kicked, punched, or otherwise hurt by someone within the past year? If so, by whom?: No Do you feel safe in your current relationship?: No Current Relationship Spiritual Healthcare Practices: no Orthodox Healthcare Practices: no Cultural Healthcare Practices: no Are you DNR?: No Advance Directives: No Advance Directives Information Provided: No Advance Directives on File: No Do you have a plan to hurt others: No Plan Recently lost weight without trying: No Eating poorly because of decreased appetite: No Patient : No : No Poor oral hygiene: No service: No Current occupational status: retired Cognitive needs: No Hearing needs: No Vision needs: Yes Meds Allergies Allergy/AdvReac Type Severity Reaction Status Date / Time benzethonium chloride Allergy Unknown BLISTERS Verified 05/14/24 14:46 [From LANACANE ANTI-ITCH] IN MOUTH benzocaine Allergy Unknown BLISTERS Verified 05/14/24 14:46 [From LANACANE ANTI-ITCH] IN MOUTH cortisone [CORTISONE] Allergy Unknown BLISTERS Verified 05/14/24 14:46 IN MOUTH, LOST SENSE OF TASTE ibuprofen Allergy Unknown nose bleed Verified 05/14/24 14:46 naproxen Allergy Unknown nose bleed Verified 05/14/24 14:46 triamcinolone [Kenalog] Allergy Unknown unknown Verified 05/14/24 14:46 Active Medications: Current Medications Acetaminophen (Acetaminophen 325 Mg Tablet) 650 mg PO Q6H PRN PRN Reason: Pain, Mild (Pain Scale 1-3), fever or headache Last Admin: 05/15/24 09:04 Dose: 650 mg Calcium Carbonate (Calcium Carbonate 750 Mg Tab.Chew) 750 mg PO Q4H PRN PRN Reason: Heartburn Ferrous Sulfate (Ferrous Sulfate 324 Mg Tablet.Dr) 324 mg PO MOWEFR [facility] Last Admin: 05/14/24 13:06 Dose: Not Given Glucose (Glucose Gel 15 Gm Gel..Gram.) 15 gm PO Q15M PRN; Protocol PRN Reason: per Hypoglycemia Standing Ord. Dextrose (D10) 250 mls @ 750 mls/hr IV Q15M PRN; Protocol PRN Reason: per Hypoglycemia Standing Ord. Insulin Human Lispro (Insulin Lispro 100 Unit/Ml 3 Ml Vial) 0 unit SUBCUT QIDACHS [facility]; Protocol Last Admin: 05/15/24 11:45 Dose: Not Given Loratadine (Loratadine 10 Mg Tablet) 10 mg PO BEDTIME PRN PRN Reason: Postnasal drainage Magnesium Hydroxide (Milk Of Magnesia 30 Ml Oral.Susp) 30 ml PO DAILY PRN PRN Reason: Constipation Melatonin (Melatonin 3 Mg Tablet) 6 mg PO BEDTIME PRN PRN Reason: Insomnia Ondansetron HCl (Ondansetron Hcl 4 Mg/2 Ml Vial) 4 mg IVPUSH Q8H PRN PRN Reason: Nausea and Vomiting Last Admin: 05/13/24 06:04 Dose: 4 mg Pantoprazole Sodium (Pantoprazole Sodium 40 Mg/10 Ml Vial) 40 mg IVPUSH BID@0630,1630 [facility] Last Admin: 05/15/24 05:34 Dose: 40 mg Pioglitazone HCl (Pioglitazone Hcl 15 Mg Tablet) 15 mg PO DAILY [facility] Last Admin: 05/15/24 09:05 Dose: Not Given Pravastatin Sodium (Pravastatin Sodium 20 Mg Tablet) 20 mg PO BEDTIME [facility] Last Admin: 05/14/24 20:34 Dose: 20 mg Sodium Biphosphate/Sodium Phosphate (Sodium Phosphate,[place]-Dibasic 133 Ml Enema) 133 ml [place] ONCE PRN PRN Reason: Consult order Sodium Chloride (0.9 % Sodium Chloride Flush 3 Ml Syringe) 3 [facility] Last Admin: 05/15/24 08:48 Dose: 3 ml Vitamin D (Cholecalciferol (Vitamin D3) 25 Mcg Tablet) 50 mcg PO DAILY [facility] Last Admin: 05/15/24 08:50 Dose: 50 mcg Home Medications ?Medication ?Instructions ?Recorded ?Confirmed ?Last Taken ?Type cholecalciferol (vitamin D3) 50 50 mcg PO DAILY 07/06/22 05/11/24 05/10/24 History mcg (2,000 unit) capsule coenzyme Q10 100 mg capsule 100 mg PO DAILY 07/06/22 05/11/24 05/10/24 History ferrous sulfate 325 mg (65 mg 325 mg PO MOWEFR 05/11/24 05/11/24 05/09/24 History iron) tablet Exam Height,Weight and Vital Signs: Height 5 ft 3 in Weight 108.1 kg Last Vital Signs Temp 97.9 F 05/15/24 12:12 Pulse 75 05/15/24 12:12 Resp 18 05/15/24 12:12 BP 140/51 H 05/15/24 12:12 Pulse Ox 95 05/15/24 12:12 O2 Del Method Room Air 05/15/24 12:12 Pertinent Lab Results Pertinent Lab Results: Laboratory Tests 05/11/24 05/11/24 05/11/24 09:19 16:26 16:40 WBC 5.8 RBC 3.97 L Hgb 12.1 Hct 36.5 L MCV 91.9 MCH 30.5 MCHC 33.2 RDW 18.1 H Plt Count 95 L MPV 12.2 Immature Gran % (Auto) 0.2 Neut % (Auto) 68.8 Lymph % (Auto) 19.7 L Norman % (Auto) 9.6 Eos % (Auto) 1.0 Baso % (Auto) 0.7 Lymph # (Auto) 1.1 L Norman # (Auto) 0.6 Eos # (Auto) 0.1 Baso # (Auto) 0.0 Abs Immat Gran (auto) 0.01 Absolute Neuts (auto) 4.0 Absolute Nucleated RBC 0.000 Nucleated RBC % (auto) 0.0 Sodium 142 Potassium 4.7 Chloride 103 Carbon Dioxide 25 Anion Gap 19 BUN 11 Creatinine 0.74 Estim Creat Clear Calc 79.6 Estimated GFR > 60 POC Glucose 166 H Random Glucose 142 H Fasting Glucose Calcium 8.8 D Total Bilirubin 0.7 AST 52 H ALT 21 Alkaline Phosphatase 71 Lactate Dehydrogenase 313 H Total Protein 7.7 Albumin 3.2 L Stool Occult Blood POSITIVE 05/11/24 05/11/24 05/12/24 18:01 20:43 05:29 WBC 7.5 RBC 3.16 L D Hgb 11.1 L 9.6 L Hct 33.8 L 29.2 L MCV 92.4 MCH 30.4 MCHC 32.9 RDW 18.3 H Plt Count 84 L MPV 12.3 Immature Gran % (Auto) Neut % (Auto) Lymph % (Auto) Norman % (Auto) Eos % (Auto) Baso % (Auto) Lymph # (Auto) Norman # (Auto) Eos # (Auto) Baso # (Auto) Abs Immat Gran (auto) Absolute Neuts (auto) Absolute Nucleated RBC 0.000 Nucleated RBC % (auto) 0.0 Sodium 141 Potassium 4.3 Chloride 105 Carbon Dioxide 26 Anion Gap 14 BUN 16 Creatinine 0.73 Estim Creat Clear Calc 79.6 Estimated GFR > 60 POC Glucose 113 Random Glucose 128 H Fasting Glucose Calcium 8.5 Total Bilirubin AST ALT Alkaline Phosphatase Lactate Dehydrogenase Total Protein Albumin Stool Occult Blood 05/12/24 05/12/24 05/12/24 07:28 11:14 16:09 WBC RBC Hgb Hct MCV MCH MCHC RDW Plt Count MPV Immature Gran % (Auto) Neut % (Auto) Lymph % (Auto) Norman % (Auto) Eos % (Auto) Baso % (Auto) Lymph # (Auto) Norman # (Auto) Eos # (Auto) Baso # (Auto) Abs Immat Gran (auto) Absolute Neuts (auto) Absolute Nucleated RBC Nucleated RBC % (auto) Sodium Potassium Chloride Carbon Dioxide Anion Gap BUN Creatinine Estim Creat Clear Calc Estimated GFR POC Glucose 131 H 140 H 120 H Random Glucose Fasting Glucose Calcium Total Bilirubin AST ALT Alkaline Phosphatase Lactate Dehydrogenase Total Protein Albumin Stool Occult Blood 05/12/24 05/13/24 05/13/24 21:28 05:07 07:26 WBC 8.0 RBC 2.94 L Hgb 9.1 L Hct 27.6 L MCV 93.9 MCH 31.0 MCHC 33.0 RDW 18.5 H Plt Count 90 L MPV 12.5 H Immature Gran % (Auto) Neut % (Auto) Lymph % (Auto) Norman % (Auto) Eos % (Auto) Baso % (Auto) Lymph # (Auto) Norman # (Auto) Eos # (Auto) Baso # (Auto) Abs Immat Gran (auto) Absolute Neuts (auto) Absolute Nucleated RBC 0.000 Nucleated RBC % (auto) 0.0 Sodium 142 Potassium 3.6 Chloride 105 Carbon Dioxide 28 Anion Gap 13 BUN 13 Creatinine 0.73 Estim Creat Clear Calc 79.6 Estimated GFR > 60 POC Glucose 149 H 117 H Random Glucose Fasting Glucose 110 H Calcium 8.7 Total Bilirubin AST ALT Alkaline Phosphatase Lactate Dehydrogenase Total Protein Albumin Stool Occult Blood 05/13/24 05/13/24 05/13/24 11:12 15:59 20:41 WBC RBC Hgb Hct MCV MCH MCHC RDW Plt Count MPV Immature Gran % (Auto) Neut % (Auto) Lymph % (Auto) Norman % (Auto) Eos % (Auto) Baso % (Auto) Lymph # (Auto) Norman # (Auto) Eos # (Auto) Baso # (Auto) Abs Immat Gran (auto) Absolute Neuts (auto) Absolute Nucleated RBC Nucleated RBC % (auto) Sodium Potassium Chloride Carbon Dioxide Anion Gap BUN Creatinine Estim Creat Clear Calc Estimated GFR POC Glucose 171 H 136 H 123 H Random Glucose Fasting Glucose Calcium Total Bilirubin AST ALT Alkaline Phosphatase Lactate Dehydrogenase Total Protein Albumin Stool Occult Blood 05/14/24 05/14/24 05/14/24 07:21 07:33 11:35 WBC 7.8 RBC 2.74 L Hgb 8.4 L Hct 25.1 L MCV 91.6 MCH 30.7 MCHC 33.5 RDW 18.5 H Plt Count 94 L MPV 12.4 H Immature Gran % (Auto) Neut % (Auto) Lymph % (Auto) Norman % (Auto) Eos % (Auto) Baso % (Auto) Lymph # (Auto) Norman # (Auto) Eos # (Auto) Baso # (Auto) Abs Immat Gran (auto) Absolute Neuts (auto) Absolute Nucleated RBC 0.000 Nucleated RBC % (auto) 0.0 Sodium 142 Potassium 3.5 Chloride 103 Carbon Dioxide 30 H Anion Gap 13 BUN 11 Creatinine 0.70 Estim Creat Clear Calc 83.0 Estimated GFR > 60 POC Glucose 110 110 Random Glucose Fasting Glucose 115 H Calcium 8.3 L Total Bilirubin AST ALT Alkaline Phosphatase Lactate Dehydrogenase Total Protein Albumin Stool Occult Blood 05/14/24 05/14/24 05/15/24 16:33 19:39 05:18 WBC 7.8 RBC 2.73 L Hgb 8.3 L Hct 25.3 L MCV 92.7 MCH 30.4 MCHC 32.8 RDW 18.1 H Plt Count 116 L MPV 12.2 Immature Gran % (Auto) Neut % (Auto) Lymph % (Auto) Norman % (Auto) Eos % (Auto) Baso % (Auto) Lymph # (Auto) Norman # (Auto) Eos # (Auto) Baso # (Auto) Abs Immat Gran (auto) Absolute Neuts (auto) Absolute Nucleated RBC 0.000 Nucleated RBC % (auto) 0.0 Sodium 141 Potassium 3.2 L Chloride 103 Carbon Dioxide 28 Anion Gap 13 BUN 10 Creatinine 0.68 Estim Creat Clear Calc 85.5 Estimated GFR > 60 POC Glucose 111 199 H Random Glucose Fasting Glucose 108 H Calcium 8.2 L Total Bilirubin AST ALT Alkaline Phosphatase Lactate Dehydrogenase Total Protein Albumin Stool Occult Blood 05/15/24 05/15/24 05/15/24 07:25 11:32 12:20 WBC RBC Hgb Hct MCV MCH MCHC RDW Plt Count MPV Immature Gran % (Auto) Neut % (Auto) Lymph % (Auto) Norman % (Auto) Eos % (Auto) Baso % (Auto) Lymph # (Auto) Norman # (Auto) Eos # (Auto) Baso # (Auto) Abs Immat Gran (auto) Absolute Neuts (auto) Absolute Nucleated RBC Nucleated RBC % (auto) Sodium Potassium Chloride Carbon Dioxide Anion Gap BUN Creatinine Estim Creat Clear Calc Estimated GFR POC Glucose 111 107 115 Random Glucose Fasting Glucose Calcium Total Bilirubin AST ALT Alkaline Phosphatase Lactate Dehydrogenase Total Protein Albumin Stool Occult Blood Airway Mallampati Class: III TM Dist: >3cm Neck ROM: Full Partial: Lower Assessment and Plan Assessment Anesthesia Assessment: Chart Reviewed Final Anesthetic Review Family History of Problems with Anesthesia: No History of Problems with Anesthesia: No NPO: Yes ASA Class: III Final Preanesthetic Review: No Changes in Pt Med Stat, Meds/Allgs Chart Reviewed, Consent Obtained/Reviewed and Anes Risks/Benef Reviewed Patient Risk: Intermediate Procedure Risk: Low Anesthetic Plan Anesthetic Plan: TIVA Disposition: Standard PACU
--- NOTE | 2024-05-15 13:49 | P.OPN-COLO_ITS ---
Colonoscopy Operative Note Operative Note Date of Service: 05/15/24 Narrative: Operative Information Procedure Description: EGD, Colonoscopy Indication: Rectal bleeding Anesthesia: MAC FLEXIBLE TRANSORAL UPPER GASTROINTESTINAL ENDOSCOPY AND COLONOSCOPY PROCEDURE NOTE UPPER ENDOSCOPY Consent: Indications for the procedure and potential complications of bleeding, perforation, reaction to medications and missed diagnosis were discussed with the patient and informed consent was obtained. Instrument: Olympus GIF H 190 J mid size upper endoscope Monitoring: Vital signs and clinical assessment, continuous EKG monitoring, Pulse oximetry, Carbon Dioxide monitoring and blood pressure monitoring were done throughout the procedure. Procedure: The patient was placed in the left lateral decubitis position and pre-procedure medications were administered and a bite block was placed. The endoscope was inserted into the mouth and advanced under direct vision to the third part of duodenum. A careful inspection was made as the upper endoscope was withdrawn including a retroflexed examination of the proximal stomach; Findings and interventions are described below. Findings: Larynx:normal Esophagus: GE junction at 37 cm, diaphragm hiatus at 39 cm, consistent with 2 cm sliding hiatal hernia with tongues of salmon pink mucosa noted consistent with barretts, bx taken Stomach: Mild gastritis. Biopsies were obtained. Grade 2 flap valve on retroflexed examination of the cardia. Duodenum: Normal bulb and descending duodenum, Intervention: Biopsies as noted above, COLONOSCOPY Instrument: Olympus variable stiffness pediatric scope 190L Colonoscopy Monitoring: Vital signs and clinical assessment, continuous EKG monitoring, Pulse oximetry, Carbon Dioxide monitoring and blood pressure monitoring were done throughout the procedure. Colon withdrawal time was 20 minutes. Procedure: The patient was placed in the left lateral decubitis position and pre-procedure medications were administered. After a digital rectal examination of the ano-rectum, the video colonoscope was inserted into the rectum and advanced through the colon to the cecum/TI. The colonoscope was slowly withdrawn in a retrograde panoramic fashion and the colon mucosa was carefully examined including a retroflexed view of the rectum. Findings and interventions are described below. Procedure Difficulty:moderate Findings: Terminal Ileum-not intubated Cecum:normal Ascending Colon: normal Transverse Colon -normal Descending Colon: scattered diverticulosis Sigmoid Colon: severe diverticulosis with small and wide mouthed tics with blood stained mucosa, no active bleeding points seen, one tic had a white spot which could have been a small fibrin cap, which did not wash off therefore x 2 clips applied here Rectum: Retroflexion with small internal hemorrhoids, grade I Anorectum - normal Colon preparation: [place] Bowel Preparation Scale Right colon; 1-2 Transverse colon: 2- Left colon; 1-2 (0 = Unprepared colon segment with mucosa not seen due to solid stool that cannot be cleared. 1 = Portion of mucosa of the colon segment seen, but other areas of the colon segment not well seen due to staining, residual stool and/or opaque liquid. 2 = Minor amount of residual staining, small fragments of stool and/or opaque liquid, but mucosa of colon segment seen well. 3 = Entire mucosa of colon segment seen well with no residual staining, small fragments of stool or opaque liquid) Impression and Post Procedure Diagnosis: Endoscopy Findings: hiatal hernia barretts gastritis Colonoscopy Findings: diverticulosis, and diverticular bleed internal hemorrhoids Plan: Await Pathology results Repeat EGD possibly in 3-5 yrs High fiber diet leaflet avoid straining at stool, epsom salts and sitz bath, anusol supps or cream If has further bleeding then recommend IR consult and CTA Above findings were reviewed with the patient and relevant handouts were provided if indicated.
[2024-05-15] MEDS: Iron Sucrose Complex 200 MG, Iron Sucrose Complex 100 MG in 0.9 % Sodium Chloride 250 ML 177 MG IV (15:49)
[2024-05-15 16:21] LABS: Glucose, Whole Blood 104 mg/dL (60-115)
[2024-05-15 20:45] LABS: Glucose, Whole Blood 162 mg/dL (60-115)
[2024-05-15] MEDS: Pravastatin Sodium 20 MG TABLET PO (22:01)
[2024-05-15] MEDS: Insulin Lispro 100 UNIT/ML 3 ML VIAL SUBCUT (22:01)
[2024-05-16] VITALS: BP 141/62; PULSE 72; RESP 16; TEMP 36; O2SAT 95
[2024-05-16 03:44] VITALS: BP 134/60; PULSE 67; RESP 14; TEMP 36; O2SAT 94
[2024-05-16] MEDS: Pantoprazole Sodium 40 MG/10 ML VIAL IVPUSH (06:01)
[2024-05-16 06:33] LABS: Anion Gap 13 (12-20); Blood Urea Nitrogen 8 mg/dL (9-16); Calcium 8.3 mg/dL (8.4-10.2); Carbon Dioxide 27 mmol/L (22-29); Chloride 105 mmol/L (96-108); Estimated Glomerular Filt Rate > 60; Glucose Fasting 94 mg/dL (60-99); Potassium 3.1 mmol/L (3.3-5.1); Sodium 142 mmol/L (135-145)
[2024-05-16 06:37] LABS: Hematocrit 27.5 % (37.0-47.0); Hemoglobin 8.8 g/dl (12.0-16.0); Mean Corpuscular Hemoglobin 30.4 pg (27.0-33.0); Mean Corpuscular Volume 95.2 fL (80.0-98.0); Mean Platelet Volume 11.8 fL (9.4-12.3); NRBC Pct Auto 0.3 /100WBC (0.0-0.2); Platelet Count 108 X10*3/uL (160-400); Red Blood Count 2.89 X10*6/uL (4.20-5.50); Red Cell Distribution Width 17.8 % (11.0-16.0)
[2024-05-16 07:47] VITALS: BP 139/63; PULSE 71; RESP 18; TEMP 36.4; O2SAT 95
[2024-05-16 07:59] LABS: Glucose, Whole Blood 97 mg/dL (60-115)
[2024-05-16] MEDS: Acetaminophen 325 MG TABLET 650 MG PO (09:26)
[2024-05-16] MEDS: 0.9 % Sodium Chloride Flush 3 ML SYRINGE IVFLUSH (09:26)
[2024-05-16] MEDS: Cholecalciferol (Vitamin D3) 25 MCG TABLET 50 MCG PO (09:26)
--- NOTE | 2024-05-16 09:37 | HO.POSTANES ---
Post Anesthesia Evaluation Post Anesthesia Evaluation Date of Service: 05/16/24 Vital Signs: Vital Signs Temp Pulse Resp BP Pulse Ox O2 Del Method 05/16/24 07:47 97.6 F 71 18 139/63 95 Room Air 05/16/24 03:44 96.8 F 67 14 134/60 94 Room Air 05/16/24 00:00 96.8 F 72 16 141/62 H 95 Room Air Anesthesia: Monitored Mental Status: Awake Pain Control: Satisfactory Nausea/Vomiting: None Hydration: Adequate Anesthesia-Related Issues: No Anes. Related Issues
[2024-05-16 11:14] VITALS: BP 140/62; PULSE 67; RESP 18; TEMP 36.3; O2SAT 98
[2024-05-16 11:39] LABS: Glucose, Whole Blood 129 mg/dL (60-115)
--- NOTE | 2024-05-16 12:33 | P.DS_ITS ---
DS: Providers Provider Date of Service: 05/16/24 Date of admission: 05/12/24 08:40 Date of discharge: 05/16/24 Primary care physician: Daniela Eduardo MD Consults: 05/11/24 11:45 Consult to Gastroenterology Routine Consulting Provider: Sreekanth Hickey Reason for consultation: Dark stools, ?UGIB DS: Diagnosis Discharge Diagnosis (1) Rectal bleeding: Status: Acute (2) History of GI diverticular bleed: Status: Acute DS: Summary Hospital Course Hospital Course: 73-year-old female with a PMH significant for mild intermittent asthma, HLD, [id number] type 2 diabetes,?MOJICA, and chronic thrombocytopenia who presents to the ED for evaluation of 3 episodes loose, black stool this morning in a 30-minute timeframe. States texture is ?clotty? but is unable to further elaborate. Denies ant bright red blood per rectum. Reports feeling lightheaded after 2nd episode, so drank some orange juice which is the only food or liquid she has had today. Has been on iron supplementation for the past 10 months and denies any history previous dark-colored stools. Continues to complain mild lightheadedness. Denies any nausea, vomiting, or abdominal pain. Reports has been eating and drinking normally. No chest pain/pressure or palpitations. Denies any heartburn. Shortness SOB difficulty breathing. Denies cough. Of note, patient was admitted to the hospital from 07/19-07/22/2023 4 severe chronic iron-deficiency anemia requiring 3 units total of PRBCs. Underwent EGD and colonoscopy on 07/22 with no culprit lesion found. U/S of abdomen showed fatty liver concerning for MJOICA. Was started on iron supplementation which has recently been switched from daily to 3 times per week on MWF. In the ED pt with soft BP as low as 97/54, vitals otherwise stable. Labs were grossly unremarkable and baseline for patient. No leukocytosis. Stable H&H of 12.1/36.5. Platelets 95. No significant electrolyte abnormalities. Renal function WNL. Hepatic function baseline. Albumin 3.2. Pt will be admitted to the hospital under observation for black stool concerning for upper GI bleed. Hospital Course Admitted to general medical floor kept NPO and started on IV ppi. Seen in consultation by GI and on 05/15/2024 underwent colonoscopy. Her diet was advanced without issue. On the day of discharge she has eaten without issue. She has follow up scheduled with GI and will follow up with her PCP next available. At this point in time she is medically acceptable for discharge Time Attestation Discharge Coordination Time (in mins): 35 Quality: Safe Use of Opioids Does Pt have an Active Cancer Diagnosis on the Problem List?: No Quality: Stroke Does the patient have a stroke diagnosis?: No Physical Exam Vital Signs: Vital Signs: Last Vital Signs Temp 97.3 F 05/16/24 11:14 Pulse 67 05/16/24 11:14 Resp 18 05/16/24 11:14 BP 140/62 H 05/16/24 11:14 Pulse Ox 98 05/16/24 11:14 O2 Del Method Room Air 05/16/24 11:14 BMI result Body Mass Index 42.2 Const: Other: Awake alert oriented x3 no acute distress Resp: Other: Clear to auscultation bilaterally no rales rhonchi or wheezes Cardio: Other: No S4; positive S1-S2; no S3 murmurs rubs or gallops GI: Other: Soft nontender nondistended normoactive bowel sounds Extrem: Other: No edema bilaterally DS: Data Data Completed and Pending Completed studies during hospitalization [Text1]: Procedures Excision of Ascending Colon, Via Natural or Artificial Opening Endoscopic, Diagnostic (07/19/23) Excision of Duodenum, Via Natural or Artificial Opening Endoscopic, Diagnostic (07/19/23) Excision of Sigmoid Colon, Via Natural or Artificial Opening Endoscopic, Diagnostic (07/19/23) Transfusion of Nonautologous Red Blood Cells into Peripheral Vein, Percutaneous Approach (07/19/23) Pending studies at discharge: Pending at discharge 05/15/24 13:16 Surgical [PTH] Routine Labs on day of discharge: Laboratory Results - last 24 hr 05/15/24 05/15/24 05/16/24 16:11 20:25 05:32 WBC 7.0 RBC 2.89 L Hgb 8.8 L Hct 27.5 L MCV 95.2 MCH 30.4 MCHC 32.0 RDW 17.8 H Plt Count 108 L MPV 11.8 Absolute Nucleated RBC 0.020 H Nucleated RBC % (auto) 0.3 H Sodium 142 Potassium 3.1 L Chloride 105 Carbon Dioxide 27 Anion Gap 13 BUN 8 L Creatinine 0.70 Estim Creat Clear Calc 83.0 Estimated GFR > 60 POC Glucose 104 162 H Fasting Glucose 94 Calcium 8.3 L 05/16/24 05/16/24 07:44 11:14 WBC RBC Hgb Hct MCV MCH MCHC RDW Plt Count MPV Absolute Nucleated RBC Nucleated RBC % (auto) Sodium Potassium Chloride Carbon Dioxide Anion Gap BUN Creatinine Estim Creat Clear Calc Estimated GFR POC Glucose 97 129 H Fasting Glucose Calcium Discharge Plan Discharge Anticipated Discharge Date/Time: 05/16/24 12:29 Patient Disposition: Home Health Service Discharge Diagnosis: Diverticular bleed Referrals: Daniela Eduardo MD [Primary Care Provider] - 1 Week Discharge Medications: Continued (DME) blood sugar diagnostic Strip See Rx Instructions Not Applicable DAILY Qty: 10 0RF Rx Instructions: As directed (DME) lancets [OneTouch Delica Plus Lancet] 30 gauge misc See Rx Instructions .Route Qty: 100 5RF Rx Instructions: As directed twice a day ac metformin 1,000 mg tablet 1,000 mg PO BID Qty: 180 1RF Hold Instructions: Resume on 07/24/23. (DME) OneTouch Verio test strips Strip See Rx Instructions .ROUTE .COMPLEX Qty: 100 8RF Dose Instruction: USE TO TEST BLOOD SUGAR TWICE A DAY Rx Instructions: USE TO TEST BLOOD SUGAR TWICE A DAY cetirizine 10 mg tablet 10 mg PO BEDTIME PRN (Reason: Postnasal drainage) Qty: 90 1RF pioglitazone [Actos] 15 mg tablet 15 mg PO DAILY Qty: 90 1RF pravastatin 20 mg tablet 20 mg PO BEDTIME Qty: 90 1RF ferrous sulfate 325 mg (65 mg iron) tablet 325 mg PO MOWEFR albuterol sulfate 90 mcg/actuation HFA aerosol inhaler 2 puff PO Q6H PRN (Reason: shortness of breath or wheezing) Qty: 25.5 3RF coenzyme Q10 100 mg capsule 100 mg PO DAILY cholecalciferol (vitamin D3) 50 mcg (2,000 unit) capsule 50 mcg PO DAILY Discharge Orders: Discharge Order (Routine); Ordered 05/16/24 Ordered By: Rodolfo Ho Diet: Advance to usual diet Activity on Discharge: As tolerated Stand Alone Forms: Patient Portal Discharge page Print Language: Telugu Care Plan Goals: Continue all medicines as taken prior to hospitalization Health Concerns: Follow up with GI as scheduled Plan of Treatment: Make appointment with your PCP next available Assessment: See discharge summary
--- NOTE | 2024-05-16 12:36 | W.MHC.F2F ---
Service Date Service Date: 05/16/24 Encounter Date of encounter: 05/16/24 Encounter: Acute hospitalization Reasons for Services Signs and symptoms assessed: Unsteady gait along with generalized deconditioning Reason for physical therapy: home safety and mobility and gait/transfer training Homebound: Leaving the home is medically contraindicated at this time without the asist of a device and/or another person due th the listed conditions above and below. Reason homebound: unsteady gait / fall risk and unable to drive Certification: Based on the above findings, I certify that this patient is confined to the home and needs intermittent penitentiary care, physical therapy and/or speech therapy, or continues to need occupational therapy. The patient is under my care, and I have initiated the establishment of the plan of care. The patient will be followed by a physician who will periodically review the plan of care. Time Spent With Patient Time: Total time managing care of this patient today ____ minutes.
[2024-05-16] MEDS: Potassium Chloride Packet 20 MEQ PACKET 40 MEQ PO (13:54)
[2024-05-16] MEDS: Ferrous Sulfate 324 MG TABLET.DR PO (13:54)
--- NOTE | 2024-05-16 14:25 | MHC.CM.PN ---
Addendum entered by Meri Cook RN 05/16/24 15:11: [facility] WILL TRANSPORT AT APPROX 3PM Original Note: IMM 05/16/24, PT MEDICALLY CLEARED FOR DC HOME W/NEW [facility] FOR HOME PT, PT TO ARRANGE TRANSPORT
== END 2024-05-16 15:47 | disposition home health service (06) | DRG 378 ==
LOC: HO.ED 11:39 → HO.EDOVER 11:54 → HO.S3 15:07
PROVIDERS: Internal Medicine; Internal Medicine Gastroenterology; Physician Assistant Medical; Admitting Provider Student in an Organized Health Care Education/Training Program; Emergency Provider Student in an Organized Health Care Education/Training Program; PCP Internal Medicine; Visit Provider Hospitalist
PROC: 0DB48ZX Excision of Esophagogastric Junction, Via Natural or Artificial Opening Endoscopic, Diagnostic (ICD-10-PCS; principal; 2024-05-15 13:50)
DX: K57.31 Diverticulosis of large intestine without perforation or abscess with bleeding (principal); D62 Acute posthemorrhagic anemia; Z68.41 Body mass index [BMI] 40.0-44.9, adult; K74.69 Other cirrhosis of liver; Z66 Do not resuscitate; E78.5 Hyperlipidemia, unspecified; E11.9 Type 2 diabetes mellitus without complications; J45.20 Mild intermittent asthma, uncomplicated; E66.01 Morbid (severe) obesity due to excess calories; K64.0 First degree hemorrhoids; K75.81 Nonalcoholic steatohepatitis (NASH); K44.9 Diaphragmatic hernia without obstruction or gangrene; K22.70 Barrett's esophagus without dysplasia; Z79.84 Long term (current) use of oral hypoglycemic drugs; Z79.899 Other long term (current) drug therapy
CPT/HCPCS: 36415; 80048; 80053; 82272; 82947; 83615; 85014; 85018; 85025; 85027; 88305; 88313; 88342; 93005; 99285; J1756; J2405; J2470; J2704

== ENCOUNTER → 2024-05-11 11:48 | Outpatient (BNV) | payer MEDICARE, SELFPAY | PROVIDERS: Admitting Provider Student in an Organized Health Care Education/Training Program; Emergency Provider Student in an Organized Health Care Education/Training Program; PCP Internal Medicine; Visit Provider Student in an Organized Health Care Education/Training Program | DX: K62.5 Hemorrhage of anus and rectum (principal) | CPT/HCPCS: 99222; 99232; 99233; 99239; G0180 ==

== ENCOUNTER → 2024-05-11 11:48 | Outpatient (BNV) | payer MEDICARE, SELFPAY | PROVIDERS: Admitting Provider Student in an Organized Health Care Education/Training Program; Emergency Provider Student in an Organized Health Care Education/Training Program; PCP Internal Medicine; Visit Provider Internal Medicine Gastroenterology | DX: K62.5 Hemorrhage of anus and rectum (principal); K57.31 Diverticulosis of large intestine without perforation or abscess with bleeding; K64.0 First degree hemorrhoids; K22.70 Barrett's esophagus without dysplasia; K29.70 Gastritis, unspecified, without bleeding | CPT/HCPCS: 43239; 45382; 99222; 99232 ==

== ENCOUNTER → 2024-05-11 15:55 | Outpatient (BNV) | payer MEDICARE, SELFPAY | PROVIDERS: Admitting Provider Student in an Organized Health Care Education/Training Program; Emergency Provider Student in an Organized Health Care Education/Training Program; PCP Internal Medicine; Visit Provider Internal Medicine Cardiovascular Disease | DX: R42 Dizziness and giddiness (principal) | CPT/HCPCS: 93010 ==

== ENCOUNTER 2024-06-12 08:18 | Outpatient (REF) | payer MEDICARE, SELFPAY ==
--- NOTE | ~2024-06-12 | US_ITS ---
EXAMINATION: US ABDOMEN LIMITED CLINICAL INFORMATION: Unspecified cirrhosis of liver. COMPARISON: Ultrasound abdomen complete 12/14/2023. X-ray abdomen complete 08/22/2023. CT abdomen and pelvis 07/22/2023. Ultrasound abdomen limited 07/20/2023. TECHNIQUE: Real-time imaging of the right upper quadrant abdominal viscera. FINDINGS: PANCREAS: Normal. LIVER: The liver is normal in size. Liver demonstrates coarsened hepatic echotexture with increased echogenicity and nodular contour suggesting cirrhotic morphology. No focal hepatic lesion. There is no intrahepatic biliary duct dilatation seen. GALLBLADDER: Intraluminal gallbladder bile. The gallbladder is physiologically distended without evidence of stones, polyps, wall thickening or pericholecystic fluid. Sonographic Jackson sign is negative. COMMON BILE DUCT: Normal in caliber measuring 0.3 cm in diameter. RIGHT KIDNEY: Normal. No hydronephrosis. No renal calculi or focal parenchymal lesions. The kidney measures 11.7 cm in maximum dimension. FREE FLUID: None. US/US abdomen limited IMPRESSION: 1. Liver demonstrates coarsened hepatic echotexture with increased echogenicity and nodular contour suggesting cirrhotic morphology. 2. Intraluminal gallbladder bile without sonographic evidence of acute cholecystitis. Electronically signed by: Justus Velazquez MD 06/23/2024 11:20 AM EDT
== END 2024-06-12 08:19 | disposition home or self-care (01) ==
LOC: HO.HMGCX 08:18
PROVIDERS: PCP Internal Medicine; Visit Provider Internal Medicine
DX: K74.60 Unspecified cirrhosis of liver (principal)
CPT/HCPCS: 76705

== ENCOUNTER 2024-07-11 09:04 | Outpatient (AMB) | payer MEDICARE, SELFPAY ==
--- NOTE | 2024-07-11 09:25 | MHC.OFFVIS ---
Vital Signs 07/11/24 09:27 Height 5 ft 3 in Weight 240 lb 4.862 oz BMI 42.6 BP 137/54 L Blood Pressure Location Lt brachial Position Sitting Pulse 88 Intake Visit Reasons: f/u Ultrasound Intake Note: Paula was seen in the ED where she had an EGD and COLO. States that she had her US and here for results. States that she is feeling okay at this time. 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: No Allergies benzethonium chloride [From LANACANE ANTI-ITCH] Allergy (Unknown, Verified 07/11/24 09:27) BLISTERS IN MOUTH benzocaine [From LANACANE ANTI-ITCH] Allergy (Unknown, Verified 07/11/24 09:27) BLISTERS IN MOUTH cortisone [CORTISONE] Allergy (Unknown, Verified 07/11/24 09:27) BLISTERS IN MOUTH, LOST SENSE OF TASTE ibuprofen Allergy (Unknown, Verified 07/11/24 09:27) nose bleed naproxen Allergy (Unknown, Verified 07/11/24 09:27) nose bleed triamcinolone [Kenalog] Allergy (Unknown, Verified 07/11/24 09:27) unknown HPI Comments Details: This is a 72-year-old female with medical history of obesity, type 2 diabetes, hypertension, who was seen in the hospital last month for profound anemia and underwent EGD and colonoscopy, here for post hospitalization visit. Hospital admission 07/19-07/22/2023: Presented for abnormal labs to her PCP's office with initial hemoglobin of 5.5. Previous baseline was normal from 2020. No reported history of abdominal pain, changes in bowel habits, melena, hematochezia. Had knee surgery earlier this year. No anticoagulants or NSAIDs on board. After undergoing PRBC transfusion, had EGD and colonoscopy. 07/21/2023: EGD/colo: 1. Normal esophagus 2. Normal stomach 3. Normal duodenum (biopsy) 4. Abnormal mucosa in sigmoid colon 5. One polyp removed 6. Diverticulosis 7. Hemorrhoids Path: Diagnosis A. Duodenum, biopsy: Duodenal mucosa with preserved villi and no specific change. B. Colon, ascending, polyp: Tubular adenoma (2 pieces); negative for high-grade dysplasia and carcinoma, and 2 fragments of degenerated duodenal type mucosa (consistent with contaminant). C. Colon, rectal-sigmoid, biopsy: Mild active colitis with mild chronic regenerative changes; negative for dysplasia (see comment) 08/03/23: Today, reports feeling much better. Fatigue and shortness of breath is a lot better. Has more energy. Patient lives by herself at home. Does not have any immediate family members such as spouse or children. However, her friends checkup on her daily. Continues on iron pills through PCP's office. 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 BMI 38 with type 2 diabetes and hyperlipidemia. VCE 09/19/23: ?? small jejunal ulcers/erosions but poor prep. 11/21/23: Seen by Heme earlier this month. Had not been compliant with PO iron but now taking it regularly as wishes to avoid IV iron. Labs with anemia unchanged which is not surprising if had not been taking iron supplementation. Otherwise, has no active issues. No abd pain, N,V. Now taking PO iron first thing in the morning every day for the last 6 weeks. 02/20/24: Here for follow up. Labs reviewed. Anemia better. Cont on PO iron with vit C. In terms of fatty liver - prediabetes in control on metformin. HLD well controlled on pravastatin. Weight curve noted - has gained almost 20lbs in the past 6 months. Activity levels are limited due to unstable gait. Uses a walker. US Abd: 1. There is generalized increase in hepatic echotexture and a lobular hepatic contour, consistent with the provided history of cirrhosis. No focal hepatic mass or intrahepatic biliary dilatation is seen. 2. There is a recanalized umbilical vein. 07/11/24: Here for post hospitalisation follow up. Was admitted in April for large volume painless rectal bleeding likely diverticular. s/p EGD/colon. hiatal hernia barretts gastritis Colonoscopy Findings: diverticulosis, and diverticular bleed internal hemorrhoids Path: A. Stomach, biopsy: Oxyntic mucosa with mild chronic inactive inflammation; no Helicobacter organisms seen. B. Esophagus, distal, biopsy: - Sorto esophagus with background moderate chronic active inflammation. - No dysplasia seen. - Squamous mucosa within normal limits Currently doing well. No recurrene of bleeding. Blood work from May reviewed and H/H uptrending. Also follows with Dr Strickland. US Abd reviewed with the pt. Reminder for next one set. [facility] Medical History Colitis Fatty liver Cough Acute maxillary sinusitis Varicose veins of bilateral lower extremities with pain Osteoporosis Breast cancer screening by mammogram Type 2 diabetes mellitus without complication, without long-term current use of insulin Thrombocytopenia Osteoarthritis of multiple joints Hammertoes of both feet Colonoscopy refused Mild intermittent asthma in adult without complication Dyslipidemia Type 2 diabetes mellitus with hyperglycemia, without long-term current use of insulin Surgical History History of esophagogastroduodenoscopy (EGD) Hx of colonoscopy Hx of varicose vein ligation History of surgery on lower extremity H/O left wrist surgery Family History (Reviewed 07/11/24 @ 09: by KEIRA Barrett) Mother Breast cancer Arthralgia of both feet Arthritis Brother Arthritis Brother No problems noted. Social History Household Members: None [facility] Do you presently have visiting nurse or other home services: No Alcohol intake: current Alcohol intake frequency: holidays/special occasions only Comment: call garcia within reach Patient Tobacco Use Status: Never used Tobacco e-Cigarette/Vaping Use: Never Used Second Hand Smoke Exposure: No service: No Current occupational status: retired Cognitive needs: No Hearing needs: No Vision needs: Yes Review of Systems Const All systems reviewed & are unremarkable except as noted in HPI and below Physical Exam Vital Signs: Last Vital Signs Pulse 88 07/11/24 09:27 BP 137/54 L 07/11/24 09:27 BMI result Body Mass Index 42.6 No apparent distress Nonicteric Abdomen soft, nondistended Alert and oriented x3, normal gait Assessment & Plan Assessment & Plan (1) History of GI diverticular bleed: Code(s): Z87.19 - Personal history of other diseases of the digestive system Category: Medical (2) Fatty liver disease, nonalcoholic: Code(s): K76.0 - Fatty (change of) liver, not elsewhere classified Category: Medical Plan No recurrence of diverticular bleeding. Pt educated that roughly 8-10% risk of recurrence over the next 2-3 years however can not predict if and when this may occur. ALso reviewed dietary recommendations for diverticulosis. Will recheck CBC and ferritin In terms of MAFLD/MOJICA, no PHG noted on EGD. Can consider repeat in 2-3 years. US Abd due in Nov 2024 - reminder set. Control of metabolic factors discussed as before. Follow up 6 months Orders: Orders Ferritin Today Z87.19 - Personal history of other diseases of the digestive system Complete Blood Count no Diff Today Z87.19 - Personal history of other diseases of the digestive system Coding Level of Care Code Est Pt Level 4 (35649) Diagnoses History of GI diverticular bleed Z87.19 Fatty liver disease, nonalcoholic K76.0
[2024-07-11 09:27] VITALS: BP 137/54; PULSE 88; BMI 42.6
== END 2024-07-11 10:00 | disposition home or self-care (01) ==
PROVIDERS: PCP Internal Medicine; Visit Provider Internal Medicine
DX: Z87.19 Personal history of other diseases of the digestive system (principal); K76.0 Fatty (change of) liver, not elsewhere classified
CPT/HCPCS: 99214

== ENCOUNTER → 2024-07-11 09:04 | Outpatient (BNVA) | payer MEDICARE, SELFPAY | PROVIDERS: PCP Internal Medicine; Visit Provider Internal Medicine | DX: K76.0 Fatty (change of) liver, not elsewhere classified (principal); Z87.19 Personal history of other diseases of the digestive system | CPT/HCPCS: 99212 ==

== ENCOUNTER 2024-07-13 13:34 | Outpatient (REF) | payer MEDICARE, SELFPAY ==
[2024-07-13 16:18] LABS: Hematocrit 31.2 % (37.0-47.0); Hemoglobin 9.5 g/dl (12.0-16.0); Mean Corpuscular HGB Conc 30.4 g/dl (31.0-35.0); Mean Corpuscular Hemoglobin 26.2 pg (27.0-33.0); Mean Corpuscular Volume 86.2 fL (80.0-98.0); Mean Platelet Volume 11.6 fL (9.4-12.3); Platelet Count 131 X10*3/uL (160-400); Red Blood Count 3.62 X10*6/uL (4.20-5.50); Red Cell Distribution Width 16.7 % (11.0-16.0); White Blood Count 5.7 X10*3/uL (4.8-10.8)
[2024-07-13 17:02] LABS: Ferritin 12 ng/mL (10-250)
== END 2024-07-13 13:35 | disposition home or self-care (01) ==
LOC: HO.HMGCLDS 13:34
PROVIDERS: PCP Internal Medicine; Visit Provider Internal Medicine
DX: Z87.19 Personal history of other diseases of the digestive system (principal); E11.9 Type 2 diabetes mellitus without complications
CPT/HCPCS: 36415; 82728; 85027

== ENCOUNTER 2024-07-16 13:27 | Outpatient (AMB) | payer MEDICARE, SELFPAY ==
[2024-07-16 13:56] VITALS: BP 120/62; PULSE 75; O2SAT 97; BMI 42.3
--- NOTE | 2024-07-16 13:56 | MHC.PC.OV ---
Vital Signs 07/16/24 13:56 Height 5 ft 3 in Weight 239 lb BMI 42.3 BP 120/62 Blood Pressure Location Lt brachial Position Sitting Pulse 75 Pulse Source Pulse Oximeter Pulse Oximetry (%) 97 Oxygen Delivery Method Room Air Intake Visit Reasons: Pre-Op Cataract Surgery 08/01 Intake Note: Pt is here today for her Pre-op Dr. Stewart Lt eye cataract 08/01/24 Allergies benzethonium chloride [From LANACANE ANTI-ITCH] Allergy (Unknown, Verified 07/16/24 14:17) BLISTERS IN MOUTH benzocaine [From LANACANE ANTI-ITCH] Allergy (Unknown, Verified 07/16/24 14:17) BLISTERS IN MOUTH cortisone [CORTISONE] Allergy (Unknown, Verified 07/16/24 14:17) BLISTERS IN MOUTH, LOST SENSE OF TASTE ibuprofen Allergy (Unknown, Verified 07/16/24 14:17) nose bleed naproxen Allergy (Unknown, Verified 07/16/24 14:17) nose bleed triamcinolone [Kenalog] Allergy (Unknown, Verified 07/16/24 14:17) unknown Medication List - Last Reconciled 07/16/24 by Daniela Eduardo MD albuterol sulfate 90 mcg/actuation 2 puffs PO Q6H PRN blood sugar diagnostic As directed blood sugar diagnostic ([employer] Verio test strips) USE TO TEST BLOOD SUGAR TWICE A DAY cetirizine 10 mg PO BEDTIME PRN cholecalciferol (vitamin D3) 50 mcg PO DAILY coenzyme Q10 100 mg PO DAILY ferrous sulfate 325 mg PO DAILY lancets ([employer] Delica Plus Lancet) As directed twice a day ac metformin 1,000 mg PO BID pioglitazone (Actos) 15 mg PO DAILY pravastatin 20 mg PO BEDTIME Tobacco use date assessed: 07/16/24 Fall risk assessment: 1 Fall in past year Last assessed Fall Risk: 07/16/24 Dental Screening Dental Screen Date: 07/16/24 Did you have a dental visit in the last 12 months?: Yes Did you have a dental problem in the last 6 months where you did not have access to dental care?: No Was dental information given to patient?: Patient has dentist HPI Pre-Op Cataract Surgery 08/01 HPI Details 73-year-old year-old lady with PMHx of diabetes mellitus, osteoarthritis, dyslipidemia, mild intermittent asthma, osteoporosis , history of thrombocytopenia, for preoperative exam for cataract surgery OS, scheduled for August 01 2024, requested by Dr. Stewart.. [facility] Medical History Varicose veins of right lower extremity with inflammation Normal capsule endoscopy of gastrointestinal tract History of GI diverticular bleed Osteopenia of multiple sites Fatty liver Varicose veins of bilateral lower extremities with pain Type 2 diabetes mellitus without complication, without long-term current use of insulin Thrombocytopenia Osteoarthritis of multiple joints Hammertoes of both feet Colonoscopy refused Mild intermittent asthma in adult without complication Dyslipidemia Type 2 diabetes mellitus with hyperglycemia, without long-term current use of insulin Surgical History History of esophagogastroduodenoscopy (EGD) Hx of colonoscopy Hx of varicose vein ligation History of surgery on lower extremity H/O left wrist surgery Family History Mother Breast cancer Arthralgia of both feet Arthritis Brother Arthritis Brother No problems noted. Social History Household Members: None Housing: Condominium Do you presently have visiting nurse or other home services: No Alcohol intake: current Alcohol intake frequency: holidays/special occasions only Comment: call garcia within reach Patient Tobacco Use Status: Never used Tobacco e-Cigarette/Vaping Use: Never Used Second Hand Smoke Exposure: No service: No Current occupational status: retired Cognitive needs: No Hearing needs: No Vision needs: Yes Questionnaire PHQ-9 Over the last 2 weeks, how often have you been bothered by any of the following problems? 1. Little interest or pleasure in doing things: not at all 2. Feeling down, depressed, or hopeless: not at all 3. Trouble falling or staying asleep, or sleeping too much: not at all 4. Feeling tired or having little energy: not at all 5. Poor appetite or overeating: not at all 6. Feeling bad about yourself - or that you are a failure or have let yourself or your family down: not at all 7. Trouble concentrating on things, such as reading the newspaper or watching television: not at all 8. Moving or speaking so slowly that other people could have noticed. Or the opposite - being so fidgety or restless that you have been moving around a lot more than usual: not at all 9. Thoughts that you would be better off or of hurting yourself in some way: not at all Total score: 0 Depression Screening Interpretation: Negative Depression Screening Done: Yes 85718 - PHQ-9 Billing: Yes Source: Developed by Drs. Callum Gomez, Chiquita Simon, Sharath Anna and colleagues, with an educational sy from [employer] Thrive Questionnaire Date Thrive assessed: 07/16/24 I am a: Patient What is your living situation today?: I have a steady place to live Within the past 12 months, did the food you bought not last and you didn't have the money to get more?: Never true Within the past 12 months, did you worry whether your food would run out before you got money to buy more?: Never true Do you have trouble paying for medicines?: No Do you have trouble getting transportation to medical appointments?: Yes Do you have trouble paying your heating and electricity bill?: No Do you have trouble taking care of your child, family member or friend?: No Do you have trouble with day-to-day activities such as bathing, preparing meals, shopping, managing finances, etc.?: No Are you interested in more education?: No Please select the resources that you would like help with: None Currently or been in a relationship where the following occur: No concerns reported THRIVE Score: 1 AUDIT C Alcohol Use Questionnaire (AUDIT-C) 1. How often do you have a drink containing alcohol?: Never Total Score: 0 FABRIZIO-7 AMB Questionnaire FABRIZIO-7 Date FABRIZIO - 7 assessed: 07/16/24 Feeling nervous, anxious, or on edge: 0 = Not at all Not being able to stop or control worryin = Not at all Worrying too much about different things: 0 = Not at all Trouble relaxin = Not at all Being so restless that it is hard to sit still: 0 = Not at all Becoming easily annoyed or irritable: 0 = Not at all Feeling afraid as if something awful might happen: 0 = Not at all Total FABRIZIO-7 score (0-4 normal; 5-9 mild; 10-14 moderate; 15-21 severe): 0 Source: Developed by Drs. Callum Gomez, Chiquita Simon, Sharath Anna and colleagues, with an educational sy from [employer] FABRIZIO-7 Assessment Billing FABRIZIO-7 Assessment Tool: FABRIZIO-7 Assessment 82172 Review of Systems Const Denies body aches, Denies fever(s), Denies headache(s) and Denies weakness Eyes Reports blurry vision (OS) ENT Denies dizziness, Denies headache(s), Denies nasal congestion and Denies nasal discharge Card Denies chest pain, Denies lightheadedness, Denies palpitations and Denies dyspnea Resp Denies chest congestion, Denies cough, Denies dyspnea and Denies wheezing GI Denies abdominal pain, Denies change in bowel habits and Denies heartburn Denies urinary frequency, Denies dysuria and Denies urinary urgency Musc Reports arthralgias, Reports muscle cramps and Reports stiffness Skin/Breast Denies lesions and Denies rash Neuro Denies dizziness, Denies headache(s) and Denies weakness Psych Reports no additional complaints Endo Denies polydipsia, Denies polyuria and Denies palpitations Abhilash/Lymph Reports easy bruising Aller/Immun Denies seasonal rhinorrhea and Denies wheezing Physical exam (Primary Care) Vital Signs: Last Vital Signs Pulse 75 07/16/24 13:56 BP 120/62 07/16/24 13:56 Pulse Ox 97 07/16/24 13:56 Oxygen Delivery Method Room Air 07/16/24 13:56 BMI result Body Mass Index 42.3 Tobacco/Smoking Status: Tobacco use Status Tobacco use date assessed 07/16/24 07/16/24 13:58 Patient Tobacco Use Status Never used Tobacco 07/16/24 13:57 e-Cigarette/Vaping Use Never Used 07/16/24 13:57 PHQ-9: PHQ-9 Score PHQ-9: Total score 0 07/17/24 03:24 Depression Screening Interpretation: Negative Thrive Assessment: Date of Thrive Assessment Date Thrive assessed 07/16/24 07/16/24 13:58 Currently or been in a relationship where the following occur: No concerns reported Const General: comfortable, no acute distress and alert Orientation/consciousness: patient oriented x3 HENMT Ears: external ears normal General nose exam: Normal external nose present Mouth: Normal oral and palatal mucosa present and moist mucous membranes Eyes General: appearance normal, both eyes and all related structures Conjunctivae: conjunctivae normal Sclerae: sclerae normal Pupils: Equal, round and reactive pupils present EOM: EOMs intact bilaterally Neck Neck: Yes full ROM, Yes no lymphadenopathy and Yes supple Resp Effort & Inspection: normal respiratory effort and able to speak in complete sentences Auscultation: clear to auscultation bilaterally Cardio Rate: regular rate Rhythm: regular rhythm Heart sounds: S1 normal heart sound present and S2 normal heart sound present GI Palpation (GI): Soft to palpation, nontender and no masses Auscultation: normal bowel sounds Back/Spine/Pelvis Back: No back tenderness Skin General skin exam: no rashes or lesions noted Neuro General: patient oriented x3, gait normal, tone normal, moves all extremities, Normal light touch and pain sensation and no focal motor deficits Cranial nerves: Yes CN's II-XII intact bilaterally and Yes Equal, round and reactive pupils present Cognition (Neuro): normal cognition Extrem General: Yes full ROM, Yes no joint enlargement, Yes no clubbing, cyanosis or edema and Yes no calf tenderness Psych Appearance: grossly normal and well kempt Mental Status: mental status grossly normal Speech and movement: Normal speech and movement present Affect: normal affect Thought process: Normal thought process present Results Reviewed Results Reviewed: Name: Paula Baum Age/Sex: 73/F : 1950 Unit#: [id number] Attend Dr: Antonia De La Vega MD Re07/13/24 Status: DEP REF [facility] Disch: SPEC : [id number] SANGITA: 07/13/24 STATUS: COMP REQ : [id number] RECD: 07/13/[address]: Antonia De La Vega MD COMP: 07/13/24 ENTERED: 07/13/[address] [facility] [address]: Daniela Eduardo MD ORDERED: CBC No Diff Test Result Flag Reference WBC 5.7 4.8-10.8 X10*3/uL RBC 3.62 L 4.20-5.50 X10*6/uL HGB 9.5 L 12.0-16.0 g/dl HCT 31.2 L 37.0-47.0 % MCV 86.2 80.0-98.0 fL MCH 26.2 L 27.0-33.0 pg MCHC 30.4 L 31.0-35.0 g/dl RDW 16.7 H 11.0-16.0 % PLT 131 L 160-400 X10*3/uL MPV 11.6 9.4-12.3 fL NRBC Pct Auto 0.0 0.0-0.2 /100WBC NRBC Abs Auto 0.000 0.0-0.012 X10*3/uL Assessment and Plan Assessment & Plan (1) Preoperative examination: Code(s): Z01.818 - Encounter for other preprocedural examination Plan: 73year old lady here for pre-op clearance for left cataract surgery he is controlled diabetes mellitus and dyslipidemia, asthma and anemia. No history of coronary artery disease, preoperative exam was unremarkable. Patient with low cardiac risk factor for proposed surgery (2) Dyslipidemia: Code(s): E78.5 - Hyperlipidemia, unspecified Plan: Continue pravastatin 20 mg at bedtime (3) Type 2 diabetes mellitus without complication, without long-term current use of insulin: Code(s): E11.9 - Type 2 diabetes mellitus without complications Plan: Diabetes well controlled with last hemoglobin A1c 5.8% 04/23/2024. Continued on metformin 1000 mg 1 tab twice a day and pioglitazone 15 mg daily (4) Osteopenia of multiple sites: Code(s): M85.89 - Other specified disorders of bone density and structure, multiple sites Plan: History of osteoporosis seen on last bone density in 2021, previously on alendronate, with last bone density and tolerating medication well. . Repeat bone density done 2023 showed osteopenia with improvement in bone density in lumbar spine, continue with drug holiday, continue with calcium and vitamin-D supplements (5) Thrombocytopenia: Code(s): D69.6 - Thrombocytopenia, unspecified Plan: Followed by hematology no abnormal bleeding reported (6) Mild intermittent asthma in adult without complication: Code(s): J45.20 - Mild intermittent asthma, uncomplicated Plan: Continue on albuterol inhaler 2 inhalations every 6 hours as needed for episodes of wheezing and bronchospasm (7) Anemia: Code(s): D64.9 - Anemia, unspecified Qualifiers: Anemia type: iron deficiency Iron deficiency anemia type: chronic blood loss Qualified Code(s): D50.0 - Iron deficiency anemia secondary to blood loss (chronic) Plan: History of recent acute diverticular bleed, no recurrence, seen by GI with scheduled follow-up in 6 months with repeat CBC and ferritin level, continued on ferrous sulfate 325 mg 1 tablet once a day Orders: Orders Lipid Panel 07/17/24 E11.9 - Type 2 diabetes mellitus without complications, E78.5 - Hyperlipidemia, unspecified Hemoglobin A1c 07/17/24 E11.9 - Type 2 diabetes mellitus without complications, E78.5 - Hyperlipidemia, unspecified Alanine Aminotransferase 07/17/24 E11.9 - Type 2 diabetes mellitus without complications, E78.5 - Hyperlipidemia, unspecified Aspartate Amino Transferase 07/17/24 E11.9 - Type 2 diabetes mellitus without complications, E78.5 - Hyperlipidemia, unspecified Basic Metabolic Panel Fasting 07/17/24 E11.9 - Type 2 diabetes mellitus without complications, E78.5 - Hyperlipidemia, unspecified Coding Level of Care Code Est Pt Level 4 (50640) Complex EM visit Add On G2211 Diagnoses Preoperative examination Z01.818 Dyslipidemia E78.5 Type 2 diabetes mellitus without complication, without long-term current use of insulin E11.9 Osteopenia of multiple sites M85.89 Thrombocytopenia D69.6 Mild intermittent asthma in adult without complication J45.20 Iron deficiency anemia due to chronic blood loss D50.0 Anemia type: iron deficiency Iron deficiency anemia type: chronic blood loss Additional Codes FABRIZIO-7 Assessment Billing - FABRIZIO-7 Assessment Tool: FABRIZIO-7 Assessment 37243 ([id number])
== END 2024-07-16 16:38 | disposition home or self-care (01) ==
PROVIDERS: PCP Internal Medicine; Visit Provider Internal Medicine
DX: Z01.818 Encounter for other preprocedural examination (principal); E78.5 Hyperlipidemia, unspecified; E11.69 Type 2 diabetes mellitus with other specified complication; D69.6 Thrombocytopenia, unspecified; M85.89 Other specified disorders of bone density and structure, multiple sites; J45.20 Mild intermittent asthma, uncomplicated; D50.0 Iron deficiency anemia secondary to blood loss (chronic)

== ENCOUNTER → 2024-07-16 13:27 | Outpatient (BNVA) | payer MEDICARE, SELFPAY | PROVIDERS: PCP Internal Medicine; Visit Provider Internal Medicine | DX: Z01.818 Encounter for other preprocedural examination (principal); E78.5 Hyperlipidemia, unspecified; E11.9 Type 2 diabetes mellitus without complications; M85.89 Other specified disorders of bone density and structure, multiple sites; D69.6 Thrombocytopenia, unspecified; J45.20 Mild intermittent asthma, uncomplicated; D50.0 Iron deficiency anemia secondary to blood loss (chronic) | CPT/HCPCS: 96127; 99212 ==

== ENCOUNTER 2024-07-17 09:20 | Outpatient (REF) | payer MEDICARE, SELFPAY ==
[2024-07-17 14:05] LABS: Alanine Aminotransferase 21 U/L (0-31); Anion Gap 9 (12-20); Aspartate Amino Transferase 51 U/L (5-31); Blood Urea Nitrogen 9 mg/dL (9-16); Calcium 8.6 mg/dL (8.4-10.2); Carbon Dioxide 32 mmol/L (22-29); Chloride 103 mmol/L (96-108); Cholesterol 113 mg/dL (<200); Estimated Glomerular Filt Rate > 60; Glucose Fasting 114 mg/dL (60-99); HDL Cholesterol 41 mg/dL (>40); LDL Cholesterol Calculated 62 mg/dL (<100); Potassium 3.9 mmol/L (3.3-5.1); Sodium 140 mmol/L (135-145); Triglycerides 50 mg/dL (<150)
[2024-07-17 16:05] LABS: Estimated Average Glucose 117 mg/dL; Hemoglobin A1c % 5.7 % (<6.0)
== END 2024-07-17 09:21 | disposition home or self-care (01) ==
LOC: HO.HMGCLDS 09:20
PROVIDERS: PCP Internal Medicine; Visit Provider Internal Medicine
DX: E11.9 Type 2 diabetes mellitus without complications (principal); E78.5 Hyperlipidemia, unspecified
CPT/HCPCS: 36415; 80048; 80061; 83036; 84450; 84460

== ENCOUNTER 2024-09-11 11:16 | Outpatient (AMB) | payer MEDICARE, SELFPAY ==
--- NOTE | 2024-09-11 11:22 | MHC.OFFVIS ---
Vital Signs 09/11/24 11:26 Height 5 ft 3 in Weight 238 lb 12.17 oz BMI 42.3 BP 124/58 L Blood Pressure Location Lt brachial Position Sitting Pulse 81 Pulse Source Pulse Oximeter Intake Visit Reasons: Osteoporosis-confirmed Intake Note: Patient present today for Osteoporosis office visit. Infusion Therapy Nurse Required: No Accompanied by: Self / Same As Patient Allergies benzethonium chloride [From LANACANE ANTI-ITCH] Allergy (Unknown, Verified 09/11/24 11:29) BLISTERS IN MOUTH benzocaine [From LANACANE ANTI-ITCH] Allergy (Unknown, Verified 09/11/24 11:29) BLISTERS IN MOUTH cortisone [CORTISONE] Allergy (Unknown, Verified 09/11/24 11:29) BLISTERS IN MOUTH, LOST SENSE OF TASTE ibuprofen Allergy (Unknown, Verified 09/11/24 11:29) nose bleed naproxen Allergy (Unknown, Verified 09/11/24 11:29) nose bleed triamcinolone [Kenalog] Allergy (Unknown, Verified 09/11/24 11:29) unknown Medication List - Last Reconciled 09/11/24 by Callum Franco MD albuterol sulfate 90 mcg/actuation 2 puffs PO Q6H PRN blood sugar diagnostic As directed blood sugar diagnostic ([employer] Verio test strips) USE TO TEST BLOOD SUGAR TWICE A DAY cetirizine 10 mg PO BEDTIME PRN cholecalciferol (vitamin D3) 50 mcg PO DAILY coenzyme Q10 100 mg PO DAILY ferrous sulfate 325 mg PO DAILY lancets ([employer] Delica Plus Lancet) As directed twice a day ac metformin 1,000 mg PO BID pioglitazone (Actos) 15 mg PO DAILY pravastatin 20 mg PO BEDTIME HPI Comments Details: 73 YO F with PMHx osteoporosis and type 2 diabetes is seen in consultation at the request of PCP for Osteoporosis. First diagnosed in 20 yrs ago . Received treatment in the past with alendronate, from <1 yr from 2017 to 2021 . Tolerated treatment well without complication. Has a history of Rwrist fracture in 20 yrs ago after falling on ice but no ONJ. Has few servings of dietary calcium per day Takes no Calcium supplement . Takes 2000 IU of Vitamin D daily. Denies ever using PPI, anticoagulant, antiepileptic or glucocorticoid medication. 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 UTD on dental cleanings and sees dentist every 6 months. No planned upcoming dental work or extractions. DXA dated 04/27/2022:AP SPINE L1-L2 (excluding L3 and L4): The data of L1-L4 has been changed to exclude the L3 and L4 vertebral bodies, because degenerative changes at these levels may cause overestimation of lumbar spine density. Current: BMD 0.848 g/cm2, Z-score -1.9, T-score -2.6, osteoporosis, 1.3% decrease from previous, 6.4% decrease from baseline (<5% change is not significant). Prior: BMD 0.859 g/cm2. Baseline: BMD 0.906 g/cm2. LEFT FEMUR, NECK: Current: BMD 0.926 g/cm2, Z-score 0.3, T-score -0.8, normal. Prior: BMD 0.948 g/cm2. Baseline: BMD 0.977 g/cm2. LEFT FEMUR, TOTAL: Current: BMD 0.961 g/cm2, Z-score 0.5, T-score -0.4, normal, 0.6% decrease from previous, 0.7% decrease from baseline (<5% change is not significant). Prior: BMD 0.967 g/cm2. Baseline: BMD 0.968 g/cm2. Labs: Secondary workup was negative NTX suppressed Off pharmacologic therapy on drug holiday [facility] Medical History Varicose veins of right lower extremity with inflammation Normal capsule endoscopy of gastrointestinal tract History of GI diverticular bleed Osteopenia of multiple sites Fatty liver Varicose veins of bilateral lower extremities with pain Type 2 diabetes mellitus without complication, without long-term current use of insulin Thrombocytopenia Osteoarthritis of multiple joints Hammertoes of both feet Colonoscopy refused Mild intermittent asthma in adult without complication Dyslipidemia Type 2 diabetes mellitus with hyperglycemia, without long-term current use of insulin Surgical History History of esophagogastroduodenoscopy (EGD) Hx of colonoscopy Hx of varicose vein ligation History of surgery on lower extremity H/O left wrist surgery Family History Mother Breast cancer Arthralgia of both feet Arthritis Brother Arthritis Brother No problems noted. Social History Household Members: None Housing: Condominium Do you presently have visiting nurse or other home services: No Alcohol intake: current Alcohol intake frequency: holidays/special occasions only Comment: call garcia within reach Patient Tobacco Use Status: Never used Tobacco e-Cigarette/Vaping Use: Never Used Second Hand Smoke Exposure: No service: No Current occupational status: retired Cognitive needs: No Hearing needs: No Vision needs: Yes Assessment & Plan Assessment & Plan (1) Osteoporosis: Comment: on latest bone density done 2021 Code(s): M81.0 - Age-related osteoporosis without current pathological fracture Category: Medical Qualifiers: Osteoporosis type: age-related Presence of current pathological fracture: without current pathological fracture Qualified Code(s): M81.0 - Age-related osteoporosis without current pathological fracture Plan: This 72-year-old white female with a history of osteoporosis on longstanding bisphosphonate therapy with secondary workup negative. She has not had a recent fracture and stable bone densities and NTX adequately suppressed. DEXA showed stable bone density Plan is to continue drug holiday and continue calcium and vitamin-D. At this point, have patient follow up with primary care provider who can repeat DEXA at about 2 years time. If there is any progression into osteoporosis, the patient returned back to endocrinology for a rediscussion of pharmacologic therapy Coding Level of Care Code Est Pt Level 3 (94854) Diagnoses Age-related osteoporosis without current pathological fracture M81.0 Osteoporosis type: age-related Presence of current pathological fracture: without current pathological fracture
[2024-09-11 11:26] VITALS: BP 124/58; PULSE 81; BMI 42.3
== END 2024-09-11 11:49 | disposition home or self-care (01) ==
PROVIDERS: PCP Internal Medicine; Visit Provider Internal Medicine Endocrinology, Diabetes & Metabolism
DX: M81.0 Age-related osteoporosis without current pathological fracture (principal)
CPT/HCPCS: 99213

== ENCOUNTER → 2024-09-11 11:16 | Outpatient (BNVA) | payer MEDICARE, SELFPAY | PROVIDERS: PCP Internal Medicine; Visit Provider Internal Medicine Endocrinology, Diabetes & Metabolism | DX: M81.0 Age-related osteoporosis without current pathological fracture (principal) | CPT/HCPCS: 99212 ==

== ENCOUNTER 2024-09-17 11:30 | Outpatient (RCR) | payer MEDICARE, SELFPAY ==
[2024-08-24 06:00] VITALS: BP 140/53; PULSE 79; TEMP 36.8; O2SAT 95
[2024-08-31 12:00] VITALS: BP 172/55; PULSE 76; RESP 16; TEMP 36.1; O2SAT 94
[2024-09-07 10:50] VITALS: BP 132/47; PULSE 81; RESP 20; TEMP 36.6; O2SAT 95
[2024-09-14 10:48] VITALS: BP 138/46; PULSE 77; RESP 16; TEMP 36.2; O2SAT 96
[2024-09-17 11:38] VITALS: BP 152/58; PULSE 81; RESP 18; TEMP 36.1
== END 2024-09-17 12:03 | disposition home or self-care (01) ==
LOC: HO.INF 11:30
PROVIDERS: Visit Provider Internal Medicine
DX: D50.0 Iron deficiency anemia secondary to blood loss (chronic) (principal)
CPT/HCPCS: 96374; J1756

== ENCOUNTER 2024-09-24 08:37 | Outpatient (REF) | payer MEDICARE, SELFPAY ==
[2024-09-24 10:54] LABS: Alanine Aminotransferase 29 U/L (0-31); Anion Gap 10 (12-20); Aspartate Amino Transferase 67 U/L (5-31); Blood Urea Nitrogen 11 mg/dL (9-16); Calcium 9.2 mg/dL (8.4-10.2); Carbon Dioxide 32 mmol/L (22-29); Chloride 103 mmol/L (96-108); Cholesterol 125 mg/dL (<200); Estimated Glomerular Filt Rate > 60; Glucose Fasting 115 mg/dL (60-99); HDL Cholesterol 48 mg/dL (>40); LDL Cholesterol Calculated 66 mg/dL (<100); Sodium 141 mmol/L (135-145); Triglycerides 58 mg/dL (<150)
[2024-09-24 11:09] LABS: Estimated Average Glucose 114 mg/dL; Hemoglobin A1c % 5.6 % (<6.0); Total Hemoglobin (HGBA1C) 2841.6027 umol/L
== END 2024-09-24 08:38 | disposition home or self-care (01) ==
LOC: HO.HMGCLDS 08:37
PROVIDERS: PCP Internal Medicine; Visit Provider Internal Medicine
DX: M81.0 Age-related osteoporosis without current pathological fracture (principal); E78.5 Hyperlipidemia, unspecified; Z13.1 Encounter for screening for diabetes mellitus
CPT/HCPCS: 36415; 80048; 80061; 83036; 84450; 84460

== ENCOUNTER 2024-09-26 11:21 | Outpatient (AMB) | payer MEDICARE, SELFPAY ==
[2024-09-26 11:38] VITALS: BP 112/64; PULSE 75; O2SAT 97; BMI 41.6
--- NOTE | 2024-09-26 11:38 | MHC.PC.OV ---
Vital Signs 09/26/24 11:38 Height 5 ft 3 in Weight 235 lb BMI 41.6 BP 112/64 Blood Pressure Location Rt brachial Position Sitting Pulse 75 Pulse Source Pulse Oximeter Pulse Oximetry (%) 97 Oxygen Delivery Method Room Air Intake Visit Reasons: 5 month f/u Intake Note: Pt is here today for her 5mo. f/u Allergies benzethonium chloride [From LANACANE ANTI-ITCH] Allergy (Unknown, Verified 09/26/24 12:08) BLISTERS IN MOUTH benzocaine [From LANACANE ANTI-ITCH] Allergy (Unknown, Verified 09/26/24 12:08) BLISTERS IN MOUTH cortisone [CORTISONE] Allergy (Unknown, Verified 09/26/24 12:08) BLISTERS IN MOUTH, LOST SENSE OF TASTE ibuprofen Allergy (Unknown, Verified 09/26/24 12:08) nose bleed naproxen Allergy (Unknown, Verified 09/26/24 12:08) nose bleed triamcinolone [Kenalog] Allergy (Unknown, Verified 09/26/24 12:08) unknown Medication List - Last Reconciled 09/26/24 by Daniela Eduardo MD albuterol sulfate 90 mcg/actuation 2 puffs PO Q6H PRN blood sugar diagnostic As directed blood sugar diagnostic (Sapiens InternationalTouch Verio test strips) USE TO TEST BLOOD SUGAR TWICE A DAY cetirizine 10 mg PO BEDTIME PRN cholecalciferol (vitamin D3) 50 mcg PO DAILY coenzyme Q10 100 mg PO DAILY ferrous sulfate 325 mg PO DAILY lancets (OneTouch Delica Plus Lancet) As directed twice a day ac metformin 1,000 mg PO BID pioglitazone (Actos) 15 mg PO DAILY pravastatin 20 mg PO BEDTIME Tobacco use date assessed: 09/26/24 Fall risk assessment: No Falls in past year Last assessed Fall Risk: 09/26/24 Dental Screening Dental Screen Date: 09/26/24 Did you have a dental visit in the last 12 months?: Yes Did you have a dental problem in the last 6 months where you did not have access to dental care?: No Was dental information given to patient?: Patient has dentist HPI 5 month f/u HPI Details The patient is a 73-year-old female presenting with a history of iron deficiency anemia and chronic thrombocytopenia. She reports undergoing iron infusions, the last of which occurred on September 17, totaling five treatments so far. The anemia and thrombocytopenia have been persistent issues since a significant episode of blood loss in April. Previously, she struggled to maintain healthy blood levels after surgical procedures on her legs and recurrent nosebleeds. The platelet count has been fluctuating. She follows up with Dr. De La Vega and Dr. Strickland for management. Despite treatments, her hemoglobin levels have not yet reached the desired levels, remaining below 12. Her iron stores, however, are now within the normal range. She has dyslipidemia and diabetes mellitus, currently stable controlled on present treatment, with latest hemoglobin A1c at 5.6% and recent fasting lipids are within normal limits. [facility] Medical History Varicose veins of right lower extremity with inflammation Normal capsule endoscopy of gastrointestinal tract History of GI diverticular bleed Osteopenia of multiple sites Fatty liver Varicose veins of bilateral lower extremities with pain Type 2 diabetes mellitus without complication, without long-term current use of insulin Thrombocytopenia Osteoarthritis of multiple joints Hammertoes of both feet Colonoscopy refused Mild intermittent asthma in adult without complication Dyslipidemia Type 2 diabetes mellitus with hyperglycemia, without long-term current use of insulin Surgical History History of esophagogastroduodenoscopy (EGD) Hx of colonoscopy Hx of varicose vein ligation History of surgery on lower extremity H/O left wrist surgery Family History Mother Breast cancer Arthralgia of both feet Arthritis Brother Arthritis Brother No problems noted. Social History Household Members: None Housing: Condominium Do you presently have visiting nurse or other home services: No Alcohol intake: current Alcohol intake frequency: holidays/special occasions only Comment: call garcia within reach Patient Tobacco Use Status: Never used Tobacco e-Cigarette/Vaping Use: Never Used Second Hand Smoke Exposure: No service: No Current occupational status: retired Cognitive needs: No Hearing needs: No Vision needs: Yes Questionnaire PHQ-9 Over the last 2 weeks, how often have you been bothered by any of the following problems? Depression Screening Interpretation: Negative Depression Screening Done: Yes Source: Developed by Drs. Callum Gomez, Chiquita Simon, Sharath Anna and colleagues, with an educational sy from [employer]. Thrive Questionnaire Date Thrive assessed: 07/16/24 I am a: Patient What is your living situation today?: I have a steady place to live Within the past 12 months, did the food you bought not last and you didn't have the money to get more?: Never true Within the past 12 months, did you worry whether your food would run out before you got money to buy more?: Never true Do you have trouble paying for medicines?: No Do you have trouble getting transportation to medical appointments?: Yes Do you have trouble paying your heating and electricity bill?: No Do you have trouble taking care of your child, family member or friend?: No Do you have trouble with day-to-day activities such as bathing, preparing meals, shopping, managing finances, etc.?: No Are you currently unemployed and looking for a job?: No Are you interested in more education?: No Please select the resources that you would like help with: None Currently or been in a relationship where the following occur: No concerns reported THRIVE Score: 1 FABRIZIO-7 AMB Questionnaire FABRIZIO-7 Date FABRIZIO - 7 assessed: 07/16/24 Source: Developed by Drs. Callum Gomez, Chiquita Simon, Sharath Anna and colleagues, with an educational sy from [employer]. Review of Systems Const Denies body aches, Denies fever(s), Denies headache(s) and Denies weakness Eyes Reports blurry vision (OS) ENT Denies dizziness, Denies headache(s), Denies nasal congestion and Denies nasal discharge Card Denies chest pain, Denies lightheadedness, Denies palpitations and Denies dyspnea Resp Denies chest congestion, Denies cough, Denies dyspnea and Denies wheezing GI Denies abdominal pain, Denies change in bowel habits and Denies heartburn Denies urinary frequency, Denies dysuria and Denies urinary urgency Musc Reports arthralgias, Reports muscle cramps and Reports stiffness Skin/Breast Denies lesions and Denies rash Neuro Denies dizziness, Denies headache(s) and Denies weakness Psych Reports no additional complaints Endo Denies polydipsia, Denies polyuria and Denies palpitations Abhilash/Lymph Reports easy bruising Aller/Immun Denies seasonal rhinorrhea and Denies wheezing Physical exam (Primary Care) Vital Signs: Last Vital Signs Pulse 75 09/26/24 11:38 BP 112/64 09/26/24 11:38 Pulse Ox 97 09/26/24 11:38 Oxygen Delivery Method Room Air 09/26/24 11:38 BMI result Body Mass Index 41.6 Tobacco/Smoking Status: Tobacco use Status Tobacco use date assessed 09/26/24 09/26/24 11:45 Patient Tobacco Use Status Never used Tobacco 09/26/24 11:38 e-Cigarette/Vaping Use Never Used 09/26/24 11:38 Depression Screening Interpretation: Negative Thrive Assessment: Date of Thrive Assessment Date Thrive assessed 07/16/24 09/26/24 11:38 Currently or been in a relationship where the following occur: No concerns reported Const General: comfortable, no acute distress and alert Orientation/consciousness: patient oriented x3 HENMT Ears: external ears normal General nose exam: Normal external nose present Mouth: Normal oral and palatal mucosa present and moist mucous membranes Eyes General: appearance normal, both eyes and all related structures Conjunctivae: conjunctivae normal Sclerae: sclerae normal Pupils: Equal, round and reactive pupils present EOM: EOMs intact bilaterally Neck Neck: Yes full ROM, Yes no lymphadenopathy and Yes supple Resp Effort & Inspection: normal respiratory effort and able to speak in complete sentences Auscultation: clear to auscultation bilaterally Cardio Rate: regular rate Rhythm: regular rhythm Heart sounds: S1 normal heart sound present and S2 normal heart sound present GI Palpation (GI): Soft to palpation, nontender and no masses Auscultation: normal bowel sounds Back/Spine/Pelvis Back: No back tenderness Skin General skin exam: no rashes or lesions noted Neuro General: patient oriented x3, gait normal, tone normal, moves all extremities, Normal light touch and pain sensation and no focal motor deficits Cranial nerves: Yes CN's II-XII intact bilaterally and Yes Equal, round and reactive pupils present Cognition (Neuro): normal cognition Extrem General: Yes full ROM, Yes no joint enlargement, Yes no clubbing, cyanosis or edema and Yes no calf tenderness Psych Appearance: grossly normal and well kempt Mental Status: mental status grossly normal Speech and movement: Normal speech and movement present Affect: normal affect Thought process: Normal thought process present Results Reviewed Results Reviewed: letty: Paula Baum Age/Sex: 73/F : 1950 Unit#: [id number] Attend Dr: Daniela Eduardo MD Re09/24/24 Status: DEP REF Location: [facility] Disch: SPEC : [id number] SANGITA: 09/24/24 STATUS: COMP REQ : [id number] RECD: 09/24/[address]: Daniela Eduardo MD COMP: 09/24/24 ENTERED: 09/24/[address] [facility] DR: ORDERED: Met Prof Fast, AST, ALT, Lipid Panel Test Result Flag Reference Sodium 141 135-145 mmol/L Potassium 4.0 3.3-5.1 mmol/L CL 103 96-108 mmol/L CO2 32 H 22-29 mmol/L Gap 10 L 12-20 BUN 11 9-16 mg/dL Creat 0.72 0.5-1.4 mg/dL eGFR > 60 Chronic Kidney Disease: Estimated GFR < 60 mL/min/1.73m2 Severe Kidney Disease: Estimated GFR < 15 mL/min/1.73m2 FBS 115 H 60-99 mg/dL A fasting glucose from 100-125 mg/dl is considered impaired (pre-diabetes). CA 9.2 # 8.4-10.2 mg/dL AST (GOT) 67 H 5-31 U/L ALT (GPT) 29 0-31 U/L Triglyceride 58 <150 mg/dL Desirable Triglyceride: less than 150 mg/dL Borderline High Triglyceride 150-199 mg/dL High Triglyceride: 200-499 mg/dL Very High Triglyceride: greater than or equal to 5OO mg/dL Cholesterol 125 <200 mg/dL Desirable Cholesterol: less than 200 mg/dL Borderline High Cholesterol: 200-239 mg/dL High Cholesterol: greater than 239 mg/dL LDL Calculated 66 <100 mg/dL Desirable LDL: less than 100 mg/dL Near Optimal/Above Optimal LDL: 110-129 mg/dL Borderline High LDL: 130-159 mg/dL High LDL: 160-189 mg/dL Very High LDL: greater than or equal to 190 mg/dL HDL 48 >40 mg/dL Desirable HDL: greater than 40 mg/dL Note: This HDL assay may give artificially low results in patients with liver disease. Laboratory Tests 09/11/24 13:25 Ferritin 65 Laboratory Tests 09/24/24 08:53 Estimat Average Glucose 114 Hemoglobin A1c % 5.6 Coding Level of Care Code Est Pt Level 4 (89942) Complex EM visit Add On G2211 Diagnoses Dyslipidemia E78.5 Mild intermittent asthma in adult without complication J45.20 Type 2 diabetes mellitus without complication, without long-term current use of insulin E11.9 Osteopenia of multiple sites M85.89 Assessment & Plan Assessment & Plan (1) Dyslipidemia: Code(s): E78.5 - Hyperlipidemia, unspecified Category: Medical (2) Mild intermittent asthma in adult without complication: Code(s): J45.20 - Mild intermittent asthma, uncomplicated Category: Medical (3) Type 2 diabetes mellitus without complication, without long-term current use of insulin: Code(s): E11.9 - Type 2 diabetes mellitus without complications Category: Medical (4) Osteopenia of multiple sites: Code(s): M85.89 - Other specified disorders of bone density and structure, multiple sites Category: Medical Plan - Continue oral iron supplementation daily unless adverse effects are noted. - Monitor for any signs of bleeding or bruising and report promptly. - Adhere to scheduled appointments with Dr. De La Vega and Dr. Strickland in December. - Receive COVID booster before RSV vaccination, allowing spacing between doses. - Maintain current dietary regimen, considering nutritional needs. - Seek medical attention if experiencing increased bleeding or fatigue. - Ensure vaccinations are up to date, including flu and pneumonia. - Take prescribed medications consistently, including blood pressure medications. - Report any significant changes in health or new symptoms promptly. - Continue metformin 1000 mg 1 tablet twice a day with meals and pioglitazone 15 mg daily as well as pravastatin 20 mg at bedtime -repeat fasting labs in 01/10/2025 prior to next appointment. -reminded to get yearly diabetes eye exams Orders: Orders Lipid Panel 12/22/24 E11.9 - Type 2 diabetes mellitus without complications, E78.5 - Hyperlipidemia, unspecified, J45.20 - Mild intermittent asthma, uncomplicated, M85.89 - Other specified disorders of bone density and structure, multiple sites Alanine Aminotransferase 12/22/24 E11.9 - Type 2 diabetes mellitus without complications, E78.5 - Hyperlipidemia, unspecified, J45.20 - Mild intermittent asthma, uncomplicated, M85.89 - Other specified disorders of bone density and structure, multiple sites Vitamin D 25-OH Total 12/22/24 E11.9 - Type 2 diabetes mellitus without complications, E78.5 - Hyperlipidemia, unspecified, J45.20 - Mild intermittent asthma, uncomplicated, M85.89 - Other specified disorders of bone density and structure, multiple sites Hemoglobin A1c 12/22/24 E11.9 - Type 2 diabetes mellitus without complications, E78.5 - Hyperlipidemia, unspecified, J45.20 - Mild intermittent asthma, uncomplicated, M85.89 - Other specified disorders of bone density and structure, multiple sites Microalbumin, Random (w Creat) 12/22/24 E11.9 - Type 2 diabetes mellitus without complications, E78.5 - Hyperlipidemia, unspecified, J45.20 - Mild intermittent asthma, uncomplicated, M85.89 - Other specified disorders of bone density and structure, multiple sites Aspartate Amino Transferase 12/22/24 E11.9 - Type 2 diabetes mellitus without complications, E78.5 - Hyperlipidemia, unspecified, J45.20 - Mild intermittent asthma, uncomplicated, M85.89 - Other specified disorders of bone density and structure, multiple sites Basic Metabolic Panel Fasting 12/22/24 E11.9 - Type 2 diabetes mellitus without complications, E78.5 - Hyperlipidemia, unspecified, J45.20 - Mild intermittent asthma, uncomplicated, M85.89 - Other specified disorders of bone density and structure, multiple sites Medications: Refilled pravastatin 20 mg PO BEDTIME 90 tabs 1RF metformin 1,000 mg PO BID 180 tabs 1RF E11.65 - Type 2 diabetes mellitus with hyperglycemia ferrous sulfate 325 mg PO DAILY 90 tabs 0RF pioglitazone (Actos) 15 mg PO DAILY 90 tabs 1RF
== END 2024-09-26 12:31 | disposition home or self-care (01) ==
PROVIDERS: PCP Internal Medicine; Visit Provider Internal Medicine
DX: E78.5 Hyperlipidemia, unspecified (principal); J45.20 Mild intermittent asthma, uncomplicated; E11.9 Type 2 diabetes mellitus without complications; M85.89 Other specified disorders of bone density and structure, multiple sites

== ENCOUNTER → 2024-09-26 11:21 | Outpatient (BNVA) | payer MEDICARE, SELFPAY | PROVIDERS: PCP Internal Medicine; Visit Provider Internal Medicine | DX: E78.5 Hyperlipidemia, unspecified (principal); J45.20 Mild intermittent asthma, uncomplicated; E11.9 Type 2 diabetes mellitus without complications; M85.89 Other specified disorders of bone density and structure, multiple sites | CPT/HCPCS: 99212 ==

== ENCOUNTER 2024-11-19 09:58 | Outpatient (REF) | payer MEDICARE, SELFPAY ==
--- NOTE | ~2024-11-19 | US_ITS ---
CLINICAL HISTORY: K76.0 - Fatty (change of) liver, not elsewhere classified US abdomen complete Comparison: None Findings: The visualized pancreas is normal. The aorta and inferior vena cava are normal caliber. There is increase of echogenicity of the liver with mild nodular appearance of the liver surface. Mild dilation of the intrahepatic biliary duct. The common duct is 1.5 mm in diameter. The gallbladder is normal. There is no sonographic Jcakson sign. The main portal vein is antegrade. The right kidney is 10 cm in length. The left kidney is 12 cm in length. 0.8 x 1.8 x 2 cm cyst. The spleen is normal. No ascites. IMPRESSION: Hepatic steatosis. Possible liver cirrhosis. This document has been electronically signed by: Eduard Palomo MD on 11/19/2024 14:43:05
== END 2024-11-19 09:59 | disposition home or self-care (01) ==
LOC: HO.HMGCX 09:58
PROVIDERS: PCP Internal Medicine; Visit Provider Internal Medicine
DX: K76.0 Fatty (change of) liver, not elsewhere classified (principal)
CPT/HCPCS: 76700

== ENCOUNTER → 2024-11-19 10:00 | Outpatient (BNV) | payer MEDICARE, SELFPAY | PROVIDERS: PCP Internal Medicine; Visit Provider Nuclear Medicine | DX: K76.0 Fatty (change of) liver, not elsewhere classified (principal) | CPT/HCPCS: 76700 ==

== ENCOUNTER 2024-11-26 08:51 | Emergency (ER) | payer MEDICARE, SELFPAY ==
--- NOTE | ~2024-11-26 | XR_ITS ---
EXAMINATION: XR CHEST CLINICAL INFORMATION: SOB COMPARISON: CT chest 07/22/2023. TECHNIQUE: PA and lateral views of the chest were obtained. FINDINGS: Mildly elevated right hemidiaphragm. There is mild cardiac enlargement. There are mitral annular calcifications. The aorta is calcified and mildly tortuous. Hilar silhouettes are normal. The lungs are clear bilaterally. There is no pneumothorax or pleural effusion. There is no focal osseous or soft tissue abnormality. There are spinal degenerative changes, with exaggerated kyphosis. XR/XR chest 2V IMPRESSION: 1. No active pulmonary disease. 2. Mild cardiac enlargement. Electronically signed by: Espinoza Agrawal MD 11/26/2024 09:25 AM C[facility]Y
--- NOTE | ~2024-11-26 | US_ITS ---
EXAMINATION: US TRIPLEX LOWER EXTREMITY, BILATERAL CLINICAL INFORMATION: Bilateral lower extremities pain and swelling. COMPARISON: None relevant. TECHNIQUE: Color-flow triplex imaging with spectral analysis and compression Doppler were performed on the bilateral lower extremities. FINDINGS: Respiratory variation, normal compression and augmented flow are noted throughout the bilateral lower extremities. The visualized common femoral vein, superficial femoral vein, profunda femoral vein, popliteal vein and midcalf posterior tibial venous segments show no evidence of deep venous thrombosis bilaterally. The peroneal veins could not be visualized bilaterally. There is no Hernandez's cyst. US/US venous duplex LE BI IMPRESSION: No evidence of deep venous thrombosis involving the bilateral lower extremities. Electronically signed by: Espinoza Agrawal MD 11/26/2024 10:07 AM [facility]
--- NOTE | 2024-11-26 08:55 | ED_ITS ---
HPI - General Adult General Chief complaint: General Medical Stated complaint: BLE SWELLING PER EMS Time Seen by Provider: 11/26/24 08:55 Source: patient and EMS Mode of arrival: EMS Limitations: no limitations History of Present Illness ED Provider: Lou Yin PA-C HPI narrative: Patient is a 73 year old assigned female at with a history of DM, varicose veins, and anemia presenting to the emergency department today with bilateral lower extremity pain and swelling. Patient states that over the last few weeks she has noticed her bilateral lower legs are getting more and more swollen. Patient states that she is not wearing compression stockings. Patient denies any dizziness, lightheadedness, abdominal pain, nausea, vomiting, fever, chills, blurry vision, double vision, loss of vision, chest pain, difficulty breathing, shortness of breath, back pain, night sweats, pain with urination, increased urinary frequency, increased urinary urgency, blood in her urine or stool, syncope or a near syncopal episode, recent trauma or falls, bowel incontinence, bladder incontinence, or any other complaints at this time. Onset (ago): day(s) Location: left, right and lower extremity Relieving factors: none Exacerbating factors: none Associated symptoms: denies other symptoms Treatments prior to arrival: none Related Data Home Medications ?Medication ?Instructions ?Recorded ?Confirmed cholecalciferol (vitamin D3) 50 50 mcg PO DAILY 07/06/22 06/04/24 mcg (2,000 unit) capsule coenzyme Q10 100 mg capsule 100 mg PO DAILY 07/06/22 06/04/24 Previous Rx's ?Medication ?Instructions ?Recorded blood sugar diagnostic #10 ea 08/12/21 lancets 30 gauge (OneTouch Delica #100 ea 09/03/21 Plus Lancet) albuterol sulfate 90 mcg/actuation 2 puff PO Q6H PRN shortness of 12/20/22 aerosol inhaler breath or wheezing #25.5 grams blood sugar diagnostic (GennioTouch #100 strips 11/23/23 Verio test strips) cetirizine 10 mg tablet 10 mg PO BEDTIME PRN Postnasal 11/28/23 drainage #90 tabs ferrous sulfate 325 mg (65 mg 325 mg PO DAILY #90 tabs 09/26/24 iron) tablet metformin 1,000 mg tablet 1,000 mg PO BID #180 tabs 09/26/24 pioglitazone 15 mg tablet (Actos) 15 mg PO DAILY #90 tabs 09/26/24 pravastatin 20 mg tablet 20 mg PO BEDTIME #90 tabs 09/26/24 Allergies Allergy/AdvReac Type Severity Reaction Status Date / Time benzethonium chloride Allergy Unknown BLISTERS Verified 11/26/24 09:02 [From LANACANE ANTI-ITCH] IN MOUTH benzocaine Allergy Unknown BLISTERS Verified 11/26/24 09:02 [From LANACANE ANTI-ITCH] IN MOUTH cortisone [CORTISONE] Allergy Unknown BLISTERS Verified 11/26/24 09:02 IN MOUTH, LOST SENSE OF TASTE ibuprofen Allergy Unknown nose bleed Verified 11/26/24 09:02 naproxen Allergy Unknown nose bleed Verified 11/26/24 09:02 triamcinolone [Kenalog] Allergy Unknown unknown Verified 11/26/24 09:02 Review of Systems 2 Constitutional: Constitutional: Reports no additional constitutional complaints, Denies chills, Denies fever(s) and Denies night sweats Eyes: Eyes: Reports no additional eye complaints, Denies blurry vision, Denies change in vision, Denies diplopia, Denies eye discharge, Denies loss of vision and Denies eye pain ENT: Denies dizziness Cardiovascular: Cardiovascular: Reports no additional cardiovascular complaints, Denies chest pain, Denies lightheadedness, Denies Loss of Consciousness and Denies dyspnea Comments: bilateral lower extremity swelling Respiratory: Respiratory: Reports no additional respiratory complaints and Denies dyspnea Gastrointestinal: Gastrointestinal: Reports no additional gastrointestinal complaints, Denies abdominal pain, Denies melena, Denies hematochezia, Denies change in bowel habits and Denies change in stool character Genitourinary: Genitourinary: Denies hematuria, Denies urinary frequency, Denies dysuria, Denies urinary incontinence, Denies urinary hesitancy and Denies urinary urgency Musculoskeletal: Musculoskeletal: Reports no additional musculoskeletal complaints, Denies numbness and Denies tingling Neurologic: Denies dizziness, Denies loss of vision, Denies numbness and Denies tingling Psychiatric: Psychiatric: Reports no additional psychiatric complaints Endocrine: Endocrine: Reports no additional endocrine complaints Hematologic/Lymphatic: Hematologic/Lymphatic: Reports no additional hematologic/lymphatic complaints Allergic/Immunologic: Allergic/Immunologic: Reports no additional allergic/immunologic complaints PMFSH Past Medical History Attestation statement: The following information was validated with the patient. Source: old records reviewed and nursing notes reviewed Medical History Varicose veins of right lower extremity with inflammation Normal capsule endoscopy of gastrointestinal tract History of GI diverticular bleed Osteopenia of multiple sites Fatty liver Varicose veins of bilateral lower extremities with pain Type 2 diabetes mellitus without complication, without long-term current use of insulin Thrombocytopenia Osteoarthritis of multiple joints Hammertoes of both feet Colonoscopy refused Mild intermittent asthma in adult without complication Dyslipidemia Type 2 diabetes mellitus with hyperglycemia, without long-term current use of insulin Surgical History History of esophagogastroduodenoscopy (EGD) Hx of colonoscopy Hx of varicose vein ligation History of surgery on lower extremity H/O left wrist surgery Family History Family History Mother Breast cancer Arthralgia of both feet Arthritis Brother Arthritis Brother No problems noted. Social History Social History Household Members: None Housing: Condominium Do you presently have visiting nurse or other home services: No Alcohol intake: current Alcohol intake frequency: holidays/special occasions only Comment: call garcia within reach Patient Tobacco Use Status: Never used Tobacco Smoked in Last 30 Days: No e-Cigarette/Vaping Use: Never Used Second Hand Smoke Exposure: No Use of substances other than those prescribed or required for medical reasons: No Advance Directives: No Advance Directives Information Provided: Yes Do you have a plan to hurt others: No Plan service: No Current occupational status: retired Cognitive needs: No Hearing needs: No Vision needs: Yes Physical Exam ED Vital Signs: Vital Signs - 24 hr 11/26/24 09:00 11/26/24 11:46 11/26/24 11:48 Temperature 98.0 F 98.0 F 98.0 F Pulse Rate 89 89 89 Respiratory Rate 16 16 16 Blood Pressure 142/70 H 142/70 H 142/70 H Pulse Oximetry 95 95 95 Oxygen Delivery Method Room Air Room Air Room Air BMI result Body Mass Index 41.6 Const General: cooperative, no acute distress, alert and awake Nutritional Appearance: well nourished Orientation/consciousness: patient oriented x3 Limitations: no limitations HENMT Head: Yes normal to inspection and Yes atraumatic Ears: hearing grossly normal bilaterally and external ears normal General nose exam: Normal external nose present, no nasal discharge noted and no epistaxis Face and sinus: Yes normal facial exam, No abrasion and No laceration Mouth: Normal oral and palatal mucosa present, no drooling and no muffled voice Eyes General: appearance normal, both eyes and all related structures Periorbital: periorbital findings normal Eyelids: Yes eyelids normal Conjunctivae: conjunctivae normal Pupils: Equal, round and reactive pupils present EOM: EOMs intact bilaterally Neck Neck: Yes normal visual inspection, Yes full ROM and Yes no lymphadenopathy Chest Chest palpation & inspection: normal inspection of the chest Resp Effort & Inspection: normal respiratory effort and able to speak in complete sentences GI Inspection: Yes normal to inspection Neuro General: patient oriented x3 and moves all extremities Cranial nerves: Yes Equal, round and reactive pupils present Cognition (Neuro): normal cognition Extrem Other: bilateral 2+ edema of the lower extremities General: Yes full ROM and Yes capillary refill normal Psych Appearance: grossly normal Mental Status: mental status grossly normal Affect: normal affect Attitude: cooperative Thought process: Normal thought process present Thought content: Normal thought content present Insight: Good insight present (Psych) Medical Decision Making Medical Decision Making MDM Narrative: Patient is a 73 year old assigned female at with a history of DM, varicose veins, and anemia presenting to the emergency department today with bilateral lower extremity pain and swelling. Patient's physical exam was as noted in the physical exam portion of this note. Patient's blood work was unremarkable. Patient's chest x-ray and bilateral lower extremity US showed no acute process. I explained my physical exam findings as well as all test results to the patient. I answered all questions asked by the patient. Patient's current clinical presentation is most consistent with dependent edema. I stressed the importance of the patient taking her medication as directed (either prescribed or as the over the counter packaging recommends). I stressed the importance of the patient following up with her primary care provider. I stressed the importance of the patient returning to the emergency department immediately if her symptoms were to worsen or if she were to develop any dizziness, shortness of breath, difficulty breathing, chest pain, blurry vision, loss of vision, nausea, vomiting, abdominal pain, fever, chills, back pain, or any other complaints. Patient verbalized agreement and understanding with this treatment plan and discharge. Differential Diagnosis Differential Diagnoses: The differential diagnosis associated with the presentation includes Dependent edema DVT Admission/Observation Consideration of admission/observation: Escalation of care including admission/observation considered Patient would have been admitted to the hospital had her work up had any findings where hospital admission was appropriate and her clinical presentation warranted hospital admission. Lab Data [facility] Lab Attestation statement: I reviewed the patient's lab results. My interpretation of these results are in the [facility] Rationale portion of this note. 11/26/24 10:01 11/26/24 10:01 Labs: Lab Results 11/26/24 11/26/24 Range/Units 10:01 10:06 WBC 5.3 (4.8-10.8) X10*3/uL RBC 4.09 L (4.20-5.50) X10*6/uL Hgb 11.0 L (12.0-16.0) g/dl Hct 34.4 L (37.0-47.0) % MCV 84.1 (80.0-98.0) fL MCH 26.9 L (27.0-33.0) pg MCHC 32.0 (31.0-35.0) g/dl RDW 18.2 H (11.0-16.0) % Plt Count 96 L (160-400) X10*3/uL MPV 10.3 (9.4-12.3) fL Immature Gran % (Auto) 0.4 (0.0-0.4) % Neut % (Auto) 68.1 (45-73) % Lymph % (Auto) 18.9 L (20-40) % [place] % (Auto) 11.2 H (2-11) % Eos % (Auto) 1.0 (0-4) % Baso % (Auto) 0.4 (0-2) % Lymph # (Auto) 1.0 L (1.2-4.9) X10*3/uL [place] # (Auto) 0.6 (0.1-1.2) X10*3/uL Eos # (Auto) 0.1 (0.0-0.4) X10*3/uL Baso # (Auto) 0.0 (0.0-0.2) X10*3/uL Abs Immat Gran (auto) 0.02 (0.00-0.03) X10*3/uL Absolute Neuts (auto) 3.6 (2.0-8.3) x10*3/uL Absolute Nucleated RBC 0.000 (0.0-0.012) X10*3/uL Nucleated RBC % (auto) 0.0 (0.0-0.2) /100WBC PT 13.8 H (10.9-12.4) SEC INR 1.2 H (0.9-1.1) APTT 33.1 (26.0-36.8) SEC VBG pH 7.48 H (7.32-7.43) VBG pCO2 36 mmHg VBG pO2 48 mmHg VBG HCO3 27 H (22-26) mmol/L VBG O2 Saturation 76.0 % VBG Base Excess 4.2 mmol/L Sodium 139 (135-145) mmol/L Potassium 3.8 (3.3-5.1) mmol/L Chloride 105 (96-108) mmol/L Carbon Dioxide 26 (22-29) mmol/L Anion Gap 12 (12-20) BUN 12 (9-16) mg/dL Creatinine 0.62 (0.5-1.4) mg/dL Estim Creat Clear Calc 93.1 Estimated GFR > 60 Random Glucose 115 (60-115) mg/dL Calcium 8.7 (8.4-10.2) mg/dL Total Bilirubin 0.6 (0.0-1.0) mg/dL AST 52 H (5-31) U/L ALT 23 (0-31) U/L Alkaline Phosphatase 71 (39-117) U/L B-Natriuretic Peptide 65 (<100) pg/mL Total Protein 8.2 H (6.5-8.0) g/dL Albumin 3.4 L (3.5-5.0) g/dL Independent Interpretation I performed an independent interpretation of an: Plain X-Ray and Ultrasound Interpretation: My interpretation is in agreement with the radiologist's impression of these imaging studies. L EXAMINATION: US TRIPLEX LOWER EXTREMITY, BILATERAL CLINICAL INFORMATION: Bilateral lower extremities pain and swelling. COMPARISON: None relevant. TECHNIQUE: Color-flow triplex imaging with spectral analysis and compression Doppler were performed on the bilateral lower extremities. FINDINGS: Respiratory variation, normal compression and augmented flow are noted throughout the bilateral lower extremities. The visualized common femoral vein, superficial femoral vein, profunda femoral vein, popliteal vein and midcalf posterior tibial venous segments show no evidence of deep venous thrombosis bilaterally. The peroneal veins could not be visualized bilaterally. There is no Hernandez's cyst. US/US venous duplex LE BI IMPRESSION: No evidence of deep venous thrombosis involving the bilateral lower extremities. Electronically signed by: Espinoza Agrawal MD 11/26/2024 10:07 AM EST RP Dictated By: Espinoza Agrawal MD Signed By: Electronically signed by Espinoza Agrawal MD 11/26/24 1007 EXAMINATION: XR CHEST CLINICAL INFORMATION: SOB COMPARISON: CT chest 07/22/2023. TECHNIQUE: PA and lateral views of the chest were obtained. FINDINGS: Mildly elevated right hemidiaphragm. There is mild cardiac enlargement. There are mitral annular calcifications. The aorta is calcified and mildly tortuous. Hilar silhouettes are normal. The lungs are clear bilaterally. There is no pneumothorax or pleural effusion. There is no focal osseous or soft tissue abnormality. There are spinal degenerative changes, with exaggerated kyphosis. XR/XR chest 2V IMPRESSION: 1. No active pulmonary disease. 2. Mild cardiac enlargement. Electronically signed by: Espinoza Agrawal MD 11/26/2024 09:25 AM EST RP Dictated By: Espinoza Agrawal MD Signed By: Electronically signed by Espinoza Agrawal MD 11/26/24 0925 Radiology Impression Discussion of test interpretation with radiology: I have reviewed the radiologist's reading. Independent Historian Clinical information obtained from an independent historian. History obtained from or confirmed by: EMS (EMS provided additional history and confirmed the history provided by the patient.) Chronic Conditions Patient?s care impacted by: Diabetes Discharge Plan Discharge Clinical Impression: Edema Patient Disposition: Home, Self-Care Instructions: Leg Edema (ED), Edema (ED) Additional Instructions: Your work up today was unremarkable for any emergent cause for your bilateral lower leg swelling. Follow up with your primary care provider. Return to the emergency department immediately if your symptoms worsen or if you develop any dizziness, shortness of breath, difficulty breathing, chest pain, blurry vision, loss of vision, nausea, vomiting, abdominal pain, fever, chills, back pain, or any other complaints. Prescriptions: No Action (DME) blood sugar diagnostic Strip See Rx Instructions Not Applicable DAILY Qty: 10 0RF Rx Instructions: As directed (DME) lancets [OneTouch Delica Plus Lancet] 30 gauge misc See Rx Instructions .Route Qty: 100 5RF Rx Instructions: As directed twice a day ac (DME) OneTouch Verio test strips Strip See Rx Instructions .ROUTE .COMPLEX Qty: 100 8RF Dose Instruction: USE TO TEST BLOOD SUGAR TWICE A DAY Rx Instructions: USE TO TEST BLOOD SUGAR TWICE A DAY cetirizine 10 mg tablet 10 mg PO BEDTIME PRN (Reason: Postnasal drainage) Qty: 90 1RF albuterol sulfate 90 mcg/actuation HFA aerosol inhaler 2 puff PO Q6H PRN (Reason: shortness of breath or wheezing) Qty: 25.5 3RF coenzyme Q10 100 mg capsule 100 mg PO DAILY cholecalciferol (vitamin D3) 50 mcg (2,000 unit) capsule 50 mcg PO DAILY pioglitazone [Actos] 15 mg tablet 15 mg PO DAILY Qty: 90 1RF pravastatin 20 mg tablet 20 mg PO BEDTIME Qty: 90 1RF metformin 1,000 mg tablet 1,000 mg PO BID Qty: 180 1RF ferrous sulfate 325 mg (65 mg iron) tablet 325 mg PO DAILY Qty: 90 0RF Referrals: Daniela Eduardo MD [Primary Care Provider] - Interventions: ED Discharge Assessment Last Done: 11/26/24 11:48 Discharge Date/Time: 11/26/24 11:48 Print Language: Syriac
[2024-11-26 09:00] VITALS: BP 142/70; BP 162/72; PULSE 89; PULSE 96; RESP 16; TEMP 36.7; O2SAT 95; O2SAT 96; BMI 41.6
[2024-11-26 10:06] LABS: MANUAL DIFF FLAG NO
[2024-11-26 10:08] LABS: Basophils Percent Auto 0.4 % (0-2); Eosinophils Absolute Auto 0.1 X10*3/uL (0.0-0.4); Hematocrit 34.4 % (37.0-47.0); Imm Gran Abs Auto 0.02 X10*3/uL (0.00-0.03); Imm Gran Pct Auto 0.4 % (0.0-0.4); Lymphocytes Percent Auto 18.9 % (20-40); Mean Corpuscular Hemoglobin 26.9 pg (27.0-33.0); Mean Corpuscular Volume 84.1 fL (80.0-98.0); Mean Platelet Volume 10.3 fL (9.4-12.3); Monocytes Absolute Auto 0.6 X10*3/uL (0.1-1.2); Monocytes Percent Auto 11.2 % (2-11); Neutrophils Absolute Auto 3.6 x10*3/uL (2.0-8.3); Neutrophils Percent Auto 68.1 % (45-73); Red Blood Count 4.09 X10*6/uL (4.20-5.50); Red Cell Distribution Width 18.2 % (11.0-16.0); White Blood Count 5.3 X10*3/uL (4.8-10.8)
[2024-11-26 10:09] LABS: Platelet Count 96 X10*3/uL (160-400)
[2024-11-26 10:11] LABS: VBG Base Excess 4.2 mmol/L; VBG HCO3 27 mmol/L (22-26); VBG pCO2 36 mmHg; VBG pH 7.48 (7.32-7.43); VBG pO2 48 mmHg
[2024-11-26 10:12] LABS: Venous Blood Gas Refer to POC result
[2024-11-26 10:16] LABS: INTERNATIONAL NORM RATIO 1.2 (0.9-1.1); Prothrombin Time 13.8 SEC (10.9-12.4)
[2024-11-26 10:19] LABS: Partial Thromboplastin Time 33.1 SEC (26.0-36.8)
[2024-11-26 10:36] LABS: Alanine Aminotransferase 23 U/L (0-31); Albumin Level 3.4 g/dL (3.5-5.0); Alkaline Phosphatase 71 U/L (39-117); Anion Gap 12 (12-20); Aspartate Amino Transferase 52 U/L (5-31); Bilirubin Total 0.6 mg/dL (0.0-1.0); Blood Urea Nitrogen 12 mg/dL (9-16); Calcium 8.7 mg/dL (8.4-10.2); Carbon Dioxide 26 mmol/L (22-29); Chloride 105 mmol/L (96-108); Creatinine Clr Calc Pharmacy 93.1; Estimated Glomerular Filt Rate > 60; Glucose Random 115 mg/dL (60-115); Potassium 3.8 mmol/L (3.3-5.1); Sodium 139 mmol/L (135-145); Total Protein 8.2 g/dL (6.5-8.0)
[2024-11-26 10:39] LABS: B Type Natriuretic Peptide 65 pg/mL (<100)
[2024-11-26 11:46] VITALS: BP 142/70; PULSE 89; RESP 16; TEMP 36.7; O2SAT 95
[2024-11-26 11:48] VITALS: BP 142/70; PULSE 89; RESP 16; TEMP 36.7; O2SAT 95
== END 2024-11-26 11:48 | disposition home or self-care (01) ==
PROVIDERS: Physician Assistant Medical; Emergency Provider Emergency Medicine; PCP Internal Medicine
DX: R60.0 Localized edema (principal); R06.02 Shortness of breath; Z79.899 Other long term (current) drug therapy
CPT/HCPCS: 36415; 71046; 80053; 82803; 83880; 85025; 85610; 85730; 93970; 99284

== ENCOUNTER → 2024-11-26 09:01 | Outpatient (BNV) | payer MEDICARE, SELFPAY | PROVIDERS: Emergency Provider Emergency Medicine; PCP Internal Medicine; Visit Provider Radiology Diagnostic Radiology | DX: M79.661 Pain in right lower leg (principal); M79.662 Pain in left lower leg; R22.43 Localized swelling, mass and lump, lower limb, bilateral; R06.02 Shortness of breath | CPT/HCPCS: 71046; 93970 ==

== ENCOUNTER 2025-01-02 09:29 | Outpatient (AMB) | payer MEDICARE, SELFPAY ==
--- NOTE | 2025-01-02 09:33 | MHC.OFFVIS ---
Vital Signs 01/02/25 09:38 Height 5 ft 3 in Weight 235 lb 14.314 oz BMI 41.8 BP 138/57 L Blood Pressure Location Lt brachial Position Sitting Pulse 84 Intake Visit Reasons: 6 month follow up Intake Note: Paula presents in the office as a 6 month follow up. CC: She states that her feet and ankles are swelling. Was here in the ED 12/11 and she states she has been very slow and swollen. She was told she had edema. Food Service Assistant Required: No Allergies benzethonium chloride [From LANACANE ANTI-ITCH] Allergy (Unknown, Verified 01/02/25 10:44) BLISTERS IN MOUTH benzocaine [From LANACANE ANTI-ITCH] Allergy (Unknown, Verified 01/02/25 10:44) BLISTERS IN MOUTH cortisone [CORTISONE] Allergy (Unknown, Verified 01/02/25 10:44) BLISTERS IN MOUTH, LOST SENSE OF TASTE ibuprofen Allergy (Unknown, Verified 01/02/25 10:44) nose bleed naproxen Allergy (Unknown, Verified 01/02/25 10:44) nose bleed triamcinolone [Kenalog] Allergy (Unknown, Verified 01/02/25 10:44) unknown HPI Comments Details: This is a 72-year-old female with medical history of obesity, type 2 diabetes, hypertension, who was seen in the hospital last month for profound anemia and underwent EGD and colonoscopy, here for post hospitalization visit. Hospital admission 07/19-07/22/2023: Presented for abnormal labs to her PCP's office with initial hemoglobin of 5.5. Previous baseline was normal from 2019. No reported history of abdominal pain, changes in bowel habits, melena, hematochezia. Had knee surgery earlier this year. No anticoagulants or NSAIDs on board. After undergoing PRBC transfusion, had EGD and colonoscopy. 07/21/2023: EGD/colo: 1. Normal esophagus 2. Normal stomach 3. Normal duodenum (biopsy) 4. Abnormal mucosa in sigmoid colon 5. One polyp removed 6. Diverticulosis 7. Hemorrhoids Path: Diagnosis A. Duodenum, biopsy: Duodenal mucosa with preserved villi and no specific change. B. Colon, ascending, polyp: Tubular adenoma (2 pieces); negative for high-grade dysplasia and carcinoma, and 2 fragments of degenerated duodenal type mucosa (consistent with contaminant). C. Colon, rectal-sigmoid, biopsy: Mild active colitis with mild chronic regenerative changes; negative for dysplasia (see comment) 08/03/23: Today, reports feeling much better. Fatigue and shortness of breath is a lot better. Has more energy. Patient lives by herself at home. Does not have any immediate family members such as spouse or children. However, her friends checkup on her daily. Continues on iron pills through PCP's office. 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 BMI 38 with type 2 diabetes and hyperlipidemia. VCE 09/19/23: ?? small jejunal ulcers/erosions but poor prep. 11/21/23: Seen by Heme earlier this month. Had not been compliant with PO iron but now taking it regularly as wishes to avoid IV iron. Labs with anemia unchanged which is not surprising if had not been taking iron supplementation. Otherwise, has no active issues. No abd pain, N,V. Now taking PO iron first thing in the morning every day for the last 6 weeks. 02/20/24: Here for follow up. Labs reviewed. Anemia better. Cont on PO iron with vit C. In terms of fatty liver - prediabetes in control on metformin. HLD well controlled on pravastatin. Weight curve noted - has gained almost 20lbs in the past 6 months. Activity levels are limited due to unstable gait. Uses a walker. US Abd: 1. There is generalized increase in hepatic echotexture and a lobular hepatic contour, consistent with the provided history of cirrhosis. No focal hepatic mass or intrahepatic biliary dilatation is seen. 2. There is a recanalized umbilical vein. 07/11/24: Here for post hospitalisation follow up. Was admitted in April for large volume painless rectal bleeding likely diverticular. s/p EGD/colon. hiatal hernia barretts gastritis Colonoscopy Findings: diverticulosis, and diverticular bleed internal hemorrhoids Path: A. Stomach, biopsy: Oxyntic mucosa with mild chronic inactive inflammation; no Helicobacter organisms seen. B. Esophagus, distal, biopsy: - Sorto esophagus with background moderate chronic active inflammation. - No dysplasia seen. - Squamous mucosa within normal limits Currently doing well. No recurrene of bleeding. Blood work from May reviewed and H/H uptrending. Also follows with Dr Strickland. US Abd reviewed with the pt. Reminder for next one set. 01/02/25: Here for 6 month follow up. Was in ER on 11/26 for increased peripheral edema. US duplex negative. Otherwise from liver standpoint, doing well. No abd pain, distention, N/V, pruritus. US Abd 10/2024: Hepatic steatosis. Possible liver cirrhosis. [facility] Medical History Varicose veins of right lower extremity with inflammation Normal capsule endoscopy of gastrointestinal tract History of GI diverticular bleed Osteopenia of multiple sites Fatty liver Varicose veins of bilateral lower extremities with pain Type 2 diabetes mellitus without complication, without long-term current use of insulin Thrombocytopenia Osteoarthritis of multiple joints Hammertoes of both feet Colonoscopy refused Mild intermittent asthma in adult without complication Dyslipidemia Type 2 diabetes mellitus with hyperglycemia, without long-term current use of insulin Surgical History History of esophagogastroduodenoscopy (EGD) Hx of colonoscopy Hx of varicose vein ligation History of surgery on lower extremity H/O left wrist surgery Family History Mother Breast cancer Arthralgia of both feet Arthritis Brother Arthritis Brother No problems noted. Social History Household Members: None Housing: Condominium Do you presently have visiting nurse or other home services: No Alcohol intake: current Alcohol intake frequency: holidays/special occasions only Comment: call garcia within reach Patient Tobacco Use Status: Never used Tobacco e-Cigarette/Vaping Use: Never Used Second Hand Smoke Exposure: No service: No Current occupational status: retired Cognitive needs: No Hearing needs: No Vision needs: Yes Review of Systems Const All systems reviewed & are unremarkable except as noted in HPI and below Physical Exam Vital Signs: Last Vital Signs Pulse 84 01/02/25 09:38 BP 138/57 L 01/02/25 09:38 BMI result Body Mass Index 41.8 No apparent distress Nonicteric Abdomen soft, nondistended +3 pitting edema in b/l LE Alert and oriented x3, no asterixis Assessment & Plan Assessment & Plan (1) Fatty liver disease, nonalcoholic: Code(s): K76.0 - Fatty (change of) liver, not elsewhere classified Category: Medical (2) Peripheral edema: Code(s): R60.0 - Localized edema Category: Medical (3) Anemia: Code(s): D64.9 - Anemia, unspecified Category: Medical Qualifiers: Anemia type: iron deficiency Iron deficiency anemia type: chronic blood loss Qualified Code(s): D50.0 - Iron deficiency anemia secondary to blood loss (chronic) Plan 1. 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 No CSPH. Plan: - No HE or ascites on exam today - Repeat US for HCC screening due April 2025 - Repeat EGD for variceal screening in - Avoid NSAIDs. Tylenol 2g/day ok for pain control if needed - Control of metabolic factors 2. Peripheral edema Less likely to be related to liver disease. Plan: - US venous insufficiency given prior hx of varicose veins - Echo - Cont compression stockings 3. CRC screening: Hx of T.A 2022. Future colo in 3032 optional, if pt in good health Follow up 6 months Orders: Orders CA echo transthoracic complete Today R60.0 - Localized edema US venous insuf bilat Today R60.0 - Localized edema US abdomen complete 4 Months K76.0 - Fatty (change of) liver, not elsewhere classified Coding Level of Care Code Est Pt Level 4 (93853) Diagnoses Fatty liver disease, nonalcoholic K76.0 Peripheral edema R60.0 Iron deficiency anemia due to chronic blood loss D50.0 Anemia type: iron deficiency Iron deficiency anemia type: chronic blood loss
[2025-01-02 09:38] VITALS: BP 138/57; PULSE 84; BMI 41.8
--- OUTSIDE RECORDS SUMMARY | 2025-01-02 10:22 | XMS_ITS ---
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 Generated for Printi ng/Fadionisiog/eTransmitting on:?01/02/2025 10:22 AM EDT
--- OUTSIDE RECORDS SUMMARY | 2025-01-02 10:23 | XMS_ITS ---
Author Organization [facility] [place] Address [address] [place] [address] Care Team Providers Care Distribution Field Technician Name Role Phone Jayce MEDRANO, Daniela Messer Primary Care Provider Un available Jona Vasques Unavailable [phone] Allergies Allergen (clinical drug ingredient) Drug/Non Drug Allergy documented on EMR Reaction Allergy Type Onset Date Status triamcinolone Kenalog sweats, blisters in mouth Drug Allergy Active lidocaine Lidocaine sweats, blisters in mouth Drug Allergy Active Cortisone sweats, blisters in mouth Drug Allergy Active REASON FOR VISIT At Risk Footcare, Painful Nail(s) aggrevated by shoes and causing difficulty standing/walking Medications Medication SIG (Take, Route, Frequency, Duration) Notes Start Date End Date Status Extra Depth Orthopedic Shoes, (1) Pair With (3) Pair Custom Heat Molded Multidensity Innersoles Dx: NIDDM/PVD(E11.51), Hammertoe Foot Deformity(M20.41,M20. 42), Preulcerative Skin Lesion(s)(L85.1) Wear Daily for 365 days 08/23/2023 Active Alendronate Sodium 70 MG 1 tablet Orally once weekly Not-Taking Chondroitin Sulfate Not-Taking predniSONE 10 MG as directed Orally Not-Taking Qvar 40 MCG/ACT INHALE 1 PUFF TWICE A DAY Inhalation for 34 Active Cetirizine HCl PRN Allergy Act james CoQ-10 100 MG Orally Once a day Active Glucosamine Active iron Active metFORMIN HCl 1000 MG 2 Orally Once a day Active Calcium + D Active Social History Tobacco Use: Social History Observation Description Date Details (start date - stop date) Never Smoker NA - NA Tobacco Use/Smoking Question Answer Notes Are you a: nonsmoker Additional Findings: Tobacco Non-User Current no n-smoker Alcohol Screen Question Answer Notes Did you have a drink contain ing alcohol in the past year? Yes How often did you have a dri nk containing alcohol in the past year? Monthly or less (1 point) Points 1 Interpretation Negative Tobacco use other than smoking: Question Answer Notes Are you an other tobacco user? No Vital Signs Height 5ft3in in 08/17/2024 Weight 132 lbs 08/17/2024 BMI 23.38 kg/m2 08/17/2024 Blood pressure systolic 125 mm Hg 08/17/20 Blood pressure diastolic 70 mm Hg 024 Procedures Procedure Date Ordered Date Performed Result Body Sit e 89854-FPPEFMR NAIL, 6 OR MORE 08/17/2024 N/A 07679-COPK SKIN LESIONS, 2 TO 4 08/17/2024 N/A Encounters Encounter Location Date Provider Diagnosis [facility] [address] 08/17/2024 Jona Vasques Type 2 diabetes mellitus with diabetic peripheral angiopathy without gangrene E11.51 ; Tinea unguium B35.1 ; Pain in right toe(s) M79.674 and Pain in left toe(s) M79.675 Assessments Encounter Date Diagnosis (ICD Code) Assessment Notes Treatment Notes Treatment Clinical Notes Section Notes 08/17/2024 Type 2 diabetes mellitus with diabetic peripheral angiopathy without gangrene (ICD-10 - E11.51) 08/17/2024 Tinea unguium (ICD-10 - B35.1) 08/17/2024 Pain in right toe(s) (ICD-10 - M79.674) 08/17/2024 Pain in left toe(s) (ICD-10 - M79.675) Plan Of Treatment Pending Test Test Name Order Date 97130-KEDHHEC NAIL, 6 OR MORE 08/17/2024 27683-RUGQ SKIN LESIONS, 2 TO 4 08/17/20 Next Appt Details Follow Up: prn, Reason: Provider Name:Jona Vasques , 03/08/2025 12:15:00 PM, [address] [place] [address], [id number], Procedure Notes * Category Sub-Category Detail Notes Debride Nail 6-10 Nail debridement Due to the cl inical pathology outlined in the exam findings, performance of this nail treatment is medically necessary as its management by an unskilled/untrained nonprofessional would put this patients foot and overall health at risk. Therefore, debridement to affected nail(s), as described in exam ( TA, T1, T2, T3, T5, T6, T7), was performed exclusively by the physician of record to reduce/remove overall nail length, girth, thickness, subungual debris, and necrotic tissue, by manual and/or electrical means through the use of a nail nipper and/or dremel-type napper grinder, to a more viable healthy nail plate or bed tissue 6-10 nails in total. Silver nitrate was used for any petechial bleeding as necessary. Definitive antifungal treatment options, both pharmaceutical and surgical, have been reviewed and discussed with the patient. The patient solely prefers the use of intermittent/as needed professional debridement services for their nail condition and understands the need for additional periodic treatments to maintain effectiveness in symptomatic relief - 16437 Keratoma Treatment Parring or Cutting o f Benign Hyperkeratotic Lesion(s) (-56) 2-4 Lesions - Due to the at risk nature of the patients medical condition as documented in the exam findings, performance of this keratoderma treatment is medically necessary as its management by an unskilled/untrained nonprofessional would put this patients foot and overall health at risk. Therefore, the benign hyperkeratotic lesions, ( 4) in total, locations as stated and described in the exam ( SUB MTH (s), 1, B/L , Plantar, Heel(s), B/L), were pared, and/or cut utilizing a sterile 15 blade, tissue nippers, and/or power dremel instrumentation by the physician of record - 61272, Q8 Progress Notes * Paula BAUMDOB:1950 (73 yo F)Acc No.[id number]:08/17/2024 Progress Note Patient:?Paula BAUM Provider:?Jona Vasques DPM :1950???Age:73 Y???Sex:Female D ate:08/17/2024 Address:[address] [place] [address] [id number] Pcp:Louie Guerrreo Subjective: * Chief Complaints: * ???At Risk FootcarePainful N ail(s) aggrevated by shoes and causing difficulty standing/walking * HPI: ???At Risk footcare:?Pt States Last PCP Visit:?Date?05/01/2024 States has an appt with PCP soon - 09/26 * ROS:?General/Constitutional:?Nausea?denies.?Vomiting?denies.?Hunger Thirst?denies.?Loss appetite?denies.?Chills?denies.?Fatigue?denies.?Fever?denies.?Night Sweats?denies.?Unexplained weight loss?denies.?Ophthalmologic:?Blurred vision?denies.?Red eye?denies.?HEENTM:?Dentures?denies.?Dizziness?denies.?Glasses/contacts?admits.?Retinopathy?den ies.?Blurred/double vision?denies.?TMJ?denies.?Discharge/drainage?denies.?Implants?denies.?Hard of hearing denies.?Difficulty chewing/swallowing/speaking?denies.?Nose bleeds?denies.?Sore mouth?denies.?Swollen glands?denies.?Respiratory:?On O xygen?denies.?Pneumonia/pleurisy?denies.?Bronchitis?denies.?Emphysema?denies.?Co ughing?denies.?Cough blood?denies.?Shortness of breath?denies.?Wheezing?denies.?Cardiovascular:?Pacemaker?denies.?MVP?denies.?WPW?denies.?CHF?denies.?Heart attack?denies.?Septal defect?denies.?Rapid beat?denies.?Chest pain ?denies.?Atrial Fib.?denies.?Murmur/Palpitations?denies.?Gastrointestinal:?Hemorrhoids?denies.?Stomach/Abdominal pain?denies.?Dark blood stool?denies.?Irritable bowel ?denies.?Constipation?denies.?Diarrhea?denies.?Vomiting?denies.?Hematology:?Swelling?admits.?Bruising?denies.?Bleeding problem?denies.?Genitourinary:?Blood urine?denies.?Frequent/Painfu/urination/bladder control?denies.?Kidney stones?denies.?Infection (UTI)?denies.?Nephropathy?denies.?Musculoskeletal:?Hammertoes?admits.?Bunions?admits.?Scoliosis/kyphosis?denies.?Muscle cramps / walking?denies.?Generalized aches and pains?denies.?Weakness?denies.?Integ.:?Kendrick?denies.?Scars?denies.?Corns/calluses?admits.?Ingrown nails?admits.?Painful nails?admits.?Rashes?denies.?Neurologic:?Difficulty sleeping?denies.?Bipolar?denies.?Brain disorder?denies.?Balance t rouble?denies.?Confusion?denies.?Fainting/blackouts?denies.?Headache?denies.?Bear mors?denies.? * Medical History:? * Surgical History:?leg surger y 2008left wrist surgery 2012blood transfusion x2 03/16/18carazation - Left eye 03/18/2018laser vein surgery 2011vein surgery 11/12/22right microphlebectomy 12/31/22Left microphlebectomy [id number] 05/11/24endoscopy 05/11/24Iron transfusion 05/11/24Left Cataract surgery 08/01/24 * Hospitalization/Major Diagno stic Procedure:?[facility] Kidney stones 04/2016[facility] nose bleed 03/07/2018[facility] [place]/09[place]2018[facility] [place] 03/16/2018[facility] [place]- blood count down to 5.5 - 3 blood transfusions 07/20/23-07/22/23[facility] ER- Rectum bleeding 05/11/24 * Family History:?Mother: dece ased, diagnosed with Family history of arthritis, Other malignant neoplasm of unspecified site.?Father: , diagnosed with Family history of arthritis.? * Social History:?Tobacco Use:?Tobacco Use/Smoking?Are you a:?nonsmoker ?Additional Findings: Tobacco Non-User?Current non-smoker ?Tobacco use other than smoking?Are you an other tobacco user??No ???Drugs/Alcohol:?Drugs?Have you used drugs other than those for medical reasons in the past 12 months??No ?Alcohol Screen?Did you have a drink containing alcohol in the past year??Yes ?How often did you have a drink containing alcohol in the past year??Monthly or less (1 point) ?Points?1 ?Interpretation?Negative ???Miscellaneous:?Caffeine: yes, Tea ,soda. ?Children: no, none. ?Exercise: yes, housework. ?Marital status: single. 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 * Medications:?TakingCalcium + D Cetirizine HCl , Notes to Pharmacist: PRN AllergyCoQ-10 100 MG Capsule Orally Once a day Glucosamine iron metFORMIN HCl 1000 MG Tablet 2 Orally Once a day Qvar 40 MCG/ACT Aerosol Solution INHALE 1 PUFF TWICE A DAY Inhalation Extra Depth Orthopedic Shoes, (1) Pair With (3) Pair Custom Heat Molded Multidensity Innersoles . Dx: NIDDM/PVD(E11.51), Hammertoe Foot Deformity(M20.41,M20.42), Preulcerative Skin Lesion(s)(L85.1) Wear Daily Taking Calcium + D Taking Cetirizine HCl , Notes to Pharmacist: PRN AllergyTaking CoQ- 10 100 MG Capsule Orally Once a day Taking Glucosamine Taking iron Taking metFORMIN HCl 1000 MG Tablet 2 Orally Once a day Taking Qvar 40 MCG/ACT Aerosol Solution INHALE 1 PUFF TWICE A DAY Inhalation Taking Extra Depth Orthopedic Shoes, (1) Pair With (3) Pair Custom Heat Molded Multidensity Innersoles . Dx: NIDDM/PVD(E11.51), Hammertoe Foot Deformity(M20.41,M20.42), Preulcerative Skin Lesion(s)(L85.1) Wear Daily Not-Taking/PRNAlendronate Sodium 70 MG Tablet 1 tablet Orally once weekly Chondroitin Sulfate predniSONE 10 MG Kit as directed Orally Medication List reviewed and reconciled with the patientNot-Taking/PRN Alendronate Sodium 70 MG Tablet 1 tablet Orally once weekly Not-Taking/PRN Chondroitin Sulfate Not-Taking/PRN predniSONE 10 MG Kit as directed Orally Medication List reviewed and reconciled with the patient * Allergies:?Cortisone: sweats , blisters in mouthKenalog: sweats, blisters in mouthLidocaine: sweats, blisters in mouthyes[Allergies Verified] Objective: * Vitals:?Ht:5ft3in, Wt:132, B HI:23.38, Shoe size:10-11, BP:125/70mm Hg, BS:100, Ht-cm: 160.02 cm, Wt-k.87 kg. * ???Past Orders: ???Lab:HEMOGLOBIN A1C (GLYCO HEMOGLOBIN) (Order Date - 07/25/2023) (Collection Date & Time - 07/25/2023 01:04 PM) ? Value Reference Range ?HEMOGLOBIN A1C % (HH) 5.6 * Examination: ???Ophthalmology Referral: ?DIABETES EYE EXAM?Procedure Performed:?Yes ?Date of Exam Performed?07/27/2024 ?Diabetic Retinopathy Screening:?Yes ?Findings of Diabetic Eye Exam:?retinopathy?Vascular: ?DP PULSES (B):? 1/4, B/L.?PT PULSES (B):? 0/4, B/L.?CAPILLARY FILL TIME:? delayed, all digits, B/L.?TROPHIC CONDITION-TEXTURE/ELASTICITY/TURGOR/HAIR GROWTH (B):? decreased, with sparse to absent hair growth, B/L.?TEMPERTURE GRADIENT (C):? decreased, cool to cool, proximal to distal, B/L.?PIGMENTATION:? rubrous, B/L.?EDEMA (C):?2/4 , non-pitting , without aching pain , B/L , Leg(s) , Ankle(s) , Feet.?CLAUDICATION (C):?denies, B/L.?REST PAIN:?denies, B/L.?VARICOSITIES:?present, moderate, nonpainful, B/L.?Nails: ?NAILS are:?Elongated, overgrown, dystrophic, lytic, greater than 3mm thick, discolored and friable with crumbly malodorous subungual debris, with pain on palpation, TA, T1, T2, T3, T5, T6, T7.?Dermatologic: ?SKIN FINDINGS:?Skin exam reveals Keratotic lesion(s) located at, SUB MTH (s), 1, B/L , Plantar, Heel(s), B/L .?Neurological: ?SENSORY:?Neurological exam reveals intact sensorium, pain sensation normal, vibration sensation intact, pinprick sensation is normal in the lower extremities, 5.07 monofilament test performed at plantar aspects of 5 varied sites per foot shows sensation, normal, B/L, Pt denies, anesthesia, burning, paresthesia, tingling, B/L.?Orthopedic: ?MUSCLE STRENGTH:?5/5 all groups in a symmetrical fashion , B/L.?GAIT ABNORMALITY:?relates occasional difficulty with balance.?FOOT MORPHOLOGY:? Pes Planus structure, No Charcot collapse/destruction noted at MTJ.?DIGITAL DEFORMITIES:?Digital contracture, PIPJ, 2-5 B/L, incompl-reducible to push-up test, no over, nor underlapping , with evidence of shoe producing skin irritation.?FOOTWEAR:?good condition.?General Examination: ?GENERAL APPEARANCE:?Reveals a pleasant, alert, well nourished, well- developed, well hydrated individual, who demonstrates proper attention to hygiene/body habitus, and is in no acute distress, Pt serves as own historian for office visit today.?ORIENTED:?person, place, and time.?FOOT EXAM:?Lower Extremity Neurological Exam performed:?Yes ?Visual exam of foot performed:?Yes ?Date?08/17/2024 ?Footwear Evaluation?Footwear Evaluation performed:?Yes??? Assessment: * Assessment: 1.?Type 2 diabetes mellitus with diabetic peripheral angiopathy without gangrene - E11.51???2.?Tinea unguium - B35.1???3.?Pain in right toe(s) - M79.674???4.?Pain in left toe(s) - M79.675??? Plan: * Treatment: 2.?Tinea unguium?Procedure: 25853-VIOWSOP NAIL, 6 OR MORE * Procedures:?Debride Nail 6-10:?Nail debridement?Due to the clinical pathology outlined in the exam findings, performance of this nail treatment is medically necessary as its management by an unskilled/untrained nonprofessional would put this patients foot and overall health at risk. Therefore, debridement to affected nail(s), as described in exam (?TA,?T1,?T2,?T3,?T5,?T6,?T7), was performed exclusively by the physician of record to reduce/remove overall nail length, girth, thickness, subungual debris, and necrotic tissue, by manual and/or electrical means through the use of a nail nipper and/or dremel-type napper grinder, to a more viable healthy nail plate or bed tissue 6- 10 nails in total. Silver nitrate was used for any petechial bleeding as necessary. Definitive antifungal treatment options, both pharmaceutical and surgical, have been reviewed and discussed with the patient. The patient solely prefers the use of intermittent/as needed professional debridement services for their nail condition and understands the need for additional periodic treatments to maintain effectiveness in symptomatic relief - 94372.?Keratoma Treatment:?Parring or Cutting of Benign Hyperkeratotic Lesion(s)?(-56) 2-4 Lesions - Due to the at risk nature of the patients medical condition as documented in the exam findings, performance of this keratoderma treatment is medically necessary as its management by an unskilled/untrained nonprofessional would put this patients foot and overall health at risk. Therefore, the benign hyperkeratotic lesions, ( 4) in total, locations as stated and described in the exam (?SUB MTH (s),?1,?B/L?,?Plantar,?Heel(s),?B/L), were pared, and/or cut utilizing a sterile 15 blade, tissue nippers, and/or power dremel instrumentation by the physician of record - 52052, Q8.? * Procedure Codes:?02430 DEBRI DE NAIL, 6 OR MORE, Modifiers: XS 13370 TRIM SKIN LESIONS, 2 TO 4, Modifiers: XS , Q8 * Follow Up:?prn * Images: * Sign off status: Completed true * Provider:?Jona Vasques DPM Date:?2023 Generated for Kentrell moore/Darlin/Narda on:?01/02/2025 10:22 AM EDT History and Physical Notes * HPI (History of Present Illness) Category Sub-Category Detail Notes Category Not es At Risk footcare Pt States Last PCP Visit: Date: 05/01/2024 States has an appt with PCP soon - 09/26 Examination Category Sub-Category Detail Notes Category Not es Neurological SENSORY: Neurological exa m reveals intact sensorium, pain sensation normal, vibration sensation intact, pinprick sensation is normal in the lower extremities, 5.07 monofilament test performed at plantar aspects of 5 varied sites per foot shows sensation, normal, B/L, Pt denies, anesthesia, burning, paresthesia, tingling, B/L Dermatologic SKIN FINDINGS: Skin exam reveal s Keratotic lesion(s) located at, SUB MTH (s), 1, B/L , Plantar, Heel(s), B/L Orthopedic GAIT ABNORMALITY: relates occasi onal difficulty with balance FOOT MORPHOLOGY: Pes Planus structure , No Charcot collapse/destruction noted at MTJ FOOTWEAR: good condition DIGITAL DEFORMITIES: Digital contracture , PIPJ, 2-5 B/L, incompl-reducible to push-up test, no over, nor underlapping , with evidence of shoe producing skin irritation MUSCLE STRENGTH: 5/5 all groups in a symmetrical fashion , B/L General Examination GENERAL APPEARANCE: Reveals a pleasant, alert, well nourished, well-developed, well hydrated individual, who demonstrates proper attention to hygiene/body habitus, and is in no acute distress, Pt serves as own historian for office visit today FOOT EXAM: Lower Extremity Neurological Exa m performed:: Yes Visual exam of foot performed:: Yes Date: 08/17/2024 ORIENTED: person, place, and t vinnie Footwear Evaluation Footwear Evaluation performe d:: Yes Ophthalmology Referral DIABETES EYE EXAM Procedure Perform ed:: Yes ?Date of Exam Performed: 07/27/2024 Diabetic Retinopathy Screening:: Yes Findings of Diabetic Eye Exam:: retinopa thy Vascular DP PULSES (B): 1/4, B/L PT PULSES (B): 0/4, B/L CAPILLARY FILL TIME: delayed, all digits , B/L TEMPERTURE GRADIENT (C): decreased, cool to cool, proximal to distal, B/L TROPHIC CONDITION-TEXTURE/ELASTICITY/TURGOR/HAIR GROWTH (B): decreased, with sparse to absent hair gr owth, B/L EDEMA (C): 2/4 , non-pitting , without aching pain , B/L , Leg(s) , Ankle(s) , Feet VARICOSITIES: present, moderate, n onpainful, B/L CLAUDICATION (C): denies, B/L REST PAIN: denies, B/L PIGMENTATION: rubrous, B/L Nails NAILS are: Elongated, overg rown, dystrophic, lytic, greater than 3mm thick, discolored and friable with crumbly malodorous subungual debris, with pain on palpation, TA, T1, T2, T3, T5, T6, T7
--- OUTSIDE RECORDS SUMMARY | 2025-01-02 10:23 | XMS_ITS ---
Author Organization [facility] tyra Inland Address [address] [place] [address] Care Team Providers Care Account Manager Education Name Role Phone Jayce MEDRANO, Daniela Messer Primary Care Provider Un available Jona Vasques Unavailable [phone] Allergies Allergen (clinical drug ingredient) Drug/Non Drug Allergy documented on EMR Reaction Allergy Type Onset Date Status Kenalog sweats, blisters in mouth Drug Allergy Active Lidocaine sweats, blisters in mouth Drug Allergy Active Cortisone sweats, blisters in mouth Drug Allergy Active REASON FOR VISIT At Risk Footcare, Painful Nail(s) aggrevated by shoes and causing difficulty standing/walking, Toe Irritation Medications Medication SIG (Take, Route, Frequency, Duration) Notes Start Date End Date Status Calcium + D Active Qvar 40 MCG/ACT INHALE 1 PUFF TWICE A DAY Inhalation for 34 Active Alendronate Sodium 70 MG 1 tablet Orally once weekly Not-Taking Chondroitin Sulfate Not-Taking predniSONE 10 MG as directed Orally Not-Taking Cetirizine HCl PRN Allergy Act james CoQ-10 100 MG Orally Once a day Active Glucosamine Active iron Active metFORMIN HCl 1000 MG 2 Orally Once a day Active Social History Tobacco Use: Social History Observation Description Date Details (start date - stop date) Never Smoker NA - NA Tobacco use other than smoking: Question Answer Notes Are you an other tobacco user? No Tobacco Control (Standard) Question Answer Notes Tobacco use: Nonsmoker Additional Findings: Tobacco non-user Current no nsmoker AUDIT-C (Standard) Question Answer Notes Did you have a drink containing alcohol in the p ast year? No Points 0 Interpretation Negative Vital Signs Height 5ft3in in 11/16/2024 Weight 132 lbs 11/16/2024 BMI 23.38 kg/m2 11/16/2024 Blood pressure systolic 125 mm Hg 11/16/19 Blood pressure diastolic 60 mm Hg 025 Procedures Procedure Date Ordered Date Performed Result Body Sit e 46687-ILPTMMF NAIL, 6 OR MORE 11/16/2024 N/A 78478-MGTG SKIN LESIONS, 2 TO 4 11/16/2024 N/A Encounters Encounter Location Date Provider Diagnosis [facility] [place] [address] [place] [address] 11/16/2024 Jona Vasques Type 2 diabetes mellitus with diabetic peripheral angiopathy without gangrene E11.51 ; Other hammer toe(s) (acquired), right foot M20.41 ; Tinea unguium B35.1 ; Pain in right toe(s) M79.674 ; Pain in left toe(s) M79.675 and Other hammer toe(s) (acquired), left foot M20.42 Assessments Encounter Date Diagnosis (ICD Code) Assessment Notes Treatment Notes Treatment Clinical Notes Section Notes 11/16/2024 Type 2 diabetes mellitus with diabetic peripheral angiopathy without gangrene (ICD-10 - E11.51) 11/16/2024 Other hammer toe(s) (acquired), right foot (ICD-10 - M20.41) Patient Educated with: DIABETIC FOOT CARE INSTRUCTIONS.p df (DIABETIC FOOT CARE INSTRUCTIONS.p df) 11/16/2024 Tinea unguium (ICD-10 - B35.1) 11/16/2024 Pain in right toe(s) (ICD-10 - M79.674) 11/16/2024 Pain in left toe(s) (ICD-10 - M79.675) 11/16/2024 Other hammer toe(s) (acquired), left foot (ICD-10 - M20.42) Plan Of Treatment Treatment Notes Assessment Notes Other hammer toe(s) (acquired), right fo ot Patient Educated with: DIABETIC FOOT CARE INSTRUCTIONS.pdf (DIABETIC FOOT CARE INSTRUCTIONS.pdf) Pending Test Test Name Order Date 38322-VSBPLIU NAIL, 6 OR MORE 11/16/2024 41340-KYTC SKIN LESIONS, 2 TO 4 11/16/19 25 Next Appt Details Follow Up: prn, Reason: Provider Name:Jona Vasques , 03/08/2025 12:15:00 PM, [address] [place] [address], [id number], Procedure Notes * Category Sub-Category Detail Notes [...] use of a nail nipper and/or dremel-type external grinder tender, to a more viable healthy nail plate [...] to maintain effectiveness in symptomatic relief - 36059 Keratoma Treatment Parring or Cutting o f [...] instrumentation by the physician of record - 66587, Q8 Progress Notes * Paula BAUMDOB:1950 (73 yo F)Acc No.[id number]:11/16/2024 Progress Note Patient:Paula PIZARRO Provider:?Jona Vasques DPM :1950???Age:73 Y???Sex:Female D ate:11/16/2024 Address: [id number] Pcp:Louie Guerrero Subjective: * Chief Complaints: * ???At Risk FootcarePainful N ail(s) aggrevated by shoes and causing difficulty standing/walkingToe Irritation * HPI: ???At Risk footcare:?Pt States Last PCP Visit:?Date?09/26/2024 ???Toe pain:?Location:?B/L feet.?Duration:?several years.?Course:?worse.?Aggravated by:?shoes, any pressure.?Treatments:?change in shoes.? * ROS:?General/Constitutional:?Nausea?denies.?Vomiting?denies.?Hunger Thirst?denies.?Loss appetite?denies.?Chills?denies.?Fatigue?denies.?Fever?denies.?Night Sweats?denies.?Unexplained weight loss?denies.?Ophthalmologic:?Blurred vision?denies.?Red eye?denies.?HEENTM:?Dentures?denies.?Dizziness?denies.?Glasses/contacts?admits.?Retinopathy?den ies.?Blurred/double vision?denies.?TMJ?denies.?Discharge/drainage?denies.?Implants?denies.?Hard of hearing denies.?Difficulty chewing/swallowing/speaking?denies.?Nose bleeds?denies.?Sore mouth?denies.?Swollen glands?denies.?Respiratory:?On O xygen?denies.?Pneumonia/pleurisy?denies.?Bronchitis?denies.?Emphysema?denies.?Co ughing?denies.?Cough blood?denies.?Shortness of breath?denies.?Wheezing?denies.?Cardiovascular:?Pacemaker?denies.?MVP?denies.?WPW?denies.?CHF?denies.?Heart attack?denies.?Septal defect?denies.?Rapid beat?denies.?Chest pain ?denies.?Atrial Fib.?denies.?Murmur/Palpitations?denies.?Gastrointestinal:?Hemorrhoids?denies.?Stomach/Abdominal pain?denies.?Dark blood stool?denies.?Irritable bowel ?denies.?Constipation?denies.?Diarrhea?denies.?Vomiting?denies.?Hematology:?Swelling?admits.?Bruising?denies.?Bleeding problem?denies.?Genitourinary:?Blood urine?denies.?Frequent/Painfu/urination/bladder control?denies.?Kidney stones?denies.?Infection (UTI)?denies.?Nephropathy?denies.?Musculoskeletal:?Hammertoes?admits.?Bunions?admits.?Scoliosis/kyphosis?denies.?Muscle cramps / walking?denies.?Generalized aches and pains?denies.?Weakness?denies.?Integ.:?Kendrick?denies.?Scars?denies.?Corns/calluses?admits.?Ingrown nails?admits.?Painful nails?admits.?Rashes?denies.?Neurologic:?Difficulty sleeping?denies.?Bipolar?denies.?Brain disorder?denies.?Balance t rouble?denies.?Confusion?denies.?Fainting/blackouts?denies.?Headache?denies.?Bear mors?denies.? * Medical History:? * Surgical History:?leg surger y 2009left wrist surgery 2012blood transfusion x2 03/16/18carazation - Left eye 03/18/2018laser vein surgery 2010vein surgery 11/12/22right microphlebectomy 12/31/22Le microphlebectomy [id number] 05/11/24endoscopy 05/11/24Iron transfusion 05/11/24Left Cataract surgery 08/01/24 * Hospitalization/Major Diagno stic Procedure:?[facility] 03[facility] [place] [place] 5.5 - 3 blood transfusions 07/20/23[place]07[place] [place] 05/11/24 * Family History:?Mother: dece ased, diagnosed with Other malignant neoplasm of unspecified site, Family history of arthritis.?Father: , diagnosed with Family history of arthritis.? * Social History:?Tobacco Use:?Tobacco use other than smoking?Are you an other tobacco user??No ?Tobacco Control (Standard)?Tobacco use:?Nonsmoker ?Additional Findings: Tobacco non-user?Current nonsmoker ???Drugs/Alcohol:?Drugs?Have you used drugs other than those for medical reasons in the past 12 months??No ???Miscellaneous:?Caffeine: yes, Tea ,soda. ?Children: no, none. ?Exercise: yes, housework. ?Marital status: single. 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 ???Drug/Alcohol:?AUDIT-C (Standard)?Did you have a drink containing alcohol in the past year??No ?Points?0 ?Interpretation?Negative * Medications:?TakingCalcium + D Cetirizine HCl , Notes to Pharmacist: PRN AllergyCoQ-10 100 MG Capsule Orally Once a day Glucosamine iron metFORMIN HCl 1000 MG Tablet 2 Orally Once a day Qvar 40 MCG/ACT Aerosol Solution INHALE 1 PUFF TWICE A DAY Inhalation Taking Calcium + D Taking Cetirizine HCl , Notes to Pharmacist: PRN AllergyTaking CoQ-10 100 MG Capsule Orally Once a day Taking Glucosamine Taking iron Taking metFORMIN HCl 1000 MG Tablet 2 Orally Once a day Taking Qvar 40 MCG/ACT Aerosol Solution INHALE 1 PUFF TWICE A DAY Inhalation Not-Taking/PRNAlendronate Sodium 70 MG Tablet 1 tablet [...] mouthyes[Allergies Verified] Objective: * Vitals:?Ht:5ft3in, Wt:132, B WV:23.38, Shoe size:10-11, BP:125/60mm Hg, BS:103, Ht-cm: 160.02 cm, Wt-k.87 kg. * ???Past Orders: ???Lab:HEMOGLOBIN A1C (GLYCO HEMOGLOBIN) (Order Date - 09/26/2024) (Collection Date & Time - 10/15/2024 11:59 AM) ? Value Reference Range ?HEMOGLOBIN A1C % (HH) 5.6 * Examination: ???Ophthalmology Referral: ?DIABETES EYE EXAM?Procedure Performed:?Yes ?Date of Exam Performed?07/27/2024 ?Diabetic Retinopathy Screening:?Yes ?Findings of Diabetic Eye Exam:?retinopathy?Vascular: ?DP PULSES (B):? 10/27, B/L.?PT PULSES (B):? 0/4, B/L.?CAPILLARY FILL TIME:? [...] palpation, TA, T1, T2, T3, T5, T6, T7, all other nails not described with characteristics as possessing mycosis are elongated, overgrown, and dystrophic.?Dermatologic: ?SKIN FINDINGS:?Skin exam reveals Keratotic lesion(s) located [...] , with evidence of shoe producing skin irritation?.?FOOTWEAR:?worn, non-supportive, shoe gear properties exacerbate patient's foot/toe deformity.?General Examination: ?GENERAL APPEARANCE:?Reveals a pleasant, alert, well nourished, well- developed, well hydrated individual, who demonstrates proper attention to hygiene/body habitus, and is in no acute distress, Pt serves as own historian for office visit today.?ORIENTED:?person, place, and time.?FOOT EXAM:?Lower Extremity Neurological Exam performed:?Yes ?Visual exam of foot performed:?Yes ?Date?11/16/2024 ?Footwear Evaluation?Footwear Evaluation performed:?Yes??? Assessment: * Assessment: 1.?Other hammer toe(s) (acqu ired), right foot - M20.41 (Primary)???Specify :Chronic problem, Worse (4)???2.?Type 2 diabetes mellitus with diabetic peripheral angiopathy without gangrene - E11.51???3.?Tinea unguium - B35.1???4.?Pain in right toe(s) - M79.674???5.?Pain in left toe(s) - M79.675???6.?Other hammer toe(s) (acquired), left foot - M20.42???Specify :Chronic problem, Worse (4)??? Plan: * Treatment: 2.?Type 2 diabetes mellitus with diabetic peripheral angiopathy without gangrene?Procedure: 41926-ATUQ SKIN LESIONS, 2 TO 4 3.?Tinea unguium?Procedure: 45515-ADTHFIX NAIL, 6 OR MORE * Procedures:?Debride Nail [...] use of a nail nipper and/or dremel-type external grinder tender, to a more viable healthy nail plate [...] to maintain effectiveness in symptomatic relief - 48081.?Keratoma Treatment:?Parring or Cutting of Benign Hyperkeratotic Lesion(s)?(-56) [...] instrumentation by the physician of record - 80229, Q8.? * Procedure Codes:?74966 DEBRI DE NAIL, 6 OR MORE, Modifiers: XS 54342 TRIM SKIN LESIONS, 2 TO 4, Modifiers: XS , Q8 * Preventive Medicine:? ??Counseling:?Discussion:?-13: Office or other outpatient visit for the evaluation and management of an established patient, which required a medically appropriate history and/or examination and LOW level of DECISION MAKING for: 1 STABLE ACUTE UNCOMPLICATED PROBLEM, 2 OR MORE MINOR PROBLEMS, OR 1 STABLE CHRONIC PROBLEM, THAT POSE(S) A LOW RISK FOR MORBIDITY/MORTALITY. The visit on the day of the encounter encompassed interpreting the data and educating the patient as to the nature of their condition, treatment options available according to their individual PMH, meds, allergies, and overall health/living conditions, as well as any potential risks or complications that may occur from a failure to adhere to, and participate in, the recommended course of therapy. The discussion included a complete verbal, and/or written explanation of the examination results, any x-rays taken, the proposed diagnosis, and outline of the treatment plan. A schedule for future care needs was also explained. The patient verbalized an understanding of the instructions at this time and agreed to be an active participant in their treatment. If the patient should think of any questions or concerns after the visit, I have encouraged the patient to call the office.?Digital Surgery:?Digital surgery was discussed with the patient, We elected to try conservative treatment at the present time, due to the patients medical history and increased asssociated post-operative risks.?Digital Treatment:?HT- I explained to the patient the possible etiologies of Hammertoes, including genetics/foot type/shoegear/activity level/exercise routine and the risks/benefits of all the different treatment options for their pain including: No treatment at all, Rest, Ice, New/supportive/wider/deeper Shoegear, Digital Padding/Strapping/Taping/Bracing/Gel protective sleeves, Foot/Ankle AFO Bracing, Stretching exercises, Deep Tissue Massage, Arch support/shoe inserts with splay metatarsal padding, and Custom orthoses. I insisted that any digital devices be removed daily and not worn overnight for safety. The patient is to carefully examine the toes daily for any skin irritation while using any splinting or padding device. The advantages and disadvantages of each option were discussed and the patients questions re: shoegear, padding, custom vs prefabricated inserts, activity level, and consistency in home treatment regimens for optimal success were answered to their verbally confirmed satisfaction.?Shoe Gear Counseling:?SHOE Rx - The patient was counseled in great detail on their muscoloskeletal foot and toe deformities which coincided with the dermatological presentations visualized on exam. We discussed how their deformities put the integrity of their feet at risk for potential pedal complications which makes the accomidative diabetic shoes and cutomizable inserts medically necessary. We discussed the different shoe and insert treatment types and options, as well as the important advantages for adhering to regularly wearing these accomidative devices daily. The patient was made aware of the fact that a failure to abide by these recommedations may be deleterious to their foot health as they are able to prevent many pedal complications such as skin irritation, skin ulceration, infection, and even loss of toe/foot/leg/or life. Time was also spent with the patient dispensing and discussing proper diabetic footcare techniques including daily skin moisturization, daily foot inspection for any interruption in skin integrity including open lesions, or sign of infection such as redness/malodor/drainage/swelling. Also discussed and recommended were procedures regarding daily shoe inspection for the presence of internal foreign bodies as well as any visualized irregular shoe or insert wear. Patient questions re: shoes, inserts, and self foot inspections were answered to their satisfaction as the patient verbally confirmed a full understanding of the above information, Patient DEFERS recommended Extra Depth Orthopedic pressure-accommodative shoes against medical advice.? ??Screening/Special Tests:?Fall Risk?Screening:?No falls in the past year ?FALLS: Screening for Future Fall Risk?Have you had any falls with injury in the past year??No * Follow Up:?prn * Images: * Sign off status: Completed true * Provider:?Jona Vasques DPM Date:?2024 Generated for Kentrell moore/Darlin/eTransmitting on:?01/02/2025 10:22 AM EDT History and Physical Notes * HPI (History of Present Illness) Category Sub-Category Detail Notes Category Not es Toe pain Location: B/L feet Duration: several years Course: worse Aggravated by: shoes, any pressure Treatments: change in shoes At Risk footcare Pt States Last PCP Visit: Date: 4 Examination Category Sub-Category Detail Notes Category Not [...] No Charcot collapse/destruction noted at [facility] FOOTWEAR: worn, non-supportive , shoe gear properties exacerbate patient's foot/toe deformity DIGITAL DEFORMITIES: Digital contracture , PIPJ, 2-5 [...] Visual exam of foot performed:: Yes Date: 11/16/2024 ORIENTED: person, place, and t vinnie Footwear [...] palpation, TA, T1, T2, T3, T5, T6, T7, all other nails not described with characteristics as possessing mycosis are elongated, overgrown, and dystrophic
== END 2025-01-02 10:04 | disposition home or self-care (01) ==
LOC: HO.HGI 09:30
PROVIDERS: PCP Internal Medicine; Visit Provider Internal Medicine
DX: K76.0 Fatty (change of) liver, not elsewhere classified (principal); R60.0 Localized edema; D50.0 Iron deficiency anemia secondary to blood loss (chronic)
CPT/HCPCS: 99214

== ENCOUNTER → 2025-01-02 09:29 | Outpatient (BNVA) | payer MEDICARE, SELFPAY | PROVIDERS: PCP Internal Medicine; Visit Provider Internal Medicine | DX: K76.0 Fatty (change of) liver, not elsewhere classified (principal); R60.0 Localized edema; D50.0 Iron deficiency anemia secondary to blood loss (chronic) | CPT/HCPCS: 99212 ==

== ENCOUNTER → 2025-01-29 09:41 | Outpatient (REF) | payer MEDICARE, SELFPAY ==
--- NOTE | 2025-01-29 09:44 | CA_ITS ---
Transthoracic Echocardiogram Patient (Last, First, Middle): Paula Baum J Gender: Female Date of : 1950 Age: 74 Procedure Date: 01/29/2025 Procedure Type: Transthoracic Echocardiogram Location: OP Height: 160.02 cm Weight: 106.6 kg BSA: 2.07 m2 Heart Rate: bpm BP: 138 / 57 mmHg Nurse Intern: FRANCISCO/JUDY Referring MD: Antonia De La Vega MD Symptoms: R60.0 - Localized edema Study Quality: Fair ECG Rhythm: Frequent ventricular premature beats Conclusions: - The left ventricular systolic function is normal. The calculated ejection fraction is 66% by biplane method. - There is mild to moderate aortic valve stenosis. - There is severe mitral annular calcification. Findings Left Ventricle Normal left ventricular cavity size. There is mildly increased left ventricular wall thickness. The left ventricular systolic function is normal. The calculated ejection fraction is 66% by biplane method. There is no evidence of regional wall motion abnormalities. Evidence suggests grade I (mild) diastolic dysfunction. Right Ventricle Mildly increased right ventricular cavity size. There is normal right ventricular systolic function. Atria The left atrium is moderately dilated. The right atrium is normal in size. Aortic Valve There is moderate calcification of the aortic valve. There is mild to moderate aortic valve stenosis. The peak aortic velocity is 2.97 m/s with a calculated peak gradient of 35 mmHg. The mean gradient is 18 mmHg. The aortic valve area is 1.30 cm2. There is no aortic valve regurgitation. Dimensionless index 0.38. Mitral Valve There is severe mitral annular calcification. There is no mitral valve regurgitation. Doubt any significant mitral stenosis. Pulmonic Valve The pulmonic valve is likely normal. Tricuspid Valve There is trace tricuspid valve regurgitation. There is no evidence of pulmonary hypertension. Great Vessels The asc aorta is normal in size. Venous The inferior vena cava is normal in size and collapses greater than 50% with inspiration. Pericardium/Pleural There is no evidence of pericardial effusion. Prior Study Comparison Changes noted compared to prior study dated: 09/02/2023. Progression of aortic stenosis. Measurements 2D Linear Measurements IVSd: 1.18 0.6-0.9/0.6-1.0 cm LVIDd: 4.93 3.9-5.3/4.2-5.9 cm LVIDd Index: 2.38 2.4-3.2/2.2-3.1 cm/m2 LVIDs: 3.21 2.0-3.6 cm LVPWd: 1.02 0.7-1.1 cm LA Diam: 4.00 2.7-3.8/3.0-4.0 cm LAIDs Index: 1.93 1.5-2.3 cm/m2 LV Mass: 252.35 67-162/88-224 g LV Mass Index: 121.91 43-95/49-115 g/m2 LVOT Diam: 1.90 3.0+(-)1.3 cm 2D Systolic Function EF 4C: 65.30 >55% EF 2C: 68.80 >55% EF BiP: 66.40 >55% Mitral Valve MV VTI: 0.51 MV Pk Ranjan: 1.86 MV Mn Ranjan: 1.17 MV Pk Grad: 14.00 MV Mn Grad: 6.00 MV Pk E: 1.49 MV PK A: 1.66 MV Decel Time: 299.00 E/A: 0.90 E'Lateral: 8.92 E'Medial: 5.00 E/E' Med: 29.80 E/E' Lat: 16.70 PHT: 87.00 MVA PHT: 2.53 MVA Continuity: 1.67 Decel [place]: 4.99 Aortic Valve AoV Pk Ranjan: 2.97 AoV Mn Ranjan: 1.95 AoV VTI: 0.66 AoV Pk Grad: 35.00 Aov Mn Grad: 18.00 [place] Cont.VTI: 1.30 LVOT LVOT Pk Ranjan: 1.14 LVOT Mn Ranjan: 0.85 LVOT VTI: 0.30 LVOT Pk Grad: 5.00 LVOT Mn Grad: 3.00 LVOT Diam: 1.90 LVOT Area: 2.84 Diastolic Function MV Pk E: 1.49 MV Pk A: 1.66 E/A: 0.90 E'Medial: 5.00 E/E' Med: 29.80 E' Laterial: 8.92 E/E' Lat: 16.70 Right Ventricle TAPSE (mm): 28.70 TVS' Ranjan: 12.90 Tricuspid Valve RA Press: 3.00 Great Vessels Aorta Sinus of Valsalva: 3.43 2.0-3.[address] [place]: 2.60 1.7-3.4 cm Ao Asc: 3.40 2.1-3.4 cm Pulmonary Valve PV Pk Ranjan: 2.18 PV Min Ranjan: 1.52 Peak PV Grad: 19.00 PV Mn Grad: 10.00 [place] QP:QS: 1.00 Updated in Other Vendor System with Status of Final Nicolas Flaherty MD electronically signed on 01/29/2025 2:02:03 PM with status of Final
--- OUTSIDE RECORDS SUMMARY | 2025-01-29 11:04 | XMS_ITS ---
Author Organization [facility] tyra Trinidad Address [address] [place] [address] Care Team Providers Care Senior Information Security Architect Name Role Phone Jayce MEDRANO, Daniela Messer Primary Care Provider Un available Jona Vasques Unavailable [phone] Allergies Allergen (clinical drug ingredient) Drug/Non Drug [...] Ordered Date Performed Result Body Sit e 65227-TRAGJZT NAIL, 6 OR MORE 11/16/2024 N/A 41199-CBOS SKIN LESIONS, 2 TO 4 11/16/2024 N/A Encounters Encounter Location Date Provider Diagnosis [facility] [place] [address] [place] [address] 11/16/2024 Jona Vasques Type 2 diabetes mellitus [...] INSTRUCTIONS.pdf) Pending Test Test Name Order Date 24051-XIFKKLC NAIL, 6 OR MORE 11/16/2024 58691-ZLOT SKIN LESIONS, 2 TO 4 11/16/19 25 Next Appt Details Follow Up: prn, Reason: Provider Name:Jona Vasques , 03/08/2025 12:15:00 PM, [address] [place] [address], [phone], Provider Name:Jona Vasques , 03/26/2025 03:45:00 PM, [address] [place] [address], [phone], Procedure Notes * Category Sub-Category Detail Notes [...] use of a nail nipper and/or dremel-type internal grinder, to a more viable healthy nail [...] to maintain effectiveness in symptomatic relief - 54796 Keratoma Treatment Parring or Cutting o f [...] instrumentation by the physician of record - 46435, Q8 Progress Notes * Yenifer BAUM:1950 (73 yo F)Acc No.[id number]:11/16/2024 Progress Note Patient:?Paula BAUM Provider:?Jona Vasques DPM :1950???Age:73 Y???Sex:Female D ate:11/16/2024 Address:[address] [place], [place] [id number] Pcp:Louie Guerrero Subjective: * Chief Complaints: * [...] 03/18/2018laser vein surgery 2010vein surgery 11/12/22right microphlebectomy 12/31/22Left microphlebectomy 52209joyzutwlfqc 05/11/24endoscopy 05/11/24Iron transfusion 05/11/24Left Cataract surgery 08/01/24 * Hospitalization/Major Diagno stic Procedure:?[facility]2018[facility]- blood count down to 5.5 - 3 blood transfusions 07/20/23-07[facility]22/[facility]- Rectum bleeding 05/11/24 * Family History:?Mother: [...] mouthyes[Allergies Verified] Objective: * Vitals:?Ht:5ft3in, Wt:132, B TX:23.38, Shoe size:10-11, BP:125/60mm Hg, BS:103, Ht-cm: 160.02 [...] mellitus with diabetic peripheral angiopathy without gangrene?Procedure: 82024-YQFK SKIN LESIONS, 2 TO 4 3.?Tinea unguium?Procedure: 34916-RQLCASW NAIL, 6 OR MORE * Procedures:?Debride Nail [...] use of a nail nipper and/or dremel-type internal grinder, to a more viable healthy nail [...] to maintain effectiveness in symptomatic relief - 00959.?Keratoma Treatment:?Parring or Cutting of Benign Hyperkeratotic Lesion(s)?(-56) [...] instrumentation by the physician of record - 70571, Q8.? * Procedure Codes:?81582 DEBRI DE NAIL, 6 OR MORE, Modifiers: XS 38885 TRIM SKIN LESIONS, 2 TO 4, Modifiers: [...] * Sign off status: Completed true * Provider:Salomon Vasques DPM Date:?2024 Generated for Kentrell moore/Darlin/Narda on:?01/29/2025 11:03 AM EDT History and Physical Notes * [...] , No Charcot collapse/destruction noted at [facility] FOOTWEAR EVALUATION: worn, non-supportiv e, shoe gear properties exacerbate patient's foot/toe deformity [...]
--- OUTSIDE RECORDS SUMMARY | 2025-01-29 11:04 | XMS_ITS ---
Author Organization [facility] Frac[place] tyra [place] Address [address] [place] [address] Care Team Providers Care Gear Generator Set Up Operator Name Role Phone Jayce MEDRANO, Daniela Messer Primary Care Provider Un available Jona Vasques Unavailable [phone] REASON FOR VISIT BUY 2 Toe Steel Encounters Encounter Location Date Provider Diagnosis [address] [address] 08/17/2024 Jona Vasques Plan Of Treatment Next Appt Details Provider Name:Jona Vasques , 03/08/2025 12:15:00 PM, [address] [place] [address], [phone], Provider Name:Jona Vasques , 03/26/2025 03:45:00 PM, [address] [place] [address], [phone], Progress Notes * Paula BAUMDOB:1950 (73 yo F)Acc No.[id number]:08/17/2024 Patient:?Paula Baum :1950???Age:73 Y???Sex:Female Address:[address] [place], [place] [address]Ivelisse silvio Roger R[place], [address] * true * Date:? Generated for Printi ng/Fadionisiog/eTransmitting on:?01/29/2025 11:03 AM EDT
--- OUTSIDE RECORDS SUMMARY | 2025-01-29 11:04 | XMS_ITS ---
Author Organization [facility] tyra [place] Address [address] [place] [address] Care Team Providers Care Mobile Qa Tester Name Role Phone Jayce MEDRANO, Daniela Messer Primary Care Provider Un available Jona Vasques Unavailable [phone] Allergies Allergen (clinical drug ingredient) Drug/Non Drug [...] Ordered Date Performed Result Body Sit e 72973-HPOIUHW NAIL, 6 OR MORE 08/17/2024 N/A 44290-SCZE SKIN LESIONS, 2 TO 4 08/17/2024 N/A Encounters Encounter Location Date Provider Diagnosis [facility] [address] [address] 08/17/2024 Jona Vasques Type 2 diabetes mellitus [...] Treatment Pending Test Test Name Order Date 75915-RZIXNCW NAIL, 6 OR MORE 08/17/2024 77236-RCLM SKIN LESIONS, 2 TO 4 08/17/20 Next Appt Details Follow Up: prn, Reason: Provider Name:Jona Vasques , 03/08/2025 12:15:00 PM, [address] [place] [address], [phone], Provider Name:Jona Vasques , 03/26/2025 03:45:00 PM, [address] [place], [address], Procedure Notes * Category Sub-Category Detail Notes [...] use of a nail nipper and/or dremel-type microgrinder operator, to a more viable healthy nail plate [...] to maintain effectiveness in symptomatic relief - 56208 Keratoma Treatment Parring or Cutting o f [...] instrumentation by the physician of record - 96534, Q8 Progress Notes * Paula BAUMDOB:1950 (73 yo F)Acc No.[id number]:08/17/2024 Progress Note Patient:?Paula BAUM Provider:?Jona Vasques DPM :1950???Age:73 Y???Sex:Female D ate:08/17/2024 Address: [place] Pcp:Louie Guerrero Subjective: * Chief Complaints: * ???At Risk FootcarePainful N ail(s) aggrevated by shoes and causing difficulty standing/walking * HPI: ???At Risk footcare:?Pt States Last PCP Visit:?Date?05/01/2024 States has an appt with PCP - 09/26 * ROS:?General/Constitutional:?Nausea?denies.?Vomiting?denies.?Hunger Thirst?denies.?Loss appetite?denies.?Chills?denies.?Fatigue?denies.?Fever?denies.?Night Sweats?denies.?Unexplained [...] surgery 2010vein surgery 11/12/22right microphlebectomy 12/31/22Left microphlebectomy 33014cncgcwlyugw 05/11/24endoscopy 05/11/24Iron transfusion 05/11/24Left Cataract surgery 08/01/24 * Hospitalization/Major Diagno stic Procedure:?[facility] Kidney stones 04/2016[facility] nose bleed 03/07/2018[facility] Nose bleed 03/09/2018[facility] nose bleed 03/16/2018[facility]- blood count down to 5.5 - 3 blood transfusions 07/20/23-07/22/23[facility] [place]- Rectum bleeding 05/11/24 * Family History:?Mother: [...] mouthyes[Allergies Verified] Objective: * Vitals:?Ht:5ft3in, Wt:132, B WY:23.38, Shoe size:10-11, BP:125/70mm Hg, BS:100, Ht-cm: 160.02 [...] - M79.675??? Plan: * Treatment: 2.?Tinea unguium?Procedure: 80172-ZVQVIYW NAIL, 6 OR MORE * Procedures:?Debride Nail [...] use of a nail nipper and/or dremel-type microgrinder operator, to a more viable healthy nail plate [...] to maintain effectiveness in symptomatic relief - 12893.?Keratoma Treatment:?Parring or Cutting of Benign Hyperkeratotic Lesion(s)?(-56) [...] instrumentation by the physician of record - 82556, Q8.? * Procedure Codes:?95853 DEBRI DE NAIL, 6 OR MORE, Modifiers: XS 95360 TRIM SKIN LESIONS, 2 TO 4, Modifiers: XS , Q8 * Follow Up:?prn * Images: * Sign off status: Completed true * Provider:?Jona Vasques DPM Date:?2023 Generated for Kentrell moore/Darlin/eTahmetsmitting on:?01/29/2025 11:03 AM EDT History and Physical Notes * HPI (History of Present Illness) Category Sub-Category Detail Notes Category Not es At Risk footcare Pt States Last PCP Visit: Date: 05/01/2024 States has an appt with PCP - 09/26 Examination Category Sub-Category Detail Notes [...] Charcot collapse/destruction noted at [facility] FOOTWEAR EVALUATION: good condition DIGITAL DEFORMITIES: Digital contracture , [...]
--- OUTSIDE RECORDS SUMMARY | 2025-01-29 11:04 | XMS_ITS | Patient Health Record ---
[facility] Address [address] [place] [address] Care Team Providers Care Integration Assistant Name Role Phone Jayce MEDRNAO, Daniela Messer Primary Care Provider Un available Jona Vasques Unavailable [phone] Allergies Allergen (clinical drug ingredient) Drug/Non Drug Allergy documented on EMR Reaction Allergy Type Onset Date Status triamcinolone Kenalog sweats, blisters in mouth Drug Allergy Active lidocaine Lidocaine sweats, blisters in mouth Drug Allergy Active Cortisone sweats, blisters in mouth Drug Allergy Active Results Component Value Reference Range Notes HEMOGLOBIN A1C (GLYCOHEMOGLO BIN) Reviewed date:11/16/2024 12:01:23 PM Interpretation: Performing Lab: Notes/Report: HEMOGLOBIN A1C % (HH) 5.6 Reason For Referral No Information Medications Medication SIG (Take, Route, Frequency, Duration) Notes Start Date End Date Status Calcium + D Active Cetirizine HCl PRN Allergy Act james CoQ-10 100 MG Orally Once a day Active Qvar 40 MCG/ACT INHALE 1 PUFF TWICE A DAY Inhalation for 34 Active Alendronate Sodium 70 MG 1 tablet Orally once weekly Not-Taking Chondroitin Sulfate Not-Taking predniSONE 10 MG as directed Orally Not-Taking Glucosamine Active iron Active metFORMIN HCl 1000 MG 2 Orally Once a day Active Immunizations Vaccine Route Administration Date Status Comme nts COVID-19 Pfizer BioNTech Vaccine Unknown 07/27/2022 Administered 1st 01/08/2021 2nd 01/29/2021 3rd 09/24/2021 Influenza Unknown 07/20/2022 Administered Influenza Unknown 06/24/2023 Administered Social History Tobacco Use: Social History Observation [...] ast year? No Points 0 Interpretation Negative Problems Problem Type SNOMED Code ICD Code Onset Dates Problem Status W/U Status Risk Notes Problem Acquired hammer toe of right foot (5847262858001 105) Other hammer toe(s) (acquired), right foot (M20.41) Active confirmed Response to treatment,I mprovement Problem Type 2 diabetes mellitus with peripheral angiopathy (361482961) Type 2 diabetes mellitus with diabetic peripheral angiopathy without gangrene (E11.51) Active confirmed Problem Acquired hammer toe of left foot (4532694587735 103) Other hammer toe(s) (acquired), left foot (M20.42) Active confirmed Response to treatment,I mprovement Vital Signs Blood pressure diastolic 60 mm Hg 11/16/2024 Height 5ft3in in 11/16/2024 Blood pressure systolic 125 mm Hg 11/16/2024 Weight 132 lbs 11/16/2024 BMI 23.38 kg/m2 11/16/2024 Procedures Procedure Date Ordered Date Performed Result Body Sit e 24333-TZODDAP NAIL, 6 OR MORE 04/03/2024 N/A 31939-WGYL SKIN LESIONS, 2 TO 4 04/03/2024 N/A 99562-PUGJKES NAIL, 6 OR MORE 08/17/2024 N/A 40166-UUZQ SKIN LESIONS, 2 TO 4 08/17/2024 N/A 88444-HFQVHHL NAIL, 6 OR MORE 11/16/2024 N/A 51948-VVAA SKIN LESIONS, 2 TO 4 11/16/2024 N/A 64355-CGBS SKIN LESIONS, 2 TO 4 06/15/2024 N/A 04871-UVBJOTY NAIL, 6 OR MORE 06/15/2024 N/A Encounters Encounter Location Date Provider Diagnosis [facility] [place] [address] [place] [address] 04/03/2024 Jona Vasques Type 2 diabetes mellitus with diabetic peripheral angiopathy without gangrene E11.51 ; Tinea unguium B35.1 ; Pain in right toe(s) M79.674 and Pain in left toe(s) M79.[address] [address] 06/15/2024 Jona Caprice Type 2 diabetes mellitus with diabetic peripheral angiopathy without gangrene E11.51 ; Tinea unguium B35.1 ; Pain in right toe(s) M79.674 and Pain in left toe(s) M79.[address] [address] 08/17/2024 Jona Vasques Type 2 diabetes mellitus with diabetic peripheral angiopathy without gangrene E11.51 ; Tinea unguium B35.1 ; Pain in right toe(s) M79.674 and Pain in left toe(s) M79.[address] [address] 11/16/2024 Jona Vasques Type 2 diabetes mellitus with diabetic peripheral angiopathy without gangrene E11.51 ; Other hammer toe(s) (acquired), right foot M20.41 ; Tinea unguium B35.1 ; Pain in right toe(s) M79.674 ; Pain in left toe(s) M79.675 and Other hammer toe(s) (acquired), left foot M20.[address] [address] 08/17/2024 Jona Caprice Assessments Encounter Date Diagnosis (ICD Code) Assessment Notes Treatment Notes Treatment Clinical Notes Section Notes 06/15/2024 Type 2 diabetes mellitus with diabetic peripheral angiopathy without gangrene (ICD-10 - E11.51) 06/15/2024 Tinea unguium (ICD-10 - B35.1) 08/17/2024 Type 2 diabetes mellitus with diabetic peripheral angiopathy without gangrene (ICD-10 - E11.51) 08/17/2024 Tinea unguium (ICD-10 - B35.1) 11/16/2024 Other hammer toe(s) (acquired), right foot (ICD-10 - M20.41) Patient Educated with: DIABETIC FOOT CARE INSTRUCTIONS.p df (DIABETIC FOOT CARE INSTRUCTIONS.p df) 11/16/2024 Type 2 diabetes mellitus with diabetic peripheral angiopathy without gangrene (ICD-10 - E11.51) 04/03/2024 Type 2 diabetes mellitus with diabetic peripheral angiopathy without gangrene (ICD-10 - E11.51) 04/03/2024 Tinea unguium (ICD-10 - B35.1) 04/03/2024 Pain in right toe(s) (ICD-10 - M79.674) 11/16/2024 Tinea unguium (ICD-10 - B35.1) 06/15/2024 Pain in right toe(s) (ICD-10 - M79.674) 08/17/2024 Pain in right toe(s) (ICD-10 - M79.674) 06/15/2024 Pain in left toe(s) (ICD-10 - M79.675) 08/17/2024 Pain in left toe(s) (ICD-10 - M79.675) 11/16/2024 Pain in right toe(s) (ICD-10 - M79.674) 04/03/2024 Pain in left toe(s) (ICD-10 - M79.675) 11/16/2024 Pain in left toe(s) (ICD-10 - M79.675) 11/16/2024 Other hammer toe(s) (acquired), left foot (ICD-10 - M20.42) Plan Of Treatment Pending Test Test Name Order Date 79665-AAMGXTJ NAIL, 6 OR MORE 11/03/2012 20075-QVFTWSP NAIL, 6 OR MORE 01/23/2013 45031-FSXJOJO NAIL, 6 OR MORE 05/03/2014 96425-OJFFDKK NAIL, 6 OR MORE 07/09/2014 61573-SBGTJPW NAIL, 6 OR MORE 11/22/2014 86695-YJFUDOP NAIL, 6 OR MORE 02/04/2015 42686-BJVCSAC NAIL, 6 OR MORE 04/22/2015 77233-KJUMCPL NAIL, 6 OR MORE 07/15/2015 64624-DEGTZQU NAIL, 6 OR MORE 10/28/2015 85846-UFANCOW NAIL, 6 OR MORE 01/23/2016 26116-NNYCJMA NAIL, 6 OR MORE 07/30/2016 56428-DNXTYJL NAIL, 6 OR MORE 10/29/2016 19636-JSJYKGL NAIL, 6 OR MORE 08/05/2017 12880-YJGATAF NAIL, 6 OR MORE 11/08/2017 66477-XQFAHTS NAIL, 6 OR MORE 01/31/2018 32778-NMFUVWU NAIL, 6 OR MORE 01/12/2019 66826-DWMKYSU NAIL, 6 OR MORE 04/03/2019 36499-IKYGOSS NAIL, 6 OR MORE 07/03/2019 15448-PMXWUAD NAIL, 6 OR MORE 11/27/2019 86586-VJYMJVA NAIL, 6 OR MORE 07/13/2011 60697-XUEQHET NAIL, 6 OR MORE 12/17/2011 11757-XZPFEZW NAIL, 6 OR MORE 03/14/2012 91321-ECAENGW NAIL, 6 OR MORE 06/02/2012 42976-SKPSGBA NAIL, 6 OR MORE 08/25/2012 15700-LCSBXWS NAIL, 6 OR MORE 12/09/2020 69034-EEOQNFE NAIL, 6 OR MORE 02/17/2021 29395-VOTVAQU NAIL, 6 OR MORE 05/05/2021 74694-MTYZNBT NAIL, 6 OR MORE 08/04/2021 40339-QRPGTJF NAIL, 6 OR MORE 10/09/2021 23064-SYQPSND NAIL, 6 OR MORE 06/22/2022 17759-SJLTLRU NAIL, 6 OR MORE 09/10/2022 50502-IZVLZRW NAIL, 6 OR MORE 07/08/2020 48312-UCSZKBZ NAIL, 6 OR MORE 11/19/2022 78876-XMDRANL NAIL, 6 OR MORE 01/21/2023 69033-KLIROKK NAIL, 6 OR MORE 04/05/2023 55205-AWCTQAY NAIL, 6 OR MORE 06/14/2023 29674-LIWGEZL NAIL, 6 OR MORE 08/23/2023 34698-BIJAEAV NAIL, 6 OR MORE 11/01/2023 15418-YIOFSHJ NAIL, 6 OR MORE 01/24/2024 65448-GOLMQBE NAIL, 6 OR MORE 04/03/2024 51247-IFJTZVJ NAIL, 6 OR MORE 06/15/2024 77659-VKDNGLL NAIL, 6 OR MORE 08/17/2024 69399-FOQKETD NAIL, 6 OR MORE 11/16/2024 37995-ZAPQKEE NAIL, 6 OR MORE 10/31/2018 02447-LXCBJIM NAIL, 6 OR MORE 07/21/2018 10568-LALRXMJ NAIL, 6 OR MORE 05/02/2018 36669-UTWJSTL NAIL, 6 OR MORE 05/06/2017 73979-MAVAXAM NAIL, 6 OR MORE 02/04/2017 72399-JBZQZQW NAIL, 6 OR MORE 04/27/2016 19714-BOSTZKA NAIL, 6 OR MORE 02/08/2014 96558-CMFIHQE NAIL, 6 OR MORE 11/13/2013 45744-ECVAUDO NAIL, 6 OR MORE 08/07/2013 54777-BBLFLCZ NAIL, 6 OR MORE 06/01/2013 11496-AIUIDWY NAIL, 6 OR MORE 04/03/2013 91161-CAWWNKO NAIL, 6 OR MORE 10/01/2011 55289-WOBVEHJ NAIL, 6 OR MORE 04/02/2022 01620-IZWXCRI NAIL, 6 OR MORE 01/05/2022 96025-LYWXOUW NAIL, 6 OR MORE 09/30/2020 76852-QMTPDJF NAIL, 6 OR MORE 09/11/2019 68147-Grhworhn Plate 04/05/2023 85690-Zoftdbgs Plate 08/23/2023 32584-Nqlgxlqh Plate 06/14/2023 13228-Feguomki Plate 08/25/2012 33076-Evpettxv Plate 03/14/2012 17350-Dwxgscvf Plate 12/17/2011 95230-Apmpxzof Plate Each Additional 57227-Fbrygopm Plate Each Additional 11/2011 29995-PUZB SKIN LESIONS, 2 TO 4 09/10/20 65710-JXRX SKIN LESIONS, 2 TO 4 11/27/19 20 91949-AWOV SKIN LESIONS, 2 TO 4 06/14/20 23 17960-HGEI SKIN LESIONS, 2 TO 4 08/23/20 23 74958-YIGR SKIN LESIONS, 2 TO 4 01/24/20 24 49871-CJMB SKIN LESIONS, 2 TO 4 11/01/19 24 17147-EWNG SKIN LESIONS, 2 TO 4 04/05/20 23 50117-WUCM SKIN LESIONS, 2 TO 4 01/22/20 46584-DVII SKIN LESIONS, 2 TO 4 11/19/19 23 96250-MVIP SKIN LESIONS, 2 TO 4 07/08/20 84474-BQYQ SKIN LESIONS, 2 TO 4 11/16/19 46007-ZSLV SKIN LESIONS, 2 TO 4 08/17/20 73951-UYFV SKIN LESIONS, 2 TO 4 06/15/20 58274-LWPS SKIN LESIONS, 2 TO 4 04/03/20 72772-ADZX SKIN LESIONS, 2 TO 4 09/11/20 20860-XAYF SKIN LESIONS, 2 TO 4 09/30/20 Next Appt Details Provider Name:Jona Vasques , 03/08/2025 12:15:00 PM, [address] [place] [address], [phone], Provider Name:Jona Vasques , 03/26/2025 03:45:00 PM, [address] [place] [address], [phone], Insurance Providers Payer Name Payer Address Payer Phone Subscriber Number Group Number Insured Name Patient Relationship to Insured Coverage Start Date Coverage End Date [employer] 65 Medicare Preferred [address] [place] [address] [id number] Paula Baum Self - patient is the insured Medical (General) History Medical History History ICD Code mumps measles chicken pox Cholesterol Arthritis type II diabetes Vericose Veins Transfusions Anemia Surgical History Surgery Date(Month/Year) leg surgery 2008 left wrist surgery 2011 blood transfusion x2 03/16/18 carazation - Left eye 03/18/2018 laser vein surgery 2010 vein surgery 11/12/22 right microphlebectomy 12/31/22 Left microphlebectomy colonoscopy 05/11/24 endoscopy 05/11/24 Iron transfusion 05/11/24 Left Cataract surgery 08/01/24 Hospitalization History Reason Date(Month/Year) [facility]- Rectum bleeding 05/11/24 [facility]- blood count down to 5.5 - 3 blood t ransfusions 07/20/23-07/22/23 [facility] nose bleed 03/16/2018 [facility] [place] 03/09/2018 [facility] nose bleed 03/07/2018 [facility] Kidney stones 04/2016
== END ==
LOC: HO.CARD 09:41
PROVIDERS: PCP Internal Medicine; Visit Provider Internal Medicine
DX: R60.0 Localized edema (principal)
CPT/HCPCS: 93306

== ENCOUNTER → 2025-01-29 09:44 | Outpatient (BNV) | payer MEDICARE, SELFPAY | PROVIDERS: PCP Internal Medicine; Visit Provider Internal Medicine | DX: I35.0 Nonrheumatic aortic (valve) stenosis (principal); I35.8 Other nonrheumatic aortic valve disorders; I34.81 Nonrheumatic mitral (valve) annulus calcification | CPT/HCPCS: 93306 ==

== ENCOUNTER 2025-02-01 09:19 | Outpatient (REF) | payer MEDICARE, SELFPAY ==
[2025-02-01 10:40] LABS: Estimated Average Glucose 123 mg/dL; Hemoglobin A1C 111.2172 umol/L; Hemoglobin A1c % 5.9 % (<6.0); Total Hemoglobin (HGBA1C) 2740.4892 umol/L
[2025-02-01 10:50] LABS: Alanine Aminotransferase 22 U/L (0-31); Anion Gap 13 (12-20); Aspartate Amino Transferase 55 U/L (5-31); Blood Urea Nitrogen 11 mg/dL (9-16); Calcium 9.4 mg/dL (8.4-10.2); Carbon Dioxide 29 mmol/L (22-29); Chloride 104 mmol/L (96-108); Cholesterol 114 mg/dL (<200); Estimated Glomerular Filt Rate > 60; Glucose Fasting 107 mg/dL (60-99); HDL Cholesterol 43 mg/dL (>40); LDL Cholesterol Calculated 61 mg/dL (<100); Sodium 142 mmol/L (135-145); Triglycerides 51 mg/dL (<150)
[2025-02-01 11:04] LABS: Vitamin D 25-OH Total 46.1 ng/mL (>30)
[2025-02-01 16:46] LABS: Creatinine Urine 131.57 mg/dL; Microalbum/Creatinine Ratio Ur 5.3 ug/mg cr (<30)
== END 2025-02-01 09:20 | disposition home or self-care (01) ==
LOC: HO.HMGCLDS 09:19
PROVIDERS: PCP Internal Medicine; Visit Provider Internal Medicine
DX: M85.89 Other specified disorders of bone density and structure, multiple sites (principal); E11.9 Type 2 diabetes mellitus without complications; E78.5 Hyperlipidemia, unspecified; J45.20 Mild intermittent asthma, uncomplicated
CPT/HCPCS: 36415; 80048; 80061; 82043; 82306; 82570; 83036; 84450; 84460

== ENCOUNTER 2025-02-05 07:58 | Outpatient (REF) | payer MEDICARE, SELFPAY ==
[2025-02-05 10:59] LABS: B Type Natriuretic Peptide 43 pg/mL (<100)
== END 2025-02-05 07:59 | disposition home or self-care (01) ==
LOC: HO.HMGCLDS 07:58
PROVIDERS: PCP Internal Medicine; Visit Provider Internal Medicine
DX: E11.9 Type 2 diabetes mellitus without complications (principal); E78.5 Hyperlipidemia, unspecified; R60.0 Localized edema; I35.0 Nonrheumatic aortic (valve) stenosis; D50.0 Iron deficiency anemia secondary to blood loss (chronic)
CPT/HCPCS: 36415; 83880; 96127; 99212

== ENCOUNTER 2025-02-05 07:58 | Outpatient (AMB) | payer MEDICARE, SELFPAY ==
--- NOTE | 2025-02-05 08:09 | A.OFFPC_ITS ---
Vital Signs 02/05/25 08:16 Height 5 ft 3 in Weight 246 lb BMI 43.6 BP 128/62 Blood Pressure Location Rt brachial Position Sitting Respiration 16 Pulse 84 Pulse Source Pulse Oximeter Temp 98.0 F Temp Source Oral Pulse Oximetry (%) 97 Oxygen Delivery Method Room Air Intake Visit Reasons: 3 months f/up Intake Note: Pt is here today for 3mo. f/u Allergies benzethonium chloride [From LANACANE ANTI-ITCH] Allergy (Unknown, Verified 02/17/25 16:19) BLISTERS IN MOUTH benzocaine [From LANACANE ANTI-ITCH] Allergy (Unknown, Verified 02/17/25 16:19) BLISTERS IN MOUTH cortisone [CORTISONE] Allergy (Unknown, Verified 02/17/25 16:19) BLISTERS IN MOUTH, LOST SENSE OF TASTE ibuprofen Allergy (Unknown, Verified 02/17/25 16:19) nose bleed naproxen Allergy (Unknown, Verified 02/17/25 16:19) nose bleed triamcinolone [Kenalog] Allergy (Unknown, Verified 02/17/25 16:19) unknown Medication List - Last Reconciled 02/17/25 by Daniela Eduardo MD albuterol sulfate 90 mcg/actuation 2 puffs PO Q6H PRN blood sugar diagnostic As directed blood sugar diagnostic ([employer] Verio test strips) USE TO TEST BLOOD SUGAR TWICE A DAY cholecalciferol (vitamin D3) 50 mcg PO DAILY coenzyme Q10 100 mg PO DAILY ferrous sulfate 325 mg PO ONCE PRN furosemide 20 mg PO QAM lancets (OneTouch Delica Plus Lancet) As directed twice a day ac metformin 1,000 mg PO BID pioglitazone (Actos) 15 mg PO DAILY pravastatin 20 mg PO BEDTIME Tobacco use date assessed: 02/05/25 Fall risk assessment: No Falls in past year Last assessed Fall Risk: 02/05/25 Dental Screening Dental Screen Date: 09/26/24 HPI 3 months f/up HPI Details 74 year old lady with history of iron-d eficiency anemia, diabetes mellitus, hyperlipidemia, here today for her follow-up. She has feeling well, compliant with taking her medications, latest fasting labs showed uses mellitus and lipids well controlled on present treatment. Denies any chest pain or shortness of breath, occasionally gets swelling in both lower extremities worse towards the end of the day and improves when she elevates legs. Had an echocardiogram done earlier this month which showed presence of progression in her aortic stenosis. Patient however remains asymptomatic [facility] Medical History (Updated 02/11/25 @ 16:52 by Daniela Eduardo MD) Varicose veins of both legs with edema Moderate aortic valve stenosis Varicose veins of right lower extremity with inflammation Normal capsule endoscopy of gastrointestinal tract History of GI diverticular bleed Osteopenia of multiple sites Fatty liver Varicose veins of bilateral lower extremities with pain Type 2 diabetes mellitus without complication, without long-term current use of insulin Thrombocytopenia Osteoarthritis of multiple joints Hammertoes of both feet Colonoscopy refused Mild intermittent asthma in adult without complication Dyslipidemia Type 2 diabetes mellitus with hyperglycemia, without long-term current use of insulin Surgical History History of esophagogastroduodenoscopy (EGD) Hx of colonoscopy Hx of varicose vein ligation History of surgery on lower extremity H/O left wrist surgery Family History Mother Breast cancer Arthralgia of both feet Arthritis Brother Arthritis Brother No problems noted. Social History Household Members: None Housing: Condominium Do you presently have visiting nurse or other home services: No Alcohol intake: current Alcohol intake frequency: holidays/special occasions only Comment: call garcia within reach Patient Tobacco Use Status: Never used Tobacco e-Cigarette/Vaping Use: Never Used Second Hand Smoke Exposure: No service: No Current occupational status: retired Cognitive needs: No Hearing needs: No Vision needs: Yes Questionnaire PHQ-9 Over the last 2 weeks, how often have you been bothered by any of the following problems? 1. Little interest or pleasure in doing things: not at all 2. Feeling down, depressed, or hopeless: not at all 3. Trouble falling or staying asleep, or sleeping too much: not at all 4. Feeling tired or having little energy: not at all 5. Poor appetite or overeating: not at all 6. Feeling bad about yourself - or that you are a failure or have let yourself or your family down: not at all 7. Trouble concentrating on things, such as reading the newspaper or watching television: not at all 8. Moving or speaking so slowly that other people could have noticed. Or the opposite - being so fidgety or restless that you have been moving around a lot more than usual: not at all 9. Thoughts that you would be better off or of hurting yourself in some way: not at all Total score: 0 Depression Screening Interpretation: Negative Depression Screening Done: Yes 69031 - PHQ-9 Billing: Yes Source: Developed by Drs. Callum Gomez, Chiquita Simon, Sharath Anna and colleagues, with an educational sy from [employer]. Thrive Questionnaire Date Thrive assessed: 07/16/24 I am a: Patient What is your living situation today?: I have a steady place to live Within the past 12 months, did the food you bought not last and you didn't have the money to get more?: Never true Within the past 12 months, did you worry whether your food would run out before you got money to buy more?: Never true Do you have trouble paying for medicines?: No Do you have trouble getting transportation to medical appointments?: Yes Do you have trouble paying your heating and electricity bill?: No Do you have trouble taking care of your child, family member or friend?: No Do you have trouble with day-to-day activities such as bathing, preparing meals, shopping, managing finances, etc.?: No Are you currently unemployed and looking for a job?: No Are you interested in more education?: No Please select the resources that you would like help with: Transportation Currently or been in a relationship where the following occur: No concerns reported THRIVE Score: 1 AUDIT C Alcohol Use Questionnaire (AUDIT-C) 1. How often do you have a drink containing alcohol?: Monthly or less 2. How many drinks containing alcohol do you have on a typical day when you are drinking?: 1 or 2 3. How often do you have six or more drinks on one occasion?: Never Total Score: 1 FABRIZIO-7 AMB Questionnaire FABRIZIO-7 Date FABRIZIO - 7 assessed: 07/16/24 Feeling nervous, anxious, or on edge: 0 = Not at all Not being able to stop or control worryin = Not at all Worrying too much about different things: 0 = Not at all Trouble relaxin = Not at all Being so restless that it is hard to sit still: 0 = Not at all Becoming easily annoyed or irritable: 0 = Not at all Feeling afraid as if something awful might happen: 0 = Not at all Total FABRIZIO-7 score (0-4 normal; 5-9 mild; 10-14 moderate; 15-21 severe): 0 Source: Developed by Drs. Callum Gomez, Chiquita Simon, Sharath Anna and colleagues, with an educational sy from [employer]. Review of Systems Const All systems reviewed & are unremarkable except as noted in HPI and below Denies body aches, Denies fever(s), Denies headache(s) and Denies weakness ENT Denies dizziness, Denies headache(s), Denies nasal congestion and Denies nasal discharge Card Denies chest pain, Denies lightheadedness, Denies palpitations and Denies dyspnea Resp Denies chest congestion, Denies cough, Denies dyspnea and Denies wheezing GI Denies abdominal pain, Denies change in bowel habits and Denies heartburn Denies urinary frequency, Denies dysuria and Denies urinary urgency Musc Reports arthralgias, Reports muscle cramps and Reports stiffness Skin/Breast Denies lesions and Denies rash Neuro Denies dizziness, Denies headache(s) and Denies weakness Psych Reports no additional complaints Endo Denies polydipsia, Denies polyuria and Denies palpitations Abhilash/Lymph Reports easy bruising Aller/Immun Denies seasonal rhinorrhea and Denies wheezing Physical exam (Primary Care) Vital Signs: Last Vital Signs Temp 98.0 F 02/05/25 08:16 Pulse 84 02/05/25 08:16 Resp 16 02/05/25 08:16 BP 128/62 02/05/25 08:16 Pulse Ox 97 02/05/25 08:16 Oxygen Delivery Method Room Air 02/05/25 08:16 BMI result Body Mass Index 43.6 Tobacco/Smoking Status: Tobacco use Status Tobacco use date assessed 02/05/25 02/05/25 08:26 Patient Tobacco Use Status Never used Tobacco 02/05/25 08:11 e-Cigarette/Vaping Use Never Used 02/05/25 08:11 PHQ-9: PHQ-9 Score PHQ-9: Total score 0 02/17/25 16:21 Depression Screening Interpretation: Negative Thrive Assessment: Date of Thrive Assessment Date Thrive assessed 07/16/24 02/05/25 08:11 Currently or been in a relationship where the following occur: No concerns reported Const General: comfortable, no acute distress and alert Orientation/consciousness: patient oriented x3 HENMT Ears: external ears normal General nose exam: Normal external nose present Mouth: Normal oral and palatal mucosa present and moist mucous membranes Eyes General: appearance normal, both eyes and all related structures Conjunctivae: conjunctivae normal Sclerae: sclerae normal Pupils: Equal, round and reactive pupils present EOM: EOMs intact bilaterally Neck Neck: Yes full ROM, Yes no lymphadenopathy and Yes supple Resp Effort & Inspection: normal respiratory effort and able to speak in complete sentences Auscultation: clear to auscultation bilaterally Cardio Rate: regular rate Rhythm: regular rhythm Heart sounds: S1 normal heart sound present, S2 normal heart sound present and Murmur heart sound present systolic mid and at the right sternal border GI Palpation (GI): Soft to palpation, nontender and no masses Auscultation: normal bowel sounds Back/Spine/Pelvis Back: No back tenderness Skin General skin exam: no rashes or lesions noted Neuro General: patient oriented x3, gait normal, tone normal, moves all extremities, Normal light touch and pain sensation and no focal motor deficits Cranial nerves: Yes CN's II-XII intact bilaterally and Yes Equal, round and reactive pupils present Cognition (Neuro): normal cognition Extrem General: Yes full ROM, Yes no joint enlargement, Yes no clubbing, cyanosis or edema and Yes no calf tenderness Psych Appearance: grossly normal and well kempt Mental Status: mental status grossly normal Speech and movement: Normal speech and movement present Affect: normal affect Thought process: Normal thought process present Results Reviewed Results Reviewed: Name: Paula Baum Age/Sex: 73/F : 1950 Unit#: [id number] Attend Dr: Figueroa Horner MD Re11/26/24 Status: DEP ER Location: [facility] Disch: SPEC : [id number] SANGITA: 11/26/24 STATUS: COMP REQ : [id number] RECD: 11/26/[address]: Lou Yin COMP: 11/26/24 ENTERED: 11/26/[address]: ORDERED: CBC Auto Diff Test Result Flag Reference WBC 5.3 4.8-10.8 X10*3/uL RBC 4.09 L 4.20-5.50 X10*6/uL HGB 11.0 L 12.0-16.0 g/dl HCT 34.4 L 37.0-47.0 % MCV 84.1 80.0-98.0 fL MCH 26.9 L 27.0-33.0 pg MCHC 32.0 31.0-35.0 g/dl RDW 18.2 H 11.0-16.0 % PLT 96 L 160-400 X10*3/uL MPV 10.3 9.4-12.3 fL Neut Pct Auto 68.1 45-73 % ImGran Pct Auto 0.4 0.0-0.4 % Lymp Pct Auto 18.9 L 20-40 % Keith Pct Auto 11.2 H 2-11 % Eos Pct Auto 1.0 0-4 % Baso Pct Auto 0.4 0-2 % NRBC Pct Auto 0.0 0.0-0.2 /100WBC ANC Neut Abs # 3.6 2.0-8.3 x10*3/uL ImGran Abs Auto 0.02 0.00-0.03 X10*3/uL Lymph Abs Auto 1.0 L 1.2-4.9 X10*3/uL Keith Abs Auto 0.6 0.1-1.2 X10*3/uL Eos Abs Auto 0.1 0.0-0.4 X10*3/uL Baso Abs Auto 0.0 0.0-0.2 X10*3/uL NRBC Abs Auto 0.000 0.0-0.012 X10*3/uL letty: Paula Baum Age/Sex: 74/F : 1950 Unit#: [id number] Attend Dr: Daniela Eduardo MD Re02/01/25 Status: DEP REF Location: [facility] Disch: SPEC : [id number] SANGITA: 02/01/25 STATUS: COMP REQ : [id number] RECD: 02/01/25-[address]: Daniela Eduardo MD COMP: 02/01/25 ENTERED: 02/01/[address]: ORDERED: Met Prof Fast, AST, ALT, Lipid Panel, Vitamin D 25-OH Test Result Flag Reference Sodium 142 135-145 mmol/L Potassium 4.0 3.3-5.1 mmol/L CL 104 96-108 mmol/L CO2 29 22-29 mmol/L Gap 13 12-20 BUN 11 9-16 mg/dL Creat 0.63 0.5-1.4 mg/dL eGFR > 60 Chronic Kidney Disease: Estimated GFR < 60 mL/mi n/1.73m2 Severe Kidney Disease: Estimated GFR < 15 mL/min/1.73m2 FBS 107 H 60-99 mg/dL A fasting glucose from 100-125 mg/dl is considered impaired (pre-diabetes). CA 9.4 # 8.4-10.2 mg/dL AST (GOT) 55 H 5-31 U/L ALT (GPT) 22 0-31 U/L Triglyceride 51 <150 mg/dL Desirable Triglyceride: less than 150 mg/dL Borderline High Triglyceride 150-199 mg/dL High Triglyceride: 200-499 mg/dL Very High Triglyceride: greater than or equal to 5OO mg/dL Cholesterol 114 <200 mg/dL Desirable Cholesterol: less than 200 mg/dL Borderline High Cholesterol: 200-239 mg/dL High Cholesterol: greater than 239 mg/dL LDL Calculated 61 <100 mg/dL Desirable LDL: less than 100 mg/dL Near Optimal/Above Optimal LDL: 110-129 mg/dL Borderline High LDL: 130-159 mg/dL High LDL: 160-189 mg/dL Very High LDL: greater than or equal to 190 mg/dL HDL 43 >40 mg/dL Desirable HDL: greater than 40 mg/dL Note: This HDL assay may give artificially low results in patients with liver disease. Vitamin D 25-OH 46.1 >30 ng/mL Health Based Reference Values* < 20 ng/mL Deficient 20-30 ng/mL Insufficient > 30 ng/mL Sufficient Laboratory Tests 02/01/25 09:35 Estimat Average Glucose 123 Hemoglobin A1c % 5.9 Coding Level of Care Code Est Pt Level 4 (50780) Complex EM visit Add On G2211 Diagnoses Type 2 diabetes mellitus without complication, without long-term current use of insulin E11.9 Dyslipidemia E78.5 Peripheral edema R60.0 Moderate aortic valve stenosis I35.0 Iron deficiency anemia due to chronic blood loss D50.0 Anemia type: iron deficiency Iron deficiency anemia type: chronic blood loss Additional Codes PHQ-9 - 90002 - PHQ-9 Billing: Yes ([id number]) Assessment & Plan Assessment & Plan (1) Type 2 diabetes mellitus without complication, without long-term current use of insulin: Code(s): E11.9 - Type 2 diabetes mellitus without complications Category: Medical Plan: Diabetes mellitus well controlled, continued on metformin a 1000 mg 1 tablet twice a day and pioglitazone 15 mg daily (2) Dyslipidemia: Code(s): E78.5 - Hyperlipidemia, unspecified Category: Medical Plan: Fasting lipids are within normal limits, continued on pravastatin 20 mg at bedtime (3) Peripheral edema: Code(s): R60.0 - Localized edema Category: Medical Plan: Bilateral leg swelling likely related to her weight and poor circulation. Bilateral lower extremity Doppler in November was negative. (4) Moderate aortic valve stenosis: Code(s): I35.0 - Nonrheumatic aortic (valve) stenosis Category: Medical Plan: Noted to have any progression in her aortic valve stenosis on latest echocardiogram done 01/29/2025, cardiology consult ordered. (5) Anemia: Code(s): D64.9 - Anemia, unspecified Category: Medical Qualifiers: Anemia type: iron deficiency Iron deficiency anemia type: chronic blood loss Qualified Code(s): D50.0 - Iron deficiency anemia secondary to blood loss (chronic) Plan: Followed by hematology, continue iron supplements Orders: Orders Aspartate Amino Transferase 07/24/25 E11.9 - Type 2 diabetes mellitus without complications, E78.5 - Hyperlipidemia, unspecified Lipid Panel 07/24/25 E11.9 - Type 2 diabetes mellitus without complications, E78.5 - Hyperlipidemia, unspecified Basic Metabolic Panel Fasting 07/24/25 E11.9 - Type 2 diabetes mellitus without complications, E78.5 - Hyperlipidemia, unspecified B Type Natriuretic Peptide 02/05/25 R60.0 - Localized edema Hemoglobin A1c 07/24/25 E11.9 - Type 2 diabetes mellitus without complications, E78.5 - Hyperlipidemia, unspecified Alanine Aminotransferase 07/24/25 E11.9 - Type 2 diabetes mellitus without complications, E78.5 - Hyperlipidemia, unspecified Referrals Cardiology Referral I35.0 - Nonrheumatic aortic (valve) stenosis, R60.0 - Localized edema
[2025-02-05 08:16] VITALS: BP 128/62; PULSE 84; RESP 16; TEMP 36.7; O2SAT 97; BMI 43.6
== END 2025-02-05 08:54 | disposition home or self-care (01) ==
LOC: HO.HMCC 07:59
PROVIDERS: PCP Internal Medicine; Visit Provider Internal Medicine
DX: E11.9 Type 2 diabetes mellitus without complications (principal); E78.5 Hyperlipidemia, unspecified; R60.0 Localized edema; I35.0 Nonrheumatic aortic (valve) stenosis; D50.0 Iron deficiency anemia secondary to blood loss (chronic)

== ENCOUNTER 2025-02-11 10:08 | Outpatient (AMB) | payer MEDICARE, SELFPAY ==
--- NOTE | 2025-02-11 10:09 | MHC.OFFWIV ---
Intake Vital Signs 02/11/25 10:12 Weight 248 lb BP 136/90 H Blood Pressure Location Lt brachial Position Sitting Pulse 78 Pulse Source Pulse Oximeter Pulse Oximetry (%) 96 Oxygen Delivery Method Room Air Intake Visit Reasons: EP swollen feet, lump on elbow Intake Note: Patient here for bilat leg and feet swelling. Patient Tobacco Use Status: Never used Tobacco Allergies benzethonium chloride [From LANACANE ANTI-ITCH] Allergy (Unknown, Verified 02/11/25 10:15) BLISTERS IN MOUTH benzocaine [From LANACANE ANTI-ITCH] Allergy (Unknown, Verified 02/11/25 10:15) BLISTERS IN MOUTH cortisone [CORTISONE] Allergy (Unknown, Verified 02/11/25 10:15) BLISTERS IN MOUTH, LOST SENSE OF TASTE ibuprofen Allergy (Unknown, Verified 02/11/25 10:15) nose bleed naproxen Allergy (Unknown, Verified 02/11/25 10:15) nose bleed triamcinolone [Kenalog] Allergy (Unknown, Verified 02/11/25 10:15) unknown Do you need a note to return to daycare/school/sports/work: No HPI HPI Comments History of Present Illness Details 74 y/o Female patient who presents to the walk in clinic with c/o B/L Peripheral Edema. This a chronic on going issue. She has H/o Varicose Veins, had Procedure done by Dr. García (Vascular) on 02/2023. Was recently seen at [facility] for this issue; U/S Lower extremities and chest Xray Unremarkable. BNP negative. Had an Echo 01/29/25 that showed: The left ventricular systolic function is normal. The calculated ejection fraction is 66% by biplane method. There is mild to moderate aortic valve stenosis. There is severe mitral annular calcification. Today denies chest Pains, dizziness, headaches, nausea, vomiting, SOB or wheezing. Pt does not wear her Compression stockings. PCP requested Patient receives Furosemide and Follow up with her sooner. PCP also recommended probably Patient to f/u with Dr. García (Vascular). PCP to place a referral. Pt c/o Left Elbow Cyst. [facility] Medical History (Updated 02/05/25 @ 08:55 by Daniela Eduardo MD) Moderate aortic valve stenosis Varicose veins of right lower extremity with inflammation Normal capsule endoscopy of gastrointestinal tract History of GI diverticular bleed Osteopenia of multiple sites Fatty liver Varicose veins of bilateral lower extremities with pain Type 2 diabetes mellitus without complication, without long-term current use of insulin Thrombocytopenia Osteoarthritis of multiple joints Hammertoes of both feet Colonoscopy refused Mild intermittent asthma in adult without complication Dyslipidemia Type 2 diabetes mellitus with hyperglycemia, without long-term current use of insulin Surgical History History of esophagogastroduodenoscopy (EGD) Hx of colonoscopy Hx of varicose vein ligation History of surgery on lower extremity H/O left wrist surgery Family History Mother Breast cancer Arthralgia of both feet Arthritis Brother Arthritis Brother No problems noted. Social History Household Members: None Housing: [facility] Do you presently have visiting nurse or other home services: No Alcohol intake: current Alcohol intake frequency: holidays/special occasions only Comment: call garcia within reach Patient Tobacco Use Status: Never used Tobacco e-Cigarette/Vaping Use: Never Used Second Hand Smoke Exposure: No service: No Current occupational status: retired Cognitive needs: No Hearing needs: No Vision needs: Yes Review of Systems Const All systems reviewed & are unremarkable except as noted in HPI and below Physical Exam Vital Signs: Last Vital Signs Pulse 78 02/11/25 10:12 BP 136/90 H 02/11/25 10:12 Pulse Ox 96 02/11/25 10:12 Oxygen Delivery Method Room Air 02/11/25 10:12 Const General: no acute distress Nutritional Appearance: obese Orientation/consciousness: patient oriented x3 Resp Effort & Inspection: normal respiratory effort Auscultation: clear to auscultation bilaterally Cardio Heart sounds: S1 normal heart sound present and S2 normal heart sound present Neuro General: patient oriented x3, gait normal and moves all extremities Extrem Right lower extremity: full ROM and lower leg Details: tenderness Location: of the posterior calf and pitting edema Details: 2+; no crepitus Left lower extremity: full ROM and lower leg Details: pitting edema Details: 2+; no erythema and no crepitus Psych Speech and movement: Normal speech and movement present Assessment & Plan Assessment & Plan (1) Peripheral edema: Code(s): R60.0 - Localized edema Plan: Ordered Furosemide as requested for 10 days. Patient to be scheduled with PCP for f/u Advised Patient to wear Compression stockings at all times. Will Have PCP place referral to Dr. García ([facility]). Medications: New furosemide 20 mg PO QAM 10 tabs 0RF R60.0 - Localized edema Discontinued cetirizine Discontinued Reason: Patient Completed Course 10 mg PO BEDTIME PRN 90 tabs 1RF Postnasal drainage furosemide Discontinued Reason: Patient Completed Course 20 mg PO QAM PRN 5 tabs 0RF Leg swelling Coding Level of Care Code Est Pt Level 4 (64356) Diagnoses Peripheral edema R60.0 Time Spent (min) 20
[2025-02-11 10:12] VITALS: BP 136/90; PULSE 78; O2SAT 96
== END 2025-02-11 10:42 | disposition home or self-care (01) ==
PROVIDERS: PCP Internal Medicine; Visit Provider Nurse Practitioner Family
DX: R60.0 Localized edema (principal)

== ENCOUNTER → 2025-02-11 10:08 | Outpatient (BNVA) | payer MEDICARE, SELFPAY | PROVIDERS: PCP Internal Medicine; Visit Provider Nurse Practitioner Family | DX: R60.0 Localized edema (principal) | CPT/HCPCS: 99212 ==

== ENCOUNTER 2025-02-21 10:54 | Outpatient (AMB) | payer MEDICARE, SELFPAY ==
--- NOTE | 2025-02-21 11:15 | A.OFFVIS_ITS ---
Intake Visit Reasons: follow up VV w/ Hx of Ablation/Micros Intake Note: Patient presents for VV. Patient states her legs and feet are heavy and swollen. Left leg is worse. Accompanied by: Self / Same As Patient Allergies benzethonium chloride [From LANACANE ANTI-ITCH] Allergy (Unknown, Verified 02/21/25 11:23) BLISTERS IN MOUTH benzocaine [From LANACANE ANTI-ITCH] Allergy (Unknown, Verified 02/21/25 11:23) BLISTERS IN MOUTH cortisone [CORTISONE] Allergy (Unknown, Verified 02/21/25 11:23) BLISTERS IN MOUTH, LOST SENSE OF TASTE ibuprofen Allergy (Unknown, Verified 02/21/25 11:23) nose bleed naproxen Allergy (Unknown, Verified 02/21/25 11:23) nose bleed triamcinolone [Kenalog] Allergy (Unknown, Verified 02/21/25 11:23) unknown HPI HPI follow up VV w/ Hx of Ablation/Micros: Details: The patient is a 74-year-old female presenting for venous reevaluation due to bilateral lower extremity swelling and heaviness. She has a significant history involving chronic venous insufficiency, with several surgical interventions including a left leg microphlebectomy on 03/04/2023, and right lower extremity procedures such as right great saphenous vein ablation and a right leg microphlebectomy earlier in the year. The patient expresses chronic bilateral lower extremity edema, affecting her mobility and ability to wear shoes due to significant swelling in her feet and ankles that worsened dramatically over a weekend in early November 2022, prompting emergency evaluation. The patient has a history of heart murmur for which she has undergone echocardi ographic evaluation and BNP testing, alongside her vascular concerns. She expresses frustration with the recurrence of symptoms after initial improvement post-surgery. Her reported balance issues and historical wrist fractures contribute to reduced physical activity despite intentions to maintain mobility. She now presents for vascular re-evaluation. [facility] Medical History (Updated 02/21/25 @ 15:10 by Aron García MD) Varicose veins of right lower extremity with inflammation Varicose veins of both legs with edema Moderate aortic valve stenosis Normal capsule endoscopy of gastrointestinal tract History of GI diverticular bleed Osteopenia of multiple sites Fatty liver Varicose veins of bilateral lower extremities with pain Type 2 diabetes mellitus without complication, without long-term current use of insulin Thrombocytopenia Osteoarthritis of multiple joints Hammertoes of both feet Colonoscopy refused Mild intermittent asthma in adult without complication Dyslipidemia Type 2 diabetes mellitus with hyperglycemia, without long-term current use of insulin Surgical History History of esophagogastroduodenoscopy (EGD) Hx of colonoscopy Hx of varicose vein ligation History of surgery on lower extremity H/O left wrist surgery Family History Mother Breast cancer Arthralgia of both feet Arthritis Brother Arthritis Brother No problems noted. Social History Household Members: None [facility] Do you presently have visiting nurse or other home services: No Alcohol intake: current Alcohol intake frequency: holidays/special occasions only Comment: call garcia within reach Patient Tobacco Use Status: Never used Tobacco e-Cigarette/Vaping Use: Never Used Second Hand Smoke Exposure: No service: No Current occupational status: retired Cognitive needs: No Hearing needs: No Vision needs: Yes Review of Systems Const Reports as per HPI ENT Reports no additional complaints Card Denies chest pain, Denies chest pain at rest and Denies chest pain with activity Resp Denies chest congestion and Denies cough GI Reports no additional complaints Musc Details: pain over varicosities, aching of lower extremities, swelling, cramping, heaviness and tiredness, itching Denies abnormal gait Skin/Breast Reports pruritus and Denies wounds Neuro Reports no additional complaints and Denies abnormal gait Psych Denies no additional complaints Physical Exam Const General: cooperative, healthy appearing and comfortable Orientation/consciousness: oriented to person, oriented to place and oriented to time Neck Carotids: no bruits Chest Chest palpation & inspection: normal inspection of the chest and normal palpation of entire chest wall Resp Effort & Inspection: normal respiratory effort and able to speak in complete sentences Cardio Rate: regular rate Heart sounds: S1 normal heart sound present and S2 normal heart sound present Peripheral pulses: Peripheral pulses 2+ throughout GI Inspection: Yes normal to inspection Skin Other: +2 edema CEAP Classification C4 - skin color changes Ep - Etiology Primary As - superficial veins P - reflux General skin exam: dry skin Neuro General: oriented to person, oriented to place and oriented to time Extrem Right lower extremity: full ROM, normal capillary refill and edema Left lower extremity: full ROM, normal capillary refill and edema Psych Mental Status: mental status grossly normal Assessment & Plan Assessment & Plan (1) Varicose veins of right lower extremity with inflammation: Comment: 11/12/2022 - right great saphenous vein Cyanoacralate ablation 12/31/2022 -right leg microphlebectomy Code(s): I83.11 - Varicose veins of right lower extremity with inflammation Category: Medical Plan: In short patient has recurrent swelling. I have taken the liberty of ordering repeat venous insufficiency testing. She will follow up with us after testing. Thank you for allowing us to assist in her care. (2) Varicose veins of left lower extremity with inflammation: Comment: 03/04/2023 - left leg microphlebectomy Code(s): I83.12 - Varicose veins of left lower extremity with inflammation Category: Medical Plan: See above Orders: Orders US venous duplex LE BI 1 Week I83.11 - Varicose veins of right lower extremity with inflammation Coding Level of Care Code Est Pt Level 4 (65276) Diagnoses Varicose veins of right lower extremity with inflammation I83.11 Varicose veins of left lower extremity with inflammation I83.12
--- OUTSIDE RECORDS SUMMARY | 2025-02-21 12:35 | XMS_ITS ---
Author Organization [facility] [place] Address [address] [place] [address] Care Team Providers Care Bleach Plant Operator Name Role Phone Jayce MEDRANO, Daniela Messer Primary Care Provider Un available Jona Vasques Unavailable [phone] REASON FOR VISIT BUY 2 Toe Steel Encounters Encounter Location Date Provider Diagnosis [address] [address] 08/17/2024 Jona Vasques Plan Of Treatment Next Appt Details Provider Name:Jona Vasques , 02/22/2025 01:15:00 PM, [address] [place] [address], [phone], Provider Name:Jona Vasques , 03/26/2025 03:45:00 PM, [address] [place] [address], [phone], Progress Notes * Paula BAUMDOB:1950 (73 yo F)Acc No.[id number]:08/17/2024 Patient:?Paula Baum :1950???Age:73 Y???Sex:Female [facility] [place] [address] * true * Date:? Generated for Printi ng/Fadionisiog/eTransmitting on:?02/21/2025 12:35 PM EDT
--- OUTSIDE RECORDS SUMMARY | 2025-02-21 12:36 | XMS_ITS ---
Author Organization [facility] [place] Address [address] [place] [address] Care Team Providers Care Watch Inspector Name Role Phone Jayce MEDRANO, Daniela Messer Primary Care Provider Un available Jona Vasques Unavailable [phone] Allergies Allergen (clinical drug ingredient) Drug/Non Drug [...] Ordered Date Performed Result Body Sit e 70663-RABPMFK NAIL, 6 OR MORE 11/16/2024 N/A 02752-BQBY SKIN LESIONS, 2 TO 4 11/16/2024 N/A Encounters Encounter Location Date Provider Diagnosis [facility] [place] [address] [place] [address] 11/16/2024 Jona Vasques Type 2 diabetes mellitus [...] INSTRUCTIONS.pdf) Pending Test Test Name Order Date 26026-IZGXAWO NAIL, 6 OR MORE 11/16/2024 46789-KJCK SKIN LESIONS, 2 TO 4 11/16/19 25 Next Appt Details Follow Up: prn, Reason: Provider Name:Jona Vasques , 02/22/2025 01:15:00 PM, [address] [place] [address], [phone], Provider Name:Jona Vasques , 03/26/2025 03:45:00 PM, [address] [place] [address], [phone], Procedure Notes * Category Sub-Category Detail Notes [...] use of a nail nipper and/or dremel-type cutter grinder operator, to a more viable healthy nail [...] to maintain effectiveness in symptomatic relief - 11595 Keratoma Treatment Parring or Cutting o f [...] instrumentation by the physician of record - 23022, Q8 Progress Notes * Yenifer BAUM:1950 (73 yo F)Acc No.[id number]:11/16/2024 Progress Note Patient:?Paula BAUM Provider:?Jona Vasques DPM :1950???Age:73 Y???Sex:Female D ate:11/16/2024 Address:[address] [place], [place] [id number] Pcp:Louie Guerrero Subjective: * Chief Complaints: * [...] surgery 2010vein surgery 11/12/22right microphlebectomy 12/31/22Left microphlebectomy 88354mcuhnpdwzki 05/11/24endoscopy 05/11/24Iron transfusion 05/11/24Left Cataract surgery 08/01/24 * Hospitalization/Major Diagno stic Procedure:?[facility]2016[facility] nose bleed 03/07/2018[facility] [...] mouthyes[Allergies Verified] Objective: * Vitals:?Ht:5ft3in, Wt:132, B WI:23.38, Shoe size:10-11, BP:125/60mm Hg, BS:103, Ht-cm: 160.02 [...] mellitus with diabetic peripheral angiopathy without gangrene?Procedure: 84281-MGGX SKIN LESIONS, 2 TO 4 3.?Tinea unguium?Procedure: 94857-PGRMAAT NAIL, 6 OR MORE * Procedures:?Debride Nail [...] use of a nail nipper and/or dremel-type cutter grinder operator, to a more viable healthy nail [...] to maintain effectiveness in symptomatic relief - 87422.?Keratoma Treatment:?Parring or Cutting of Benign Hyperkeratotic Lesion(s)?(-56) [...] instrumentation by the physician of record - 44564, Q8.? * Procedure Codes:?25825 DEBRI DE NAIL, 6 OR MORE, Modifiers: XS 36434 TRIM SKIN LESIONS, 2 TO 4, Modifiers: [...] Provider:?Jona Vasques DPM Date:?2024 Generated for Kentrell moore/Darlin/Narda on:?02/21/2025 12:35 PM EDT History and Physical Notes * HPI [...]
--- OUTSIDE RECORDS SUMMARY | 2025-02-21 12:36 | XMS_ITS ---
Author Organization [facility] Address [address] [place] [address] Care Team Providers Care Nurse Supervisor Name Role Phone Jayce MEDRANO, Daniela Messer Primary Care Provider Un available Jona Vasques Unavailable [phone] [place] Encounters Encounter Location Date Provider Diagnosis [address] [address] 02/15/2025 Jona Vasques Plan Of Treatment Next Appt Details Provider Name:Jona Vasques , 02/22/2025 01:15:00 PM, [address] [place] [address], [phone], Provider Name:Jona Vasques , 03/26/2025 03:45:00 PM, [address] [place] [address], [phone], Progress Notes * Paula BAUMDOB:1950 (74 yo F)Acc No.[id number]:02/15/2025 Progress Note Patient:?Paula BAUM Provider:?Jona Vasques DPM :1950???Age:74 Y???Sex:Female D ate:02/15/2025 Address:[address] [place] [address] Pcp:Louie Guerrero Subjective: * Chief Complaints: * ???1. Dr Davenport. * Medical History:? Objective: * Vitals:? Assessment: Plan: * Treatment: * Images: * The named appointment provid er may or may not be the originator of this progress note, and it is not deemed complete until electronically signed by the appointment provider. Sign off status: Pending * Provider:Salomon Vasques DPM Date:?2024 Generated for Kentrell moore/Darlin/Narda on:?02/21/2025 12:35 PM EDT
--- OUTSIDE RECORDS SUMMARY | 2025-02-21 12:36 | XMS_ITS | Patient Health Record ---
Author Organization [facility] Address [address] [place] [address] Care Team Providers Care Configuration Management Specialist Name Role Phone Jayce MEDRANO, Daniela Messer Primary Care Provider Un available Jona Vasques Unavailable [phone] Allergies Allergen (clinical drug ingredient) Drug/Non Drug [...] Problem Acquired hammer toe of right foot (5470026905537 105) Other hammer toe(s) (acquired), right foot (M20.41) Active confirmed Response to treatment,I mprovement Problem Type 2 diabetes mellitus with peripheral angiopathy (214381876) Type 2 diabetes mellitus with diabetic peripheral angiopathy without gangrene (E11.51) Active confirmed Problem Acquired hammer toe of left foot (1858781285333 103) Other hammer toe(s) (acquired), left foot (M20.42) Active confirmed Response to treatment,I mprovement Vital Signs Blood pressure diastolic 60 mm Hg 11/16/2024 Height 5ft3in in 11/16/2024 Blood pressure systolic 125 mm Hg 11/16/2024 Weight 132 lbs 11/16/2024 BMI 23.38 kg/m2 11/16/2024 Procedures Procedure Date Ordered Date Performed Result Body Sit e 29806-FHKUEBC NAIL, 6 OR MORE 04/03/2024 N/A 15109-ZUNX SKIN LESIONS, 2 TO 4 04/03/2024 N/A 85547-VTARYWK NAIL, 6 OR MORE 06/15/2024 N/A 17623-YGXN SKIN LESIONS, 2 TO 4 06/15/2024 N/A 27440-YTSTWVY NAIL, 6 OR MORE 08/17/2024 N/A 07565-GUTW SKIN LESIONS, 2 TO 4 08/17/2024 N/A 51578-ORJEKKX NAIL, 6 OR MORE 11/16/2024 N/A 62214-ZZDI SKIN LESIONS, 2 TO 4 11/16/2024 N/A Encounters Encounter Location Date Provider Diagnosis [facility] [address] [place] [address] 04/03/2024 Jona Vasques Type 2 diabetes mellitus with diabetic peripheral angiopathy without gangrene E11.51 ; Tinea unguium B35.1 ; Pain in right toe(s) M79.674 and Pain in left toe(s) M79.[address] [address] 06/15/2024 Jona Vasques Type 2 diabetes mellitus with diabetic peripheral angiopathy without gangrene E11.51 ; Tinea unguium B35.1 ; Pain in right toe(s) M79.674 and Pain in left toe(s) M79.[address] [address] 08/17/2024 Jona Vasques Type 2 diabetes mellitus with diabetic peripheral angiopathy without gangrene E11.51 ; Tinea unguium B35.1 ; Pain in right toe(s) M79.674 and Pain in left toe(s) M79.[address] [address] 11/16/2024 Jona Vasques Type 2 diabetes mellitus with diabetic peripheral angiopathy without gangrene E11.51 ; Other hammer toe(s) (acquired), right foot M20.41 ; Tinea unguium B35.1 ; Pain in right toe(s) M79.674 ; Pain in left toe(s) M79.675 and Other hammer toe(s) (acquired), left foot M20.[address] [address] 08/17/2024 Jona Vasques Assessments Encounter Date Diagnosis (ICD Code) Assessment Notes Treatment Notes Treatment Clinical Notes Section Notes 04/03/2024 Type 2 diabetes mellitus with diabetic peripheral angiopathy without gangrene (ICD-10 - E11.51) 04/03/2024 Tinea unguium (ICD-10 - B35.1) 06/15/2024 Type 2 diabetes mellitus with diabetic [...] angiopathy without gangrene (ICD-10 - E11.51) 11/16/2024 Tinea unguium (ICD-10 - B35.1) 08/17/2024 Pain in right toe(s) (ICD-10 - M79.674) 04/03/2024 Pain in right toe(s) (ICD-10 - M79.674) 06/15/2024 Pain in right toe(s) (ICD-10 - M79.674) 08/17/2024 Pain in left toe(s) (ICD-10 - M79.675) 06/15/2024 Pain in left toe(s) (ICD-10 - M79.675) 04/03/2024 Pain in left toe(s) (ICD-10 - M79.675) 11/16/2024 Pain in right toe(s) (ICD-10 - M79.674) 11/16/2024 Pain in left toe(s) (ICD-10 - M79.675) 11/16/2024 Other hammer toe(s) (acquired), left foot (ICD-10 - M20.42) Plan Of Treatment Pending Test Test Name Order Date 11716-SZLLHIN NAIL, 6 OR MORE 11/03/2012 84413-HECUNQE NAIL, 6 OR MORE 01/23/2013 60496-IYCWPWF NAIL, 6 OR MORE 04/03/2013 80477-RFQRFXC NAIL, 6 OR MORE 06/01/2013 99940-KTMPQAB NAIL, 6 OR MORE 08/07/2013 28039-TCMMXQM NAIL, 6 OR MORE 11/13/2013 09877-NHXZLMG NAIL, 6 OR MORE 02/08/2014 72922-IQVIPED NAIL, 6 OR MORE 05/03/2014 27022-FZIUNMM NAIL, 6 OR MORE 07/09/2014 28321-UOBYYWD NAIL, 6 OR MORE 11/22/2014 15369-JVQYRVN NAIL, 6 OR MORE 02/04/2015 81982-ZJFVLAN NAIL, 6 OR MORE 04/22/2015 80320-NAZKTFH NAIL, 6 OR MORE 07/15/2015 43447-TSDMCHL NAIL, 6 OR MORE 10/28/2015 01843-BEDYUHS NAIL, 6 OR MORE 01/23/2016 20793-MSMXGYG NAIL, 6 OR MORE 04/27/2016 95698-RAZQRLZ NAIL, 6 OR MORE 07/30/2016 13412-OHOQGGY NAIL, 6 OR MORE 10/29/2016 76003-OBRIIDR NAIL, 6 OR MORE 02/04/2017 97396-KUGKFTE NAIL, 6 OR MORE 05/06/2017 57857-RPRBJTI NAIL, 6 OR MORE 08/05/2017 49264-BXEAPBO NAIL, 6 OR MORE 11/08/2017 32807-PBROWPC NAIL, 6 OR MORE 01/31/2018 07871-PWUCQBU NAIL, 6 OR MORE 05/02/2018 95220-JZGMPGC NAIL, 6 OR MORE 07/21/2018 98371-XBRSNOC NAIL, 6 OR MORE 10/31/2018 66769-SZFWAUO NAIL, 6 OR MORE 01/12/2019 20648-TMJSRWA NAIL, 6 OR MORE 04/03/2019 22855-PZKZONT NAIL, 6 OR MORE 07/03/2019 74336-MATNZXL NAIL, 6 OR MORE 09/11/2019 92781-IXTBHQE NAIL, 6 OR MORE 07/13/2011 96516-HURLRSM NAIL, 6 OR MORE 10/01/2011 85300-ILYJNEG NAIL, 6 OR MORE 12/17/2011 57701-CIJIHKV NAIL, 6 OR MORE 06/02/2012 53597-IASAQFP NAIL, 6 OR MORE 08/25/2012 64161-YVUOWYB NAIL, 6 OR MORE 03/14/2012 43293-PXQPEVU NAIL, 6 OR MORE 11/27/2019 26629-DDRFYJZ NAIL, 6 OR MORE 07/08/2020 09741-URNSLUM NAIL, 6 OR MORE 09/30/2020 89453-VPNLEOV NAIL, 6 OR MORE 12/09/2020 15128-JDDYOIJ NAIL, 6 OR MORE 02/17/2021 12285-RXKFULR NAIL, 6 OR MORE 05/05/2021 30365-GBMOSZH NAIL, 6 OR MORE 08/04/2021 49980-CBLSOKX NAIL, 6 OR MORE 10/09/2021 56915-DOKUPAP NAIL, 6 OR MORE 01/05/2022 85977-NCAJSPU NAIL, 6 OR MORE 04/02/2022 62666-LLGJEJH NAIL, 6 OR MORE 06/22/2022 53407-FTOXCPL NAIL, 6 OR MORE 09/10/2022 74986-KRXOGCX NAIL, 6 OR MORE 11/19/2022 59191-YUMVUTS NAIL, 6 OR MORE 01/21/2023 58819-HGZIEES NAIL, 6 OR MORE 04/05/2023 59258-NPDHHXJ NAIL, 6 OR MORE 06/14/2023 22451-VYUKGMX NAIL, 6 OR MORE 08/23/2023 16397-BCIWEMH NAIL, 6 OR MORE 11/01/2023 75732-TYIUNIO NAIL, 6 OR MORE 01/24/2024 01954-AKEITMF NAIL, 6 OR MORE 04/03/2024 37153-SUWCKCT NAIL, 6 OR MORE 06/15/2024 91375-ZUXQGLK NAIL, 6 OR MORE 08/17/2024 51184-SJJPJFJ NAIL, 6 OR MORE 11/16/2024 39189-Djqdqdin Plate 04/05/2023 12199-Chnvhzsx Plate 08/23/2023 58881-Dibarrte Plate 06/14/2023 17187-Azuxrlej Plate 03/14/2012 42986-Mhvuicem Plate 08/25/2012 76461-Stdkugiv Plate 12/17/2011 65409-Rvilzqvo Plate Each Additional 11/2011 29636-Itooozwd Plate Each Additional 58708-RDAY SKIN LESIONS, 2 TO 4 11/27/19 46008-QORK SKIN LESIONS, 2 TO 4 09/30/20 81931-NLWP SKIN LESIONS, 2 TO 4 07/08/20 33844-UFAU SKIN LESIONS, 2 TO 4 09/11/20 67768-ANGU SKIN LESIONS, 2 TO 4 06/14/20 22458-MNSZ SKIN LESIONS, 2 TO 4 04/05/20 43372-DGVT SKIN LESIONS, 2 TO 4 01/22/20 18493-UDHG SKIN LESIONS, 2 TO 4 11/19/19 58390-HEAS SKIN LESIONS, 2 TO 4 09/10/20 25233-JTZN SKIN LESIONS, 2 TO 4 08/23/20 46183-MFWV SKIN LESIONS, 2 TO 4 11/01/19 51187-LRME SKIN LESIONS, 2 TO 4 04/03/20 47494-GXQO SKIN LESIONS, 2 TO 4 01/24/20 91580-ZXYL SKIN LESIONS, 2 TO 4 11/16/19 45041-JVSQ SKIN LESIONS, 2 TO 4 08/17/20 84287-UBIZ SKIN LESIONS, 2 TO 4 06/15/20 Next Appt Details Provider Name:Jona Vasques , 02/22/2025 01:15:00 PM, [address] [place] [address], [phone], Provider Name:Jona Vasques , 03/26/2025 03:45:00 PM, [address] [place] [address], [phone], Insurance Providers Payer Name Payer Address Payer Phone Subscriber Number Group Number Insured Name Patient Relationship to Insured Coverage Start Date Coverage End Date [employer] 65 Medicare Preferred [address] [place] [address] [id number] Paula Baum Self - patient is the [...] Cataract surgery 08/01/24 Hospitalization History Reason Date(Month/Year) [facility] [place] [facility] Rectum bleeding 05/11/24 [facility] [place] blood count down to 5.5 - 3 blood t ransfusions 07/20/23-07/22/23 [facility] nose bleed 03/16/2018 [facility] [place] 03/09/2018 [facility] [place] bleed 03/07/2018 [facility] Kidney stones 04/2016
== END 2025-02-21 11:39 | disposition home or self-care (01) ==
LOC: HO.HVS 10:55
PROVIDERS: PCP Internal Medicine; Visit Provider Surgery Vascular Surgery
DX: I83.11 Varicose veins of right lower extremity with inflammation (principal); I83.12 Varicose veins of left lower extremity with inflammation
CPT/HCPCS: 99214

== ENCOUNTER → 2025-02-21 10:54 | Outpatient (BNVA) | payer MEDICARE, SELFPAY | PROVIDERS: PCP Internal Medicine; Visit Provider Surgery Vascular Surgery | DX: I83.11 Varicose veins of right lower extremity with inflammation (principal); I83.12 Varicose veins of left lower extremity with inflammation | CPT/HCPCS: 99212 ==

== ENCOUNTER 2025-02-26 09:45 | Outpatient (AMB) | payer MEDICARE, SELFPAY ==
[2025-02-26 10:49] VITALS: BP 120/60; PULSE 71; RESP 16; TEMP 36.5; O2SAT 97; BMI 42.7
--- NOTE | 2025-02-26 10:49 | MHC.PC.OV ---
Vital Signs 02/26/25 10:49 Height 5 ft 3 in Weight 241 lb BMI 42.7 BP 120/60 Blood Pressure Location Rt brachial Position Sitting Respiration 16 Pulse 71 Pulse Source Pulse Oximeter Temp 97.7 F Temp Source Oral Pulse Oximetry (%) 97 Oxygen Delivery Method Room Air Intake Visit Reasons: lower extremity edema Allergies benzethonium chloride [From LANACANE ANTI-ITCH] Allergy (Unknown, Verified 03/09/25 11:45) BLISTERS IN MOUTH benzocaine [From LANACANE ANTI-ITCH] Allergy (Unknown, Verified 03/09/25 11:45) BLISTERS IN MOUTH cortisone [CORTISONE] Allergy (Unknown, Verified 03/09/25 11:45) BLISTERS IN MOUTH, LOST SENSE OF TASTE ibuprofen Allergy (Unknown, Verified 03/09/25 11:45) nose bleed naproxen Allergy (Unknown, Verified 03/09/25 11:45) nose bleed triamcinolone [Kenalog] Allergy (Unknown, Verified 03/09/25 11:45) unknown Medication List - Last Reconciled 03/09/25 by Daniela Eduardo MD albuterol sulfate 90 mcg/actuation 2 puffs PO Q6H PRN blood sugar diagnostic As directed blood sugar diagnostic (Deja View ConceptsTouch Verio test strips) USE TO TEST BLOOD SUGAR TWICE A DAY cholecalciferol (vitamin D3) 50 mcg PO DAILY coenzyme Q10 100 mg PO DAILY ferrous sulfate 325 mg PO ONCE PRN furosemide 20 mg PO QAM lancets (OneTouch Delica Plus Lancet) As directed twice a day ac metformin 1,000 mg PO BID pioglitazone (Actos) 15 mg PO DAILY pravastatin 20 mg PO BEDTIME Tobacco use date assessed: 02/26/25 Fall risk assessment: No Falls in past year Last assessed Fall Risk: 02/26/25 Dental Screening Dental Screen Date: 02/26/25 Did you have a dental visit in the last 12 months?: Yes Did you have a dental problem in the last 6 months where you did not have access to dental care?: Yes Was dental information given to patient?: Patient has dentist HPI lower extremity edema HPI Details 74-year-old lady with history of bilateral lower extremity swelling and heaviness, chronic venous insufficiency, with history of left leg microphlebectomy only and right leg microphlebectomy earlier in the year, currently followed by vascular surgery, here today for follow-up. She was recently seen by Dr. García 5 days ago who ordered repeat venous insufficiency testing. She has history of aortic valve stenosis, had a recent echocardiogram done which showed normal left ventricular systolic function, with an injection fraction of 66% which showed severe mitral annular calcification and progression for aortic valve stenosis now to moderate. She does not complai of having chest pain but does have shortness of breath on [id number] exertion. [facility] Medical History Varicose veins of right lower extremity with inflammation Varicose veins of both legs with edema Moderate aortic valve stenosis Normal capsule endoscopy of gastrointestinal tract History of GI diverticular bleed Osteopenia of multiple sites Fatty liver Varicose veins of bilateral lower extremities with pain Type 2 diabetes mellitus without complication, without long-term current use of insulin Thrombocytopenia Osteoarthritis of multiple joints Hammertoes of both feet Colonoscopy refused Mild intermittent asthma in adult without complication Dyslipidemia Type 2 diabetes mellitus with hyperglycemia, without long-term current use of insulin Surgical History History of esophagogastroduodenoscopy (EGD) Hx of colonoscopy Hx of varicose vein ligation History of surgery on lower extremity H/O left wrist surgery Family History Mother Breast cancer Arthralgia of both feet Arthritis Brother Arthritis Brother No problems noted. Social History Household Members: None Housing: Condominium Do you presently have visiting nurse or other home services: No Alcohol intake: current Alcohol intake frequency: holidays/special occasions only Comment: call garcia within reach Patient Tobacco Use Status: Never used Tobacco e-Cigarette/Vaping Use: Never Used Second Hand Smoke Exposure: No service: No Current occupational status: retired Cognitive needs: No Hearing needs: No Vision needs: Yes Questionnaire Thrive Questionnaire Date Thrive assessed: 02/05/25 I am a: Patient What is your living situation today?: I have a steady place to live Within the past 12 months, did the food you bought not last and you didn't have the money to get more?: Never true Within the past 12 months, did you worry whether your food would run out before you got money to buy more?: Never true Do you have trouble paying for medicines?: No Do you have trouble getting transportation to medical appointments?: Yes Do you have trouble paying your heating and electricity bill?: No Do you have trouble taking care of your child, family member or friend?: No Do you have trouble with day-to-day activities such as bathing, preparing meals, shopping, managing finances, etc.?: No Are you currently unemployed and looking for a job?: No Are you interested in more education?: No Please select the resources that you would like help with: Transportation Currently or been in a relationship where the following occur: No concerns reported THRIVE Score: 1 FABRIZIO-7 AMB Questionnaire FABRIZIO-7 Date FABRIZIO - 7 assessed: 07/16/24 Source: Developed by Drs. Callum Gomez, Chiquita Simon, Sharath Anna and colleagues, with an educational sy from [employer]. Review of Systems Const All systems reviewed & are unremarkable except as noted in HPI and below Physical exam (Primary Care) Vital Signs: Last Vital Signs Temp 97.7 F 02/26/25 10:49 Pulse 71 02/26/25 10:49 Resp 16 02/26/25 10:49 BP 120/60 02/26/25 10:49 Pulse Ox 97 02/26/25 10:49 Oxygen Delivery Method Room Air 02/26/25 10:49 BMI result Body Mass Index 42.7 Tobacco/Smoking Status: Tobacco use Status Tobacco use date assessed 02/26/25 02/26/25 10:54 Patient Tobacco Use Status Never used Tobacco 02/26/25 10:52 e-Cigarette/Vaping Use Never Used 02/26/25 10:52 Thrive Assessment: Date of Thrive Assessment Date Thrive assessed 02/05/25 02/26/25 10:52 Currently or been in a relationship where the following occur: No concerns reported Const General: comfortable, no acute distress and alert Orientation/consciousness: patient oriented x3 HENMT Ears: external ears normal General nose exam: Normal external nose present Mouth: Normal oral and palatal mucosa present and moist mucous membranes Eyes General: appearance normal, both eyes and all related structures Neck Neck: Yes full ROM, Yes no lymphadenopathy and Yes supple Resp Effort & Inspection: normal respiratory effort and able to speak in complete sentences Auscultation: clear to auscultation bilaterally Cardio Rate: regular rate Rhythm: regular rhythm Heart sounds: S1 normal heart sound present, S2 normal heart sound present and Murmur heart sound present systolic mid and at the right sternal border GI Palpation (GI): Soft to palpation, nontender and no masses Auscultation: normal bowel sounds Back/Spine/Pelvis Back: No back tenderness Skin General skin exam: no rashes or lesions noted Neuro General: patient oriented x3, gait normal, tone normal, moves all extremities, Normal light touch and pain sensation and no focal motor deficits Cranial nerves: Yes CN's II-XII intact bilaterally Cognition (Neuro): normal cognition Extrem General: Yes full ROM, Yes no joint enlargement, Yes no clubbing, cyanosis or edema and Yes no calf tenderness Psych Appearance: grossly normal and well kempt Mental Status: mental status grossly normal Speech and movement: Normal speech and movement present Affect: normal affect Thought process: Normal thought process present Coding Level of Care Code Est Pt Level 4 (77236) Complex EM visit Add On G2211 Diagnoses Varicose veins of right lower extremity with inflammation I83.11 Moderate aortic valve stenosis I35.0 Assessment & Plan Assessment & Plan (1) Varicose veins of right lower extremity with inflammation: Comment: 11/12/2022 - right great saphenous vein Cyanoacralate ablation 12/31/2022 -right leg microphlebectomy Code(s): I83.11 - Varicose veins of right lower extremity with inflammation Category: Medical Plan: Scheduled on 03/15/2025 for repeat venous insufficiency testing, followed by Dr. García, advised elevation of legs whenever possible and wearing travel compression socks during the day when ambulatory with a move at night (2) Moderate aortic valve stenosis: Code(s): I35.0 - Nonrheumatic aortic (valve) stenosis Category: Medical Plan: Patient already has an appointment with Cardiology in April 2025
== END 2025-02-26 12:55 | disposition home or self-care (01) ==
LOC: HO.HMCC 09:46
PROVIDERS: PCP Internal Medicine; Visit Provider Internal Medicine
DX: I83.11 Varicose veins of right lower extremity with inflammation (principal); I35.0 Nonrheumatic aortic (valve) stenosis

== ENCOUNTER → 2025-02-26 09:45 | Outpatient (BNVA) | payer MEDICARE, SELFPAY | PROVIDERS: PCP Internal Medicine; Visit Provider Internal Medicine | DX: I83.11 Varicose veins of right lower extremity with inflammation (principal); I35.0 Nonrheumatic aortic (valve) stenosis | CPT/HCPCS: 99212 ==

== ENCOUNTER 2025-03-15 12:51 | Outpatient (REF) | payer MEDICARE, SELFPAY ==
--- NOTE | ~2025-03-15 | US_ITS ---
EXAMINATION: US LOWER EXTREMITY VENOUS (REFLUX EXAM), BILATERAL CLINICAL INFORMATION: Status post microphlebectomy, left lower extremity. Status post microphlebectomy and ablation, right lower extremity, great saphenous vein. COMPARISON: October 04, 2022. Correlated to DVT ultrasound dated November 26, 2024, November 15, 2022 TECHNIQUE: Color flow triplex imaging and compression Doppler was performed to evaluate both the deep and the superficial systems bilaterally. To evaluate the superficial system, the examination was performed in the upright position. Color-flow Doppler ultrasound and compression ultrasound were utilized. In addition, maneuvers were utilized to demonstrate reflux. FINDINGS: 1. DEEP VENOUS ULTRASOUND OF THE RIGHT LOWER EXTREMITY: Common Femoral Vein: Compressible, normal respiratory variation and augmented flow. Femoral Vein: Compressible, normal color flow and augmentation. Popliteal Vein: Compressible, normal augmentation. Deep Reflux: There is no evidence of reflux in the deep system in either the common femoral vein, superficial femoral or the popliteal vein. There is no evidence of a Hernandez's cyst. 2. SUPERFICIAL ULTRASOUND WITH DOPPLER OF RIGHT LOWER EXTREMITY: GREAT SAPHENOUS VEIN: Saphenofemoral Junction: 0.6 cm; Reflux: 0 ms Proximal Thigh: 0.4 cm; Reflux: 0 ms Mid Thigh: 0.5 cm; Reflux: 0 ms Distal Thigh: Not seen. At Knee: Not seen. Proximal Calf: Not seen. Mid Calf: 0.2 cm; Reflux: 2468 ms Distal Calf: 0.3 cm; Reflux: 0 ms DUPLICATED MEDIAL GREAT SAPHENOUS VEIN: Diameter: None imaged Reflux: NA DUPLICATED LATERAL GREAT SAPHENOUS VEIN: Diameter: None imaged Reflux: NA SMALL SAPHENOUS VEIN: Saphenopopliteal Junction: Not seen. Proximal: Not seen. Distal: Not seen. VEIN OF GIACOMINI: Size: NA Reflux: NA PERFORATORS: Location: Small saphenous vein mid segment. Mid thigh and midcalf. Size: 0.3-0.5 cm. Reflux: NA VARICOSITIES: Location: Small saphenous vein proximal to distal segments. Mid calf. Size: 0.3-0.5 cm. Reflux: 2940 ms in the mid calf. 3. DEEP VENOUS ULTRASOUND OF THE LEFT LOWER EXTREMITY: Common Femoral Vein: Compressible, normal respiratory variation and augmented flow. Femoral Vein: Compressible, normal color flow and augmentation. Popliteal Vein: Compressible, normal augmentation. Deep Reflux: There is no evidence of reflux in the deep system in either the common femoral vein, superficial femoral or the popliteal vein. There is no evidence of a Hernandez's cyst. 4. SUPERFICIAL ULTRASOUND WITH DOPPLER OF LEFT LOWER EXTREMITY: GREAT SAPHENOUS VEIN: Saphenofemoral Junction: 0.8 cm; Reflux: 0 ms Proximal Thigh: 0.5 cm; Reflux: 0 ms Mid Thigh: 0.3 cm; Reflux: 0 ms Distal Thigh: Not seen. At Knee: 0.2 cm; Reflux: 0 ms Proximal Calf: 0.4 cm; Reflux: 0 ms Mid Calf: 0.3 cm; Reflux: 0 ms Distal Calf: 0.3 cm; Reflux: 0 ms DUPLICATED MEDIAL GREAT SAPHENOUS VEIN: Diameter: None imaged Reflux: NA DUPLICATED LATERAL GREAT SAPHENOUS VEIN: Diameter: None imaged. Reflux: NA SMALL SAPHENOUS VEIN: Saphenopopliteal Junction: 0.3 cm; Reflux: 0 ms Proximal: 0.3 cm; Reflux: 0 ms Distal: 0.2 cm; Reflux: 0 ms VEIN OF GIACOMINI: Size: NA Reflux: NA PERFORATORS: Location: Small saphenous vein mid segment. Proximal to mid calf. Size: 0.2-0.4 cm. Reflux: 784 ms in the mid segment of the small saphenous vein. VARICOSITIES: Location: Small saphenous vein, proximal segment. Mid thigh to distal calf and anterior benítez. Size: 0.3-0.5 cm. Reflux: 2564 ms in the mid thigh and 2292 ms in the anterior benítez. US/US venous duplex LE BI IMPRESSION: Right: Venous insufficiency, great saphenous vein mid calf. Varices with reflux in the mid calf. Perforators without reflux. Left: No venous insufficiency. Varices with reflux in the mid thigh and anterior benítez. Perforators with reflux in the midsegment small saphenous vein. Electronically signed by: Regan Medina MD 03/15/2025 02:37 PM EDT
== END 2025-03-15 12:52 | disposition home or self-care (01) ==
LOC: HO.US 12:51
PROVIDERS: PCP Internal Medicine; Visit Provider Surgery Vascular Surgery
DX: I83.11 Varicose veins of right lower extremity with inflammation (principal); R60.0 Localized edema
CPT/HCPCS: 93970

== ENCOUNTER → 2025-03-15 12:54 | Outpatient (BNV) | payer MEDICARE, SELFPAY | PROVIDERS: PCP Internal Medicine; Visit Provider Radiology Diagnostic Radiology | DX: I83.813 Varicose veins of bilateral lower extremities with pain (principal); I87.2 Venous insufficiency (chronic) (peripheral) | CPT/HCPCS: 93970 ==

== ENCOUNTER 2025-04-01 11:10 | Outpatient (AMB) | payer MEDICARE, SELFPAY ==
[2025-04-01 11:22] VITALS: BP 151/91; PULSE 94; RESP 14; O2SAT 94
--- NOTE | 2025-04-01 11:22 | AM.OFFWIN_ITS ---
Intake Vital Signs 04/01/25 11:22 BP 151/91 H Blood Pressure Location Rt brachial Position Sitting Respiration 14 Pulse 94 Pulse Source Pulse Oximeter Pulse Oximetry (%) 94 Oxygen Delivery Method Room Air Intake Visit Reasons: PE Asthma flare, sob Intake Note: Pt ambulate (I) slow. A/o x 3. Pt appears slightly out of breath, pt stated I was rushing to get over here . Lungs - diminished all lobes. Heart sounds - irregular. Pt stated that she has a hx of heart murmur . Pt c/o asthma/allergy s/sx with productive cough. Pt stated white phlegm noted. Pt also stated that she realized that her rescue inhaler was outdated. Vs 151/91-14-94-94% on room air. Bilateral lower extremities noted to be swollen on ambulation to the bathroom. Pt c/o stress incontinence prior going to the bathroom then to be ro omed. YOLI (Radha) aware. Patient Tobacco Use Status: Never used Tobacco Allergies benzethonium chloride [From LANACANE ANTI-ITCH] Allergy (Unknown, Verified 03/09/25 11:45) BLISTERS IN MOUTH benzocaine [From LANACANE ANTI-ITCH] Allergy (Unknown, Verified 03/09/25 11:45) BLISTERS IN MOUTH cortisone [CORTISONE] Allergy (Unknown, Verified 03/09/25 11:45) BLISTERS IN MOUTH, LOST SENSE OF TASTE ibuprofen Allergy (Unknown, Verified 03/09/25 11:45) nose bleed naproxen Allergy (Unknown, Verified 03/09/25 11:45) nose bleed triamcinolone [Kenalog] Allergy (Unknown, Verified 03/09/25 11:45) unknown HPI HPI Comments History of Present Illness Details History of Present Illness - The patient is a 74-year-old female pr esenting with asthma. - The exacerbation began about a week ag o following exposure to environmental allergens and heat. - Her inhalers were outdated, leading to insufficient symptom control. She is only using her rescue at this time. - She experienced increased coughing res ulting in voice loss, with occasional light, white sputum production. - There are no fevers, chills, or vomiti ng. - The patient notes a history of bronchi tis and reports ongoing management of allergies with Cetirizine and Afrin. - Prednisone has been used previously bu t was not well tolerated. - She denies the use of a nebulizer. - She denies fever, chills, CP, SOB, OSEI, sinus pain, ear pain, ST, n/v/d. She denies smoking or sick contacts. Physical Exam General: Cooperative, healthy appearing, comfortable, no acute distress and well developed Orientation: Patient oriented x3 Ears: Hearing grossly normal bilaterally. TMs are normal. Nose: Normal external nose present Face and sinus: Normal facial exam. No sinus tenderness noted. Neck: Normal visual inspection and Yes full ROM. No lymphadenopathy noted. Respiratory: Normal respiratory effort and able to speak in complete sentences. Clear to auscultation bilaterally. Cardiovascular: Regular rate and rhythm. Normal S1 and S2, +heart murmur noted. GI: Normal to inspection. Soft to palpation and nontender. No guarding or rebound tenderness noted Skin: No rashes or lesions noted Patient was informed and verbally consented to the use of an ambient scribe for clinic note documentation during this visit. [facility] Medical History Varicose veins of right lower extremity with inflammation Varicose veins of both legs with edema Moderate aortic valve stenosis Normal capsule endoscopy of gastrointestinal tract History of GI diverticular bleed Osteopenia of multiple sites Fatty liver Varicose veins of bilateral lower extremities with pain Type 2 diabetes mellitus without complication, without long-term current use of insulin Thrombocytopenia Osteoarthritis of multiple joints Hammertoes of both feet Colonoscopy refused Mild intermittent asthma in adult without complication Dyslipidemia Type 2 diabetes mellitus with hyperglycemia, without long-term current use of insulin Surgical History History of esophagogastroduodenoscopy (EGD) Hx of colonoscopy Hx of varicose vein ligation History of surgery on lower extremity H/O left wrist surgery Family History Mother Breast cancer Arthralgia of both feet Arthritis Brother Arthritis Brother No problems noted. Social History Household Members: None Housing: Condominium Do you presently have visiting nurse or other home services: No Alcohol intake: current Alcohol intake frequency: holidays/special occasions only Comment: call garcia within reach Patient Tobacco Use Status: Never used Tobacco e-Cigarette/Vaping Use: Never Used Second Hand Smoke Exposure: No service: No Current occupational status: retired Cognitive needs: No Hearing needs: No Vision needs: Yes Review of Systems Const All systems reviewed & are unremarkable except as noted in HPI and below Physical Exam Vital Signs: Last Vital Signs Pulse 94 04/01/25 11:22 Resp 14 04/01/25 11:22 BP 151/91 H 04/01/25 11:22 Pulse Ox 94 04/01/25 11:22 Oxygen Delivery Method Room Air 04/01/25 11:22 Office Procedures Nebulizer Treatment Nebulizer Treatment 37705-[id number]/MDI RX initial, or Nebulizer Subsequent Treatment Office Meds ipratropium 0.5 mg-albuterol 3 mg (2.5 mg base)/3 mL nebulization soln Performing Provider: Radha De La Garza PA-C Performing Location: [facility] [place] [facility] Administered by: Radha De La Garza PA-C on 04/01/25 11:58 Dose Route Admin Location Dispensed Lot Number Expiration Date [employer]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 - Continue using Delsym for cough management. - Initiate antibiotic treatment to address bronchitis. - Educate patient on medication expiration and allergen exposure management. - Monitor asthma control and avoid environmental triggers. Orders: Orders AMB Nebulizer Treatment Today J45.901 - Unspecified asthma with (acute) exacerbation Medications: New azithromycin For 250 mg dose pack: take 500 mg today (day 1), then 250 mg for 4 days (days 2-5) PO 6 tabs 0RF ipratropium-albuterol 0.5 mg-3 mg(2.5 mg base)/3 mL 3 mL inhalation ONCE 3 mL 0RF J45.901 - Unspecified asthma with (acute) exacerbation Refilled albuterol sulfate 90 mcg/actuation 2 puffs PO Q6H PRN 25.5 grams 3RF shortness of breath or wheezing Coding Level of Care Code Est Pt Level 4 (26020) Diagnoses Moderate persistent asthma with exacerbation J45.41 Asthma severity: moderate Asthma persistence: persistent CPT Codes Nebulizer Treatment - Nebulizer Treatment, initial or subsequent: 62831- Nebulizer/MDI RX initial, or Nebulizer Subsequent Treatment ([id number])
== END 2025-04-01 12:32 | disposition home or self-care (01) ==
PROVIDERS: PCP Internal Medicine; Visit Provider Physician Assistant Medical
DX: J45.41 Moderate persistent asthma with (acute) exacerbation (principal)

== ENCOUNTER → 2025-04-01 11:10 | Outpatient (BNVA) | payer MEDICARE, SELFPAY | PROVIDERS: PCP Internal Medicine; Visit Provider Physician Assistant Medical | DX: J45.41 Moderate persistent asthma with (acute) exacerbation (principal) | CPT/HCPCS: 94640; 99212 ==

== ENCOUNTER 2025-04-08 10:16 | Outpatient (REF) | payer MEDICARE, SELFPAY ==
--- NOTE | ~2025-04-08 | XR_ITS ---
EXAMINATION: XR TWO-VIEW CHEST CLINICAL INFORMATION: J45.901 - Unspecified asthma with (acute) exacerbation COMPARISON: November 26, 2024 TECHNIQUE: 2 views of the chest were obtained. FINDINGS: There is mild cardiac enlargement, unchanged. The aorta is tortuous. There is new linear opacity in the left lung base. Lungs are clear otherwise. There is no sign of pleural effusion. Thoracic spine demonstrates endplate sclerosis, disc space narrowing, and osteophytes consistent with degenerative disc disease. XR/XR chest 2V IMPRESSION: New linear atelectasis in the left lung base. Mild cardiomegaly. Thoracic spine degenerative disc disease. Electronically signed by: Jagdeep Salas MD 04/08/2025 12:04 PM EDT
== END 2025-04-08 10:17 | disposition home or self-care (01) ==
LOC: HO.HMGCX 10:16
PROVIDERS: PCP Internal Medicine; Visit Provider Nurse Practitioner Family
DX: J45.41 Moderate persistent asthma with (acute) exacerbation (principal)
CPT/HCPCS: 71046; 99212

== ENCOUNTER 2025-04-08 10:16 | Outpatient (AMB) | payer MEDICARE, SELFPAY ==
[2025-04-08 10:19] VITALS: BP 137/62; PULSE 84; TEMP 36.9; O2SAT 93; BMI 43.4
--- NOTE | 2025-04-08 10:19 | AM.OFFWIN_ITS ---
Intake Vital Signs 04/08/25 10:19 Height 5 ft 3 in Weight 245 lb 4 oz BMI 43.4 BP 137/62 Blood Pressure Location Lt brachial Position Sitting Pulse 84 Pulse Source Pulse Oximeter Temp 98.5 F Temp Source Oral Pulse Oximetry (%) 93 Oxygen Delivery Method Room Air Intake Visit Reasons: EP asthma, allergies Intake Note: Patient present follow for asthma visit 1 week ago Patient Tobacco Use Status: Never used Tobacco Allergies benzethonium chloride [From LANACANE ANTI-ITCH] Allergy (Unknown, Verified 04/08/25 10:27) BLISTERS IN MOUTH benzocaine [From LANACANE ANTI-ITCH] Allergy (Unknown, Verified 04/08/25 10:27) BLISTERS IN MOUTH ibuprofen Allergy (Unknown, Verified 04/08/25 10:27) nose bleed naproxen Allergy (Unknown, Verified 04/08/25 10:27) nose bleed Do you need a note to return to daycare/school/sports/work: No HPI HPI Comments History of Present Illness Details 74 y/o female patient who presents to [facility] walk [facility] with c/ Dry cough, some occasional SOB, and Sore-throat for over a week. Pt was evaluated and treated here 04/01 for URI - she completed Z-pack, but reports some improvement of her symptoms. She does have h/o Asthma and uses Rescue Inhaler PRN. Denies Fevers or chills. [facility] Medical History (Updated 04/08/25 @ 11:08 by Azul Quiroz NP) Asthma exacerbation Varicose veins of right lower extremity with inflammation Varicose veins of both legs with edema Moderate aortic valve stenosis Normal capsule endoscopy of gastrointestinal tract History of GI diverticular bleed Osteopenia of multiple sites Fatty liver Varicose veins of bilateral lower extremities with pain Type 2 diabetes mellitus without complication, without long-term current use of insulin Thrombocytopenia Osteoarthritis of multiple joints Hammertoes of both feet Colonoscopy refused Mild intermittent asthma in adult without complication Dyslipidemia Type 2 diabetes mellitus with hyperglycemia, without long-term current use of insulin Surgical History History of esophagogastroduodenoscopy (EGD) Hx of colonoscopy Hx of varicose vein ligation History of surgery on lower extremity H/O left wrist surgery Family History Mother Breast cancer Arthralgia of both feet Arthritis Brother Arthritis Brother No problems noted. Social History Household Members: None Housing: Condominium Do you presently have visiting nurse or other home services: No Alcohol intake: current Alcohol intake frequency: holidays/special occasions only Comment: call garcia within reach Patient Tobacco Use Status: Never used Tobacco e-Cigarette/Vaping Use: Never Used Second Hand Smoke Exposure: No service: No Current occupational status: retired Cognitive needs: No Hearing needs: No Vision needs: Yes Review of Systems Const All systems reviewed & are unremarkable except as noted in HPI and below Physical Exam Vital Signs: Last Vital Signs Temp 98.5 F 04/08/25 10:19 Pulse 84 04/08/25 10:19 BP 137/62 04/08/25 10:19 Pulse Ox 93 04/08/25 10:19 Oxygen Delivery Method Room Air 04/08/25 10:19 BMI result Body Mass Index 43.4 Const General: no acute distress Nutritional Appearance: obese Orientation/consciousness: patient oriented x3 Resp Effort & Inspection: normal respiratory effort, able to speak in complete sentences, no audible wheezes and no cough Auscultation: clear to auscultation bilaterally, no crackles, no rales, no rhonchi and no wheezes Cardio Heart sounds: S1 normal heart sound present, S2 normal heart sound present and M urmur heart sound present Neuro General: patient oriented x3, gait normal (Walks with a Cane) and moves all extremities Psych Speech and movement: Normal speech and movement present Assessment & Plan Assessment & Plan (1) Asthma exacerbation: Code(s): J45.901 - Unspecified asthma with (acute) exacerbation Qualifiers: Asthma persistence: persistent Asthma severity: moderate Qualified Code(s): J45.41 - Moderate persistent asthma with (acute) exacerbation Plan: Ordered Chest Xray. Ordered Symbicort for BID Continue using Rescue inhaler PRN for SOB. Orders: Orders XR chest 2V Today J45.901 - Unspecified asthma with (acute) exacerbation Medications: New budesonide-formoterol 160-4.5 mcg/actuation (Symbicort) 2 puffs inhalation BID 10.2 grams 1RF Coding Level of Care Code Est Pt Level 4 (31432) Diagnoses Moderate persistent asthma with exacerbation J45.41 Asthma persistence: persistent Asthma severity: moderate Time Spent (min) 20
== END 2025-04-08 11:16 | disposition home or self-care (01) ==
PROVIDERS: PCP Internal Medicine; Visit Provider Nurse Practitioner Family
DX: J45.41 Moderate persistent asthma with (acute) exacerbation (principal)

== ENCOUNTER → 2025-04-08 11:04 | Outpatient (BNV) | payer MEDICARE, SELFPAY | PROVIDERS: PCP Internal Medicine; Visit Provider Radiology Diagnostic Radiology | DX: J98.11 Atelectasis (principal); M51.34 Other intervertebral disc degeneration, thoracic region | CPT/HCPCS: 71046 ==

== ENCOUNTER 2025-04-18 10:36 | Outpatient (AMB) | payer MEDICARE, SELFPAY ==
--- NOTE | 2025-04-18 10:41 | MHC.OFFVIS ---
Intake Visit Reasons: follow up 03/15/25 Intake Note: Follow up US. Patient states she has heaviness in both legs, and that her ankles are swollen. Accompanied by: Self / Same As Patient Allergies benzethonium chloride (From LANACANE ANTI-ITCH) Allergy (Unknown, Verified 04/18/25 10:41) BLISTERS IN MOUTH benzocaine (From LANACANE ANTI-ITCH) Allergy (Unknown, Verified 04/18/25 10:41) BLISTERS IN MOUTH ibuprofen Allergy (Unknown, Verified 04/18/25 10:41) nose bleed naproxen Allergy (Unknown, Verified 04/18/25 10:41) nose bleed HPI HPI follow up [facility] 03/15/25: Details: Morbidly obese 74-year-old female presents for follow-up regarding lower extremity swelling. She has had previous right lower extremity ablation and microphlebectomy. In addition to a left microphlebectomy. This was all done back in 2022. Since that time her legs continue to progress in swelling pain and discomfort. She has been compliant with her compression. It has been increasingly difficult for her to wear. She now presents for routine follow-up with repeat venous insufficiency testing. [facility] Medical History Asthma exacerbation Varicose veins of right lower extremity with inflammation Varicose veins of both legs with edema Moderate aortic valve stenosis Normal capsule endoscopy of gastrointestinal tract History of GI diverticular bleed Osteopenia of multiple sites Fatty liver Varicose veins of bilateral lower extremities with pain Type 2 diabetes mellitus without complication, without long-term current use of insulin Thrombocytopenia Osteoarthritis of multiple joints Hammertoes of both feet Colonoscopy refused Mild intermittent asthma in adult without complication Dyslipidemia Type 2 diabetes mellitus with hyperglycemia, without long-term current use of insulin Surgical History History of esophagogastroduodenoscopy (EGD) Hx of colonoscopy Hx of varicose vein ligation History of surgery on lower extremity H/O left wrist surgery Family History Mother Breast cancer Arthralgia of both feet Arthritis Brother Arthritis Brother No problems noted. Social History Household Members: None Housing: Condominium Do you presently have visiting nurse or other home services: No Alcohol intake: current Alcohol intake frequency: holidays/special occasions only Comment: call garcia within reach Patient Tobacco Use Status: Never used Tobacco e-Cigarette/Vaping Use: Never Used Second Hand Smoke Exposure: No service: No Current occupational status: retired Cognitive needs: No Hearing needs: No Vision needs: Yes Review of Systems Const Reports as per HPI ENT Reports no additional complaints Card Denies chest pain, Denies chest pain at rest and Denies chest pain with activity Resp Denies chest congestion and Denies cough GI Reports no additional complaints Musc Details: pain over varicosities, aching of lower extremities, swelling, cramping, heaviness and tiredness, itching Denies abnormal gait Skin/Breast Reports pruritus and Denies wounds Neuro Reports no additional complaints and Denies abnormal gait Psych Denies no additional complaints Physical Exam Const General: cooperative, healthy appearing and comfortable Orientation/consciousness: oriented to person, oriented to place and oriented to time Neck Carotids: no bruits Chest Chest palpation & inspection: normal inspection of the chest and normal palpation of entire chest wall Resp Effort & Inspection: normal respiratory effort and able to speak in complete sentences Cardio Rate: regular rate Heart sounds: S1 normal heart sound present and S2 normal heart sound present Peripheral pulses: Peripheral pulses 2+ throughout GI Inspection: Yes normal to inspection Skin Other: +2 edema, large rope-like varicosities greater than 4 mm CEAP Classification C4 - skin color changes Ep - Etiology Primary As - superficial veins P - reflux General skin exam: dry skin Neuro General: oriented to person, oriented to place and oriented to time Extrem Other: Right in cm: Thigh 59 Knee 53 Calf 51 Ankle 33 Left in cm: Thigh 58 Knee 47 Calf 48 Ankle 34 Right lower extremity: full ROM, normal capillary refill and edema Left lower extremity: full ROM, normal capillary refill and edema Psych Mental Status: mental status grossly normal Results Reviewed Results Reviewed: Brief summary of venous insufficiency testing is as follows: right great saphenous vein: negative right small saphenous vein: negative right accessory vein: none present left great saphenous vein: negative left small saphenous vein: negative left accessory vein: none present Please note there is no evidence of any venous aneurysms or significant tortuosity Assessment & Plan Assessment & Plan (1) Varicose veins of right lower extremity with inflammation: Comment: 11/12/2022 - right great saphenous vein Cyanoacralate ablation 12/31/2022 -right leg microphlebectomy Code(s): I83.11 - Varicose veins of right lower extremity with inflammation Category: Medical Plan: Negative for any additional findings. Will treat for lymphedema (2) Varicose veins of left lower extremity with inflammation: Comment: 03/04/2023 - left leg microphlebectomy Code(s): I83.12 - Varicose veins of left lower extremity with inflammation Category: Medical Plan: See above (3) Lymphedema: Code(s): I89.0 - Lymphedema, not elsewhere classified Category: Medical Plan: In short the patient has late on sent lymphedema. The patient has been on conservative treatment for at least 3 months with minimal relief. Patient has tried 30 mm of mercury compression garments, elevation, exercise healthy diet and doing manual says self MLD to the best of their ability for over 4 weeks but with no significant relief. She has been compliant with the program but has provided minimal relief. In addition on physical we are noticing hyperpigmentation, lymphorrhea, and hyperplasia. It appears that she has stage 2 lymphedema. Patient has completed multiple forms of conservative therapy yet significant symptoms remain. Patient requires the use of a pneumatic compression device which we will assist in trying to have the patient obtain them. A pneumatic compression device will help reduce swelling and other lymphedema comorbidities. Thank you for allowing us to assist in this patient's care. Coding Level of Care Code Est Pt Level 4 (98328) Complex EM visit Add On G2211 Diagnoses Varicose veins of right lower extremity with inflammation I83.11 Varicose veins of left lower extremity with inflammation I83.12 Lymphedema I89.0
== END 2025-04-18 11:09 | disposition home or self-care (01) ==
LOC: HO.HVS 10:37
PROVIDERS: PCP Internal Medicine; Visit Provider Surgery Vascular Surgery
DX: I83.11 Varicose veins of right lower extremity with inflammation (principal); I83.12 Varicose veins of left lower extremity with inflammation; I89.0 Lymphedema, not elsewhere classified
CPT/HCPCS: 99214; G2211

== ENCOUNTER → 2025-04-18 10:36 | Outpatient (BNVA) | payer MEDICARE, SELFPAY | PROVIDERS: PCP Internal Medicine; Visit Provider Surgery Vascular Surgery | DX: I83.11 Varicose veins of right lower extremity with inflammation (principal); I83.12 Varicose veins of left lower extremity with inflammation; I89.0 Lymphedema, not elsewhere classified | CPT/HCPCS: 99212 ==

== ENCOUNTER 2025-04-23 09:35 | Outpatient (REF) | payer MEDICARE, SELFPAY ==
--- NOTE | ~2025-04-23 | US_ITS ---
EXAMINATION: US ABDOMEN HISTORY: K76.0 - Fatty (change of) liver, not elsewhere classified TECHNIQUE: Real-time grayscale ultrasound imaging of the abdomen was performed and images were reviewed. COMPARISON: Comparison is made with the prior examination dated 11/19/2024. FINDINGS: Liver: The right lobe of the liver measures 15.8 cm in size. The left lobe of the liver measures 8.4 cm in size. The liver demonstrates increased echotexture, consistent with steatosis. The liver demonstrates a nodular contour, consistent with cirrhosis. There is a recannulized paraumbilical vein. No focal mass or intrahepatic biliary ductal dilatation is identified. There is normal hepatopedal flow in the portal vein. Gallbladder and biliary tree: Echogenic bile is seen in the gallbladder. The gallbladder is otherwise unremarkable, without evidence of calculi, wall thickening, or pericholecystic fluid. There is no sonographic Jackson sign. The common bile duct is normal in caliber measuring 3 mm. Kidneys: The right kidney measures 13.0 cm in length. The left kidney measures 12.8 cm in length. There is a 2.1 x 1.8 x 2.2 cm cyst at the lower pole of the left kidney. The kidneys are otherwise unremarkable, without evidence of solid masses, hydronephrosis, or calculi. Pancreas: The pancreatic head, neck, and body are unremarkable. The pancreatic tail is obscured by bowel gas. Spleen: The spleen is normal in size and contour, measuring 10.0 cm in length. Abdominal aorta and inferior vena cava: The visualized portions of the abdominal aorta and inferior vena cava are normal in caliber. There is no free fluid in the abdomen. US/US abdomen complete IMPRESSION: Cirrhosis of the liver and hepatic steatosis. Electronically signed by: Callum Hudson MD 04/23/2025 10:48 AM EDT
== END 2025-04-23 09:36 | disposition home or self-care (01) ==
LOC: HO.HMGCX 09:35
PROVIDERS: PCP Internal Medicine; Visit Provider Internal Medicine
DX: K76.0 Fatty (change of) liver, not elsewhere classified (principal)
CPT/HCPCS: 76700

== ENCOUNTER → 2025-04-23 10:01 | Outpatient (BNV) | payer MEDICARE, SELFPAY | PROVIDERS: PCP Internal Medicine; Visit Provider Radiology Diagnostic Radiology | DX: K76.0 Fatty (change of) liver, not elsewhere classified (principal) | CPT/HCPCS: 76700 ==

== ENCOUNTER 2025-05-15 10:15 | Outpatient (REF) | payer MEDICARE, SELFPAY | END 2025-05-15 10:16 | disposition home or self-care (01) | LOC: HO.MAMMO 10:15 | PROVIDERS: PCP Internal Medicine; Visit Provider Internal Medicine | DX: Z12.31 Encounter for screening mammogram for malignant neoplasm of breast (principal) | CPT/HCPCS: 77063; 77067 ==

== ENCOUNTER → 2025-05-15 10:30 | Outpatient (BNV) | payer MEDICARE, SELFPAY | PROVIDERS: PCP Internal Medicine; Visit Provider Internal Medicine | DX: Z12.31 Encounter for screening mammogram for malignant neoplasm of breast (principal) | CPT/HCPCS: 77063; 77067 ==

== ENCOUNTER 2025-05-23 10:29 | Outpatient (AMB) | payer MEDICARE, SELFPAY ==
[2025-05-23 10:44] VITALS: BP 120/60; PULSE 76; BMI 43.4
--- NOTE | 2025-05-23 10:44 | A.OFFVIS_ITS ---
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.Espinas/Nonrheumatic aortic (valve) sten Allergies benzethonium chloride (From LANACANE ANTI-ITCH) Allergy (Unknown, Verified 04/18/25 10:41) BLISTERS IN MOUTH benzocaine (From LANACANE ANTI-ITCH) Allergy (Unknown, Verified 04/18/25 10:41) BLISTERS IN MOUTH ibuprofen Allergy (Unknown, Verified 04/18/25 10:41) nose bleed naproxen Allergy (Unknown, Verified 04/18/25 10:41) nose bleed Medication List - Last Reconciled 05/23/25 by Nicolas Flaherty MD albuterol sulfate 90 mcg/actuation 2 puffs PO Q6H PRN blood sugar diagnostic As directed blood sugar diagnostic (SkillSurveyTouch Verio test strips) USE TO TEST BLOOD SUGAR TWICE A DAY budesonide-formoterol 160-4.5 mcg/actuation (Symbicort) 2 puffs inhalation BID cholecalciferol (vitamin D3) 50 mcg PO DAILY coenzyme Q10 100 mg PO DAILY lancets (OneTouch Delica Plus Lancet) As directed twice a day ac metformin 1,000 mg PO BID pioglitazone (Actos) 15 mg PO DAILY pravastatin 20 mg PO BEDTIME HPI Comments Details: Paula is here for consultation regarding aortic stenosis. She has had an echocardiogram earlier this year that showed [id number] aortic stenosis as well as severe mitral annular calcification. She states that she was told to have a heart murmur in her 30s but not followed up. Otherwise, no clear cardiac history. No angina or shortness of breath. She states she has asthma and can get shortness of breath from that. However, she does not have any exertional type chest pains or anything else of cardiac nature. She has had lower extremity swelling issues and follows up with vascular surgery for that. [facility] Medical History Asthma exacerbation Varicose veins of right lower extremity with inflammation Varicose veins of both legs with edema Moderate aortic valve stenosis Normal capsule endoscopy of gastrointestinal tract History of GI diverticular bleed Osteopenia of multiple sites Fatty liver Varicose veins of bilateral lower extremities with pain Type 2 diabetes mellitus without complication, without long-term current use of insulin Thrombocytopenia Osteoarthritis of multiple joints Hammertoes of both feet Colonoscopy refused Mild intermittent asthma in adult without complication Dyslipidemia Type 2 diabetes mellitus with hyperglycemia, without long-term current use of insulin Surgical History History of esophagogastroduodenoscopy (EGD) Hx of colonoscopy Hx of varicose vein ligation History of surgery on lower extremity H/O left wrist surgery Family History Mother Breast cancer Arthralgia of both feet Arthritis Brother Arthritis Brother No problems noted. Social History Household Members: None [facility] Do you presently have visiting nurse or other home services: No Alcohol intake: current Alcohol intake frequency: holidays/special occasions only Comment: call garcia within reach Patient Tobacco Use Status: Never used Tobacco e-Cigarette/Vaping Use: Never Used Second Hand Smoke Exposure: No service: No Current occupational status: retired Cognitive needs: No Hearing needs: No Vision needs: Yes Review of Systems Const Denies weakness ENT Denies dizziness Card Denies chest pain, Denies chest pain with activity, Denies syncope, Denies rapid heart rate, Denies pedal edema, Denies edema, Denies leg edema, Denies lightheadedness, Denies palpitations, Reports dyspnea, Reports dyspnea on exertion and Denies orthopnea Resp Denies cough, Reports dyspnea and Reports dyspnea on exertion GI Denies hematochezia and Denies change in stool character Musc Denies abnormal gait, Reports joint swelling, Denies muscle cramps, Denies muscle weakness, Denies numbness, Denies radiating pain into limb and Denies tingling Neuro Denies abnormal gait, Denies dizziness, Denies syncope, Denies numbness, Denies tingling and Denies weakness Endo Denies palpitations Physical Exam Vital Signs: Last Vital Signs Pulse 76 05/23/25 10:44 BP 120/60 05/23/25 10:44 BMI result Body Mass Index 43.4 Const General: comfortable and no acute distress Orientation/consciousness: patient oriented x3 HEENT Other: Unremarkable Head: Yes normal to inspection Neck Neck: Yes normal visual inspection Chest Chest palpation & inspection: normal inspection of the chest Resp Auscultation: clear to auscultation bilaterally Cardio Palpation: normal PMI Heart sounds: S1 normal heart sound present, S2 normal heart sound present, no gallops, Murmur heart sound present systolic III/ and at the right sternal border and no rubs GI Palpation (GI): Soft to palpation Back/Spine/Pelvis Other: unremarkable Skin General skin exam: no rashes or lesions noted Neuro General: patient oriented x3 Extrem General: Yes normal to inspection Psych Mental Status: mental status grossly normal Office Procedures EKG Details: EKG with underlying sinus rhythm at 76/Min; no ischemic changes; [place] [id number], Complete Assessment & Plan Assessment & Plan (1) Non-rheumatic aortic stenosis: Code(s): I35.0 - Nonrheumatic aortic (valve) stenosis Category: Medical (2) Mitral annular calcification: Code(s): I34.81 - Nonrheumatic mitral (valve) annulus calcification Category: Medical (3) Type 2 diabetes mellitus without complication, without long-term current use of insulin: Code(s): E11.9 - Type 2 diabetes mellitus without complications Category: Medical (4) Dyslipidemia: Code(s): E78.5 - Hyperlipidemia, unspecified Category: Medical Plan In the recent echocardiogram, LVEF 66%. Moderate aortic valve calcification with ened-mn-dxfimill stenosis. Severe mitral annular calcification. Findings discussed with patient. At this point, there was no hemodynamic significance from these findings. We will need to follow up clinically on the echocardiogram. We will schedule another study about one year from prior. In the interim, continue treatment of diabetes and dyslipidemia. Last hemoglobi n A1c is 5.9%. Last LDL 61 mg/dL. Follow-up will be arranged. Discussion Notes I discussed with the patient that her heart murmur and valvular calcification are being monitored, and no immediate treatment is necessary unless there is significant progression. I emphasized the need for weight management to aid in overall health improvement. We reviewed her diabetes management, which is currently effective, and discussed the plan for addressing peripheral edema with compression devices. Patient was informed and verbally consented to the use of an ambient scribe for clinic note documentation during this visit. Orders: Orders CA echo transthoracic complete 02/10/26 I35.0 - Nonrheumatic aortic (valve) stenosis Patient Instructions: - Continue monitoring heart condition with scheduled ultrasound next January. - Avoid humid and hot weather to manage asthma symptoms. - Engage in physical activity as tolerated, being cautious of balance issues. - Maintain current diabetes management regimen. Coding Level of Care Code New Pt Level 4 (03152) Complex EM visit Add On G2211 Diagnoses Non-rheumatic aortic stenosis I35.0 Mitral annular calcification I34.81 Type 2 diabetes mellitus without complication, without long-term current use of insulin E11.9 Dyslipidemia E78.5 CPT Codes EKG - CPT: 38424-[id number], Complete ([id number])
== END 2025-05-23 11:24 | disposition home or self-care (01) ==
LOC: HO.HCS 10:29
PROVIDERS: PCP Internal Medicine; Visit Provider Internal Medicine
DX: I35.0 Nonrheumatic aortic (valve) stenosis (principal); I34.81 Nonrheumatic mitral (valve) annulus calcification; E11.8 Type 2 diabetes mellitus with unspecified complications; E78.5 Hyperlipidemia, unspecified; R94.39 Abnormal result of other cardiovascular function study
CPT/HCPCS: 93010; 99214; G2211

== ENCOUNTER → 2025-05-23 10:29 | Outpatient (BNVA) | payer MEDICARE, SELFPAY | PROVIDERS: PCP Internal Medicine; Visit Provider Internal Medicine | DX: I35.0 Nonrheumatic aortic (valve) stenosis (principal); I34.81 Nonrheumatic mitral (valve) annulus calcification; R01.1 Cardiac murmur, unspecified; E11.9 Type 2 diabetes mellitus without complications; E78.5 Hyperlipidemia, unspecified | CPT/HCPCS: 93005; 99212 ==

== ENCOUNTER 2025-07-01 10:09 | Outpatient (AMB) | payer MEDICARE, SELFPAY ==
--- NOTE | 2025-07-01 10:15 | MHC.OFFVIS ---
Vital Signs 07/01/25 10:16 Height 5 ft 3 in Weight 240 lb 4.862 oz BMI 42.6 BP 127/63 Blood Pressure Location Lt brachial Position Sitting Pulse 75 Intake Visit Reasons: 6 mo f/u Intake Note: Paula presents in the office as a 6 month follow up. CC: She states that she has the verocous veins in her legs - she states there is no more surgery that can be done! She has them coming Wed to set the machine up. 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 Hospital admission 07/19-07/22/2023: Presented for abnormal labs to her PCP's office with initial hemoglobin of 5.5. Previous baseline was normal from 2019. No reported history of abdominal pain, changes in bowel habits, melena, hematochezia. Had knee surgery earlier this year. No anticoagulants or NSAIDs on board. After undergoing PRBC transfusion, had EGD and colonoscopy. 07/21/2023: EGD/colo: 1. Normal esophagus 2. Normal stomach 3. Normal duodenum (biopsy) 4. Abnormal mucosa in sigmoid colon 5. One polyp removed 6. Diverticulosis 7. Hemorrhoids Path: Diagnosis A. Duodenum, biopsy: Duodenal mucosa with preserved villi and no specific change. B. Colon, ascending, polyp: Tubular adenoma (2 pieces); negative for high-grade dysplasia and carcinoma, and 2 fragments of degenerated duodenal type mucosa (consistent with contaminant). C. Colon, rectal-sigmoid, biopsy: Mild active colitis with mild chronic regenerative changes; negative for dysplasia (see comment) 08/03/23: Today, reports feeling much better. Fatigue and shortness of breath is a lot better. Has more energy. Patient lives by herself at home. Does not have any immediate family members such as spouse or children. However, her friends checkup on her daily. Continues on iron pills through PCP's office. 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 BMI 38 with type 2 diabetes and hyperlipidemia. VCE 09/19/23: ?? small jejunal ulcers/erosions but poor prep. 11/21/23: Seen by Heme earlier this month. Had not been compliant with PO iron but now taking it regularly as wishes to avoid IV iron. Labs with anemia unchanged which is not surprising if had not been taking iron supplementation. Otherwise, has no active issues. No abd pain, N,V. Now taking PO iron first thing in the morning every day for the last 6 weeks. 02/20/24: Here for follow up. Labs reviewed. Anemia better. Cont on PO iron with vit C. In terms of fatty liver - prediabetes in control on metformin. HLD well controlled on pravastatin. Weight curve noted - has gained almost 20lbs in the past 6 months. Activity levels are limited due to unstable gait. Uses a walker. US Abd: 1. There is generalized increase in hepatic echotexture and a lobular hepatic contour, consistent with the provided history of cirrhosis. No focal hepatic mass or intrahepatic biliary dilatation is seen. 2. There is a recanalized umbilical vein. 07/11/24: Here for post hospitalisation follow up. Was admitted in April for large volume painless rectal bleeding likely diverticular. s/p EGD/colon. hiatal hernia barretts gastritis Colonoscopy Findings: diverticulosis, and diverticular bleed internal hemorrhoids Path: A. Stomach, biopsy: Oxyntic mucosa with mild chronic inactive inflammation; no Helicobacter organisms seen. B. Esophagus, distal, biopsy: - Sorto esophagus with background moderate chronic active inflammation. - No dysplasia seen. - Squamous mucosa within normal limits Currently doing well. No recurrene of bleeding. Blood work from May reviewed and H/H uptrending. Also follows with Dr Strickland. US Abd reviewed with the pt. Reminder for next one set. 01/02/25: Here for 6 month follow up. Was in ER on 11/26 for increased peripheral edema. US duplex negative. Otherwise from liver standpoint, doing well. No abd pain, distention, N/V, pruritus. US Abd 10/2024: Hepatic steatosis. Possible liver cirrhosis. 07/01/25: Here for 6 month follow up. Echo done after last visit shows moderate . Now following with cardiology. Sleeping on adjustable bed to keep her head up. Lower extremity swelling felt more from vascular insufficiency. Waiting on special compression stockings from vascular surg office. In terms of cirrhosis likely from MAFLD/MOJICA, last US in april without any liver mass, no ascites. Pt has been watching her diet. On metformin for DM. Encouraged to talk to PCP re GLP-1 agonist. [facility] Medical History Asthma exacerbation Varicose veins of right lower extremity with inflammation Varicose veins of both legs with edema Moderate aortic valve stenosis Normal capsule endoscopy of gastrointestinal tract History of GI diverticular bleed Osteopenia of multiple sites Fatty liver Varicose veins of bilateral lower extremities with pain Type 2 diabetes mellitus without complication, without long-term current use of insulin Thrombocytopenia Osteoarthritis of multiple joints Hammertoes of both feet Colonoscopy refused Mild intermittent asthma in adult without complication Dyslipidemia Type 2 diabetes mellitus with hyperglycemia, without long-term current use of insulin Surgical History History of esophagogastroduodenoscopy (EGD) Hx of colonoscopy Hx of varicose vein ligation History of surgery on lower extremity H/O left wrist surgery Family History Mother Breast cancer Arthralgia of both feet Arthritis Brother Arthritis Brother No problems noted. Social History Household Members: None Housing: Condominium Do you presently have visiting nurse or other home services: No Alcohol intake: current Alcohol intake frequency: holidays/special occasions only Comment: call garcia within reach Patient Tobacco Use Status: Never used Tobacco e-Cigarette/Vaping Use: Never Used Second Hand Smoke Exposure: No Have you been hit, kicked, punched, or otherwise hurt by someone within the past year? If so, by whom?: No Do you feel safe in your current relationship?: Yes Do you have thoughts of harming others: None service: No Current occupational status: retired Cognitive needs: No Hearing needs: No Vision needs: Yes Review of Systems Const All systems reviewed & are unremarkable except as noted in HPI and below Physical Exam Exam Exam: No apparent distress, with obesity Nonicteric Abdomen soft, nondistended Alert and oriented x3 +2 pitting edema b/l LE Vital Signs: Last Vital Signs Pulse 75 07/01/25 10:16 BP 127/63 07/01/25 10:16 BMI result Body Mass Index 42.6 Assessment & Plan Assessment & Plan (1) Fatty liver disease, nonalcoholic: Code(s): K76.0 - Fatty (change of) liver, not elsewhere classified Category: Medical (2) Peripheral edema: Code(s): R60.0 - Localized edema Category: Medical (3) Anemia: Code(s): D64.9 - Anemia, unspecified Category: Medical Qualifiers: Anemia type: iron deficiency Iron deficiency anemia type: chronic blood loss Qualified Code(s): D50.0 - Iron deficiency anemia secondary to blood loss (chronic) Plan 1. 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 No CSPH. Plan: - No HE or ascites on exam today - MELD labs ordered - Repeat US for HCC screening due Oct 2025 - reminder set - Repeat EGD for variceal screening in - Avoid NSAIDs. Tylenol 2g/day ok for pain control if needed - Control of metabolic factors - Offered to initiate GLP 1A today but pt would like to discuss with PCP first 2. Peripheral edema Less likely to be related to liver disease. Pt with known lymphedema due to vascular insufficiency + also has mod . Plan: - Mgmt as per vascular surg and cardiology. 3. Mild normocytic anemia noted on labs earlier this year. Not on any iron repletion currently. Plan: - Check CBC, ferritin, B12 and folate 4. CRC screening: Hx of T.A 2022. Future colo in 2032 optional, if pt in good health Follow up 6 months Orders: Orders Complete Blood Count no Diff Today K76.0 - Fatty (change of) liver, not elsewhere classified Comprehensive Met. Panel Today K76.0 - Fatty (change of) liver, not elsewhere classified Prothrombin Time INR Today K76.0 - Fatty (change of) liver, not elsewhere classified Ferritin Today D50.0 - Iron deficiency anemia secondary to blood loss (chronic) US abdomen complete 4 Months K76.0 - Fatty (change of) liver, not elsewhere classified Vitamin B12 and Folate Today D50.0 - Iron deficiency anemia secondary to blood loss (chronic) Coding Level of Care Code Est Pt Level 5 (71587) Diagnoses Fatty liver disease, nonalcoholic K76.0 Peripheral edema R60.0 Iron deficiency anemia due to chronic blood loss D50.0 Anemia type: iron deficiency Iron deficiency anemia type: chronic blood loss
[2025-07-01 10:16] VITALS: BP 127/63; PULSE 75; BMI 42.6
== END 2025-07-01 11:05 | disposition home or self-care (01) ==
LOC: HO.HGI 10:09
PROVIDERS: PCP Internal Medicine; Visit Provider Internal Medicine
DX: K76.0 Fatty (change of) liver, not elsewhere classified (principal); R60.0 Localized edema; D50.0 Iron deficiency anemia secondary to blood loss (chronic)
CPT/HCPCS: 99214

== ENCOUNTER 2025-07-01 10:09 | Outpatient (REF) | payer MEDICARE, SELFPAY ==
[2025-07-01 12:46] LABS: Hemoglobin 8.6 g/dl (12.0-16.0); Mean Corpuscular Volume 76.2 fL (80.0-98.0); NRBC Abs Auto 0.000 X10*3/uL (0.0-0.012); NRBC Pct Auto 0.0 /100WBC (0.0-0.2); PLT CLUMP 1
[2025-07-01 12:47] LABS: Hematocrit 29.2 % (37.0-47.0); Mean Corpuscular HGB Conc 29.5 g/dl (31.0-35.0); Mean Corpuscular Hemoglobin 22.5 pg (27.0-33.0); Red Blood Count 3.83 X10*6/uL (4.20-5.50)
[2025-07-01 12:52] LABS: PLT ABN DIST 1
[2025-07-01 12:57] LABS: INTERNATIONAL NORM RATIO 1.2 (0.9-1.1); Prothrombin Time 13.4 SEC (10.9-12.4)
[2025-07-01 13:39] LABS: Alanine Aminotransferase 17 U/L (0-31); Albumin Level 3.4 g/dL (3.5-5.0); Alkaline Phosphatase 86 U/L (39-117); Anion Gap 14 (12-20); Aspartate Amino Transferase 44 U/L (5-31); Blood Urea Nitrogen 11 mg/dL (9-16); Calcium 8.8 mg/dL (8.4-10.2); Carbon Dioxide 30 mmol/L (22-29); Chloride 102 mmol/L (96-108); Estimated Glomerular Filt Rate > 60; Potassium 4.2 mmol/L (3.3-5.1); Sodium 142 mmol/L (135-145); Total Protein 8.0 g/dL (6.5-8.0)
[2025-07-01 13:52] LABS: White Blood Count 6.4 X10*3/uL (4.8-10.8)
[2025-07-01 14:01] LABS: Ferritin 7 ng/mL (10-250)
[2025-07-01 14:12] LABS: Folate 13.0 ng/mL (> or = 4.0); Vitamin B12 618 pg/mL (200-900)
== END 2025-07-01 10:10 | disposition home or self-care (01) ==
LOC: HO.LAB 10:09
PROVIDERS: PCP Internal Medicine; Visit Provider Internal Medicine
DX: K76.0 Fatty (change of) liver, not elsewhere classified (principal); D50.0 Iron deficiency anemia secondary to blood loss (chronic); R60.0 Localized edema
CPT/HCPCS: 36415; 80053; 82607; 82728; 82746; 85027; 85610; 99212

== ENCOUNTER 2025-07-31 07:27 | Outpatient (REF) | payer MEDICARE, SELFPAY ==
--- NOTE | ~2025-07-31 | CT_ITS ---
EXAMINATION: CT ABDOMEN PELVIS ENTEROGRAPHY WITHOUT IV CONTRAST HISTORY: D50.0 - Iron deficiency anemia secondary to blood loss (chronic) COMPARISON: Comparison is made with the prior examination dated 07/22/2023. TECHNIQUE: CT enterography of the abdomen and pelvis was performed following administration of 85 mL Omnipaque 350 using standard departmental protocol. Coronal and sagittal reformatted images were generated and reviewed. The patient received low-density oral contrast material for CT enterography. This CT exam was performed with one or more of the following dose reduction techniques: automated exposure control, adjustment of the mA and/or kV according to patient size, use of iterative reconstruction technique. DLP: 784 mGy-cm FINDINGS: LOWER CHEST: The visualized lung bases are clear. There is no pleural effusion. CARDIOVASCULATURE: The heart is enlarged. There is no pericardial effusion. LIVER: The liver demonstrates a nodular contour, consistent with cirrhosis. There is a recannulized paraumbilical vein. No liver mass is identified. The hepatic and portal veins are patent. GALLBLADDER / BILE DUCTS: The gallbladder is unremarkable. There is no intra or extrahepatic biliary ductal dilatation. SPLEEN: The spleen is normal in size. No focal splenic lesion is identified. PANCREAS: The pancreas is unremarkable in appearance. ADRENAL GLANDS: Within normal limits. KIDNEYS/RETROPERITONEUM: No renal calculi are identified. There is no hydronephrosis. There is a 12 mm cyst in the interpolar region of the right kidney. LYMPH NODES: No abdominal or pelvic lymphadenopathy. VASCULATURE: The abdominal aorta is normal in caliber. Numerous varices are again noted surrounding the ascending colon and hepatic flexure. MESENTERY/PERITONEUM: No free fluid. No masses. There is no free intraperitoneal gas. STOMACH: The stomach is unremarkable. SMALL BOWEL: There is suboptimal distention of the small bowel with low-density oral contrast. There is no abnormal bowel dilatation. COLON: There is extensive diverticulosis of the colon without definite evidence of diverticulitis. APPENDIX: Normal. URINARY BLADDER/PELVIC ORGANS: The urinary bladder is collapsed, limiting evaluation. The uterus is unremarkable. BONES / SOFT TISSUES: No suspicious bony or soft tissue abnormalities. CT/CT enterography IMPRESSION: 1. Cirrhosis of the liver with numerous varices surrounding the ascending colon and hepatic flexure. 2. Suboptimal distention of the small bowel. No obvious abnormality is identified. 3. Extensive colonic diverticulosis without evidence of diverticulitis. Electronically signed by: Callum Hudson MD 07/31/2025 09:21 AM EDT
[2025-07-31] MEDS: Sorbitol/Mannit/Xanth Imaging 500 ML LIQUID 1500 ML PO (08:55)
[2025-07-31] MEDS: iohexoL 350 MG/ML 100 ML INFUS..BTL IV (08:55)
== END 2025-07-31 07:28 | disposition home or self-care (01) ==
LOC: HO.CT 07:27
PROVIDERS: PCP Internal Medicine; Visit Provider Internal Medicine
DX: D50.0 Iron deficiency anemia secondary to blood loss (chronic) (principal); K74.60 Unspecified cirrhosis of liver; I86.8 Varicose veins of other specified sites; K63.89 Other specified diseases of intestine; K57.30 Diverticulosis of large intestine without perforation or abscess without bleeding
CPT/HCPCS: 74177; Q9967

== ENCOUNTER → 2025-07-31 07:29 | Outpatient (BNV) | payer MEDICARE, SELFPAY | PROVIDERS: PCP Internal Medicine; Visit Provider Radiology Diagnostic Radiology | DX: K74.69 Other cirrhosis of liver (principal); K57.30 Diverticulosis of large intestine without perforation or abscess without bleeding | CPT/HCPCS: 74177 ==

== ENCOUNTER 2025-08-09 08:49 | Outpatient (REF) | payer MEDICARE, SELFPAY ==
[2025-08-09 12:39] LABS: Alanine Aminotransferase 17 U/L (0-31); Anion Gap 13 (12-20); Aspartate Amino Transferase 48 U/L (5-31); Blood Urea Nitrogen 10 mg/dL (9-16); Calcium 8.7 mg/dL (8.4-10.2); Carbon Dioxide 29 mmol/L (22-29); Chloride 103 mmol/L (96-108); Cholesterol 109 mg/dL (<200); Estimated Glomerular Filt Rate > 60; HDL Cholesterol 36 mg/dL (>40); Potassium 4.1 mmol/L (3.3-5.1); Sodium 141 mmol/L (135-145); Triglycerides 57 mg/dL (<150)
== END 2025-08-09 08:50 | disposition home or self-care (01) ==
LOC: HO.HMGCLDS 08:49
PROVIDERS: PCP Internal Medicine; Visit Provider Internal Medicine
DX: E11.9 Type 2 diabetes mellitus without complications (principal); E78.5 Hyperlipidemia, unspecified
CPT/HCPCS: 36415; 80048; 80061; 83036; 84450; 84460

== ENCOUNTER 2025-08-14 09:19 | Outpatient (AMB) | payer MEDICARE, SELFPAY ==
--- NOTE | 2025-08-14 09:41 | A.OFFPC_ITS ---
Vital Signs 08/14/25 09:42 Height 5 ft 3 in Weight 241 lb BMI 42.7 BP 128/62 Blood Pressure Location Lt brachial Position Sitting Respiration 17 Pulse 76 Pulse Source Pulse Oximeter Temp 97.8 F Temp Source Oral Pulse Oximetry (%) 93 Oxygen Delivery Method Room Air Intake Visit Reasons: 6 months f/up Intake Note: Pt is here today for her 6mo. f/u [employer] Products Required: No Allergies benzethonium chloride (From LANACANE ANTI-ITCH) Allergy (Unknown, Verified 08/14/25 09:44) BLISTERS IN MOUTH benzocaine (From LANACANE ANTI-ITCH) Allergy (Unknown, Verified 08/14/25 09:44) BLISTERS IN MOUTH ibuprofen Allergy (Unknown, Verified 08/14/25 09:44) nose bleed naproxen Allergy (Unknown, Verified 08/14/25 09:44) nose bleed Medication List - Last Reconciled 08/14/25 by Daniela Eduardo MD albuterol sulfate 90 mcg/actuation 2 puffs PO Q6H PRN blood sugar diagnostic As directed blood sugar diagnostic (SD Motiongraphiksuch Verio test strips) USE TO TEST BLOOD SUGAR TWICE A DAY budesonide-formoterol 160-4.5 mcg/actuation (Symbicort) 2 puffs inhalation BID cholecalciferol (vitamin D3) 50 mcg PO DAILY coenzyme Q10 100 mg PO DAILY ferrous sulfate 325 mg PO DAILY lancets (TurpitudeTouch Delica Plus Lancet) As directed twice a day ac metformin 1,000 mg PO BID pioglitazone (Actos) 15 mg PO DAILY pravastatin 20 mg PO BEDTIME Tobacco use date assessed: 08/14/25 Fall risk assessment: 1 Fall in past year Last assessed Fall Risk: 08/14/25 Dental Screening Dental Screen Date: 08/14/25 Did you have a dental visit in the last 12 months?: Yes Did you have a dental problem in the last 6 months where you did not have access to dental care?: No Was dental information given to patient?: Patient has dentist HPI 6 months f/up HPI Details 74-year-old lady with past medical histo ry significant for diabetes mellitus with mild nonproliferative diabetic retinopathy OU followed by Dr. Stewart, dyslipidemia, here today for her follow-up visit. With medications and diet, does not been able to exercise much due to problems with swelling in both legs due to varicose veins and arthritis in both lower extremities . Latest hemoglobin A1c is at 5.7% with fasting lipids within normal limits except for low HDL cholesterol. She sees Dr. Strickland for treatment of iron deficiency anemia, gets iron infusions until 03 September this year. Has [id number] aortic stenosis, currently asymptomatic, seen by Dr. Flaherty, with no indications for surgery present time, repeat echocardiogram scheduled for 02/10/2026. Has been feeling well with no complaints of chest pain, shortness of breath lightheadedness or headache, gets intermittent episodes of swelling in both lower extremities, has been prescribed a venous compression device by her vascular surgeon which she has been using intermittently and has been raising her legs up as much as possible which was has also been helping. [facility] Medical History Type 2 diabetes mellitus with mild nonproliferative diabetic retinopathy Varicose veins of right lower extremity with inflammation Varicose veins of both legs with edema Moderate aortic valve stenosis Normal capsule endoscopy of gastrointestinal tract History of GI diverticular bleed Osteopenia of multiple sites Fatty liver Thrombocytopenia Osteoarthritis of multiple joints Hammertoes of both feet Colonoscopy refused Mild intermittent asthma in adult without complication Dyslipidemia Surgical History History of esophagogastroduodenoscopy (EGD) Hx of colonoscopy Hx of varicose vein ligation History of surgery on lower extremity H/O left wrist surgery Family History Mother Breast cancer Arthralgia of both feet Arthritis Brother Arthritis Brother No problems noted. Social History Household Members: None Housing: Condominium Do you presently have visiting nurse or other home services: No Alcohol intake: current Alcohol intake frequency: holidays/special occasions only Comment: call garcia within reach Patient Tobacco Use Status: Never used Tobacco e-Cigarette/Vaping Use: Never Used Second Hand Smoke Exposure: No service: No Current occupational status: retired Cognitive needs: No Hearing needs: No Vision needs: Yes Questionnaire PHQ-9 Over the last 2 weeks, how often have you been bothered by any of the following problems? 1. Little interest or pleasure in doing things: not at all 2. Feeling down, depressed, or hopeless: not at all 3. Trouble falling or staying asleep, or sleeping too much: not at all 4. Feeling tired or having little energy: not at all 5. Poor appetite or overeating: not at all 6. Feeling bad about yourself - or that you are a failure or have let yourself or your family down: not at all 7. Trouble concentrating on things, such as reading the newspaper or watching television: not at all 8. Moving or speaking so slowly that other people could have noticed. Or the opposite - being so fidgety or restless that you have been moving around a lot more than usual: not at all 9. Thoughts that you would be better off or of hurting yourself in some way: not at all Total score: 0 Depression Screening Interpretation: Negative Depression Screening Done: Yes Source: Developed by Drs. Callum Gomez, Chiquita Simon, Sharath Anna and colleagues, with an educational sy from [employer]. Thrive Questionnaire Date Thrive assessed: 02/05/25 I am a: Patient What is your living situation today?: I have a steady place to live Within the past 12 months, did the food you bought not last and you didn't have the money to get more?: Never true Within the past 12 months, did you worry whether your food would run out before you got money to buy more?: Never true Do you have trouble paying for medicines?: No Do you have trouble getting transportation to medical appointments?: Yes Do you have trouble paying your heating and electricity bill?: No Do you have trouble taking care of your child, family member or friend?: No Do you have trouble with day-to-day activities such as bathing, preparing meals, shopping, managing finances, etc.?: No Are you currently unemployed and looking for a job?: No Are you interested in more education?: No Please select the resources that you would like help with: Transportation Currently or been in a relationship where the following occur: No concerns reported THRIVE Score: 1 AUDIT C Alcohol Use Questionnaire (AUDIT-C) 1. How often do you have a drink containing alcohol?: Monthly or less 2. How many drinks containing alcohol do you have on a typical day when you are drinking?: 1 or 2 3. How often do you have six or more drinks on one occasion?: Never Total Score: 1 FABRIZIO-7 AMB Questionnaire FABRIZIO-7 Date FABRIZIO - 7 assessed: 08/14/25 Feeling nervous, anxious, or on edge: 0 = Not at all Not being able to stop or control worryin = Not at all Worrying too much about different things: 0 = Not at all Trouble relaxin = Not at all Being so restless that it is hard to sit still: 0 = Not at all Becoming easily annoyed or irritable: 0 = Not at all Feeling afraid as if something awful might happen: 0 = Not at all Total FABRIZIO-7 score (0-4 normal; 5-9 mild; 10-14 moderate; 15-21 severe): 0 Source: Developed by Drs. Callum Gomez, Chiquita Simon, Sharath Anna and colleagues, with an educational sy from [employer]. FABRIZIO-7 Assessment Billing FABRIZIO-7 Assessment Tool: FABRIZIO-7 Assessment 41714 Review of Systems Const Denies weakness Eyes Details: Sees Dr. Stewart, has mild nonproliferative diabetic retinopathy [facility] ENT Denies dizziness Card Denies chest pain, Denies chest pain with activity, Denies syncope, Denies rapid heart rate, Reports leg edema (Intermittent), Denies lightheadedness, Denies palpitations and Denies dyspnea Resp Denies cough and Denies dyspnea GI Denies hematochezia and Denies change in stool character Musc Reports joint swelling, Denies muscle cramps, Denies muscle weakness, Denies numbness, Denies radiating pain into limb and Denies tingling Neuro Denies dizziness, Denies syncope, Denies numbness, Denies tingling and Denies weakness Psych Reports no additional complaints Endo Denies palpitations Abhilash/Lymph Reports no additional complaints Physical exam (Primary Care) Vital Signs: Last Vital Signs Temp 97.8 F 08/14/25 09:42 Pulse 76 08/14/25 09:42 Resp 17 08/14/25 09:42 BP 128/62 08/14/25 09:42 Pulse Ox 93 08/14/25 09:42 Oxygen Delivery Method Room Air 08/14/25 09:42 BMI result Body Mass Index 42.7 Tobacco/Smoking Status: Tobacco use Status Tobacco use date assessed 08/14/25 08/14/25 09:46 Patient Tobacco Use Status Never used Tobacco 08/14/25 09:46 e-Cigarette/Vaping Use Never Used 08/14/25 09:46 PHQ-9: PHQ-9 Score PHQ-9: Total score 0 08/14/25 09:46 Depression Screening Interpretation: Negative Thrive Assessment: Date of Thrive Assessment Date Thrive assessed 02/05/25 08/14/25 09:46 Currently or been in a relationship where the following occur: No concerns reported Const General: no acute distress and alert Orientation/consciousness: patient oriented x3 HENMT Ears: external ears normal General nose exam: Normal external nose present Mouth: Normal oral and palatal mucosa present and moist mucous membranes Eyes General: appearance normal, both eyes and all related structures Neck Neck: Yes full ROM, Yes no lymphadenopathy and Yes supple Resp Effort & Inspection: normal respiratory effort and able to speak in complete sentences Auscultation: clear to auscultation bilaterally Cardio Rate: regular rate Rhythm: regular rhythm Heart sounds: S1 normal heart sound present, S2 normal heart sound present and Murmur heart sound present systolic mid and at the right sternal border GI Palpation (GI): Soft to palpation, nontender and no masses Auscultation: normal bowel sounds Back/Spine/Pelvis Back: No back tenderness Skin General skin exam: no rashes or lesions noted Neuro General: patient oriented x3, gait normal, tone normal, moves all extremities, Normal light touch and pain sensation and no focal motor deficits Cranial nerves: Yes CN's II-XII intact bilaterally Cognition (Neuro): normal cognition Extrem General: Yes full ROM, Yes no joint enlargement, Yes no clubbing, cyanosis or edema and Yes no calf tenderness Psych Appearance: grossly normal and well kempt Mental Status: mental status grossly normal Speech and movement: Normal speech and movement present Affect: normal affect Results Reviewed Results Reviewed: Laboratory Tests 02/01/25 08/09/25 12:15 09:02 Estimat Average Glucose 117 Hemoglobin A1c % 5.7 Urine Creatinine 131.57 Urine Microalbumin 7.0 Microalb/Creat Ratio 5.3 Name: Paula Baum Yefri Age/Sex: 74/F : 1950 Unit#: [id number] Attend Dr: Daniela Eduardo MD Re08/09/25 Status: DEP REF Location: [facility] Disch: SPEC : [id number] SANGITA: 08/09/25 STATUS: COMP REQ : [id number] RECD: 08/09/[address]: Daniela Eduardo MD COMP: 08/09/25 ENTERED: 08/09/[address] [facility] [address]: ORDERED: Met Prof Fast, AST, ALT, Lipid Panel Test Result Flag Reference Sodium 141 135-145 mmol/L Potassium 4.1 3.3-5.1 mmol/L CL 103 96-108 mmol/L CO2 29 22-29 mmol/L Gap 13 12-20 BUN 10 9-16 mg/dL Creat 0.61 0.5-1.4 mg/dL eGFR > 60 Chronic Kidney Disease: Estimated GFR < 60 mL/min/1.73m2 Severe Kidney Disease: Estimated GFR < 15 mL/min/1.73m2 FBS 120 H 60-99 mg/dL A fasting glucose from 100-125 mg/dl is considered impaired (pre-diabetes). CA 8.7 8.4-10.2 mg/dL AST (GOT) 48 H 5-31 U/L ALT (GPT) 17 0-31 U/L Triglyceride 57 <150 mg/dL Desirable Triglyceride: less than 150 mg/dL Borderline High Triglyceride 150-199 mg/dL High Triglyceride: 200-499 mg/dL Very High Triglyceride: greater than or equal to 5OO mg/dL Cholesterol 109 <200 mg/dL Desirable Cholesterol: less than 200 mg/dL Borderline High Cholesterol: 200-239 mg/dL High Cholesterol: greater than 239 mg/dL LDL Calculated 62 <100 mg/dL Desirable LDL: less than 100 mg/dL Near Optimal/Above Optimal LDL: 110-129 mg/dL Borderline High LDL: 130-159 mg/dL High LDL: 160-189 mg/dL Very High LDL: greater than or equal to 190 mg/dL HDL 36 L >40 mg/dL Desirable HDL: greater than 40 mg/dL Note: This HDL assay may give artificially low results in patients with liver disease. Coding Level of Care Code Est Pt Level 4 (43929) Complex EM visit Add On G2211 Diagnoses Dyslipidemia E78.5 Osteopenia of multiple sites M85.89 Type 2 diabetes mellitus with mild nonproliferative diabetic retinopathy E11.3299 Additional Codes FABRIZIO-7 Assessment Billing - FABRIZIO-7 Assessment Tool: FABRIZIO-7 Assessment 20577 ([id number]) Assessment & Plan Assessment & Plan (1) Dyslipidemia: Code(s): E78.5 - Hyperlipidemia, unspecified Category: Medical Plan: Latest fasting lipids are within normal limits, continue on pravastatin 20 mg at bedtime repeat fasting lipids in October 2025 (2) Osteopenia of multiple sites: Code(s): M85.89 - Other specified disorders of bone density and structure, multiple sites Category: Medical Plan: Previously was on alendronate, now placed on drug holiday by Dr. Franco as last bone density scan done a year ago showed presence of osteopenia, continued on calcium and vitamin-D supplements and repeat another bone density scan in 2025 (3) Type 2 diabetes mellitus with mild nonproliferative diabetic retinopathy: Code(s): E11.3299 - Type 2 diabetes mellitus with mild nonproliferative diabetic retinopathy without macular edema, unspecified eye Category: Medical Plan: Recent lab results reviewed with patient, with sugar and hemoglobin A1c stable and at goal. continue with pioglitazone and metformin same dose. Reinforced diabetic diet and regular exercise with patient. Counseled regarding importance of yearly diabetes retinopathy screening. Patient advised to inspect feet daily, for any signs of injury, callus or infection. Compliance with diet and regular exercise again stressed. Blood pressure goal is less than 130/80, goal LDL is less than 100 and goal hemoglobin A1c is less than 7% follow-up appointment made in, after fasting labs done. Reminded to get her flu vaccine, COVID vaccine and an updated pneumonia vaccine Orders: Orders Aspartate Amino Transferase 10/26/25 E11.9 - Type 2 diabetes mellitus without complications, E78.5 - Hyperlipidemia, unspecified, M85.89 - Other specified disorders of bone density and structure, multiple sites Alanine Aminotransferase 10/26/25 E11.9 - Type 2 diabetes mellitus without complications, E78.5 - Hyperlipidemia, unspecified, M85.89 - Other specified disorders of bone density and structure, multiple sites Lipid Panel 10/26/25 E11.9 - Type 2 diabetes mellitus without complications, E78.5 - Hyperlipidemia, unspecified, M85.89 - Other specified disorders of bone density and structure, multiple sites Hemoglobin A1c 10/26/25 E11.9 - Type 2 diabetes mellitus without complications, E78.5 - Hyperlipidemia, unspecified, M85.89 - Other specified disorders of bone density and structure, multiple sites Basic Metabolic Panel Fasting 10/26/25 E11.9 - Type 2 diabetes mellitus without complications, E78.5 - Hyperlipidemia, unspecified, M85.89 - Other specified disorders of bone density and structure, multiple sites Microalbumin, Random (w Creat) 10/26/25 E11.9 - Type 2 diabetes mellitus without complications, E78.5 - Hyperlipidemia, unspecified, M85.89 - Other specified disorders of bone density and structure, multiple sites Vitamin D 25-OH Total 10/26/25 E11.9 - Type 2 diabetes mellitus without complications, E78.5 - Hyperlipidemia, unspecified, M85.89 - Other specified disorders of bone density and structure, multiple sites Medications: Refilled pioglitazone (Actos) 15 mg PO DAILY 90 tabs 2RF metformin 1,000 mg PO BID 180 tabs 1RF E11.65 - Type 2 diabetes mellitus with hyperglycemia
[2025-08-14 09:42] VITALS: BP 128/62; PULSE 76; RESP 17; TEMP 36.6; O2SAT 93; BMI 42.7
== END 2025-08-14 10:31 | disposition home or self-care (01) ==
LOC: HO.HMCC 09:20
PROVIDERS: PCP Internal Medicine; Visit Provider Internal Medicine
DX: E78.5 Hyperlipidemia, unspecified (principal); M85.89 Other specified disorders of bone density and structure, multiple sites; E11.3299 Type 2 diabetes mellitus with mild nonproliferative diabetic retinopathy without macular edema, unspecified eye

== ENCOUNTER → 2025-08-14 09:19 | Outpatient (BNVA) | payer MEDICARE, SELFPAY | PROVIDERS: PCP Internal Medicine; Visit Provider Internal Medicine | DX: I83.93 Asymptomatic varicose veins of bilateral lower extremities (principal); E11.3299 Type 2 diabetes mellitus with mild nonproliferative diabetic retinopathy without macular edema, unspecified eye; M19.09 Primary osteoarthritis, other specified site; D50.9 Iron deficiency anemia, unspecified; I35.0 Nonrheumatic aortic (valve) stenosis; E78.5 Hyperlipidemia, unspecified; M85.89 Other specified disorders of bone density and structure, multiple sites | CPT/HCPCS: 96127; 99212 ==

== ENCOUNTER 2025-09-11 10:00 | Outpatient (RCR) | payer MEDICARE, SELFPAY ==
[2025-08-13 09:31] VITALS: BP 148/52; PULSE 84; RESP 18; TEMP 36.1; O2SAT 95
[2025-08-21 09:37] VITALS: BP 140/49; PULSE 79; RESP 18; TEMP 36.6
[2025-08-29 09:53] VITALS: BP 157/67; PULSE 78; RESP 18; TEMP 36.6
[2025-09-06 09:45] VITALS: BP 153/59; PULSE 80; RESP 20; TEMP 36.2; O2SAT 96
[2025-09-11 09:42] VITALS: BP 154/68; PULSE 86; RESP 18; TEMP 36.6; O2SAT 95
[2025-09-11] MEDS: 0.9 % Sodium Chloride Flush 10 ML SYRINGE 5 ML IVFLUSH (10:09)
== END 2025-09-11 10:17 | disposition home or self-care (01) ==
LOC: HO.INF 10:00
PROVIDERS: Visit Provider Internal Medicine
DX: D50.0 Iron deficiency anemia secondary to blood loss (chronic) (principal)
CPT/HCPCS: 96365; J1756

== ENCOUNTER 2025-09-11 12:40 | Outpatient (AMB) | payer MEDICARE, SELFPAY ==
--- NOTE | 2025-09-11 12:40 | MHC.OFFVIS ---
Intake Visit Reasons: discuss having VCE Intake Note: Paula states that she just had her last iron infusion per Dr. Strickland today and that she is feeling okay! [employer] Required: No Allergies benzethonium chloride (From LANACANE ANTI-ITCH) Allergy (Unknown, Verified 09/11/25 12:40) BLISTERS IN MOUTH benzocaine (From LANACANE ANTI-ITCH) Allergy (Unknown, Verified 09/11/25 12:40) BLISTERS IN MOUTH ibuprofen Allergy (Unknown, Verified 09/11/25 12:40) nose bleed naproxen Allergy (Unknown, Verified 09/11/25 12:40) nose bleed HPI Comments Details: This is a 72-year-old female with medical history of obesity, type 2 diabetes, hypertension, who was seen in the hospital last month for profound anemia and underwent EGD and colonoscopy, here for post hospitalization visit. Hospital admission 07/19-07/22/2023: Presented for abnormal labs to her PCP's office with initial hemoglobin of 5.5. Previous baseline was normal from 2019. No reported history of abdominal pain, changes in bowel habits, melena, hematochezia. Had knee surgery earlier this year. No anticoagulants or NSAIDs on board. After undergoing PRBC transfusion, had EGD and colonoscopy. 07/21/2023: EGD/colo: 1. Normal esophagus 2. Normal stomach 3. Normal duodenum (biopsy) 4. Abnormal mucosa in sigmoid colon 5. One polyp removed 6. Diverticulosis 7. Hemorrhoids Path: Diagnosis A. Duodenum, biopsy: Duodenal mucosa with preserved villi and no specific change. B. Colon, ascending, polyp: Tubular adenoma (2 pieces); negative for high-grade dysplasia and carcinoma, and 2 fragments of degenerated duodenal type mucosa (consistent with contaminant). C. Colon, rectal-sigmoid, biopsy: Mild active colitis with mild chronic regenerative changes; negative for dysplasia (see comment) 08/03/23: Today, reports feeling much better. Fatigue and shortness of breath is a lot better. Has more energy. Patient lives by herself at home. Does not have any immediate family members such as spouse or children. However, her friends checkup on her daily. Continues on iron pills through PCP's office. 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 BMI 38 with type 2 diabetes and hyperlipidemia. VCE 09/19/23: ?? small jejunal ulcers/erosions but poor prep. 11/21/23: Seen by Heme earlier this month. Had not been compliant with PO iron but now taking it regularly as wishes to avoid IV iron. Labs with anemia unchanged which is not surprising if had not been taking iron supplementation. Otherwise, has no active issues. No abd pain, N,V. Now taking PO iron first thing in the morning every day for the last 6 weeks. 02/20/24: Here for follow up. Labs reviewed. Anemia better. Cont on PO iron with vit C. In terms of fatty liver - prediabetes in control on metformin. HLD well controlled on pravastatin. Weight curve noted - has gained almost 20lbs in the past 6 months. Activity levels are limited due to unstable gait. Uses a walker. US Abd: 1. There is generalized increase in hepatic echotexture and a lobular hepatic contour, consistent with the provided history of cirrhosis. No focal hepatic mass or intrahepatic biliary dilatation is seen. 2. There is a recanalized umbilical vein. 07/11/24: Here for post hospitalisation follow up. Was admitted in April for large volume painless rectal bleeding likely diverticular. s/p EGD/colon. hiatal hernia barretts gastritis Colonoscopy Findings: diverticulosis, and diverticular bleed internal hemorrhoids Path: A. Stomach, biopsy: Oxyntic mucosa with mild chronic inactive inflammation; no Helicobacter organisms seen. B. Esophagus, distal, biopsy: - Sorto esophagus with background moderate chronic active inflammation. - No dysplasia seen. - Squamous mucosa within normal limits Currently doing well. No recurrene of bleeding. Blood work from May reviewed and H/H uptrending. Also follows with Dr Strickland. US Abd reviewed with the pt. Reminder for next one set. 01/02/25: Here for 6 month follow up. Was in ER on 11/26 for increased peripheral edema. US duplex negative. Otherwise from liver standpoint, doing well. No abd pain, distention, N/V, pruritus. US Abd 10/2024: Hepatic steatosis. Possible liver cirrhosis. 07/01/25: Here for 6 month follow up. Echo done after last visit shows moderate . Now following with cardiology. Sleeping on adjustable bed to keep her head up. Lower extremity swelling felt more from vascular insufficiency. Waiting on special compression stockings from vascular surg office. In terms of cirrhosis likely from MAFLD/MOJICA, last US in april without any liver mass, no ascites. Pt has been watching her diet. On metformin for DM. Encouraged to talk to PCP re GLP-1 agonist. 09/12/25: Pt jose for telehealth visit for persistent anemia despite iron supplementation. To review she has had egd/colo x2 as well as a VCE 07/2023 (albeit poor prep). Reviewed with the patient that would favor repeating BC again, as it previously did show some small bowel ulceration, despite the poor prep. Enterography 07/31/2025 without any small bowel mass. It does however show numerous colonic varices. She has completed 5 infusions of Venofer. Repeat blood work is pending. [facility] Medical History Type 2 diabetes mellitus with mild nonproliferative diabetic retinopathy Varicose veins of right lower extremity with inflammation Varicose veins of both legs with edema Moderate aortic valve stenosis Normal capsule endoscopy of gastrointestinal tract History of GI diverticular bleed Osteopenia of multiple sites Fatty liver Thrombocytopenia Osteoarthritis of multiple joints Hammertoes of both feet Colonoscopy refused Mild intermittent asthma in adult without complication Dyslipidemia Surgical History History of esophagogastroduodenoscopy (EGD) Hx of colonoscopy Hx of varicose vein ligation History of surgery on lower extremity H/O left wrist surgery Family History Mother Breast cancer Arthralgia of both feet Arthritis Brother Arthritis Brother No problems noted. Social History Household Members: None Housing: Condominium Do you presently have visiting nurse or other home services: No Alcohol intake: current Alcohol intake frequency: holidays/special occasions only Comment: call garcia within reach Patient Tobacco Use Status: Never used Tobacco e-Cigarette/Vaping Use: Never Used Second Hand Smoke Exposure: No service: No Current occupational status: retired Cognitive needs: No Hearing needs: No Vision needs: Yes Review of Systems Const All systems reviewed & are unremarkable except as noted in HPI and below Physical Exam Exam Exam: Telephone visit Telehealth Telehealth Telehealth Platform: Telephone Location of provider rendering services: practice address Location of patient: address on file Patient Identification confirmed using: Name, : Yes Telehealth method: voice only Patient verbally consented to treatment: Yes Patient verbally consented to billing insurance company: Yes Patient informed of any privacy concerns related to visit: Yes Minutes spent on Phone/Video with Pt.: 14 Assessment & Plan Assessment & Plan (1) Anemia: Code(s): D64.9 - Anemia, unspecified Category: Medical Qualifiers: Anemia type: iron deficiency Iron deficiency anemia type: chronic blood loss Qualified Code(s): D50.0 - Iron deficiency anemia secondary to blood loss (chronic) (2) Moderate aortic valve stenosis: Code(s): I35.0 - Nonrheumatic aortic (valve) stenosis Category: Medical (3) Type 2 diabetes mellitus with mild nonproliferative diabetic retinopathy: Code(s): E11.3299 - Type 2 diabetes mellitus with mild nonproliferative diabetic retinopathy without macular edema, unspecified eye Category: Medical (4) Fatty liver disease, nonalcoholic: Code(s): K76.0 - Fatty (change of) liver, not elsewhere classified Category: Medical Plan JUANITA: patient with persistent iron-deficiency anemia despite supplementation. EGD and colonoscopy x2 negative. We see 2022 with poor prep, however did show small ulcerations in the small bowel. Reviewed with the patient, that would advocate for repeating video capsule endoscopy with hopefully a better prep. 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 Enterography makes note of colonic varices but the absence of any overt bleeding makes variceal bleeding less likely. Plan: - VCE to be booked in 2-3 weeks - Instructions to be mailed to the patient - Repeat labs in 2 weeks to assess response to parenteral iron repletion MAFLD/MOJICA: MELD 3/0: 9 (99.2?% estimated 90-day survival) Most recent CTE suggestive of CSPH. Plan: - Unable to assess for HE or ascites over phone visit - Repeat US for HCC screening jose Oct 2025 - reminded pt - Repeat EGD for variceal screening to be booked in 2025 - Avoid NSAIDs. Tylenol 2g/day ok for pain control if needed - Control of metabolic factors Follow up in 3 months Orders: Orders Complete Blood Count no Diff 09/11/25 D50.0 - Iron deficiency anemia secondary to blood loss (chronic) IRON PROFILE 09/11/25 D50.0 - Iron deficiency anemia secondary to blood loss (chronic) Ferritin 09/11/25 D50.0 - Iron deficiency anemia secondary to blood loss (chronic) Coding Level of Care Code Complex visit Add On [id number] Diagnoses Iron deficiency anemia due to chronic blood loss D50.0 Anemia type: iron deficiency Iron deficiency anemia type: chronic blood loss Moderate aortic valve stenosis I35.0 Type 2 diabetes mellitus with mild nonproliferative diabetic retinopathy E11.3299 Fatty liver disease, nonalcoholic K76.0
== END 2025-09-11 14:00 | disposition home or self-care (01) ==
LOC: HO.HGI 12:40
PROVIDERS: PCP Internal Medicine; Visit Provider Internal Medicine
DX: D50.0 Iron deficiency anemia secondary to blood loss (chronic) (principal); I35.0 Nonrheumatic aortic (valve) stenosis; E11.3299 Type 2 diabetes mellitus with mild nonproliferative diabetic retinopathy without macular edema, unspecified eye; K76.0 Fatty (change of) liver, not elsewhere classified
CPT/HCPCS: 99213

== ENCOUNTER 2025-09-30 09:50 | Outpatient (REF) | payer MEDICARE, SELFPAY ==
[2025-09-30 13:52] LABS: Hematocrit 38.1 % (37.0-47.0); Mean Corpuscular HGB Conc 30.2 g/dl (31.0-35.0); Mean Corpuscular Hemoglobin 26.0 pg (27.0-33.0); Mean Corpuscular Volume 86.2 fL (80.0-98.0); NRBC Abs Auto 0.000 X10*3/uL (0.0-0.012); NRBC Pct Auto 0.0 /100WBC (0.0-0.2); Red Blood Count 4.42 X10*6/uL (4.20-5.50); White Blood Count 5.5 X10*3/uL (4.8-10.8)
[2025-09-30 14:11] LABS: Hemoglobin 11.5 g/dl (12.0-16.0)
[2025-09-30 14:16] LABS: Platelet Count 93 X10*3/uL (160-400)
[2025-09-30 14:37] LABS: Iron 47 mcg/dL (30-160); Percent Iron Saturation 14 % (15-50); Total Iron Binding Capacity 345 mcg/dL (228-428); Unsaturated Iron Binding 298 ug/dL
[2025-09-30 17:21] LABS: Ferritin 53 ng/mL (10-250)
== END 2025-09-30 09:51 | disposition home or self-care (01) ==
LOC: HO.HMGCLDS 09:50
PROVIDERS: PCP Internal Medicine; Visit Provider Internal Medicine
DX: D50.0 Iron deficiency anemia secondary to blood loss (chronic) (principal)
CPT/HCPCS: 36415; 82728; 83540; 85027